=== PATIENT | male | born 1935 | race Caucasian/White ===

== ENCOUNTER 2018-12-20 16:53 | Observation (INO) | payer MEDICARE ==
[~2018-12-20] VITALS: Ht 177.8 cm; Wt 64.4 kg
--- OUTSIDE RECORDS SUMMARY | 2018-12-20 16:59 | XMS REPORT ---
Author Author [facility] Address Unknown Phone Unavailable Care Team Providers Care Patcher Helper Name Role Phone ADEKEVINNT CAITLYN Unavailable Unavailable JEAN ZAMUDIO Unavailable Unavailable DAQUAN RAMOS Unavailable Unavailable Monalisa MORATAYA Unavailable Unavailable SHA MANSFIELD Unavailable Unavailable USMAN PATTON Unavailable Unavailable JEAN CARDONA Unavailable Unavailable BROOKLYNN GALE Unavailable Unavailable INA SQUIRES Unavailable Unavailable KAREN MAGUIRE Unavailable Unavailable KARTIK DE LA TORRE Unavailable Unavailable PARAM GILES Unavailable Unavailable HERMELINDO POWER Unavailable Unavailable Problems This patient has no known problems. Allergies, Adverse Reactions, Alerts This patient has no known allergies or adverse reactions. Medications This patient has no known medications. Results Test Description Test Time Test Comments Text Results Atomic Results Result Comments HEPATIC FUNCTION PANEL 2018-12-17 15:37:00 TOTAL PROTEIN (BEAKER) (test ypmq=499) 7.3 gm/dL 6.0-8.3 ALBUMIN (BEAKER) (test ibui=2918) 3.3 g/dL 3.5-5.0 BILIRUBIN TOTAL (BEAKER) (test biie=098) 1.1 mg/dL 0.2-1.2 BILIRUBIN DIRECT (BEAKER) (test kqpx=138) 0.7 mg/dL 0.1-0.5 ALKALINE PHOSPHATASE (BEAKER) (test cwgg=534) 216 U/L 40-150 AST (SGOT) (BEAKER) (test ofpg=961) 216 U/L 5-34 ALT (SGPT) (BEAKER) (test fcok=111) 57 U/L 6-55 [id number] 15:37:00* Test Item Value Reference Range Comments AMYLASE (BEAKER) (test kxom=951) 39 U/L 25-125 [id number] 15:37:00* Test Item Value Reference Range Comments LIPASE (BEAKER) (test uchc=094) 59 U/L 8-78 B-TYPE NATRIURETIC FACTOR (BNP)2018-12-17 15:08:00* Test Item Value Reference Range Comments B-TYPE NATRIURETIC PEPTIDE (BEAKER) (test qcrh=051) 1199 pg/mL 0-100 BASIC METABOLIC [id number] 15:02:00* Test Item Value Reference Range Comments SODIUM (BEAKER) (test yxbm=745) 139 meq/L 136-145 POTASSIUM (BEAKER) (test rtpn=182) 3.2 meq/L 3.5-5.1 CHLORIDE (BEAKER) (test psfo=583) 95 meq/L 98-107 CO2 (BEAKER) (test ognf=741) 35 meq/L 22-29 BLOOD UREA NITROGEN (BEAKER) (test idfx=841) 34 mg/dL 7-21 CREATININE (BEAKER) (test dxda=856) 2.61 mg/dL 0.57-1.25 GLUCOSE RANDOM (BEAKER) (test iuka=340) 122 mg/dL 70-105 CALCIUM (BEAKER) (test lvjg=472) 9.0 mg/dL 8.4-10.2 EGFR (BEAKER) (test jmkd=9050) 24 mL/min/1.73 sq m ESTIMATED GFR IS NOT ACCURATE CREATININE CLEARANCE IN PREDICTING GLOMERULAR FILTRATION RATE. ESTIMATED GFR IS NOT APPLICABLE FOR DIALYSIS PATIENTS. PROTHROMBIN TIME/[id number] 14:47:00* Test Item Value Reference Range Comments PROTIME (BEAKER) (test cyum=023) 28.9 seconds 11.7-14.7 INR (BEAKER) (test mqbk=837) 2.7 <=5.9 RECOMMENDED COUMADIN/WARFARIN INR THERAPY RANGESSTANDARD DOSE: 2.0 - 3.0 Inclu charlie: PROPHYLAXIS for venous thrombosis, systemic embolization; TREATMENT for helena ous thrombosis and/or pulmonary embolus.HIGH RISK: Target INR is 2.5-3.5 for pat ients with mechanical heart valves.CBC W/PLT COUNT & AUTO [id number] 14:39:00* Test Item Value Reference Range Comments WHITE BLOOD CELL COUNT (BEAKER) (test rsjb=079) 6.2 K/ L 3.5-10.5 RED BLOOD CELL COUNT (BEAKER) (test wdzy=395) 4.25 M/ L 4.63-6.08 HEMOGLOBIN (BEAKER) (test shoy=408) 10.0 GM/DL 13.7-17.5 HEMATOCRIT (BEAKER) (test ntbh=142) 33.9 % 40.1-51.0 MEAN CORPUSCULAR VOLUME (BEAKER) (test qjjw=092) 79.8 fL 79.0-92.2 MEAN CORPUSCULAR HEMOGLOBIN (BEAKER) (test tkvx=980) 23.5 pg 25.7-32.2 MEAN CORPUSCULAR HEMOGLOBIN CONC (BEAKER) (test zkqm=331) 29.5 GM/DL 32.3-36.5 RED CELL DISTRIBUTION WIDTH (BEAKER) (test lzgz=572) 16.5 % 11.6-14.4 PLATELET COUNT (BEAKER) (test grbr=829) 172 K/CU MM 150-450 MEAN PLATELET VOLUME (BEAKER) (test bdkm=587) 10.0 fL 9.4-12.4 NUCLEATED RED BLOOD CELLS (BEAKER) (test dsjr=767) 0 /100 WBC 0-0 NEUTROPHILS RELATIVE PERCENT (BEAKER) (test noue=034) 79 % LYMPHOCYTES RELATIVE PERCENT (BEAKER) (test oubq=265) 12 % MONOCYTES RELATIVE PERCENT (BEAKER) (test fmrv=264) 9 % EOSINOPHILS RELATIVE PERCENT (BEAKER) (test quqh=631) 0 % BASOPHILS RELATIVE PERCENT (BEAKER) (test biga=040) 1 % NEUTROPHILS ABSOLUTE COUNT (BEAKER) (test mwft=835) 4.83 K/ L 1.78-5.38 LYMPHOCYTES ABSOLUTE COUNT (BEAKER) (test sasl=645) 0.72 K/ L 1.32-3.57 MONOCYTES ABSOLUTE COUNT (BEAKER) (test ygpn=428) 0.54 K/ L 0.30-0.82 EOSINOPHILS ABSOLUTE COUNT (BEAKER) (test knxs=034) 0.00 K/ L 0.04-0.54 BASOPHILS ABSOLUTE COUNT (BEAKER) (test csty=626) 0.04 K/ L 0.01-0.08 IMMATURE GRANULOCYTES-RELATIVE PERCENT (BEAKER) (test wmqq=2950) 0 % 0-1 PROTHROMBIN [id number] 03:46:00* Test Item Value Reference Range Comments PROTIME (BEAKER) (test sliy=622) 18.6 seconds 11.7-14.7 INR (BEAKER) (test wwvf=068) 1.6 <=5.9 RECOMMENDED COUMADIN/WARFARIN INR THERAPY RANGESSTANDARD DOSE: 2.0 - 3.0 Inclu charlie: PROPHYLAXIS for venous thrombosis, systemic embolization; TREATMENT for helena ous thrombosis and/or pulmonary embolus.HIGH RISK: Target INR is 2.5-3.5 for pat ients with mechanical heart valves.BASIC METABOLIC [id number] 03:39:00* Test Item Value Reference Range Comments SODIUM (BEAKER) (test ucsp=198) 135 meq/L 136-145 POTASSIUM (BEAKER) (test rfnk=488) 3.5 meq/L 3.5-5.1 CHLORIDE (BEAKER) (test mbkk=627) 100 meq/L 98-107 CO2 (BEAKER) (test bmri=902) 27 meq/L 22-29 BLOOD UREA NITROGEN (BEAKER) (test xhda=544) 39 mg/dL 7-21 CREATININE (BEAKER) (test hllg=808) 2.84 mg/dL 0.57-1.25 GLUCOSE RANDOM (BEAKER) (test rlmk=564) 140 mg/dL 70-105 CALCIUM (BEAKER) (test dwlc=392) 8.0 mg/dL 8.4-10.2 EGFR (BEAKER) (test nkjl=4529) 22 mL/min/1.73 sq m ESTIMATED GFR IS NOT ACCURATE CREATININE CLEARANCE IN PREDICTING GLOMERULAR FILTRATION RATE. ESTIMATED GFR IS NOT APPLICABLE FOR DIALYSIS PATIENTS. CBC W/PLT COUNT & AUTO [id number] 03:16:00* Test Item Value Reference Range Comments WHITE BLOOD CELL COUNT (BEAKER) (test zcdl=687) 5.2 K/ L 3.5-10.5 RED BLOOD CELL COUNT (BEAKER) (test klct=035) 3.62 M/ L 4.63-6.08 HEMOGLOBIN (BEAKER) (test ukon=627) 8.7 GM/DL 13.7-17.5 HEMATOCRIT (BEAKER) (test sbpc=624) 29.2 % 40.1-51.0 MEAN CORPUSCULAR VOLUME (BEAKER) (test uyhw=581) 80.7 fL 79.0-92.2 MEAN CORPUSCULAR HEMOGLOBIN (BEAKER) (test jlvi=848) 24.0 pg 25.7-32.2 MEAN CORPUSCULAR HEMOGLOBIN CONC (BEAKER) (test tmtv=103) 29.8 GM/DL 32.3-36.5 RED CELL DISTRIBUTION WIDTH (BEAKER) (test hubs=041) 16.7 % 11.6-14.4 PLATELET COUNT (BEAKER) (test ulua=297) 126 K/CU MM 150-450 MEAN PLATELET VOLUME (BEAKER) (test jfpu=865) 10.5 fL 9.4-12.4 NUCLEATED RED BLOOD CELLS (BEAKER) (test xuup=987) 0 /100 WBC 0-0 NEUTROPHILS RELATIVE PERCENT (BEAKER) (test mgab=247) 71 % LYMPHOCYTES RELATIVE PERCENT (BEAKER) (test iawl=716) 14 % MONOCYTES RELATIVE PERCENT (BEAKER) (test ptuw=875) 13 % EOSINOPHILS RELATIVE PERCENT (BEAKER) (test deqp=558) 0 % BASOPHILS RELATIVE PERCENT (BEAKER) (test blym=017) 1 % NEUTROPHILS ABSOLUTE COUNT (BEAKER) (test uwce=158) 3.74 K/ L 1.78-5.38 LYMPHOCYTES ABSOLUTE COUNT (BEAKER) (test eppx=182) 0.75 K/ L 1.32-3.57 MONOCYTES ABSOLUTE COUNT (BEAKER) (test rhhs=751) 0.70 K/ L 0.30-0.82 EOSINOPHILS ABSOLUTE COUNT (BEAKER) (test djzd=130) 0.00 K/ L 0.04-0.54 BASOPHILS ABSOLUTE COUNT (BEAKER) (test zfoh=772) 0.03 K/ L 0.01-0.08 IMMATURE GRANULOCYTES-RELATIVE PERCENT (BEAKER) (test sbkh=9768) 0 % 0-1 BASIC METABOLIC [id number] 06:06:00* Test Item Value Reference Range Comments SODIUM (BEAKER) (test lesh=863) 136 meq/L 136-145 POTASSIUM (BEAKER) (test fhyi=248) 3.6 meq/L 3.5-5.1 CHLORIDE (BEAKER) (test eyjo=359) 102 meq/L 98-107 CO2 (BEAKER) (test njxk=598) 25 meq/L 22-29 BLOOD UREA NITROGEN (BEAKER) (test hdsh=901) 38 mg/dL 7-21 CREATININE (BEAKER) (test icpl=303) 2.95 mg/dL 0.57-1.25 GLUCOSE RANDOM (BEAKER) (test uabu=755) 104 mg/dL 70-105 CALCIUM (BEAKER) (test wypp=353) 8.0 mg/dL 8.4-10.2 EGFR (BEAKER) (test dczj=3295) 21 mL/min/1.73 sq m ESTIMATED GFR IS NOT ACCURATE CREATININE CLEARANCE IN PREDICTING GLOMERULAR FILTRATION RATE. ESTIMATED GFR IS NOT APPLICABLE FOR DIALYSIS PATIENTS. PROTHROMBIN TIME/[id number] 05:58:00* Test Item Value Reference Range Comments PROTIME (BEAKER) (test luom=098) 21.5 seconds 11.7-14.7 INR (BEAKER) (test dzzk=379) 1.9 <=5.9 RECOMMENDED COUMADIN/WARFARIN INR THERAPY RANGESSTANDARD DOSE: 2.0 - 3.0 Inclu charlie: PROPHYLAXIS for venous thrombosis, systemic embolization; TREATMENT for helena ous thrombosis and/or pulmonary embolus.HIGH RISK: Target INR is 2.5-3.5 for pat ients with mechanical heart valves.CBC W/PLT COUNT & AUTO [id number] 05:51:00* Test Item Value Reference Range Comments WHITE BLOOD CELL COUNT (BEAKER) (test oqlb=883) 6.7 K/ L 3.5-10.5 RED BLOOD CELL COUNT (BEAKER) (test oeao=230) 3.51 M/ L 4.63-6.08 HEMOGLOBIN (BEAKER) (test rdno=326) 8.3 GM/DL 13.7-17.5 HEMATOCRIT (BEAKER) (test zuux=271) 27.9 % 40.1-51.0 MEAN CORPUSCULAR VOLUME (BEAKER) (test ewzn=997) 79.5 fL 79.0-92.2 MEAN CORPUSCULAR HEMOGLOBIN (BEAKER) (test moby=675) 23.6 pg 25.7-32.2 MEAN CORPUSCULAR HEMOGLOBIN CONC (BEAKER) (test qytw=876) 29.7 GM/DL 32.3-36.5 RED CELL DISTRIBUTION WIDTH (BEAKER) (test npcu=694) 16.7 % 11.6-14.4 PLATELET COUNT (BEAKER) (test oblo=244) 116 K/CU MM 150-450 MEAN PLATELET VOLUME (BEAKER) (test euka=927) 10.5 fL 9.4-12.4 NUCLEATED RED BLOOD CELLS (BEAKER) (test hqqk=567) 0 /100 WBC 0-0 NEUTROPHILS RELATIVE PERCENT (BEAKER) (test pqba=057) 70 % LYMPHOCYTES RELATIVE PERCENT (BEAKER) (test pzra=588) 13 % MONOCYTES RELATIVE PERCENT (BEAKER) (test ybpd=977) 17 % EOSINOPHILS RELATIVE PERCENT (BEAKER) (test gsyd=794) 0 % BASOPHILS RELATIVE PERCENT (BEAKER) (test hfki=556) 1 % NEUTROPHILS ABSOLUTE COUNT (BEAKER) (test eptd=287) 4.66 K/ L 1.78-5.38 LYMPHOCYTES ABSOLUTE COUNT (BEAKER) (test njip=202) 0.85 K/ L 1.32-3.57 MONOCYTES ABSOLUTE COUNT (BEAKER) (test iuxg=096) 1.10 K/ L 0.30-0.82 EOSINOPHILS ABSOLUTE COUNT (BEAKER) (test oiaz=074) 0.00 K/ L 0.04-0.54 BASOPHILS ABSOLUTE COUNT (BEAKER) (test ytlt=748) 0.03 K/ L 0.01-0.08 IMMATURE GRANULOCYTES-RELATIVE PERCENT (BEAKER) (test faum=9875) 0 % 0-1 CBC W/PLT COUNT & AUTO [id number] 06:31:00* Test Item Value Reference Range Comments WHITE BLOOD CELL COUNT (BEAKER) (test ngmh=847) 5.3 K/ L 3.5-10.5 RED BLOOD CELL COUNT (BEAKER) (test ydme=774) 3.31 M/ L 4.63-6.08 HEMOGLOBIN (BEAKER) (test ftjb=536) 8.0 GM/DL 13.7-17.5 HEMATOCRIT (BEAKER) (test ecyr=820) 27.1 % 40.1-51.0 MEAN CORPUSCULAR VOLUME (BEAKER) (test bsvu=117) 81.9 fL 79.0-92.2 MEAN CORPUSCULAR HEMOGLOBIN (BEAKER) (test phqy=419) 24.2 pg 25.7-32.2 MEAN CORPUSCULAR HEMOGLOBIN CONC (BEAKER) (test xklw=457) 29.5 GM/DL 32.3-36.5 RED CELL DISTRIBUTION WIDTH (BEAKER) (test nhtt=489) 17.0 % 11.6-14.4 PLATELET COUNT (BEAKER) (test ydlz=330) 115 K/CU MM 150-450 MEAN PLATELET VOLUME (BEAKER) (test oshu=008) 10.3 fL 9.4-12.4 NUCLEATED RED BLOOD CELLS (BEAKER) (test acdn=710) 0 /100 WBC 0-0 NEUTROPHILS RELATIVE PERCENT (BEAKER) (test zgcn=547) 70 % LYMPHOCYTES RELATIVE PERCENT (BEAKER) (test bsdd=507) 12 % MONOCYTES RELATIVE PERCENT (BEAKER) (test xazc=879) 17 % EOSINOPHILS RELATIVE PERCENT (BEAKER) (test vmgj=864) 0 % BASOPHILS RELATIVE PERCENT (BEAKER) (test vgkb=137) 1 % NEUTROPHILS ABSOLUTE COUNT (BEAKER) (test pbzc=443) 3.73 K/ L 1.78-5.38 LYMPHOCYTES ABSOLUTE COUNT (BEAKER) (test xeil=259) 0.62 K/ L 1.32-3.57 MONOCYTES ABSOLUTE COUNT (BEAKER) (test raot=990) 0.88 K/ L 0.30-0.82 EOSINOPHILS ABSOLUTE COUNT (BEAKER) (test fkaj=026) 0.01 K/ L 0.04-0.54 BASOPHILS ABSOLUTE COUNT (BEAKER) (test sgbc=914) 0.05 K/ L 0.01-0.08 IMMATURE GRANULOCYTES-RELATIVE PERCENT (BEAKER) (test dwwo=4892) 0 % 0-1 BASIC METABOLIC [id number] 06:07:00* Test Item Value Reference Range Comments SODIUM (BEAKER) (test rnkx=942) 136 meq/L 136-145 POTASSIUM (BEAKER) (test ogjp=543) 3.3 meq/L 3.5-5.1 CHLORIDE (BEAKER) (test upza=836) 104 meq/L 98-107 CO2 (BEAKER) (test znqe=467) 24 meq/L 22-29 BLOOD UREA NITROGEN (BEAKER) (test mozt=686) 41 mg/dL 7-21 CREATININE (BEAKER) (test cial=657) 3.30 mg/dL 0.57-1.25 GLUCOSE RANDOM (BEAKER) (test ment=766) 95 mg/dL 70-105 CALCIUM (BEAKER) (test ihgv=552) 7.9 mg/dL 8.4-10.2 EGFR (BEAKER) (test mduz=1938) 18 mL/min/1.73 sq m ESTIMATED GFR IS NOT ACCURATE CREATININE CLEARANCE IN PREDICTING GLOMERULAR FILTRATION RATE. ESTIMATED GFR IS NOT APPLICABLE FOR DIALYSIS PATIENTS. [id number] 06:06:00* Test Item Value Reference Range Comments MAGNESIUM (BEAKER) (test ktln=021) 2.1 mg/dL 1.6-2.6 PROTHROMBIN TIME/[id number] 05:58:00* Test Item Value Reference Range Comments PROTIME (BEAKER) (test ygij=539) 22.2 seconds 11.7-14.7 INR (BEAKER) (test xzsr=547) 2.0 <=5.9 RECOMMENDED COUMADIN/WARFARIN INR THERAPY RANGESSTANDARD DOSE: 2.0 - 3.0 Inclu charlie: PROPHYLAXIS for venous thrombosis, systemic embolization; TREATMENT for helena ous thrombosis and/or pulmonary embolus.HIGH RISK: Target INR is 2.5-3.5 for pat ients with mechanical heart valves.BASIC METABOLIC [id number] 06:58:00* Test Item Value Reference Range Comments SODIUM (BEAKER) (test ipti=855) 136 meq/L 136-145 POTASSIUM (BEAKER) (test vtvz=630) 3.7 meq/L 3.5-5.1 CHLORIDE (BEAKER) (test aqbr=111) 104 meq/L 98-107 CO2 (BEAKER) (test mqgw=790) 22 meq/L 22-29 BLOOD UREA NITROGEN (BEAKER) (test zrgn=850) 44 mg/dL 7-21 CREATININE (BEAKER) (test incd=144) 3.73 mg/dL 0.57-1.25 GLUCOSE RANDOM (BEAKER) (test worz=731) 104 mg/dL 70-105 CALCIUM (BEAKER) (test aysl=789) 8.1 mg/dL 8.4-10.2 EGFR (BEAKER) (test fsod=6129) 16 mL/min/1.73 sq m ESTIMATED GFR IS NOT ACCURATE CREATININE CLEARANCE IN PREDICTING GLOMERULAR FILTRATION RATE. ESTIMATED GFR IS NOT APPLICABLE FOR DIALYSIS PATIENTS. [id number] 06:52:00* Test Item Value Reference Range Comments MAGNESIUM (BEAKER) (test sdzi=894) 2.3 mg/dL 1.6-2.6 PROTHROMBIN [id number] 06:47:00* Test Item Value Reference Range Comments PROTIME (BEAKER) (test dumc=188) 25.4 seconds 11.7-14.7 INR (BEAKER) (test ulmf=405) 2.3 <=5.9 RECOMMENDED COUMADIN/WARFARIN INR THERAPY RANGESSTANDARD DOSE: 2.0 - 3.0 Inclu charlie: PROPHYLAXIS for venous thrombosis, systemic embolization; TREATMENT for helena ous thrombosis and/or pulmonary embolus.HIGH RISK: Target INR is 2.5-3.5 for pat ients with mechanical heart valves.CBC W/PLT COUNT & AUTO [id number] 06:24:00* Test Item Value Reference Range Comments WHITE BLOOD CELL COUNT (BEAKER) (test zbqo=968) 5.1 K/ L 3.5-10.5 RED BLOOD CELL COUNT (BEAKER) (test elnb=276) 3.35 M/ L 4.63-6.08 HEMOGLOBIN (BEAKER) (test eajq=076) 7.9 GM/DL 13.7-17.5 HEMATOCRIT (BEAKER) (test sqec=649) 27.1 % 40.1-51.0 MEAN CORPUSCULAR VOLUME (BEAKER) (test rmnp=476) 80.9 fL 79.0-92.2 MEAN CORPUSCULAR HEMOGLOBIN (BEAKER) (test fije=743) 23.6 pg 25.7-32.2 MEAN CORPUSCULAR HEMOGLOBIN CONC (BEAKER) (test nndg=539) 29.2 GM/DL 32.3-36.5 RED CELL DISTRIBUTION WIDTH (BEAKER) (test mafj=890) 17.0 % 11.6-14.4 PLATELET COUNT (BEAKER) (test siza=998) 125 K/CU MM 150-450 MEAN PLATELET VOLUME (BEAKER) (test dmuk=003) 10.7 fL 9.4-12.4 NUCLEATED RED BLOOD CELLS (BEAKER) (test snvx=542) 0 /100 WBC 0-0 NEUTROPHILS RELATIVE PERCENT (BEAKER) (test sprg=698) 69 % LYMPHOCYTES RELATIVE PERCENT (BEAKER) (test oitw=182) 14 % MONOCYTES RELATIVE PERCENT (BEAKER) (test hcee=341) 16 % EOSINOPHILS RELATIVE PERCENT (BEAKER) (test wbgk=450) 0 % BASOPHILS RELATIVE PERCENT (BEAKER) (test kxge=446) 1 % NEUTROPHILS ABSOLUTE COUNT (BEAKER) (test clmk=014) 3.52 K/ L 1.78-5.38 LYMPHOCYTES ABSOLUTE COUNT (BEAKER) (test jqez=953) 0.71 K/ L 1.32-3.57 MONOCYTES ABSOLUTE COUNT (BEAKER) (test pvqq=076) 0.83 K/ L 0.30-0.82 EOSINOPHILS ABSOLUTE COUNT (BEAKER) (test ywxz=553) 0.00 K/ L 0.04-0.54 BASOPHILS ABSOLUTE COUNT (BEAKER) (test jeoo=659) 0.03 K/ L 0.01-0.08 IMMATURE GRANULOCYTES-RELATIVE PERCENT (BEAKER) (test ioqn=0329) 1 % 0-1 BASIC METABOLIC [id number] 05:00:00* Test Item Value Reference Range Comments SODIUM (BEAKER) (test utyn=301) 136 meq/L 136-145 POTASSIUM (BEAKER) (test cdbr=076) 3.7 meq/L 3.5-5.1 CHLORIDE (BEAKER) (test koet=382) 105 meq/L 98-107 CO2 (BEAKER) (test vsfl=900) 23 meq/L 22-29 BLOOD UREA NITROGEN (BEAKER) (test hgol=037) 47 mg/dL 7-21 CREATININE (BEAKER) (test heum=099) 4.02 mg/dL 0.57-1.25 GLUCOSE RANDOM (BEAKER) (test aohe=235) 96 mg/dL 70-105 CALCIUM (BEAKER) (test dkwe=031) 8.2 mg/dL 8.4-10.2 EGFR (BEAKER) (test qlsv=0260) 14 mL/min/1.73 sq m ESTIMATED GFR IS NOT ACCURATE CREATININE CLEARANCE IN PREDICTING GLOMERULAR FILTRATION RATE. ESTIMATED GFR IS NOT APPLICABLE FOR DIALYSIS PATIENTS. [id number] 04:59:00* Test Item Value Reference Range Comments MAGNESIUM (BEAKER) (test lkrt=913) 2.3 mg/dL 1.6-2.6 PROTHROMBIN [id number] 04:18:00* Test Item Value Reference Range Comments PROTIME (BEAKER) (test fbvr=399) 34.5 seconds 11.7-14.7 INR (BEAKER) (test pssn=296) 3.4 <=5.9 RECOMMENDED COUMADIN/WARFARIN INR THERAPY RANGESSTANDARD DOSE: 2.0 - 3.0 Inclu charlie: PROPHYLAXIS for venous thrombosis, systemic embolization; TREATMENT for helena ous thrombosis and/or pulmonary embolus.HIGH RISK: Target INR is 2.5-3.5 for pat ients with mechanical heart valves.CBC W/PLT COUNT & AUTO [id number] 04:11:00* Test Item Value Reference Range Comments WHITE BLOOD CELL COUNT (BEAKER) (test bxlv=485) 5.2 K/ L 3.5-10.5 RED BLOOD CELL COUNT (BEAKER) (test lvhq=118) 3.19 M/ L 4.63-6.08 HEMOGLOBIN (BEAKER) (test ohqy=468) 7.7 GM/DL 13.7-17.5 HEMATOCRIT (BEAKER) (test mjhg=350) 25.6 % 40.1-51.0 MEAN CORPUSCULAR VOLUME (BEAKER) (test nhim=481) 80.3 fL 79.0-92.2 MEAN CORPUSCULAR HEMOGLOBIN (BEAKER) (test izrl=040) 24.1 pg 25.7-32.2 MEAN CORPUSCULAR HEMOGLOBIN CONC (BEAKER) (test uqps=363) 30.1 GM/DL 32.3-36.5 RED CELL DISTRIBUTION WIDTH (BEAKER) (test gzzv=573) 17.0 % 11.6-14.4 PLATELET COUNT (BEAKER) (test cfri=602) 128 K/CU MM 150-450 MEAN PLATELET VOLUME (BEAKER) (test iqng=290) 10.1 fL 9.4-12.4 NUCLEATED RED BLOOD CELLS (BEAKER) (test bpik=624) 0 /100 WBC 0-0 NEUTROPHILS RELATIVE PERCENT (BEAKER) (test xfzv=551) 73 % LYMPHOCYTES RELATIVE PERCENT (BEAKER) (test hbeh=001) 12 % MONOCYTES RELATIVE PERCENT (BEAKER) (test kwsg=154) 14 % EOSINOPHILS RELATIVE PERCENT (BEAKER) (test fqup=123) 0 % BASOPHILS RELATIVE PERCENT (BEAKER) (test tbvt=201) 1 % NEUTROPHILS ABSOLUTE COUNT (BEAKER) (test ncdr=464) 3.77 K/ L 1.78-5.38 LYMPHOCYTES ABSOLUTE COUNT (BEAKER) (test gmda=263) 0.63 K/ L 1.32-3.57 MONOCYTES ABSOLUTE COUNT (BEAKER) (test gzwh=947) 0.70 K/ L 0.30-0.82 EOSINOPHILS ABSOLUTE COUNT (BEAKER) (test ersm=988) 0.00 K/ L 0.04-0.54 BASOPHILS ABSOLUTE COUNT (BEAKER) (test zyew=881) 0.05 K/ L 0.01-0.08 IMMATURE GRANULOCYTES-RELATIVE PERCENT (BEAKER) (test ckkj=6946) 0 % 0-1 URINALYSIS W/ REFLEX URINE [id number] 07:12:00* Test Item Value Reference Range Comments COLOR (BEAKER) (test yzaj=987) [place] CLARITY (BEAKER) (test qpxc=861) Hazy SPECIFIC GRAVITY UA (BEAKER) (test suhq=299) 1.008 1.001-1.035 PH UA (BEAKER) (test fxhw=985) 5.5 5.0-8.0 PROTEIN UA (BEAKER) (test amhm=512) 50 mg/dL Negative GLUCOSE UA (BEAKER) (test pxqn=012) Negative Negative KETONES UA (BEAKER) (test aosw=885) Negative Negative BILIRUBIN UA (BEAKER) (test hias=590) Negative Negative BLOOD UA (BEAKER) (test bibx=403) Large Negative NITRITE UA (BEAKER) (test ziuy=082) Negative Negative LEUKOCYTE ESTERASE UA (BEAKER) (test ggni=783) Large Negative UROBILINOGEN UA (BEAKER) (test eauj=798) 0.2 mg/dL 0.2-1.0 RBC UA (BEAKER) (test ndfa=249) > /HPF WBC UA (BEAKER) (test spja=793) 40 /HPF BACTERIA (BEAKER) (test arlc=184) Few MUCUS (BEAKER) (test upep=6457) Occasional HYALINE CASTS (BEAKER) (test zpwr=740) 23 /LPF SOURCE(BEAKER) (test ixii=7499) B-TYPE NATRIURETIC FACTOR (BNP)2018-12-06 07:00:00* Test Item Value Reference Range Comments B-TYPE NATRIURETIC PEPTIDE (BEAKER) (test ynrg=312) 1534 pg/mL 0-100 BASIC METABOLIC [id number] 06:28:00* Test Item Value Reference Range Comments SODIUM (BEAKER) (test xiwd=086) 135 meq/L 136-145 POTASSIUM (BEAKER) (test jfsr=055) 4.5 meq/L 3.5-5.1 CHLORIDE (BEAKER) (test bgxi=540) 104 meq/L 98-107 CO2 (BEAKER) (test jweq=471) 22 meq/L 22-29 BLOOD UREA NITROGEN (BEAKER) (test fqhq=085) 47 mg/dL 7-21 CREATININE (BEAKER) (test iytm=904) 4.34 mg/dL 0.57-1.25 GLUCOSE RANDOM (BEAKER) (test tnuv=124) 111 mg/dL 70-105 CALCIUM (BEAKER) (test elyy=008) 8.7 mg/dL 8.4-10.2 EGFR (BEAKER) (test kdlc=0678) 13 mL/min/1.73 sq m ESTIMATED GFR IS NOT ACCURATE CREATININE CLEARANCE IN PREDICTING GLOMERULAR FILTRATION RATE. ESTIMATED GFR IS NOT APPLICABLE FOR DIALYSIS PATIENTS. CBC W/PLT COUNT & AUTO [id number] 06:22:00* Test Item Value Reference Range Comments WHITE BLOOD CELL COUNT (BEAKER) (test fkdk=666) 8.9 K/ L 3.5-10.5 RED BLOOD CELL COUNT (BEAKER) (test ntsi=210) 3.39 M/ L 4.63-6.08 HEMOGLOBIN (BEAKER) (test juxx=017) 8.1 GM/DL 13.7-17.5 HEMATOCRIT (BEAKER) (test laka=731) 27.6 % 40.1-51.0 MEAN CORPUSCULAR VOLUME (BEAKER) (test gnbt=411) 81.4 fL 79.0-92.2 MEAN CORPUSCULAR HEMOGLOBIN (BEAKER) (test fgoz=248) 23.9 pg 25.7-32.2 MEAN CORPUSCULAR HEMOGLOBIN CONC (BEAKER) (test kidz=727) 29.3 GM/DL 32.3-36.5 RED CELL DISTRIBUTION WIDTH (BEAKER) (test mpcj=334) 17.0 % 11.6-14.4 PLATELET COUNT (BEAKER) (test dwzb=571) 161 K/CU MM 150-450 MEAN PLATELET VOLUME (BEAKER) (test rpzv=975) 10.1 fL 9.4-12.4 NUCLEATED RED BLOOD CELLS (BEAKER) (test vkch=653) 0 /100 WBC 0-0 NEUTROPHILS RELATIVE PERCENT (BEAKER) (test gouo=026) 80 % LYMPHOCYTES RELATIVE PERCENT (BEAKER) (test ysgx=552) 7 % MONOCYTES RELATIVE PERCENT (BEAKER) (test nojg=343) 11 % EOSINOPHILS RELATIVE PERCENT (BEAKER) (test kmlp=691) 0 % BASOPHILS RELATIVE PERCENT (BEAKER) (test qpyk=065) 1 % NEUTROPHILS ABSOLUTE COUNT (BEAKER) (test yahk=230) 7.11 K/ L 1.78-5.38 LYMPHOCYTES ABSOLUTE COUNT (BEAKER) (test jggf=716) 0.64 K/ L 1.32-3.57 MONOCYTES ABSOLUTE COUNT (BEAKER) (test rcqc=400) 1.01 K/ L 0.30-0.82 EOSINOPHILS ABSOLUTE COUNT (BEAKER) (test niwz=915) 0.00 K/ L 0.04-0.54 BASOPHILS ABSOLUTE COUNT (BEAKER) (test yawa=711) 0.06 K/ L 0.01-0.08 IMMATURE GRANULOCYTES-RELATIVE PERCENT (BEAKER) (test xbae=1320) 0 % 0-1 [id number] 06:21:00* Test Item Value Reference Range Comments PROTIME (BEAKER) (test qalv=941) 35.4 seconds 11.7-14.7 INR (BEAKER) (test boro=159) 3.6 <=5.9 PARTIAL THROMBOPLASTIN TIME (BEAKER) (test bciw=039) 61.4 seconds 22.5-36.0 RECOMMENDED COUMADIN/WARFARIN INR THERAPY RANGESSTANDARD DOSE: 2.0 - 3.0 Inclu charlie: PROPHYLAXIS for venous thrombosis, systemic embolization; TREATMENT for helena ous thrombosis and/or pulmonary embolus.HIGH RISK: Target INR is 2.5-3.5 for pat ients with mechanical heart valves.RAD, CHEST, 1 VIEW, NON [id number] 06:20:00H- Dr. Coe/ Lizzette Mejias RNReason for exam:->sobReason for exam:-> EDEMAShould this be performed at the bedside?->YesFINAL REPORT RAD, CHEST, 1 VIEW, NON DEPT INDICATION: sobEDEMA COMPARISON: Prior day's exam FINDINGS: Portable frontal view of the chest. IMPRESSION: Support Lines: Pacer and sternotomy wires. Lungs and pleura: Retrocardiac atelectasis and trace right effusion. No pneumothorax.Heart and mediastinum: Stable contours. Additional findings: None. Signed: Ifeoma Joiner MDReport Verified Date/Time: 12/06/2018 06:20:17 Reading Location: [facility] C013V Neuro Reading Room D [id number] 01:01:00* Test Item Value Reference Range Comments CULTURE (BEAKER) (test dkbd=7499) No growth in 5 days BLOOD [id number] 01:01:00* Test Item Value Reference Range Comments CULTURE (BEAKER) (test pquv=7869) No growth in 5 days B-TYPE NATRIURETIC FACTOR (BNP)2018-12-03 13:16:00* Test Item Value Reference Range Comments B-TYPE NATRIURETIC PEPTIDE (BEAKER) (test khzb=980) 1241 pg/mL 0-100 BASIC METABOLIC [id number] 13:09:00* Test Item Value Reference Range Comments SODIUM (BEAKER) (test mgvf=664) 137 meq/L 136-145 POTASSIUM (BEAKER) (test ovsj=657) 4.8 meq/L 3.5-5.1 CHLORIDE (BEAKER) (test apri=525) 106 meq/L 98-107 CO2 (BEAKER) (test hbeh=950) 22 meq/L 22-29 BLOOD UREA NITROGEN (BEAKER) (test isjk=847) 42 mg/dL 7-21 CREATININE (BEAKER) (test qwpu=334) 3.62 mg/dL 0.57-1.25 GLUCOSE RANDOM (BEAKER) (test cmeq=535) 141 mg/dL 70-105 CALCIUM (BEAKER) (test emsg=977) 8.9 mg/dL 8.4-10.2 EGFR (BEAKER) (test hnhd=2306) 16 mL/min/1.73 sq m ESTIMATED GFR IS NOT ACCURATE CREATININE CLEARANCE IN PREDICTING GLOMERULAR FILTRATION RATE. ESTIMATED GFR IS NOT APPLICABLE FOR DIALYSIS PATIENTS. PROTHROMBIN TIME/[id number] 13:00:00* Test Item Value Reference Range Comments PROTIME (BEAKER) (test lcmg=737) 29.6 seconds 11.7-14.7 INR (BEAKER) (test ixlp=001) 2.8 <=5.9 RECOMMENDED COUMADIN/WARFARIN INR THERAPY RANGESSTANDARD DOSE: 2.0 - 3.0 Inclu charlie: PROPHYLAXIS for venous thrombosis, systemic embolization; TREATMENT for helena ous thrombosis and/or pulmonary embolus.HIGH RISK: Target INR is 2.5-3.5 for pat ients with mechanical heart valves.CBC W/PLT COUNT & AUTO [id number] 12:52:00* Test Item Value Reference Range Comments WHITE BLOOD CELL COUNT (BEAKER) (test rejm=960) 6.4 K/ L 3.5-10.5 RED BLOOD CELL COUNT (BEAKER) (test vrqo=560) 3.64 M/ L 4.63-6.08 HEMOGLOBIN (BEAKER) (test vtac=523) 8.7 GM/DL 13.7-17.5 HEMATOCRIT (BEAKER) (test csyn=090) 30.3 % 40.1-51.0 MEAN CORPUSCULAR VOLUME (BEAKER) (test pbki=605) 83.2 fL 79.0-92.2 MEAN CORPUSCULAR HEMOGLOBIN (BEAKER) (test jynj=523) 23.9 pg 25.7-32.2 MEAN CORPUSCULAR HEMOGLOBIN CONC (BEAKER) (test rrfa=428) 28.7 GM/DL 32.3-36.5 RED CELL DISTRIBUTION WIDTH (BEAKER) (test onno=868) 16.3 % 11.6-14.4 PLATELET COUNT (BEAKER) (test lpuf=752) 200 K/CU MM 150-450 MEAN PLATELET VOLUME (BEAKER) (test dwbh=513) 9.6 fL 9.4-12.4 NUCLEATED RED BLOOD CELLS (BEAKER) (test zuyv=644) 0 /100 WBC 0-0 NEUTROPHILS RELATIVE PERCENT (BEAKER) (test jygn=584) 78 % LYMPHOCYTES RELATIVE PERCENT (BEAKER) (test yphk=587) 10 % MONOCYTES RELATIVE PERCENT (BEAKER) (test jdmi=629) 11 % EOSINOPHILS RELATIVE PERCENT (BEAKER) (test cicy=338) 0 % BASOPHILS RELATIVE PERCENT (BEAKER) (test wfhn=381) 1 % NEUTROPHILS ABSOLUTE COUNT (BEAKER) (test sflp=249) 4.96 K/ L 1.78-5.38 LYMPHOCYTES ABSOLUTE COUNT (BEAKER) (test euvp=182) 0.64 K/ L 1.32-3.57 MONOCYTES ABSOLUTE COUNT (BEAKER) (test ieyu=234) 0.68 K/ L 0.30-0.82 EOSINOPHILS ABSOLUTE COUNT (BEAKER) (test kcgn=814) 0.00 K/ L 0.04-0.54 BASOPHILS ABSOLUTE COUNT (BEAKER) (test oqdw=787) 0.04 K/ L 0.01-0.08 IMMATURE GRANULOCYTES-RELATIVE PERCENT (BEAKER) (test rlth=0286) 1 % 0-1 HEPATIC FUNCTION [id number] 20:36:00* Test Item Value Reference Range Comments TOTAL PROTEIN (BEAKER) (test fchp=345) 7.0 gm/dL 6.0-8.3 ALBUMIN (BEAKER) (test sflg=3657) 3.4 g/dL 3.5-5.0 BILIRUBIN TOTAL (BEAKER) (test nvqb=994) 0.5 mg/dL 0.2-1.2 BILIRUBIN DIRECT (BEAKER) (test huik=051) 0.3 mg/dL 0.1-0.5 ALKALINE PHOSPHATASE (BEAKER) (test idgq=615) 130 U/L 40-150 AST (SGOT) (BEAKER) (test luqe=653) 17 U/L 5-34 ALT (SGPT) (BEAKER) (test bjvi=165) 9 U/L 6-55 BASIC METABOLIC [id number] 20:36:00* Test Item Value Reference Range Comments SODIUM (BEAKER) (test khyh=936) 137 meq/L 136-145 POTASSIUM (BEAKER) (test dchq=935) 4.3 meq/L 3.5-5.1 CHLORIDE (BEAKER) (test bcgu=919) 106 meq/L 98-107 CO2 (BEAKER) (test xcsn=961) 21 meq/L 22-29 BLOOD UREA NITROGEN (BEAKER) (test bvec=559) 45 mg/dL 7-21 CREATININE (BEAKER) (test xukw=754) 3.31 mg/dL 0.57-1.25 GLUCOSE RANDOM (BEAKER) (test wagt=667) 146 mg/dL 70-105 CALCIUM (BEAKER) (test azly=709) 8.6 mg/dL 8.4-10.2 EGFR (BEAKER) (test kkgs=3558) 18 mL/min/1.73 sq m ESTIMATED GFR IS NOT ACCURATE CREATININE CLEARANCE IN PREDICTING GLOMERULAR FILTRATION RATE. ESTIMATED GFR IS NOT APPLICABLE FOR DIALYSIS PATIENTS. LACTIC ACID, VENOUS, WHOLE [id number] 20:31:00* Test Item Value Reference Range Comments LACTATE BLOOD VENOUS (2) (BEAKER) (test qvcu=9040) 1.2 mmol/L 0.5-2.2 PROTHROMBIN [id number] 20:30:00* Test Item Value Reference Range Comments PROTIME (BEAKER) (test qash=886) 27.8 seconds 11.7-14.7 INR (BEAKER) (test ccox=189) 2.6 <=5.9 RECOMMENDED COUMADIN/WARFARIN INR THERAPY RANGESSTANDARD DOSE: 2.0 - 3.0 Inclu charlie: PROPHYLAXIS for venous thrombosis, systemic embolization; TREATMENT for helena ous thrombosis and/or pulmonary embolus.HIGH RISK: Target INR is 2.5-3.5 for pat ients with mechanical heart valves.CBC W/PLT COUNT & AUTO [id number] 20:25:00* Test Item Value Reference Range Comments WHITE BLOOD CELL COUNT (BEAKER) (test zqka=168) 6.5 K/ L 3.5-10.5 RED BLOOD CELL COUNT (BEAKER) (test ioti=144) 3.46 M/ L 4.63-6.08 HEMOGLOBIN (BEAKER) (test fguv=115) 8.2 GM/DL 13.7-17.5 HEMATOCRIT (BEAKER) (test gbht=011) 28.7 % 40.1-51.0 MEAN CORPUSCULAR VOLUME (BEAKER) (test cntv=483) 82.9 fL 79.0-92.2 MEAN CORPUSCULAR HEMOGLOBIN (BEAKER) (test ydkr=243) 23.7 pg 25.7-32.2 MEAN CORPUSCULAR HEMOGLOBIN CONC (BEAKER) (test uvly=541) 28.6 GM/DL 32.3-36.5 RED CELL DISTRIBUTION WIDTH (BEAKER) (test quxt=488) 15.9 % 11.6-14.4 PLATELET COUNT (BEAKER) (test ssrd=351) 206 K/CU MM 150-450 MEAN PLATELET VOLUME (BEAKER) (test mjvd=954) 9.7 fL 9.4-12.4 NUCLEATED RED BLOOD CELLS (BEAKER) (test tsua=485) 0 /100 WBC 0-0 NEUTROPHILS RELATIVE PERCENT (BEAKER) (test guif=848) 79 % LYMPHOCYTES RELATIVE PERCENT (BEAKER) (test jami=690) 9 % MONOCYTES RELATIVE PERCENT (BEAKER) (test reik=058) 11 % EOSINOPHILS RELATIVE PERCENT (BEAKER) (test bwhw=254) 0 % BASOPHILS RELATIVE PERCENT (BEAKER) (test ggoh=116) 1 % NEUTROPHILS ABSOLUTE COUNT (BEAKER) (test qnap=649) 5.16 K/ L 1.78-5.38 LYMPHOCYTES ABSOLUTE COUNT (BEAKER) (test vzrd=776) 0.57 K/ L 1.32-3.57 MONOCYTES ABSOLUTE COUNT (BEAKER) (test mxnv=118) 0.73 K/ L 0.30-0.82 EOSINOPHILS ABSOLUTE COUNT (BEAKER) (test ptsx=757) 0.00 K/ L 0.04-0.54 BASOPHILS ABSOLUTE COUNT (BEAKER) (test lvld=095) 0.03 K/ L 0.01-0.08 IMMATURE GRANULOCYTES-RELATIVE PERCENT (BEAKER) (test rfwh=9990) 1 % 0-1 URINALYSIS W/ REFLEX URINE [id number] 20:17:00* Test Item Value Reference Range Comments COLOR (BEAKER) (test ktil=169) Red CLARITY (BEAKER) (test matg=341) Cloudy SPECIFIC GRAVITY UA (BEAKER) (test wgld=109) 1.012 1.001-1.035 PH UA (BEAKER) (test fcrb=683) 6.0 5.0-8.0 PROTEIN UA (BEAKER) (test pqog=566) 70 mg/dL Negative GLUCOSE UA (BEAKER) (test hmpz=444) Negative Negative KETONES UA (BEAKER) (test gzsx=564) Negative Negative BILIRUBIN UA (BEAKER) (test nizg=388) Negative Negative BLOOD UA (BEAKER) (test fpzc=851) Large Negative NITRITE UA (BEAKER) (test fwlv=442) Negative Negative LEUKOCYTE ESTERASE UA (BEAKER) (test vhos=045) Large Negative UROBILINOGEN UA (BEAKER) (test axef=434) 0.2 mg/dL 0.2-1.0 RBC UA (BEAKER) (test xmmh=427) > /HPF WBC UA (BEAKER) (test jgdz=433) 134 /HPF BACTERIA (BEAKER) (test kkbq=094) Many YEAST (BEAKER) (test mvsv=8214) Many SOURCE(BEAKER) (test mibv=2979) Urine, Gonzalez BASIC METABOLIC [id number] 06:22:00* Test Item Value Reference Range Comments SODIUM (BEAKER) (test utxx=896) 131 meq/L 136-145 POTASSIUM (BEAKER) (test psxh=378) 4.2 meq/L 3.5-5.1 CHLORIDE (BEAKER) (test knnj=270) 99 meq/L 98-107 CO2 (BEAKER) (test xwoy=068) 23 meq/L 22-29 BLOOD UREA NITROGEN (BEAKER) (test brrp=537) 50 mg/dL 7-21 CREATININE (BEAKER) (test oekf=254) 2.67 mg/dL 0.57-1.25 GLUCOSE RANDOM (BEAKER) (test phfr=293) 100 mg/dL 70-105 CALCIUM (BEAKER) (test bsce=047) 8.2 mg/dL 8.4-10.2 EGFR (BEAKER) (test amxd=3306) 23 mL/min/1.73 sq m ESTIMATED GFR IS NOT ACCURATE CREATININE CLEARANCE IN PREDICTING GLOMERULAR FILTRATION RATE. ESTIMATED GFR IS NOT APPLICABLE FOR DIALYSIS PATIENTS. [id number] 06:20:00* Test Item Value Reference Range Comments MAGNESIUM (BEAKER) (test uvmr=158) 2.2 mg/dL 1.6-2.6 PROTHROMBIN TIME/[id number] 04:27:00* Test Item Value Reference Range Comments PROTIME (BEAKER) (test nuqy=173) 20.5 seconds 11.7-14.7 INR (BEAKER) (test gzym=262) 1.7 <=5.9 RECOMMENDED COUMADIN/WARFARIN INR THERAPY RANGESSTANDARD DOSE: 2.0 - 3.0 Inclu charlie: PROPHYLAXIS for venous thrombosis, systemic embolization; TREATMENT for helena ous thrombosis and/or pulmonary embolus.HIGH RISK: Target INR is 2.5-3.5 for pat ients with mechanical heart valves.CBC W/PLT COUNT & AUTO [id number] 04:19:00* Test Item Value Reference Range Comments WHITE BLOOD CELL COUNT (BEAKER) (test zxqh=229) 4.6 K/ L 3.5-10.5 RED BLOOD CELL COUNT (BEAKER) (test hsbo=514) 3.53 M/ L 4.63-6.08 HEMOGLOBIN (BEAKER) (test fphv=941) 8.4 GM/DL 13.7-17.5 HEMATOCRIT (BEAKER) (test fyix=462) 28.1 % 40.1-51.0 MEAN CORPUSCULAR VOLUME (BEAKER) (test nmfn=314) 79.6 fL 79.0-92.2 MEAN CORPUSCULAR HEMOGLOBIN (BEAKER) (test aypt=304) 23.8 pg 25.7-32.2 MEAN CORPUSCULAR HEMOGLOBIN CONC (BEAKER) (test strs=304) 29.9 GM/DL 32.3-36.5 RED CELL DISTRIBUTION WIDTH (BEAKER) (test kspg=445) 14.5 % 11.6-14.4 PLATELET COUNT (BEAKER) (test zwqm=132) 133 K/CU MM 150-450 MEAN PLATELET VOLUME (BEAKER) (test xkhd=343) 9.6 fL 9.4-12.4 NUCLEATED RED BLOOD CELLS (BEAKER) (test apwr=027) 0 /100 WBC 0-0 NEUTROPHILS RELATIVE PERCENT (BEAKER) (test dvap=544) 71 % LYMPHOCYTES RELATIVE PERCENT (BEAKER) (test rnyl=889) 15 % MONOCYTES RELATIVE PERCENT (BEAKER) (test zbha=801) 13 % EOSINOPHILS RELATIVE PERCENT (BEAKER) (test roti=117) 0 % BASOPHILS RELATIVE PERCENT (BEAKER) (test alwr=661) 1 % NEUTROPHILS ABSOLUTE COUNT (BEAKER) (test fztj=876) 3.22 K/ L 1.78-5.38 LYMPHOCYTES ABSOLUTE COUNT (BEAKER) (test kaqh=925) 0.70 K/ L 1.32-3.57 MONOCYTES ABSOLUTE COUNT (BEAKER) (test ovjr=718) 0.61 K/ L 0.30-0.82 EOSINOPHILS ABSOLUTE COUNT (BEAKER) (test fkrv=192) 0.00 K/ L 0.04-0.54 BASOPHILS ABSOLUTE COUNT (BEAKER) (test ufgh=159) 0.03 K/ L 0.01-0.08 IMMATURE GRANULOCYTES-RELATIVE PERCENT (BEAKER) (test lvvg=5397) 0 % 0-1 BASIC METABOLIC [id number] 05:04:00* Test Item Value Reference Range Comments SODIUM (BEAKER) (test bnqz=494) 134 meq/L 136-145 POTASSIUM (BEAKER) (test gfqk=731) 3.7 meq/L 3.5-5.1 CHLORIDE (BEAKER) (test ycpi=254) 101 meq/L 98-107 CO2 (BEAKER) (test sydu=474) 24 meq/L 22-29 BLOOD UREA NITROGEN (BEAKER) (test udhb=135) 48 mg/dL 7-21 CREATININE (BEAKER) (test egny=766) 2.69 mg/dL 0.57-1.25 GLUCOSE RANDOM (BEAKER) (test gfxc=314) 99 mg/dL 70-105 CALCIUM (BEAKER) (test lagw=519) 8.3 mg/dL 8.4-10.2 EGFR (BEAKER) (test iyqt=2187) 23 mL/min/1.73 sq m ESTIMATED GFR IS NOT ACCURATE CREATININE CLEARANCE IN PREDICTING GLOMERULAR FILTRATION RATE. ESTIMATED GFR IS NOT APPLICABLE FOR DIALYSIS PATIENTS. PROTHROMBIN TIME/[id number] 05:00:00* Test Item Value Reference Range Comments PROTIME (BEAKER) (test yjdm=410) 19.4 seconds 11.7-14.7 INR (BEAKER) (test ugzl=468) 1.6 <=5.9 RECOMMENDED COUMADIN/WARFARIN INR THERAPY RANGESSTANDARD DOSE: 2.0 - 3.0 Inclu charlie: PROPHYLAXIS for venous thrombosis, systemic embolization; TREATMENT for helena ous thrombosis and/or pulmonary embolus.HIGH RISK: Target INR is 2.5-3.5 for pat ients with mechanical heart valves.[id number] 04:58:00* Test Item Value Reference Range Comments MAGNESIUM (BEAKER) (test mhgg=976) 2.2 mg/dL 1.6-2.6 CBC W/PLT COUNT & AUTO [id number] 04:52:00* Test Item Value Reference Range Comments WHITE BLOOD CELL COUNT (BEAKER) (test ajsg=480) 4.2 K/ L 3.5-10.5 RED BLOOD CELL COUNT (BEAKER) (test quxm=274) 3.48 M/ L 4.63-6.08 HEMOGLOBIN (BEAKER) (test spuh=388) 8.3 GM/DL 13.7-17.5 HEMATOCRIT (BEAKER) (test dobp=246) 27.7 % 40.1-51.0 MEAN CORPUSCULAR VOLUME (BEAKER) (test capc=616) 79.6 fL 79.0-92.2 MEAN CORPUSCULAR HEMOGLOBIN (BEAKER) (test zred=653) 23.9 pg 25.7-32.2 MEAN CORPUSCULAR HEMOGLOBIN CONC (BEAKER) (test mnpz=169) 30.0 GM/DL 32.3-36.5 RED CELL DISTRIBUTION WIDTH (BEAKER) (test fmew=006) 14.4 % 11.6-14.4 PLATELET COUNT (BEAKER) (test wssu=751) 112 K/CU MM 150-450 MEAN PLATELET VOLUME (BEAKER) (test nxbk=829) 10.0 fL 9.4-12.4 NUCLEATED RED BLOOD CELLS (BEAKER) (test cify=142) 0 /100 WBC 0-0 NEUTROPHILS RELATIVE PERCENT (BEAKER) (test czih=203) 68 % LYMPHOCYTES RELATIVE PERCENT (BEAKER) (test hkko=287) 17 % MONOCYTES RELATIVE PERCENT (BEAKER) (test pcei=326) 13 % EOSINOPHILS RELATIVE PERCENT (BEAKER) (test sozb=268) 0 % BASOPHILS RELATIVE PERCENT (BEAKER) (test sbxk=451) 1 % NEUTROPHILS ABSOLUTE COUNT (BEAKER) (test swxg=079) 2.83 K/ L 1.78-5.38 LYMPHOCYTES ABSOLUTE COUNT (BEAKER) (test lqve=431) 0.72 K/ L 1.32-3.57 MONOCYTES ABSOLUTE COUNT (BEAKER) (test toam=183) 0.55 K/ L 0.30-0.82 EOSINOPHILS ABSOLUTE COUNT (BEAKER) (test jzsb=779) 0.00 K/ L 0.04-0.54 BASOPHILS ABSOLUTE COUNT (BEAKER) (test vvcy=760) 0.04 K/ L 0.01-0.08 IMMATURE GRANULOCYTES-RELATIVE PERCENT (BEAKER) (test ermw=7270) 0 % 0-1 BASIC METABOLIC [id number] 04:49:00* Test Item Value Reference Range Comments SODIUM (BEAKER) (test vadw=324) 133 meq/L 136-145 POTASSIUM (BEAKER) (test pzti=346) 3.8 meq/L 3.5-5.1 CHLORIDE (BEAKER) (test spmv=036) 100 meq/L 98-107 CO2 (BEAKER) (test zlpq=391) 23 meq/L 22-29 BLOOD UREA NITROGEN (BEAKER) (test qqkq=937) 48 mg/dL 7-21 CREATININE (BEAKER) (test ujhg=556) 2.52 mg/dL 0.57-1.25 GLUCOSE RANDOM (BEAKER) (test dvjq=332) 102 mg/dL 70-105 CALCIUM (BEAKER) (test dild=836) 8.3 mg/dL 8.4-10.2 EGFR (BEAKER) (test okig=2075) 25 mL/min/1.73 sq m ESTIMATED GFR IS NOT ACCURATE CREATININE CLEARANCE IN PREDICTING GLOMERULAR FILTRATION RATE. ESTIMATED GFR IS NOT APPLICABLE FOR DIALYSIS PATIENTS. [id number] 04:40:00* Test Item Value Reference Range Comments MAGNESIUM (BEAKER) (test ikvp=776) 2.0 mg/dL 1.6-2.6 PROTHROMBIN [id number] 04:03:00* Test Item Value Reference Range Comments PROTIME (BEAKER) (test ttqw=345) 18.5 seconds 11.7-14.7 INR (BEAKER) (test ghml=263) 1.5 <=5.9 RECOMMENDED COUMADIN/WARFARIN INR THERAPY RANGESSTANDARD DOSE: 2.0 - 3.0 Inclu charlie: PROPHYLAXIS for venous thrombosis, systemic embolization; TREATMENT for helena ous thrombosis and/or pulmonary embolus.HIGH RISK: Target INR is 2.5-3.5 for pat ients with mechanical heart valves.CBC W/PLT COUNT & AUTO [id number] 03:47:00* Test Item Value Reference Range Comments WHITE BLOOD CELL COUNT (BEAKER) (test ypgh=930) 4.3 K/ L 3.5-10.5 RED BLOOD CELL COUNT (BEAKER) (test obhf=493) 3.52 M/ L 4.63-6.08 HEMOGLOBIN (BEAKER) (test jlud=487) 8.4 GM/DL 13.7-17.5 HEMATOCRIT (BEAKER) (test cocb=302) 27.9 % 40.1-51.0 MEAN CORPUSCULAR VOLUME (BEAKER) (test wmxk=212) 79.3 fL 79.0-92.2 MEAN CORPUSCULAR HEMOGLOBIN (BEAKER) (test xfyv=566) 23.9 pg 25.7-32.2 MEAN CORPUSCULAR HEMOGLOBIN CONC (BEAKER) (test cffi=820) 30.1 GM/DL 32.3-36.5 RED CELL DISTRIBUTION WIDTH (BEAKER) (test enne=014) 14.4 % 11.6-14.4 PLATELET COUNT (BEAKER) (test ipos=136) 113 K/CU MM 150-450 MEAN PLATELET VOLUME (BEAKER) (test zbxy=603) 10.5 fL 9.4-12.4 NUCLEATED RED BLOOD CELLS (BEAKER) (test kkmn=752) 0 /100 WBC 0-0 NEUTROPHILS RELATIVE PERCENT (BEAKER) (test dcnk=332) 74 % LYMPHOCYTES RELATIVE PERCENT (BEAKER) (test rfyf=795) 13 % MONOCYTES RELATIVE PERCENT (BEAKER) (test brws=297) 12 % EOSINOPHILS RELATIVE PERCENT (BEAKER) (test nbyf=641) 0 % BASOPHILS RELATIVE PERCENT (BEAKER) (test vwgr=525) 1 % NEUTROPHILS ABSOLUTE COUNT (BEAKER) (test hqca=253) 3.19 K/ L 1.78-5.38 LYMPHOCYTES ABSOLUTE COUNT (BEAKER) (test kczp=647) 0.57 K/ L 1.32-3.57 MONOCYTES ABSOLUTE COUNT (BEAKER) (test oqyh=819) 0.52 K/ L 0.30-0.82 EOSINOPHILS ABSOLUTE COUNT (BEAKER) (test ygia=219) 0.01 K/ L 0.04-0.54 BASOPHILS ABSOLUTE COUNT (BEAKER) (test bszp=056) 0.03 K/ L 0.01-0.08 IMMATURE GRANULOCYTES-RELATIVE PERCENT (BEAKER) (test zrve=6878) 0 % 0-1 BASIC METABOLIC [id number] 05:50:00* Test Item Value Reference Range Comments SODIUM (BEAKER) (test ykeg=463) 132 meq/L 136-145 POTASSIUM (BEAKER) (test wueo=656) 3.6 meq/L 3.5-5.1 CHLORIDE (BEAKER) (test dmfa=837) 100 meq/L 98-107 CO2 (BEAKER) (test qcbt=865) 23 meq/L 22-29 BLOOD UREA NITROGEN (BEAKER) (test ohft=650) 45 mg/dL 7-21 CREATININE (BEAKER) (test ubme=581) 2.48 mg/dL 0.57-1.25 GLUCOSE RANDOM (BEAKER) (test jskx=578) 113 mg/dL 70-105 CALCIUM (BEAKER) (test rnph=361) 8.3 mg/dL 8.4-10.2 EGFR (BEAKER) (test lzxs=5132) 25 mL/min/1.73 sq m ESTIMATED GFR IS NOT ACCURATE CREATININE CLEARANCE IN PREDICTING GLOMERULAR FILTRATION RATE. ESTIMATED GFR IS NOT APPLICABLE FOR DIALYSIS PATIENTS. [id number] 05:31:00* Test Item Value Reference Range Comments MAGNESIUM (BEAKER) (test qexw=836) 2.0 mg/dL 1.6-2.6 PROTHROMBIN [id number] 05:00:00* Test Item Value Reference Range Comments PROTIME (BEAKER) (test gylv=287) 19.3 seconds 11.7-14.7 INR (BEAKER) (test rwpr=021) 1.6 <=5.9 RECOMMENDED COUMADIN/WARFARIN INR THERAPY RANGESSTANDARD DOSE: 2.0 - 3.0 Inclu charlie: PROPHYLAXIS for venous thrombosis, systemic embolization; TREATMENT for helena ous thrombosis and/or pulmonary embolus.HIGH RISK: Target INR is 2.5-3.5 for pat ients with mechanical heart valves.CBC W/PLT COUNT & AUTO [id number] 04:48:00* Test Item Value Reference Range Comments WHITE BLOOD CELL COUNT (BEAKER) (test bxys=211) 4.4 K/ L 3.5-10.5 RED BLOOD CELL COUNT (BEAKER) (test qhrh=438) 3.55 M/ L 4.63-6.08 HEMOGLOBIN (BEAKER) (test yukq=882) 8.5 GM/DL 13.7-17.5 HEMATOCRIT (BEAKER) (test epca=546) 28.3 % 40.1-51.0 MEAN CORPUSCULAR VOLUME (BEAKER) (test qtqb=834) 79.7 fL 79.0-92.2 MEAN CORPUSCULAR HEMOGLOBIN (BEAKER) (test vjcu=768) 23.9 pg 25.7-32.2 MEAN CORPUSCULAR HEMOGLOBIN CONC (BEAKER) (test dplm=394) 30.0 GM/DL 32.3-36.5 RED CELL DISTRIBUTION WIDTH (BEAKER) (test rofn=908) 14.3 % 11.6-14.4 PLATELET COUNT (BEAKER) (test jbji=308) 124 K/CU MM 150-450 MEAN PLATELET VOLUME (BEAKER) (test frrx=085) 10.6 fL 9.4-12.4 NUCLEATED RED BLOOD CELLS (BEAKER) (test gikc=268) 0 /100 WBC 0-0 NEUTROPHILS RELATIVE PERCENT (BEAKER) (test fhdm=088) 73 % LYMPHOCYTES RELATIVE PERCENT (BEAKER) (test zapb=045) 14 % MONOCYTES RELATIVE PERCENT (BEAKER) (test thgu=257) 12 % EOSINOPHILS RELATIVE PERCENT (BEAKER) (test anpk=033) 0 % BASOPHILS RELATIVE PERCENT (BEAKER) (test rshd=665) 1 % NEUTROPHILS ABSOLUTE COUNT (BEAKER) (test tzsv=697) 3.16 K/ L 1.78-5.38 LYMPHOCYTES ABSOLUTE COUNT (BEAKER) (test ojaj=489) 0.61 K/ L 1.32-3.57 MONOCYTES ABSOLUTE COUNT (BEAKER) (test seav=547) 0.54 K/ L 0.30-0.82 EOSINOPHILS ABSOLUTE COUNT (BEAKER) (test lbhy=782) 0.00 K/ L 0.04-0.54 BASOPHILS ABSOLUTE COUNT (BEAKER) (test wixp=443) 0.04 K/ L 0.01-0.08 IMMATURE GRANULOCYTES-RELATIVE PERCENT (BEAKER) (test opin=3677) 0 % 0-1 BASIC METABOLIC [id number] 07:47:00* Test Item Value Reference Range Comments SODIUM (BEAKER) (test cpkh=821) 132 meq/L 136-145 POTASSIUM (BEAKER) (test zjxp=019) 3.5 meq/L 3.5-5.1 CHLORIDE (BEAKER) (test rdxy=822) 99 meq/L 98-107 CO2 (BEAKER) (test iyqs=759) 24 meq/L 22-29 BLOOD UREA NITROGEN (BEAKER) (test rjfn=774) 44 mg/dL 7-21 CREATININE (BEAKER) (test nfwq=037) 2.54 mg/dL 0.57-1.25 GLUCOSE RANDOM (BEAKER) (test whzx=921) 102 mg/dL 70-105 CALCIUM (BEAKER) (test lyvd=642) 8.5 mg/dL 8.4-10.2 EGFR (BEAKER) (test fzne=7433) 24 mL/min/1.73 sq m ESTIMATED GFR IS NOT ACCURATE CREATININE CLEARANCE IN PREDICTING GLOMERULAR FILTRATION RATE. ESTIMATED GFR IS NOT APPLICABLE FOR DIALYSIS PATIENTS. [id number] 07:43:00* Test Item Value Reference Range Comments MAGNESIUM (BEAKER) (test pngk=642) 2.3 mg/dL 1.6-2.6 PROTHROMBIN [id number] 06:35:00* Test Item Value Reference Range Comments PROTIME (BEAKER) (test iayz=702) 19.1 seconds 11.7-14.7 INR (BEAKER) (test cezf=288) 1.6 <=5.9 RECOMMENDED COUMADIN/WARFARIN INR THERAPY RANGESSTANDARD DOSE: 2.0 - 3.0 Inclu charlie: PROPHYLAXIS for venous thrombosis, systemic embolization; TREATMENT for helena ous thrombosis and/or pulmonary embolus.HIGH RISK: Target INR is 2.5-3.5 for pat ients with mechanical heart valves.CBC W/PLT COUNT & AUTO [id number] 06:30:00* Test Item Value Reference Range Comments WHITE BLOOD CELL COUNT (BEAKER) (test bdee=610) 4.7 K/ L 3.5-10.5 RED BLOOD CELL COUNT (BEAKER) (test dzew=437) 3.62 M/ L 4.63-6.08 HEMOGLOBIN (BEAKER) (test xmlr=069) 8.6 GM/DL 13.7-17.5 HEMATOCRIT (BEAKER) (test knoq=446) 28.8 % 40.1-51.0 MEAN CORPUSCULAR VOLUME (BEAKER) (test qiep=323) 79.6 fL 79.0-92.2 MEAN CORPUSCULAR HEMOGLOBIN (BEAKER) (test ztyn=979) 23.8 pg 25.7-32.2 MEAN CORPUSCULAR HEMOGLOBIN CONC (BEAKER) (test hgbu=168) 29.9 GM/DL 32.3-36.5 RED CELL DISTRIBUTION WIDTH (BEAKER) (test fmmn=106) 14.5 % 11.6-14.4 PLATELET COUNT (BEAKER) (test onxf=648) 118 K/CU MM 150-450 MEAN PLATELET VOLUME (BEAKER) (test hgsp=534) 10.8 fL 9.4-12.4 NUCLEATED RED BLOOD CELLS (BEAKER) (test pvwc=284) 0 /100 WBC 0-0 NEUTROPHILS RELATIVE PERCENT (BEAKER) (test yafu=391) 76 % LYMPHOCYTES RELATIVE PERCENT (BEAKER) (test uzsv=064) 11 % MONOCYTES RELATIVE PERCENT (BEAKER) (test kqml=002) 12 % EOSINOPHILS RELATIVE PERCENT (BEAKER) (test lfnj=533) 0 % BASOPHILS RELATIVE PERCENT (BEAKER) (test qqeq=093) 1 % NEUTROPHILS ABSOLUTE COUNT (BEAKER) (test krrd=096) 3.56 K/ L 1.78-5.38 LYMPHOCYTES ABSOLUTE COUNT (BEAKER) (test fwmr=964) 0.52 K/ L 1.32-3.57 MONOCYTES ABSOLUTE COUNT (BEAKER) (test oehy=479) 0.54 K/ L 0.30-0.82 EOSINOPHILS ABSOLUTE COUNT (BEAKER) (test usin=959) 0.01 K/ L 0.04-0.54 BASOPHILS ABSOLUTE COUNT (BEAKER) (test slvy=788) 0.05 K/ L 0.01-0.08 IMMATURE GRANULOCYTES-RELATIVE PERCENT (BEAKER) (test ocii=3011) 0 % 0-1 HEMORRHAGE IMAGING, [id number] 10:13:00H- Dr. Coe/ Lizzetet Mejias RNFINAL REPORT PROCEDURE: HEMORRHAGE STUDY with RBCs CPT CODE: 13919 INDICATION: Gastrointestinal Bleeding PROTOCOL: 21.6 mCi of Tc-99m was injected intravenously as labeled autologous red blood cells. Flow images of the abdomen were obtained, followed by serial images for approximately 60 minutes. Additional images were obtained four hours after trace r injection. FINDINGS: There is physiological tracer distribution in th e blood pool. IMPRESSION: Negative study. No evidence of active hemorrhage is seen. Signed: Milo Frederick MDReport Verified Date/Time: 11/20/2018 10:13:37 Reading Location: [address] [place] [address] Reading Room Electronically si gned by: MILO FREDERICK MD on 11/20/2018 10:13 AM BASIC METABOLIC PANEL 2018-11-20 06:53:00* Test Item Value Reference Range Comments SODIUM (BEAKER) (test bspq=566) 134 meq/L 136-145 POTASSIUM (BEAKER) (test zlef=920) 3.6 meq/L 3.5-5.1 CHLORIDE (BEAKER) (test spiy=884) 99 meq/L 98-107 CO2 (BEAKER) (test iuho=431) 26 meq/L 22-29 BLOOD UREA NITROGEN (BEAKER) (test tyox=682) 54 mg/dL 7-21 CREATININE (BEAKER) (test vbvz=109) 2.83 mg/dL 0.57-1.25 GLUCOSE RANDOM (BEAKER) (test ckno=235) 101 mg/dL 70-105 CALCIUM (BEAKER) (test tutj=648) 8.5 mg/dL 8.4-10.2 EGFR (BEAKER) (test nmko=8403) 22 mL/min/1.73 sq m ESTIMATED GFR IS NOT ACCURATE CREATININE CLEARANCE IN PREDICTING GLOMERULAR FILTRATION RATE. ESTIMATED GFR IS NOT APPLICABLE FOR DIALYSIS PATIENTS. [id number] 06:52:00* Test Item Value Reference Range Comments MAGNESIUM (BEAKER) (test gqlc=498) 2.2 mg/dL 1.6-2.6 PROTHROMBIN [id number] 06:48:00* Test Item Value Reference Range Comments PROTIME (BEAKER) (test uzwo=130) 19.6 seconds 11.7-14.7 INR (BEAKER) (test pgef=427) 1.7 <=5.9 RECOMMENDED COUMADIN/WARFARIN INR THERAPY RANGESSTANDARD DOSE: 2.0 - 3.0 Inclu charlie: PROPHYLAXIS for venous thrombosis, systemic embolization; TREATMENT for helena ous thrombosis and/or pulmonary embolus.HIGH RISK: Target INR is 2.5-3.5 for pat ients with mechanical heart valves.CBC W/PLT COUNT & AUTO [id number] 06:33:00* Test Item Value Reference Range Comments WHITE BLOOD CELL COUNT (BEAKER) (test xret=304) 4.9 K/ L 3.5-10.5 RED BLOOD CELL COUNT (BEAKER) (test faif=390) 3.55 M/ L 4.63-6.08 HEMOGLOBIN (BEAKER) (test veuy=543) 8.5 GM/DL 13.7-17.5 HEMATOCRIT (BEAKER) (test knvi=646) 28.5 % 40.1-51.0 MEAN CORPUSCULAR VOLUME (BEAKER) (test qffj=453) 80.3 fL 79.0-92.2 MEAN CORPUSCULAR HEMOGLOBIN (BEAKER) (test zawd=362) 23.9 pg 25.7-32.2 MEAN CORPUSCULAR HEMOGLOBIN CONC (BEAKER) (test jftc=182) 29.8 GM/DL 32.3-36.5 RED CELL DISTRIBUTION WIDTH (BEAKER) (test ejkl=101) 14.6 % 11.6-14.4 PLATELET COUNT (BEAKER) (test ergj=282) 130 K/CU MM 150-450 MEAN PLATELET VOLUME (BEAKER) (test ajif=117) 10.6 fL 9.4-12.4 NUCLEATED RED BLOOD CELLS (BEAKER) (test kvgh=676) 0 /100 WBC 0-0 NEUTROPHILS RELATIVE PERCENT (BEAKER) (test qvts=740) 73 % LYMPHOCYTES RELATIVE PERCENT (BEAKER) (test qnjk=751) 14 % MONOCYTES RELATIVE PERCENT (BEAKER) (test iveu=629) 12 % EOSINOPHILS RELATIVE PERCENT (BEAKER) (test izki=377) 0 % BASOPHILS RELATIVE PERCENT (BEAKER) (test iucq=234) 1 % NEUTROPHILS ABSOLUTE COUNT (BEAKER) (test okhp=410) 3.57 K/ L 1.78-5.38 LYMPHOCYTES ABSOLUTE COUNT (BEAKER) (test rrpj=490) 0.67 K/ L 1.32-3.57 MONOCYTES ABSOLUTE COUNT (BEAKER) (test jcjs=730) 0.60 K/ L 0.30-0.82 EOSINOPHILS ABSOLUTE COUNT (BEAKER) (test msve=520) 0.00 K/ L 0.04-0.54 BASOPHILS ABSOLUTE COUNT (BEAKER) (test aqus=528) 0.04 K/ L 0.01-0.08 IMMATURE GRANULOCYTES-RELATIVE PERCENT (BEAKER) (test ibcp=0065) 0 % 0-1 CT, SPINE, LUMBAR, WO [id number] 14:09:00[facility]- Dr. Coe/ Lizzette Mejias RNFINAL REPORT CT lumbar spine without contrast 11/19/2018 2:06 PM CLINICAL INDICATION: lumbar pain, compression fracture COMPARISON: 07/21/2002 TECHNIQUE: Multiple axial noncontrast CT images of the lumbar spine were obtained in bone and soft tissue windows. Axially acquired data were reformatted in sagittal and coronal planes for further analysis. This examination was performed according to our departmental dose optimization program, which includes automated exposure control, adjustment of the mA and/or kV according to patient size, and/or use of iterated reconstruction technique. FINDINGS: There is no evident fracture or traumatic malalignment. 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 The skeleton is osteopenic. There are no osteolytic or osteoblastic lesions. Spinal canal diameter is within normal limits. There are multilevel degenerative changes, without high-grade central canal stenosis. There are bilateral small volume pleural effusions. There is cholelithiasis. There is chronic appearing cortical volume loss in the left kidney. There is diverticulosis without evident diverticulitis. There is mild bladder wall thickening, with an indwelling Gonzalez catheter. There is arteriosclerosis. There is deconditioning of the posterior inferior paraspinal musculature. IMPRESSION: 1. No evident lumbar spine fracture or traumatic malalignment.2. Bilateral pleural effusions.3. Chronic appearing findings as discussed. Signed: Frank Castillo [facility] Verified Date/Time: 11/19/2018 14:09:05 Reading Location: [facility] Radiology Reading Room [id number] 05:19:00* Test Item Value Reference Range Comments MAGNESIUM (BEAKER) (test mzrz=604) 2.3 mg/dL 1.6-2.6 BASIC METABOLIC [id number] 05:19:00* Test Item Value Reference Range Comments SODIUM (BEAKER) (test ajgh=801) 136 meq/L 136-145 POTASSIUM (BEAKER) (test usxx=632) 3.4 meq/L 3.5-5.1 CHLORIDE (BEAKER) (test hbqd=660) 101 meq/L 98-107 CO2 (BEAKER) (test ryun=120) 25 meq/L 22-29 BLOOD UREA NITROGEN (BEAKER) (test ksle=572) 57 mg/dL 7-21 CREATININE (BEAKER) (test vwhv=463) 3.17 mg/dL 0.57-1.25 GLUCOSE RANDOM (BEAKER) (test nzjo=646) 105 mg/dL 70-105 CALCIUM (BEAKER) (test yvhp=103) 8.4 mg/dL 8.4-10.2 EGFR (BEAKER) (test ikmq=5901) 19 mL/min/1.73 sq m ESTIMATED GFR IS NOT ACCURATE CREATININE CLEARANCE IN PREDICTING GLOMERULAR FILTRATION RATE. ESTIMATED GFR IS NOT APPLICABLE FOR DIALYSIS PATIENTS. PROTHROMBIN TIME/[id number] 04:59:00* Test Item Value Reference Range Comments PROTIME (BEAKER) (test lisc=188) 20.8 seconds 11.7-14.7 INR (BEAKER) (test wexm=316) 1.8 <=5.9 RECOMMENDED COUMADIN/WARFARIN INR THERAPY RANGESSTANDARD DOSE: 2.0 - 3.0 Inclu charlie: PROPHYLAXIS for venous thrombosis, systemic embolization; TREATMENT for helena ous thrombosis and/or pulmonary embolus.HIGH RISK: Target INR is 2.5-3.5 for pat ients with mechanical heart valves.CBC W/PLT COUNT & AUTO [id number] 04:45:00* Test Item Value Reference Range Comments WHITE BLOOD CELL COUNT (BEAKER) (test znke=825) 5.6 K/ L 3.5-10.5 RED BLOOD CELL COUNT (BEAKER) (test gcgt=636) 3.52 M/ L 4.63-6.08 HEMOGLOBIN (BEAKER) (test uybd=464) 8.4 GM/DL 13.7-17.5 HEMATOCRIT (BEAKER) (test nebc=382) 28.3 % 40.1-51.0 MEAN CORPUSCULAR VOLUME (BEAKER) (test yssq=735) 80.4 fL 79.0-92.2 MEAN CORPUSCULAR HEMOGLOBIN (BEAKER) (test yias=351) 23.9 pg 25.7-32.2 MEAN CORPUSCULAR HEMOGLOBIN CONC (BEAKER) (test ryxr=919) 29.7 GM/DL 32.3-36.5 RED CELL DISTRIBUTION WIDTH (BEAKER) (test iuqo=995) 15.0 % 11.6-14.4 PLATELET COUNT (BEAKER) (test pguk=187) 127 K/CU MM 150-450 MEAN PLATELET VOLUME (BEAKER) (test ubqr=302) 10.5 fL 9.4-12.4 NUCLEATED RED BLOOD CELLS (BEAKER) (test goui=465) 0 /100 WBC 0-0 NEUTROPHILS RELATIVE PERCENT (BEAKER) (test kyzp=786) 70 % LYMPHOCYTES RELATIVE PERCENT (BEAKER) (test axws=372) 16 % MONOCYTES RELATIVE PERCENT (BEAKER) (test weqp=842) 13 % EOSINOPHILS RELATIVE PERCENT (BEAKER) (test xrej=261) 0 % BASOPHILS RELATIVE PERCENT (BEAKER) (test owcx=319) 1 % NEUTROPHILS ABSOLUTE COUNT (BEAKER) (test mvfl=491) 3.93 K/ L 1.78-5.38 LYMPHOCYTES ABSOLUTE COUNT (BEAKER) (test odct=438) 0.88 K/ L 1.32-3.57 MONOCYTES ABSOLUTE COUNT (BEAKER) (test yhpb=805) 0.75 K/ L 0.30-0.82 EOSINOPHILS ABSOLUTE COUNT (BEAKER) (test cwuh=971) 0.00 K/ L 0.04-0.54 BASOPHILS ABSOLUTE COUNT (BEAKER) (test clie=978) 0.04 K/ L 0.01-0.08 IMMATURE GRANULOCYTES-RELATIVE PERCENT (BEAKER) (test lhrv=1980) 0 % 0-1 TROPONIN [id number] 15:37:00* Test Item Value Reference Range Comments TROPONIN I (BEAKER) (test rvek=506) 0.06 ng/mL 0.00-0.03 Troponin I (TnI) levels must be interpreted in the context of the presenting sym ptoms and the clinical findings. Elevated TnI levels indicate myocardial damage, but are not specific for ischemic heart disease. Elevated TnI levels are seen in patients with other cardiac conditions (including myocarditis and congestive h eart failure), and slight TnI elevations occur in patients with other conditions , including sepsis, renal failure, acidosis, acute neurological disease, and per sistent tachyarrhythmia.HEMOGLOBIN AND [id number] 15:10:00* Test Item Value Reference Range Comments HEMOGLOBIN (BEAKER) (test cnyx=135) 8.4 GM/DL 13.7-17.5 HEMATOCRIT (BEAKER) (test miku=733) 28.0 % 40.1-51.0 CT, [id number] 10:50:00H- Dr. Coe/ Lizzette Mejias RNReason for exam:- >BACK PAINReason for exam:->HEMATURIAWhat is the patient's sedation requirement?->No SedationFINAL REPORT TECHNIQUE: CT of the abdomen and pelvis WITHOUT intravenous contrast and WITHOUT oral contrast. Dose modulation, iterative reconstruction, and/or weight-based adjustment of the mA/kV was utilized to reduce the radiation dose to as low as reasonably achievable. INDICATION: Flank pain, stone disease suspected. COMPARISON: CT from 10/20/2020. FINDINGS: ABSENCE OF INTRAVENOUS CONTRAST DECREASES SENSITIVITY FOR DETECTION OF FOCAL LESIONS AND VASCULAR PATHOLOGY. LOWER THORAX: Moderate sized right and small left pleural effusions. Partially visualized ICD leads in the right atrium and ventricle. HEPATOBILIARY: The liver is enlarged. No focal hepatic lesions. Cholelithiasis. No biliary ductal dilatation.SPLEEN: Upper limit of normal spleen size at 12.4 cm.PANCREAS: No focal masses or ductal dilatation. ADRENALS: No adrenal nodules.KIDNEYS/URETERS: No hydronephrosis, stones, or solid mass lesions. The left kidney is slightly lobular with scattered renal cortical scarring. A single exophytic area off the anterior left lower pole measures 0.9 cm and on image 40. PELVIC ORGANS/BLADDER: The prostate is moderately enlarged. A Gonzalez catheter decompresses the bladder. The bladder wall is diffusely thickened with some perivesicular fat stranding. PERITONEUM/RETROPERITONEUM: No free air or fluid. Several surgical darvin in the upper abdomen. There are several fat filled supra umbilical hernias.LYMPH NODES: No lymphadenopathy.VESSELS: Moderate severe calcifications of the aort oiliac vasculature. GI TRACT: No distention or wall thickening. Moderate diverti culosis of the sigmoid colon. Prior appendectomy. BONES AND SOFT TISSUES: New co mplete loss of the joint space at L2-L3 and L5-S1. This is unchanged and likely degenerative. IMPRESSION: 1.No definite explanation on this CT for the flank pa in. Specifically, no renal or ureteral stones. 2.The prostate is moderately enla rged. The bladder wall is diffusely thickened with some perivesicular fat. This could be due to chronic bladder outlet obstruction and/or cystitis. 3.The liver is enlarged. 4.Cholelithiasis without acute cholecystitis. 5.There is scarring a nd irregularity of the left kidney. An area off of the left lower pole is indete rminate in density and may be a hemorrhagic cyst or solid neoplasm. Consider fur ther evaluation with either a CT or MR for mass protocol on a nonemergent basis. 6.Moderate sized right and small left pleural effusions. Signed: Shaquille Dejesus MDR eport Verified Date/Time: 11/18/2018 10:50:17 Reading Location: [facility] C013Y CT Body Reading Room Electronically signed by: SHAQUILLE DEJESUS MD on 019 10:50 AM RAD, CHEST, 1 VIEW, NON [id number] 09:55:00H- Dr. Coe/ Lizzette Mejias RNReason for exam:->BACK PAINReason for exam:->coughShould this be performed at the bedside?->YesFINAL REPORT Chest dated 11/18/2018 COMPARISON: November 07, 2018 Clinical Information: BACK PAINcough Comment: Heart is enlarged. Pulmonary vasculature is indistinct. Interstitial disease is seen bilaterally suggestive of vascular congestion improved since prior study. There is trace right pleural effusion. Signed: Sha Bruno MDReport Verified Date/Time: 11/18/2018 09:55:24 Reading Location: [facility] Radiology Reading Room W/PLT COUNT & AUTO [id number] 08:54:00* Test Item Value Reference Range Comments WHITE BLOOD CELL COUNT (BEAKER) (test vnwi=780) 8.4 K/ L 3.5-10.5 RED BLOOD CELL COUNT (BEAKER) (test spmi=195) 3.77 M/ L 4.63-6.08 HEMOGLOBIN (BEAKER) (test nwjp=864) 9.1 GM/DL 13.7-17.5 HEMATOCRIT (BEAKER) (test tfwk=739) 31.7 % 40.1-51.0 MEAN CORPUSCULAR VOLUME (BEAKER) (test jlgg=076) 84.1 fL 79.0-92.2 MEAN CORPUSCULAR HEMOGLOBIN (BEAKER) (test ixcq=074) 24.1 pg 25.7-32.2 MEAN CORPUSCULAR HEMOGLOBIN CONC (BEAKER) (test jrjo=587) 28.7 GM/DL 32.3-36.5 RED CELL DISTRIBUTION WIDTH (BEAKER) (test tulw=664) 15.0 % 11.6-14.4 PLATELET COUNT (BEAKER) (test iotp=663) 148 K/CU MM 150-450 MEAN PLATELET VOLUME (BEAKER) (test azox=519) 11.2 fL 9.4-12.4 NUCLEATED RED BLOOD CELLS (BEAKER) (test qaal=056) 0 /100 WBC 0-0 NEUTROPHILS RELATIVE PERCENT (BEAKER) (test gery=459) 79 % LYMPHOCYTES RELATIVE PERCENT (BEAKER) (test ehhj=176) 9 % MONOCYTES RELATIVE PERCENT (BEAKER) (test vmyo=797) 12 % EOSINOPHILS RELATIVE PERCENT (BEAKER) (test gmgl=651) 0 % BASOPHILS RELATIVE PERCENT (BEAKER) (test hziz=709) 1 % NEUTROPHILS ABSOLUTE COUNT (BEAKER) (test ajot=778) 6.63 K/ L 1.78-5.38 LYMPHOCYTES ABSOLUTE COUNT (BEAKER) (test nzmx=332) 0.73 K/ L 1.32-3.57 MONOCYTES ABSOLUTE COUNT (BEAKER) (test ksvv=524) 1.00 K/ L 0.30-0.82 EOSINOPHILS ABSOLUTE COUNT (BEAKER) (test glqn=790) 0.00 K/ L 0.04-0.54 BASOPHILS ABSOLUTE COUNT (BEAKER) (test cswi=227) 0.04 K/ L 0.01-0.08 IMMATURE GRANULOCYTES-RELATIVE PERCENT (BEAKER) (test jamx=8241) 1 % 0-1 TROPONIN [id number] 08:47:00* Test Item Value Reference Range Comments TROPONIN I (BEAKER) (test oulu=724) 0.05 ng/mL 0.00-0.03 Troponin I (TnI) levels must be interpreted in the context of the presenting sym ptoms and the clinical findings. Elevated TnI levels indicate myocardial damage, but are not specific for ischemic heart disease. Elevated TnI levels are seen in patients with other cardiac conditions (including myocarditis and congestive h eart failure), and slight TnI elevations occur in patients with other conditions , including sepsis, renal failure, acidosis, acute neurological disease, and per sistent tachyarrhythmia.B-TYPE NATRIURETIC FACTOR (BNP)2018-11-18 08:46:00* Test Item Value Reference Range Comments B-TYPE NATRIURETIC PEPTIDE (BEAKER) (test gwmg=085) 1395 pg/mL 0-100 BASIC METABOLIC [id number] 08:46:00* Test Item Value Reference Range Comments SODIUM (BEAKER) (test vaoz=410) 136 meq/L 136-145 POTASSIUM (BEAKER) (test beue=681) 3.5 meq/L 3.5-5.1 CHLORIDE (BEAKER) (test fuok=021) 101 meq/L 98-107 CO2 (BEAKER) (test izzr=810) 24 meq/L 22-29 BLOOD UREA NITROGEN (BEAKER) (test nwqh=537) 58 mg/dL 7-21 CREATININE (BEAKER) (test iujg=362) 3.34 mg/dL 0.57-1.25 GLUCOSE RANDOM (BEAKER) (test yxkz=248) 189 mg/dL 70-105 CALCIUM (BEAKER) (test cczh=059) 8.7 mg/dL 8.4-10.2 EGFR (BEAKER) (test diob=4907) 18 mL/min/1.73 sq m ESTIMATED GFR IS NOT ACCURATE CREATININE CLEARANCE IN PREDICTING GLOMERULAR FILTRATION RATE. ESTIMATED GFR IS NOT APPLICABLE FOR DIALYSIS PATIENTS. HEPATIC FUNCTION [id number] 08:43:00* Test Item Value Reference Range Comments TOTAL PROTEIN (BEAKER) (test zlsp=444) 7.3 gm/dL 6.0-8.3 ALBUMIN (BEAKER) (test bwml=4000) 3.3 g/dL 3.5-5.0 BILIRUBIN TOTAL (BEAKER) (test baht=143) 0.6 mg/dL 0.2-1.2 BILIRUBIN DIRECT (BEAKER) (test tstr=528) 0.4 mg/dL 0.1-0.5 ALKALINE PHOSPHATASE (BEAKER) (test bnhh=930) 144 U/L 40-150 AST (SGOT) (BEAKER) (test rqmc=509) 16 U/L 5-34 ALT (SGPT) (BEAKER) (test ckzc=006) 8 U/L 6-55 PT/[id number] 08:38:00* Test Item Value Reference Range Comments PROTIME (BEAKER) (test aumh=060) 20.8 seconds 11.7-14.7 INR (BEAKER) (test uqhb=116) 1.8 <=5.9 PARTIAL THROMBOPLASTIN TIME (BEAKER) (test lmpx=548) 36.5 seconds 22.5-36.0 RECOMMENDED COUMADIN/WARFARIN INR THERAPY RANGESSTANDARD DOSE: 2.0 - 3.0 Inclu charlie: PROPHYLAXIS for venous thrombosis, systemic embolization; TREATMENT for helena ous thrombosis and/or pulmonary embolus.HIGH RISK: Target INR is 2.5-3.5 for pat ients with mechanical heart valves.URINALYSIS W/ REFLEX URINE [id number] 08:35:00* Test Item Value Reference Range Comments COLOR (BEAKER) (test zlpt=763) Yellow CLARITY (BEAKER) (test clkk=075) Clear SPECIFIC GRAVITY UA (BEAKER) (test sngt=050) 1.008 1.001-1.035 PH UA (BEAKER) (test xenl=515) 6.0 5.0-8.0 PROTEIN UA (BEAKER) (test ofbg=358) 10 mg/dL Negative GLUCOSE UA (BEAKER) (test jked=588) Negative Negative KETONES UA (BEAKER) (test tikd=325) Negative Negative BILIRUBIN UA (BEAKER) (test txze=852) Negative Negative BLOOD UA (BEAKER) (test iyyq=923) Large Negative NITRITE UA (BEAKER) (test iass=197) Negative Negative LEUKOCYTE ESTERASE UA (BEAKER) (test qohw=111) Trace Negative UROBILINOGEN UA (BEAKER) (test qgkl=120) 0.2 mg/dL 0.2-1.0 RBC UA (BEAKER) (test tguf=338) > /HPF WBC UA (BEAKER) (test uzzt=684) 0 /HPF BACTERIA (BEAKER) (test izny=365) Occasional HYALINE CASTS (BEAKER) (test bwgb=413) 6 /LPF SOURCE(BEAKER) (test vowu=8926) B-TYPE NATRIURETIC FACTOR (BNP)2018-11-07 17:46:00* Test Item Value Reference Range Comments B-TYPE NATRIURETIC PEPTIDE (BEAKER) (test jlvv=582) 1293 pg/mL 0-100 RAD, CHEST, 1 VIEW, NON [id number] 17:37:00H- Dr. Coe/ Lizzette Mejias RNReason for exam:->SHORTNESS OF BREATHShould this be performed at the bedside?- >YesFINAL REPORT TECHNIQUE: Frontal view of the chest. INDICATION: Shortness of breath. COMPARISON: Chest radiograph from 10/24/2018. FINDINGS: LINES/TUBES: Left chest pacer with leads over the right atrium, ventricle, and. LUNGS: The central pulmonary opacity is most likely due to edema which is worse than on the prior examination. PLEURA: Small bilateral pleural effusions are unchanged. HEART AND MEDIASTINUM: The cardiomediastinal silhouette is enlarged but unchanged. SOFT TISSUES AND BONES: Prior median sternotomy with a prosthetic valve. IMPRESSION: Pulmonary edema with small, unchanged pleural effusions. Unchanged cardiomegaly. Signed: Shaquille Dejesus MDReport Verified Date/Time: 11/07/2018 17:37:46 Reading Location: [facility] B1 C013W Consult Reading Room [id number] 17:28:00* Test Item Value Reference Range Comments D-DIMER QUANTITATIVE (BEAKER) (test mzii=340) 0.59 MG/L FEU <0.50 Intended Use: The D-Dimer Assay can be used to aid in the diagnosis of Deep Vein Thrombosis (DVT) and Pulmonary Embolism Disease (PED).In patients with low pre- test probability, various studies concerning STA Liatest D-dimer test have repor kathy that with a cutoff value of 0.50 MG/L FEU, the Negative Predictive Value (TYPING TEACHER V) regarding the exclusion of thrombosis is within 95-100% range.PT/APTT 2018-11-07 17:26:00* Test Item Value Reference Range Comments PROTIME (BEAKER) (test jdeg=693) 20.8 seconds 11.7-14.7 INR (BEAKER) (test nrvh=704) 1.8 <=5.9 PARTIAL THROMBOPLASTIN TIME (BEAKER) (test cuef=309) 42.3 seconds 22.5-36.0 RECOMMENDED COUMADIN/WARFARIN INR THERAPY RANGESSTANDARD DOSE: 2.0 - 3.0 Inclu charlie: PROPHYLAXIS for venous thrombosis, systemic embolization; TREATMENT for helena ous thrombosis and/or pulmonary embolus.HIGH RISK: Target INR is 2.5-3.5 for pat ients with mechanical heart valves.BASIC METABOLIC [id number] 14:14:00* Test Item Value Reference Range Comments SODIUM (BEAKER) (test ejyk=844) 135 meq/L 136-145 POTASSIUM (BEAKER) (test yegw=620) 4.0 meq/L 3.5-5.1 CHLORIDE (BEAKER) (test pthz=395) 100 meq/L 98-107 CO2 (BEAKER) (test xsto=299) 27 meq/L 22-29 BLOOD UREA NITROGEN (BEAKER) (test jbwu=889) 58 mg/dL 7-21 CREATININE (BEAKER) (test nrab=257) 3.32 mg/dL 0.57-1.25 GLUCOSE RANDOM (BEAKER) (test bllc=238) 178 mg/dL 70-105 CALCIUM (BEAKER) (test cqgj=858) 8.6 mg/dL 8.4-10.2 EGFR (BEAKER) (test zgaw=2175) 18 mL/min/1.73 sq m ESTIMATED GFR IS NOT ACCURATE CREATININE CLEARANCE IN PREDICTING GLOMERULAR FILTRATION RATE. ESTIMATED GFR IS NOT APPLICABLE FOR DIALYSIS PATIENTS. CBC W/PLT COUNT & AUTO [id number] 13:28:00* Test Item Value Reference Range Comments WHITE BLOOD CELL COUNT (BEAKER) (test pyaq=358) 7.4 K/ L 3.5-10.5 RED BLOOD CELL COUNT (BEAKER) (test rtqw=903) 3.30 M/ L 4.63-6.08 HEMOGLOBIN (BEAKER) (test zjhf=376) 8.0 GM/DL 13.7-17.5 HEMATOCRIT (BEAKER) (test dhjp=704) 27.6 % 40.1-51.0 MEAN CORPUSCULAR VOLUME (BEAKER) (test yfbb=741) 83.6 fL 79.0-92.2 MEAN CORPUSCULAR HEMOGLOBIN (BEAKER) (test ukmv=896) 24.2 pg 25.7-32.2 MEAN CORPUSCULAR HEMOGLOBIN CONC (BEAKER) (test wqlm=576) 29.0 GM/DL 32.3-36.5 RED CELL DISTRIBUTION WIDTH (BEAKER) (test xxkk=447) 15.1 % 11.6-14.4 PLATELET COUNT (BEAKER) (test ddei=623) 243 K/CU MM 150-450 MEAN PLATELET VOLUME (BEAKER) (test rwgf=828) 9.3 fL 9.4-12.4 NUCLEATED RED BLOOD CELLS (BEAKER) (test zdau=484) 0 /100 WBC 0-0 NEUTROPHILS RELATIVE PERCENT (BEAKER) (test jeqi=744) 73 % LYMPHOCYTES RELATIVE PERCENT (BEAKER) (test isxu=985) 13 % MONOCYTES RELATIVE PERCENT (BEAKER) (test zcit=603) 13 % EOSINOPHILS RELATIVE PERCENT (BEAKER) (test zvig=707) 0 % BASOPHILS RELATIVE PERCENT (BEAKER) (test hqck=699) 1 % NEUTROPHILS ABSOLUTE COUNT (BEAKER) (test bljb=571) 5.40 K/ L 1.78-5.38 LYMPHOCYTES ABSOLUTE COUNT (BEAKER) (test whel=088) 0.96 K/ L 1.32-3.57 MONOCYTES ABSOLUTE COUNT (BEAKER) (test twqt=920) 0.95 K/ L 0.30-0.82 EOSINOPHILS ABSOLUTE COUNT (BEAKER) (test oyhp=448) 0.00 K/ L 0.04-0.54 BASOPHILS ABSOLUTE COUNT (BEAKER) (test xxwb=819) 0.06 K/ L 0.01-0.08 IMMATURE GRANULOCYTES-RELATIVE PERCENT (BEAKER) (test vwfk=2244) 1 % 0-1 URINALYSIS W/ [id number] 12:58:00* Test Item Value Reference Range Comments COLOR (BEAKER) (test yxhq=286) Light Yellow CLARITY (BEAKER) (test ggct=232) Clear SPECIFIC GRAVITY UA (BEAKER) (test trfd=734) 1.007 1.001-1.035 PH UA (BEAKER) (test leen=396) 6.0 5.0-8.0 PROTEIN UA (BEAKER) (test fpgb=719) Negative Negative GLUCOSE UA (BEAKER) (test zlnc=973) Negative Negative KETONES UA (BEAKER) (test ahbi=197) Negative Negative BILIRUBIN UA (BEAKER) (test zrqq=567) Negative Negative BLOOD UA (BEAKER) (test nloc=280) Small Negative NITRITE UA (BEAKER) (test ynfv=669) Negative Negative LEUKOCYTE ESTERASE UA (BEAKER) (test fqjx=179) Large Negative UROBILINOGEN UA (BEAKER) (test ucwp=287) 0.2 mg/dL 0.2-1.0 RBC UA (BEAKER) (test qxdj=417) 9 /HPF WBC UA (BEAKER) (test egue=551) 5 /HPF MUCUS (BEAKER) (test bucz=2215) Rare SQUAMOUS EPITHELIAL (BEAKER) (test xuat=581) < /HPF HYALINE CASTS (BEAKER) (test rohx=512) 12 /LPF CASTS (BEAKER) (test wjko=5411) 6 /LPF CRYSTALS, URINE (BEAKER) (test ngng=2127) Rare SOURCE(BEAKER) (test mupj=8042) Urine, Gonzalez BASIC METABOLIC [id number] 12:52:00* Test Item Value Reference Range Comments SODIUM (BEAKER) (test ithe=004) 135 meq/L 136-145 POTASSIUM (BEAKER) (test tyit=960) 3.7 meq/L 3.5-5.1 CHLORIDE (BEAKER) (test yeox=271) 100 meq/L 98-107 CO2 (BEAKER) (test ckfo=956) 22 meq/L 22-29 BLOOD UREA NITROGEN (BEAKER) (test rdik=020) 51 mg/dL 7-21 CREATININE (BEAKER) (test fmqu=793) 3.19 mg/dL 0.57-1.25 GLUCOSE RANDOM (BEAKER) (test kldc=744) 109 mg/dL 70-105 CALCIUM (BEAKER) (test nlmc=115) 8.4 mg/dL 8.4-10.2 EGFR (BEAKER) (test gwiz=0689) 19 mL/min/1.73 sq m ESTIMATED GFR IS NOT ACCURATE CREATININE CLEARANCE IN PREDICTING GLOMERULAR FILTRATION RATE. ESTIMATED GFR IS NOT APPLICABLE FOR DIALYSIS PATIENTS. PT/[id number] 12:37:00* Test Item Value Reference Range Comments PROTIME (BEAKER) (test vrym=695) 23.9 seconds 11.7-14.7 INR (BEAKER) (test chzx=772) 2.1 <=5.9 PARTIAL THROMBOPLASTIN TIME (BEAKER) (test jcmt=741) 46.7 seconds 22.5-36.0 RECOMMENDED COUMADIN/WARFARIN INR THERAPY RANGESSTANDARD DOSE: 2.0 - 3.0 Inclu charlie: PROPHYLAXIS for venous thrombosis, systemic embolization; TREATMENT for helena ous thrombosis and/or pulmonary embolus.HIGH RISK: Target INR is 2.5-3.5 for pat ients with mechanical heart valves.CBC W/PLT COUNT & AUTO [id number] 12:29:00* Test Item Value Reference Range Comments WHITE BLOOD CELL COUNT (BEAKER) (test pybp=779) 7.8 K/ L 3.5-10.5 RED BLOOD CELL COUNT (BEAKER) (test kckp=958) 3.47 M/ L 4.63-6.08 HEMOGLOBIN (BEAKER) (test nwbg=943) 8.4 GM/DL 13.7-17.5 HEMATOCRIT (BEAKER) (test qlil=781) 29.4 % 40.1-51.0 MEAN CORPUSCULAR VOLUME (BEAKER) (test htmn=771) 84.7 fL 79.0-92.2 MEAN CORPUSCULAR HEMOGLOBIN (BEAKER) (test hnkv=917) 24.2 pg 25.7-32.2 MEAN CORPUSCULAR HEMOGLOBIN CONC (BEAKER) (test ezrg=475) 28.6 GM/DL 32.3-36.5 RED CELL DISTRIBUTION WIDTH (BEAKER) (test dzuu=768) 14.8 % 11.6-14.4 PLATELET COUNT (BEAKER) (test fymg=503) 255 K/CU MM 150-450 MEAN PLATELET VOLUME (BEAKER) (test ssly=491) 9.2 fL 9.4-12.4 NUCLEATED RED BLOOD CELLS (BEAKER) (test gier=209) 0 /100 WBC 0-0 NEUTROPHILS RELATIVE PERCENT (BEAKER) (test jhem=616) 72 % LYMPHOCYTES RELATIVE PERCENT (BEAKER) (test yiks=889) 13 % MONOCYTES RELATIVE PERCENT (BEAKER) (test xygb=900) 14 % EOSINOPHILS RELATIVE PERCENT (BEAKER) (test fwzz=828) 0 % BASOPHILS RELATIVE PERCENT (BEAKER) (test kwhg=157) 1 % NEUTROPHILS ABSOLUTE COUNT (BEAKER) (test tsvq=858) 5.60 K/ L 1.78-5.38 LYMPHOCYTES ABSOLUTE COUNT (BEAKER) (test qash=531) 0.99 K/ L 1.32-3.57 MONOCYTES ABSOLUTE COUNT (BEAKER) (test ohyj=007) 1.11 K/ L 0.30-0.82 EOSINOPHILS ABSOLUTE COUNT (BEAKER) (test jgwu=104) 0.00 K/ L 0.04-0.54 BASOPHILS ABSOLUTE COUNT (BEAKER) (test qpus=505) 0.06 K/ L 0.01-0.08 IMMATURE GRANULOCYTES-RELATIVE PERCENT (BEAKER) (test guxn=9597) 0 % 0-1 BLOOD [id number] 10:00:00* Test Item Value Reference Range Comments CULTURE (BEAKER) (test cutp=4017) No growth in 5 days URINE [id number] 09:10:00* Test Item Value Reference Range Comments CULTURE (BEAKER) (test cswn=9774) ESCHERICHIA COLI <10,000 col/mL Escherichia coli Amikacin (test code=1) Ampicillin + Sulbactam (test code=6) Aztreonam (test code=32) Cefepime (test code=51) Cefoxitin (test code=68) Ceftazidime (test code=27) Ceftriaxone (test code=52) Ertapenem (test code=38) Gentamicin (test code=18) Levofloxacin (test code=22) Meropenem (test code=34) Nitrofurantoin (test code=23) Piperacillin + Tazobactam (test code=29) Tetracycline (test code=2) Tobramycin (test code=25) Trimethoprim + Sulfamethoxazole (test code=47) CULTURE (BEAKER) (test blmm=8662) ENTEROCOCCUS SPECIES <10,000 col/mL Enterococcus species Ampicillin (test code=26) Linezolid (test code=40) Nitrofurantoin (test code=23) Tetracycline (test code=2) Vancomycin (test code=13) GRAM STAIN RESULT (BEAKER) (test tbjd=7479) No White blood cells seen GRAM STAIN RESULT (BEAKER) (test eujv=125094) No organisms seen BLOOD [id number] 17:00:00* Test Item Value Reference Range Comments CULTURE (BEAKER) (test ucuj=6894) No growth in 5 days BLOOD [id number] 17:00:00* Test Item Value Reference Range Comments CULTURE (BEAKER) (test xtqu=4793) No growth in 5 days BASIC METABOLIC [id number] 05:31:00* Test Item Value Reference Range Comments SODIUM (BEAKER) (test wrvr=206) 133 meq/L 136-145 POTASSIUM (BEAKER) (test xcrh=104) 4.2 meq/L 3.5-5.1 CHLORIDE (BEAKER) (test pnou=307) 104 meq/L 98-107 CO2 (BEAKER) (test wvrt=105) 21 meq/L 22-29 BLOOD UREA NITROGEN (BEAKER) (test wlxi=793) 44 mg/dL 7-21 CREATININE (BEAKER) (test dtsb=332) 2.51 mg/dL 0.57-1.25 GLUCOSE RANDOM (BEAKER) (test ussz=235) 146 mg/dL 70-105 CALCIUM (BEAKER) (test ddwt=255) 8.3 mg/dL 8.4-10.2 EGFR (BEAKER) (test fzdv=6112) 25 mL/min/1.73 sq m ESTIMATED GFR IS NOT ACCURATE CREATININE CLEARANCE IN PREDICTING GLOMERULAR FILTRATION RATE. ESTIMATED GFR IS NOT APPLICABLE FOR DIALYSIS PATIENTS. PROTHROMBIN TIME/[id number] 05:31:00* Test Item Value Reference Range Comments PROTIME (BEAKER) (test ageq=784) 23.1 seconds 11.7-14.7 INR (BEAKER) (test yhlg=718) 2.0 <=5.9 RECOMMENDED COUMADIN/WARFARIN INR THERAPY RANGESSTANDARD DOSE: 2.0 - 3.0 Inclu charlie: PROPHYLAXIS for venous thrombosis, systemic embolization; TREATMENT for helena ous thrombosis and/or pulmonary embolus.HIGH RISK: Target INR is 2.5-3.5 for pat ients with mechanical heart valves.CBC W/PLT COUNT & AUTO [id number] 05:00:00* Test Item Value Reference Range Comments WHITE BLOOD CELL COUNT (BEAKER) (test ektb=527) 4.8 K/ L 3.5-10.5 RED BLOOD CELL COUNT (BEAKER) (test fafo=027) 3.22 M/ L 4.63-6.08 HEMOGLOBIN (BEAKER) (test rblu=960) 8.0 GM/DL 13.7-17.5 HEMATOCRIT (BEAKER) (test bykc=378) 27.0 % 40.1-51.0 MEAN CORPUSCULAR VOLUME (BEAKER) (test jbrw=802) 83.9 fL 79.0-92.2 MEAN CORPUSCULAR HEMOGLOBIN (BEAKER) (test vkct=986) 24.8 pg 25.7-32.2 MEAN CORPUSCULAR HEMOGLOBIN CONC (BEAKER) (test zntv=780) 29.6 GM/DL 32.3-36.5 RED CELL DISTRIBUTION WIDTH (BEAKER) (test bzxa=341) 14.6 % 11.6-14.4 PLATELET COUNT (BEAKER) (test fiee=163) 147 K/CU MM 150-450 MEAN PLATELET VOLUME (BEAKER) (test xnre=898) 10.0 fL 9.4-12.4 NUCLEATED RED BLOOD CELLS (BEAKER) (test pmez=658) 0 /100 WBC 0-0 NEUTROPHILS RELATIVE PERCENT (BEAKER) (test yqvg=883) 72 % LYMPHOCYTES RELATIVE PERCENT (BEAKER) (test ioou=526) 16 % MONOCYTES RELATIVE PERCENT (BEAKER) (test qutm=448) 11 % EOSINOPHILS RELATIVE PERCENT (BEAKER) (test saln=311) 0 % BASOPHILS RELATIVE PERCENT (BEAKER) (test jomb=350) 1 % NEUTROPHILS ABSOLUTE COUNT (BEAKER) (test bmdx=015) 3.47 K/ L 1.78-5.38 LYMPHOCYTES ABSOLUTE COUNT (BEAKER) (test hjvu=131) 0.76 K/ L 1.32-3.57 MONOCYTES ABSOLUTE COUNT (BEAKER) (test isdj=829) 0.51 K/ L 0.30-0.82 EOSINOPHILS ABSOLUTE COUNT (BEAKER) (test mlup=999) 0.00 K/ L 0.04-0.54 BASOPHILS ABSOLUTE COUNT (BEAKER) (test fudr=675) 0.06 K/ L 0.01-0.08 IMMATURE GRANULOCYTES-RELATIVE PERCENT (BEAKER) (test fsij=9015) 0 % 0-1 BASIC METABOLIC [id number] 07:34:00* Test Item Value Reference Range Comments SODIUM (BEAKER) (test epkv=455) 134 meq/L 136-145 POTASSIUM (BEAKER) (test eaun=621) 3.7 meq/L 3.5-5.1 CHLORIDE (BEAKER) (test qsbd=155) 103 meq/L 98-107 CO2 (BEAKER) (test arbk=338) 23 meq/L 22-29 BLOOD UREA NITROGEN (BEAKER) (test xlvu=773) 53 mg/dL 7-21 CREATININE (BEAKER) (test rdnd=143) 2.93 mg/dL 0.57-1.25 GLUCOSE RANDOM (BEAKER) (test ribt=745) 105 mg/dL 70-105 CALCIUM (BEAKER) (test vorc=218) 8.2 mg/dL 8.4-10.2 EGFR (BEAKER) (test piys=3153) 21 mL/min/1.73 sq m ESTIMATED GFR IS NOT ACCURATE CREATININE CLEARANCE IN PREDICTING GLOMERULAR FILTRATION RATE. ESTIMATED GFR IS NOT APPLICABLE FOR DIALYSIS PATIENTS. [id number] 07:29:00* Test Item Value Reference Range Comments MAGNESIUM (BEAKER) (test ezgd=217) 1.9 mg/dL 1.6-2.6 CBC W/PLT COUNT & AUTO [id number] 06:13:00* Test Item Value Reference Range Comments WHITE BLOOD CELL COUNT (BEAKER) (test whvm=362) 4.4 K/ L 3.5-10.5 RED BLOOD CELL COUNT (BEAKER) (test axzk=468) 2.95 M/ L 4.63-6.08 HEMOGLOBIN (BEAKER) (test uxza=807) 7.3 GM/DL 13.7-17.5 HEMATOCRIT (BEAKER) (test xwpk=913) 24.8 % 40.1-51.0 MEAN CORPUSCULAR VOLUME (BEAKER) (test eymq=545) 84.1 fL 79.0-92.2 MEAN CORPUSCULAR HEMOGLOBIN (BEAKER) (test mgvp=255) 24.7 pg 25.7-32.2 MEAN CORPUSCULAR HEMOGLOBIN CONC (BEAKER) (test sqig=473) 29.4 GM/DL 32.3-36.5 RED CELL DISTRIBUTION WIDTH (BEAKER) (test rdul=269) 14.9 % 11.6-14.4 PLATELET COUNT (BEAKER) (test vyxu=846) 126 K/CU MM 150-450 MEAN PLATELET VOLUME (BEAKER) (test rnji=714) 10.4 fL 9.4-12.4 NUCLEATED RED BLOOD CELLS (BEAKER) (test lyoc=114) 0 /100 WBC 0-0 NEUTROPHILS RELATIVE PERCENT (BEAKER) (test qkpy=122) 72 % LYMPHOCYTES RELATIVE PERCENT (BEAKER) (test xasj=531) 14 % MONOCYTES RELATIVE PERCENT (BEAKER) (test ukat=689) 14 % EOSINOPHILS RELATIVE PERCENT (BEAKER) (test sjyx=396) 0 % BASOPHILS RELATIVE PERCENT (BEAKER) (test nvup=130) 1 % NEUTROPHILS ABSOLUTE COUNT (BEAKER) (test iozg=377) 3.17 K/ L 1.78-5.38 LYMPHOCYTES ABSOLUTE COUNT (BEAKER) (test frsi=316) 0.61 K/ L 1.32-3.57 MONOCYTES ABSOLUTE COUNT (BEAKER) (test yucy=100) 0.60 K/ L 0.30-0.82 EOSINOPHILS ABSOLUTE COUNT (BEAKER) (test bzuv=191) 0.00 K/ L 0.04-0.54 BASOPHILS ABSOLUTE COUNT (BEAKER) (test fbss=556) 0.04 K/ L 0.01-0.08 IMMATURE GRANULOCYTES-RELATIVE PERCENT (BEAKER) (test tyzn=6715) 0 % 0-1 URINALYSIS W/ [id number] 12:49:00* Test Item Value Reference Range Comments COLOR (BEAKER) (test optz=850) Light Yellow CLARITY (BEAKER) (test lsop=640) Clear SPECIFIC GRAVITY UA (BEAKER) (test gkkj=552) 1.006 1.001-1.035 PH UA (BEAKER) (test pbrp=339) 6.5 5.0-8.0 PROTEIN UA (BEAKER) (test wasc=120) Negative Negative GLUCOSE UA (BEAKER) (test ispe=980) Negative Negative KETONES UA (BEAKER) (test juqn=769) Negative Negative BILIRUBIN UA (BEAKER) (test mbrm=097) Negative Negative BLOOD UA (BEAKER) (test mlcp=197) Trace Negative NITRITE UA (BEAKER) (test rwjd=768) Negative Negative LEUKOCYTE ESTERASE UA (BEAKER) (test rjrw=978) Moderate Negative UROBILINOGEN UA (BEAKER) (test udqh=112) 0.2 mg/dL 0.2-1.0 RBC UA (BEAKER) (test ahxv=976) 2 /HPF WBC UA (BEAKER) (test ctcq=370) 3 /HPF BACTERIA (BEAKER) (test xttr=442) Rare CRYSTALS, URINE (BEAKER) (test oydw=0624) Rare SOURCE(BEAKER) (test ixmw=6690) Urine, Sterile Collection BASIC METABOLIC [id number] 07:42:00* Test Item Value Reference Range Comments SODIUM (BEAKER) (test zdmu=787) 135 meq/L 136-145 POTASSIUM (BEAKER) (test mldu=288) 4.2 meq/L 3.5-5.1 CHLORIDE (BEAKER) (test fdyo=475) 105 meq/L 98-107 CO2 (BEAKER) (test acft=225) 22 meq/L 22-29 BLOOD UREA NITROGEN (BEAKER) (test ddtc=726) 55 mg/dL 7-21 CREATININE (BEAKER) (test bhnn=359) 3.03 mg/dL 0.57-1.25 GLUCOSE RANDOM (BEAKER) (test guas=165) 115 mg/dL 70-105 CALCIUM (BEAKER) (test hxko=388) 8.1 mg/dL 8.4-10.2 EGFR (BEAKER) (test hzxn=0763) 20 mL/min/1.73 sq m ESTIMATED GFR IS NOT ACCURATE CREATININE CLEARANCE IN PREDICTING GLOMERULAR FILTRATION RATE. ESTIMATED GFR IS NOT APPLICABLE FOR DIALYSIS PATIENTS. VANCOMYCIN LEVEL, [id number] 07:07:00* Test Item Value Reference Range Comments VANCOMYCIN RANDOM (BEAKER) (test cdmv=610) 6.2 ug/mL Reference Range: No NormalsPROTHROMBIN TIME/[id number] 06:48:00* Test Item Value Reference Range Comments PROTIME (BEAKER) (test zwos=907) 20.4 seconds 11.7-14.7 INR (BEAKER) (test zlxm=996) 1.8 <=5.9 RECOMMENDED COUMADIN/WARFARIN INR THERAPY RANGESSTANDARD DOSE: 2.0 - 3.0 Inclu charlie: PROPHYLAXIS for venous thrombosis, systemic embolization; TREATMENT for helena ous thrombosis and/or pulmonary embolus.HIGH RISK: Target INR is 2.5-3.5 for pat ients with mechanical heart valves.CBC W/PLT COUNT & AUTO [id number] 06:40:00* Test Item Value Reference Range Comments WHITE BLOOD CELL COUNT (BEAKER) (test hzwu=711) 5.4 K/ L 3.5-10.5 RED BLOOD CELL COUNT (BEAKER) (test heli=598) 2.90 M/ L 4.63-6.08 HEMOGLOBIN (BEAKER) (test dmxu=643) 7.3 GM/DL 13.7-17.5 HEMATOCRIT (BEAKER) (test ddgo=405) 24.6 % 40.1-51.0 MEAN CORPUSCULAR VOLUME (BEAKER) (test iyli=396) 84.8 fL 79.0-92.2 MEAN CORPUSCULAR HEMOGLOBIN (BEAKER) (test fwjh=534) 25.2 pg 25.7-32.2 MEAN CORPUSCULAR HEMOGLOBIN CONC (BEAKER) (test rwsc=500) 29.7 GM/DL 32.3-36.5 RED CELL DISTRIBUTION WIDTH (BEAKER) (test nulp=002) 15.1 % 11.6-14.4 PLATELET COUNT (BEAKER) (test hncq=742) 121 K/CU MM 150-450 MEAN PLATELET VOLUME (BEAKER) (test eupw=438) 9.8 fL 9.4-12.4 NUCLEATED RED BLOOD CELLS (BEAKER) (test ymjy=270) 0 /100 WBC 0-0 NEUTROPHILS RELATIVE PERCENT (BEAKER) (test cxlu=019) 74 % LYMPHOCYTES RELATIVE PERCENT (BEAKER) (test xfru=129) 12 % MONOCYTES RELATIVE PERCENT (BEAKER) (test srcu=756) 13 % EOSINOPHILS RELATIVE PERCENT (BEAKER) (test zubs=165) 0 % BASOPHILS RELATIVE PERCENT (BEAKER) (test ohpk=371) 0 % NEUTROPHILS ABSOLUTE COUNT (BEAKER) (test dyem=258) 4.01 K/ L 1.78-5.38 LYMPHOCYTES ABSOLUTE COUNT (BEAKER) (test ymui=978) 0.66 K/ L 1.32-3.57 MONOCYTES ABSOLUTE COUNT (BEAKER) (test jwec=579) 0.71 K/ L 0.30-0.82 EOSINOPHILS ABSOLUTE COUNT (BEAKER) (test cufr=385) 0.00 K/ L 0.04-0.54 BASOPHILS ABSOLUTE COUNT (BEAKER) (test exyl=153) 0.02 K/ L 0.01-0.08 IMMATURE GRANULOCYTES-RELATIVE PERCENT (BEAKER) (test smja=8712) 0 % 0-1 RAD, CHEST, 2 [id number] 23:49:00HFC- Dr. Coe/ Lizzette Mejias RNReason for exam:->Bilateral Pleural Effusions seen on CT. Please evaluate with upright CXRShould this be performed at the bedside?->NoNeed UprightFINAL REPORT EXAM: PA and lateral chest radiograph Clinical history: Bilateral pleural effusion COMPARISON: June 21, 2018 FINDINGS: There is interval worsening in cardiomegaly with bilateral pulmonary edema. In addition, mild bilateral subpulmonic pleural effusions are also noted. There is no evidence of pneumothorax. 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 The regional osseous structures are stable in appearance. Signed: Mandi Gomez MDReport Verified Date/Time: 10/24/2018 23:49:07 Reading Location: [facility] B1 [id number] Consult Reading Room E [id number] 09:27:00* Test Item Value Reference Range Comments CULTURE (BEAKER) (test zlyx=1108) See comment GRAM STAIN RESULT (BEAKER) (test pfam=3814) <1+ White blood cells seen GRAM STAIN RESULT (BEAKER) (test daqn=57325) 1+ gram negative rods >100,000 col/mL enteric organisms of >2 types. No further workup performed. Multiple organisms suggestive of colonization or contamination. Repeat collection recommended.[id number] 06:46:00* Test Item Value Reference Range Comments MAGNESIUM (BEAKER) (test uzve=397) 2.2 mg/dL 1.6-2.6 BASIC METABOLIC [id number] 06:46:00* Test Item Value Reference Range Comments SODIUM (BEAKER) (test rijj=875) 137 meq/L 136-145 POTASSIUM (BEAKER) (test lvrw=936) 4.3 meq/L 3.5-5.1 CHLORIDE (BEAKER) (test znjs=488) 105 meq/L 98-107 CO2 (BEAKER) (test rpci=042) 26 meq/L 22-29 BLOOD UREA NITROGEN (BEAKER) (test nxmc=862) 50 mg/dL 7-21 CREATININE (BEAKER) (test xnqc=965) 2.91 mg/dL 0.57-1.25 GLUCOSE RANDOM (BEAKER) (test utah=089) 105 mg/dL 70-105 CALCIUM (BEAKER) (test uodk=450) 8.4 mg/dL 8.4-10.2 EGFR (BEAKER) (test mmgj=8567) 21 mL/min/1.73 sq m ESTIMATED GFR IS NOT ACCURATE CREATININE CLEARANCE IN PREDICTING GLOMERULAR FILTRATION RATE. ESTIMATED GFR IS NOT APPLICABLE FOR DIALYSIS PATIENTS. PROTHROMBIN TIME/[id number] 05:11:00* Test Item Value Reference Range Comments PROTIME (BEAKER) (test tsfo=255) 19.3 seconds 11.7-14.7 INR (BEAKER) (test lwbq=010) 1.6 <=5.9 RECOMMENDED COUMADIN/WARFARIN INR THERAPY RANGESSTANDARD DOSE: 2.0 - 3.0 Inclu charlie: PROPHYLAXIS for venous thrombosis, systemic embolization; TREATMENT for helena ous thrombosis and/or pulmonary embolus.HIGH RISK: Target INR is 2.5-3.5 for pat ients with mechanical heart valves.CBC W/PLT COUNT & AUTO [id number] 05:02:00* Test Item Value Reference Range Comments WHITE BLOOD CELL COUNT (BEAKER) (test koyg=605) 6.7 K/ L 3.5-10.5 RED BLOOD CELL COUNT (BEAKER) (test vlll=622) 2.98 M/ L 4.63-6.08 HEMOGLOBIN (BEAKER) (test hrvs=877) 7.5 GM/DL 13.7-17.5 HEMATOCRIT (BEAKER) (test hduc=652) 25.4 % 40.1-51.0 MEAN CORPUSCULAR VOLUME (BEAKER) (test bely=435) 85.2 fL 79.0-92.2 MEAN CORPUSCULAR HEMOGLOBIN (BEAKER) (test muws=181) 25.2 pg 25.7-32.2 MEAN CORPUSCULAR HEMOGLOBIN CONC (BEAKER) (test nzox=256) 29.5 GM/DL 32.3-36.5 RED CELL DISTRIBUTION WIDTH (BEAKER) (test ecjq=042) 15.2 % 11.6-14.4 PLATELET COUNT (BEAKER) (test fgxh=259) 130 K/CU MM 150-450 MEAN PLATELET VOLUME (BEAKER) (test vlfx=366) 10.6 fL 9.4-12.4 NUCLEATED RED BLOOD CELLS (BEAKER) (test bopj=350) 0 /100 WBC 0-0 NEUTROPHILS RELATIVE PERCENT (BEAKER) (test mzoe=152) 71 % LYMPHOCYTES RELATIVE PERCENT (BEAKER) (test smuk=380) 14 % MONOCYTES RELATIVE PERCENT (BEAKER) (test udyd=635) 14 % EOSINOPHILS RELATIVE PERCENT (BEAKER) (test sbhi=650) 0 % BASOPHILS RELATIVE PERCENT (BEAKER) (test ctsf=440) 0 % NEUTROPHILS ABSOLUTE COUNT (BEAKER) (test gjaa=938) 4.77 K/ L 1.78-5.38 LYMPHOCYTES ABSOLUTE COUNT (BEAKER) (test syih=902) 0.97 K/ L 1.32-3.57 MONOCYTES ABSOLUTE COUNT (BEAKER) (test knix=052) 0.91 K/ L 0.30-0.82 EOSINOPHILS ABSOLUTE COUNT (BEAKER) (test acls=435) 0.00 K/ L 0.04-0.54 BASOPHILS ABSOLUTE COUNT (BEAKER) (test mypj=312) 0.03 K/ L 0.01-0.08 IMMATURE GRANULOCYTES-RELATIVE PERCENT (BEAKER) (test pmac=7965) 1 % 0-1 HEMOGLOBIN AND [id number] 18:52:00* Test Item Value Reference Range Comments HEMOGLOBIN (BEAKER) (test jcne=325) 7.5 GM/DL 13.7-17.5 HEMATOCRIT (BEAKER) (test lrqt=857) 25.3 % 40.1-51.0 HEMOGLOBIN AND [id number] 12:05:00* Test Item Value Reference Range Comments HEMOGLOBIN (BEAKER) (test dves=453) 7.2 GM/DL 13.7-17.5 HEMATOCRIT (BEAKER) (test nuqz=097) 24.8 % 40.1-51.0 URINALYSIS W/ [id number] 11:23:00* Test Item Value Reference Range Comments COLOR (BEAKER) (test kgbw=718) Yellow CLARITY (BEAKER) (test xdbh=388) Hazy SPECIFIC GRAVITY UA (BEAKER) (test jihd=457) 1.013 1.001-1.035 PH UA (BEAKER) (test ncvu=274) 6.0 5.0-8.0 PROTEIN UA (BEAKER) (test japc=097) 50 mg/dL Negative GLUCOSE UA (BEAKER) (test rjpi=520) Negative Negative KETONES UA (BEAKER) (test mgnl=436) Negative Negative BILIRUBIN UA (BEAKER) (test mbqn=440) Negative Negative BLOOD UA (BEAKER) (test bxew=334) Small Negative NITRITE UA (BEAKER) (test pvlc=664) Negative Negative LEUKOCYTE ESTERASE UA (BEAKER) (test rlcg=805) Large Negative UROBILINOGEN UA (BEAKER) (test qafi=891) 0.2 mg/dL 0.2-1.0 RBC UA (BEAKER) (test blci=554) 9 /HPF WBC UA (BEAKER) (test qtoy=730) > /HPF BACTERIA (BEAKER) (test vopz=297) Many MUCUS (BEAKER) (test eqtd=9091) Occasional SOURCE(BEAKER) (test oogl=8775) Urine, Ognzalez BASIC METABOLIC [id number] 05:13:00* Test Item Value Reference Range Comments SODIUM (BEAKER) (test yoju=178) 141 meq/L 136-145 POTASSIUM (BEAKER) (test dtie=146) 3.7 meq/L 3.5-5.1 CHLORIDE (BEAKER) (test fjem=981) 106 meq/L 98-107 CO2 (BEAKER) (test kbwg=096) 26 meq/L 22-29 BLOOD UREA NITROGEN (BEAKER) (test wbyy=071) 45 mg/dL 7-21 CREATININE (BEAKER) (test iztq=801) 2.26 mg/dL 0.57-1.25 GLUCOSE RANDOM (BEAKER) (test qxny=392) 110 mg/dL 70-105 CALCIUM (BEAKER) (test bqip=496) 8.5 mg/dL 8.4-10.2 EGFR (BEAKER) (test komb=8610) 28 mL/min/1.73 sq m ESTIMATED GFR IS NOT ACCURATE CREATININE CLEARANCE IN PREDICTING GLOMERULAR FILTRATION RATE. ESTIMATED GFR IS NOT APPLICABLE FOR DIALYSIS PATIENTS. PROTHROMBIN TIME/[id number] 04:48:00* Test Item Value Reference Range Comments PROTIME (BEAKER) (test nnjq=926) 20.8 seconds 11.7-14.7 INR (BEAKER) (test qpql=257) 1.8 <=5.9 RECOMMENDED COUMADIN/WARFARIN INR THERAPY RANGESSTANDARD DOSE: 2.0 - 3.0 Inclu charlie: PROPHYLAXIS for venous thrombosis, systemic embolization; TREATMENT for helena ous thrombosis and/or pulmonary embolus.HIGH RISK: Target INR is 2.5-3.5 for pat ients with mechanical heart valves.CBC W/PLT COUNT & AUTO [id number] 04:30:00* Test Item Value Reference Range Comments WHITE BLOOD CELL COUNT (BEAKER) (test rjqf=850) 6.8 K/ L 3.5-10.5 RED BLOOD CELL COUNT (BEAKER) (test zntk=589) 3.00 M/ L 4.63-6.08 HEMOGLOBIN (BEAKER) (test pepv=516) 7.5 GM/DL 13.7-17.5 HEMATOCRIT (BEAKER) (test wluk=936) 25.6 % 40.1-51.0 MEAN CORPUSCULAR VOLUME (BEAKER) (test rvbk=887) 85.3 fL 79.0-92.2 MEAN CORPUSCULAR HEMOGLOBIN (BEAKER) (test fdhh=014) 25.0 pg 25.7-32.2 MEAN CORPUSCULAR HEMOGLOBIN CONC (BEAKER) (test uqsk=177) 29.3 GM/DL 32.3-36.5 RED CELL DISTRIBUTION WIDTH (BEAKER) (test htqw=017) 15.2 % 11.6-14.4 PLATELET COUNT (BEAKER) (test xaes=954) 141 K/CU MM 150-450 MEAN PLATELET VOLUME (BEAKER) (test fypv=856) 9.6 fL 9.4-12.4 NUCLEATED RED BLOOD CELLS (BEAKER) (test wnie=797) 0 /100 WBC 0-0 NEUTROPHILS RELATIVE PERCENT (BEAKER) (test lxkx=656) 74 % LYMPHOCYTES RELATIVE PERCENT (BEAKER) (test einz=553) 12 % MONOCYTES RELATIVE PERCENT (BEAKER) (test mopx=163) 13 % EOSINOPHILS RELATIVE PERCENT (BEAKER) (test tfrc=026) 0 % BASOPHILS RELATIVE PERCENT (BEAKER) (test allq=079) 1 % NEUTROPHILS ABSOLUTE COUNT (BEAKER) (test oxok=232) 5.02 K/ L 1.78-5.38 LYMPHOCYTES ABSOLUTE COUNT (BEAKER) (test qdud=591) 0.78 K/ L 1.32-3.57 MONOCYTES ABSOLUTE COUNT (BEAKER) (test etca=056) 0.88 K/ L 0.30-0.82 EOSINOPHILS ABSOLUTE COUNT (BEAKER) (test kxnr=627) 0.00 K/ L 0.04-0.54 BASOPHILS ABSOLUTE COUNT (BEAKER) (test sfak=054) 0.04 K/ L 0.01-0.08 IMMATURE GRANULOCYTES-RELATIVE PERCENT (BEAKER) (test hvpi=8785) 0 % 0-1 HEMOGLOBIN AND [id number] 20:26:00* Test Item Value Reference Range Comments HEMOGLOBIN (BEAKER) (test wxxf=821) 7.4 GM/DL 13.7-17.5 HEMATOCRIT (BEAKER) (test laxv=689) 25.6 % 40.1-51.0 HEMOGLOBIN AND [id number] 11:56:00* Test Item Value Reference Range Comments HEMOGLOBIN (BEAKER) (test pxcr=873) 7.8 GM/DL 13.7-17.5 HEMATOCRIT (BEAKER) (test onmn=735) 25.8 % 40.1-51.0 BASIC METABOLIC [id number] 04:13:00* Test Item Value Reference Range Comments SODIUM (BEAKER) (test jdjy=085) 142 meq/L 136-145 POTASSIUM (BEAKER) (test zxag=890) 3.2 meq/L 3.5-5.1 CHLORIDE (BEAKER) (test iwyq=385) 105 meq/L 98-107 CO2 (BEAKER) (test zdcb=671) 27 meq/L 22-29 BLOOD UREA NITROGEN (BEAKER) (test ovek=610) 54 mg/dL 7-21 CREATININE (BEAKER) (test yjwp=101) 2.43 mg/dL 0.57-1.25 GLUCOSE RANDOM (BEAKER) (test qmxl=403) 117 mg/dL 70-105 CALCIUM (BEAKER) (test isfk=584) 8.4 mg/dL 8.4-10.2 EGFR (BEAKER) (test ykyv=3795) 26 mL/min/1.73 sq m ESTIMATED GFR IS NOT ACCURATE CREATININE CLEARANCE IN PREDICTING GLOMERULAR FILTRATION RATE. ESTIMATED GFR IS NOT APPLICABLE FOR DIALYSIS PATIENTS. PROTHROMBIN TIME/[id number] 04:04:00* Test Item Value Reference Range Comments PROTIME (BEAKER) (test fwci=360) 26.5 seconds 11.7-14.7 INR (BEAKER) (test blmh=355) 2.4 <=5.9 RECOMMENDED COUMADIN/WARFARIN INR THERAPY RANGESSTANDARD DOSE: 2.0 - 3.0 Inclu charlie: PROPHYLAXIS for venous thrombosis, systemic embolization; TREATMENT for helena ous thrombosis and/or pulmonary embolus.HIGH RISK: Target INR is 2.5-3.5 for pat ients with mechanical heart valves.CBC W/PLT COUNT & AUTO [id number] 03:47:00* Test Item Value Reference Range Comments WHITE BLOOD CELL COUNT (BEAKER) (test kqfj=447) 5.9 K/ L 3.5-10.5 RED BLOOD CELL COUNT (BEAKER) (test lnzl=275) 3.02 M/ L 4.63-6.08 HEMOGLOBIN (BEAKER) (test dbui=721) 7.4 GM/DL 13.7-17.5 HEMATOCRIT (BEAKER) (test yyjp=801) 25.5 % 40.1-51.0 MEAN CORPUSCULAR VOLUME (BEAKER) (test xalg=356) 84.4 fL 79.0-92.2 MEAN CORPUSCULAR HEMOGLOBIN (BEAKER) (test ozah=874) 24.5 pg 25.7-32.2 MEAN CORPUSCULAR HEMOGLOBIN CONC (BEAKER) (test quwd=972) 29.0 GM/DL 32.3-36.5 RED CELL DISTRIBUTION WIDTH (BEAKER) (test tzug=026) 15.5 % 11.6-14.4 PLATELET COUNT (BEAKER) (test yzir=289) 171 K/CU MM 150-450 MEAN PLATELET VOLUME (BEAKER) (test wpde=042) 9.5 fL 9.4-12.4 NUCLEATED RED BLOOD CELLS (BEAKER) (test dppy=603) 0 /100 WBC 0-0 NEUTROPHILS RELATIVE PERCENT (BEAKER) (test nzix=709) 73 % LYMPHOCYTES RELATIVE PERCENT (BEAKER) (test dyyv=838) 12 % MONOCYTES RELATIVE PERCENT (BEAKER) (test syjg=768) 14 % EOSINOPHILS RELATIVE PERCENT (BEAKER) (test nyjl=804) 0 % BASOPHILS RELATIVE PERCENT (BEAKER) (test vabi=056) 1 % NEUTROPHILS ABSOLUTE COUNT (BEAKER) (test xbhl=397) 4.25 K/ L 1.78-5.38 LYMPHOCYTES ABSOLUTE COUNT (BEAKER) (test pewx=491) 0.70 K/ L 1.32-3.57 MONOCYTES ABSOLUTE COUNT (BEAKER) (test qxzm=185) 0.84 K/ L 0.30-0.82 EOSINOPHILS ABSOLUTE COUNT (BEAKER) (test tkzv=217) 0.00 K/ L 0.04-0.54 BASOPHILS ABSOLUTE COUNT (BEAKER) (test wuyv=615) 0.04 K/ L 0.01-0.08 IMMATURE GRANULOCYTES-RELATIVE PERCENT (BEAKER) (test inlk=7930) 0 % 0-1 HEMOGLOBIN AND [id number] 19:10:00* Test Item Value Reference Range Comments HEMOGLOBIN (BEAKER) (test gfpt=916) 7.3 GM/DL 13.7-17.5 HEMATOCRIT (BEAKER) (test huyc=555) 25.1 % 40.1-51.0 HEMOGLOBIN AND [id number] 11:33:00* Test Item Value Reference Range Comments HEMOGLOBIN (BEAKER) (test yyvb=140) 8.0 GM/DL 13.7-17.5 HEMATOCRIT (BEAKER) (test qonl=036) 26.6 % 40.1-51.0 [id number] 06:13:00* Test Item Value Reference Range Comments MAGNESIUM (BEAKER) (test ypnl=326) 2.4 mg/dL 1.6-2.6 BASIC METABOLIC [id number] 03:43:00* Test Item Value Reference Range Comments SODIUM (BEAKER) (test trkp=960) 140 meq/L 136-145 POTASSIUM (BEAKER) (test wnwg=380) 3.2 meq/L 3.5-5.1 CHLORIDE (BEAKER) (test lcph=047) 101 meq/L 98-107 CO2 (BEAKER) (test scmd=710) 26 meq/L 22-29 BLOOD UREA NITROGEN (BEAKER) (test bgdf=711) 74 mg/dL 7-21 CREATININE (BEAKER) (test capo=136) 2.86 mg/dL 0.57-1.25 GLUCOSE RANDOM (BEAKER) (test hyiv=534) 111 mg/dL 70-105 CALCIUM (BEAKER) (test lime=366) 8.3 mg/dL 8.4-10.2 EGFR (BEAKER) (test ayjg=5157) 21 mL/min/1.73 sq m ESTIMATED GFR IS NOT ACCURATE CREATININE CLEARANCE IN PREDICTING GLOMERULAR FILTRATION RATE. ESTIMATED GFR IS NOT APPLICABLE FOR DIALYSIS PATIENTS. PROTHROMBIN [id number] 03:35:00* Test Item Value Reference Range Comments PROTIME (BEAKER) (test qxmw=886) 31.7 seconds 11.7-14.7 INR (BEAKER) (test ctet=309) 3.1 <=5.9 RECOMMENDED COUMADIN/WARFARIN INR THERAPY RANGESSTANDARD DOSE: 2.0 - 3.0 Inclu charlie: PROPHYLAXIS for venous thrombosis, systemic embolization; TREATMENT for helena ous thrombosis and/or pulmonary embolus.HIGH RISK: Target INR is 2.5-3.5 for pat ients with mechanical heart valves.CBC W/PLT COUNT & AUTO [id number] 03:25:00* Test Item Value Reference Range Comments WHITE BLOOD CELL COUNT (BEAKER) (test ygop=781) 5.7 K/ L 3.5-10.5 RED BLOOD CELL COUNT (BEAKER) (test fhzd=312) 2.81 M/ L 4.63-6.08 HEMOGLOBIN (BEAKER) (test iaiv=423) 7.1 GM/DL 13.7-17.5 HEMATOCRIT (BEAKER) (test kkif=275) 23.6 % 40.1-51.0 MEAN CORPUSCULAR VOLUME (BEAKER) (test epmg=809) 84.0 fL 79.0-92.2 MEAN CORPUSCULAR HEMOGLOBIN (BEAKER) (test zsgh=677) 25.3 pg 25.7-32.2 MEAN CORPUSCULAR HEMOGLOBIN CONC (BEAKER) (test reel=670) 30.1 GM/DL 32.3-36.5 RED CELL DISTRIBUTION WIDTH (BEAKER) (test rjve=235) 15.2 % 11.6-14.4 PLATELET COUNT (BEAKER) (test azwi=764) 142 K/CU MM 150-450 MEAN PLATELET VOLUME (BEAKER) (test kvaa=471) 9.0 fL 9.4-12.4 NUCLEATED RED BLOOD CELLS (BEAKER) (test cyfu=716) 0 /100 WBC 0-0 NEUTROPHILS RELATIVE PERCENT (BEAKER) (test avtc=128) 72 % LYMPHOCYTES RELATIVE PERCENT (BEAKER) (test gblc=901) 12 % MONOCYTES RELATIVE PERCENT (BEAKER) (test ntyd=952) 15 % EOSINOPHILS RELATIVE PERCENT (BEAKER) (test zbjz=291) 0 % BASOPHILS RELATIVE PERCENT (BEAKER) (test yxis=015) 1 % NEUTROPHILS ABSOLUTE COUNT (BEAKER) (test nwsp=556) 4.15 K/ L 1.78-5.38 LYMPHOCYTES ABSOLUTE COUNT (BEAKER) (test bxxr=819) 0.66 K/ L 1.32-3.57 MONOCYTES ABSOLUTE COUNT (BEAKER) (test wbkm=900) 0.86 K/ L 0.30-0.82 EOSINOPHILS ABSOLUTE COUNT (BEAKER) (test hbtf=523) 0.00 K/ L 0.04-0.54 BASOPHILS ABSOLUTE COUNT (BEAKER) (test iyxa=460) 0.05 K/ L 0.01-0.08 IMMATURE GRANULOCYTES-RELATIVE PERCENT (BEAKER) (test jpjx=1318) 0 % 0-1 HEMOGLOBIN AND [id number] 19:10:00* Test Item Value Reference Range Comments HEMOGLOBIN (BEAKER) (test udtc=294) 7.1 GM/DL 13.7-17.5 HEMATOCRIT (BEAKER) (test nolr=264) 24.1 % 40.1-51.0 CT, [id number] 13:05:00H- Dr. Coe/ Lizzette Mejias RNFINAL REPORT CT abdomen and pelvis without intravenous contrast. INDICATION: Abdominal pain, unspecified COMPARISON: 07/31/2017 TECHNIQUE: Multiple contiguous transaxial images of the abdomen and pelvis were obtained w ithout intravenous contrast. This exam was performed according to our [facility] jill dose optimization program which includes automated exposure control, adjustm ent of the mA and/or kV according to patient size and/or use of iterative recons tructive technique. FINDINGS: Lack of intravenous contrast limits evaluation of the parenchymal and vascular organs. The lung bases demonstrate moderate bilater al pleural effusions, right more than left. The osseous structures demonstrate d egenerative change. The unenhanced liver, spleen, and adrenal glands are unremar kable. There is diffuse atrophy of the pancreas. There are gallstones some of wh ich are in the gallbladder neck. There is no significant biliary dilatation. The stomach is underdistended limiting its evaluation with postsurgical changes. The left kidney is atrophic with lobulated contour and scarring. The right kidney demonstrates mild perinephric fat stranding. The prostate gland is enlarged. The re is a Gonzalez catheter in position with nonspecific bladder wall thickening whic h can be correlated with urinalysis. Extensive vascular calcifications are seen. There is extensive colonic diverticulosis without acute diverticulitis. There is a moderate amount of feces throughout the visualized colon. The appendix is not clearly visualized. There is no bowel obstruction or perforation. There is no fluid collection or lymphadenopathy. IMPRESSION:1. Colonic diverticulosis withou t acute diverticulitis.2. Extensive vascular calcifications.3. Atrophic left kid katherine.4. Wall thickening of the urinary bladder can be correlated with urinalysis. 5. Cholelithiasis.6. Bilateral pleural effusions and atelectasis. Signed: Lenin Felix MDReport Verified Date/Time: 10/20/2018 13:05:46 Reading Location: [facility] B1 [id number] Ortho Consult Reading Room HROMBIN TIME/[id number] 11:57:00* Test Item Value Reference Range Comments PROTIME (BEAKER) (test zvep=584) 32.6 seconds 11.7-14.7 INR (BEAKER) (test tubv=229) 3.2 <=5.9 RECOMMENDED COUMADIN/WARFARIN INR THERAPY RANGESSTANDARD DOSE: 2.0 - 3.0 Inclu charlie: PROPHYLAXIS for venous thrombosis, systemic embolization; TREATMENT for helena ous thrombosis and/or pulmonary embolus.HIGH RISK: Target INR is 2.5-3.5 for pat ients with mechanical heart valves.CBC W/PLT COUNT & AUTO [id number] 11:43:00* Test Item Value Reference Range Comments WHITE BLOOD CELL COUNT (BEAKER) (test rzdf=695) 6.0 K/ L 3.5-10.5 RED BLOOD CELL COUNT (BEAKER) (test prks=348) 2.86 M/ L 4.63-6.08 HEMOGLOBIN (BEAKER) (test mapa=490) 7.2 GM/DL 13.7-17.5 HEMATOCRIT (BEAKER) (test mhsy=049) 23.9 % 40.1-51.0 MEAN CORPUSCULAR VOLUME (BEAKER) (test jxdn=799) 83.6 fL 79.0-92.2 MEAN CORPUSCULAR HEMOGLOBIN (BEAKER) (test izth=710) 25.2 pg 25.7-32.2 MEAN CORPUSCULAR HEMOGLOBIN CONC (BEAKER) (test xeop=188) 30.1 GM/DL 32.3-36.5 RED CELL DISTRIBUTION WIDTH (BEAKER) (test tkxe=512) 15.4 % 11.6-14.4 PLATELET COUNT (BEAKER) (test atna=128) 146 K/CU MM 150-450 MEAN PLATELET VOLUME (BEAKER) (test ihhs=480) 8.5 fL 9.4-12.4 NUCLEATED RED BLOOD CELLS (BEAKER) (test tjkm=316) 0 /100 WBC 0-0 NEUTROPHILS RELATIVE PERCENT (BEAKER) (test ytis=935) 70 % LYMPHOCYTES RELATIVE PERCENT (BEAKER) (test fkgk=627) 14 % MONOCYTES RELATIVE PERCENT (BEAKER) (test luah=244) 15 % EOSINOPHILS RELATIVE PERCENT (BEAKER) (test ilta=366) 0 % BASOPHILS RELATIVE PERCENT (BEAKER) (test lcsw=399) 1 % NEUTROPHILS ABSOLUTE COUNT (BEAKER) (test hvoc=589) 4.18 K/ L 1.78-5.38 LYMPHOCYTES ABSOLUTE COUNT (BEAKER) (test fpuw=586) 0.84 K/ L 1.32-3.57 MONOCYTES ABSOLUTE COUNT (BEAKER) (test dzig=999) 0.88 K/ L 0.30-0.82 EOSINOPHILS ABSOLUTE COUNT (BEAKER) (test vaqt=563) 0.00 K/ L 0.04-0.54 BASOPHILS ABSOLUTE COUNT (BEAKER) (test asrl=063) 0.04 K/ L 0.01-0.08 IMMATURE GRANULOCYTES-RELATIVE PERCENT (BEAKER) (test dpxg=2887) 0 % 0-1 [id number] 20:00:00* Test Item Value Reference Range Comments PROTIME (BEAKER) (test awmh=944) 30.7 seconds 11.7-14.7 INR (BEAKER) (test vcla=824) 3.0 <=5.9 PARTIAL THROMBOPLASTIN TIME (BEAKER) (test clov=987) 48.5 seconds 22.5-36.0 RECOMMENDED COUMADIN/WARFARIN INR THERAPY RANGESSTANDARD DOSE: 2.0 - 3.0 Inclu charlie: PROPHYLAXIS for venous thrombosis, systemic embolization; TREATMENT for helena ous thrombosis and/or pulmonary embolus.HIGH RISK: Target INR is 2.5-3.5 for pat ients with mechanical heart valves.COMPREHENSIVE METABOLIC [id number] 19:44:00* Test Item Value Reference Range Comments TOTAL PROTEIN (BEAKER) (test uzmm=184) 7.4 gm/dL 6.0-8.3 ALBUMIN (BEAKER) (test fxnr=0634) 3.6 g/dL 3.5-5.0 ALKALINE PHOSPHATASE (BEAKER) (test cdqw=003) 140 U/L 40-150 BILIRUBIN TOTAL (BEAKER) (test lofm=736) 0.5 mg/dL 0.2-1.2 SODIUM (BEAKER) (test rzsx=298) 133 meq/L 136-145 POTASSIUM (BEAKER) (test dixi=214) 4.2 meq/L 3.5-5.1 CHLORIDE (BEAKER) (test kscp=248) 98 meq/L 98-107 CO2 (BEAKER) (test omcg=868) 23 meq/L 22-29 BLOOD UREA NITROGEN (BEAKER) (test iiku=151) 84 mg/dL 7-21 CREATININE (BEAKER) (test rvbd=409) 3.64 mg/dL 0.57-1.25 GLUCOSE RANDOM (BEAKER) (test loxd=767) 127 mg/dL 70-105 CALCIUM (BEAKER) (test fllt=832) 8.5 mg/dL 8.4-10.2 AST (SGOT) (BEAKER) (test xyad=043) 27 U/L 5-34 ALT (SGPT) (BEAKER) (test psgw=894) 16 U/L 6-55 EGFR (BEAKER) (test kkqu=7090) 16 mL/min/1.73 sq m ESTIMATED GFR IS NOT ACCURATE CREATININE CLEARANCE IN PREDICTING GLOMERULAR FILTRATION RATE. ESTIMATED GFR IS NOT APPLICABLE FOR DIALYSIS PATIENTS. CBC W/PLT COUNT & AUTO [id number] 19:30:00* Test Item Value Reference Range Comments WHITE BLOOD CELL COUNT (BEAKER) (test kksp=094) 8.2 K/ L 3.5-10.5 RED BLOOD CELL COUNT (BEAKER) (test gaml=851) 3.18 M/ L 4.63-6.08 HEMOGLOBIN (BEAKER) (test kvxy=737) 7.9 GM/DL 13.7-17.5 HEMATOCRIT (BEAKER) (test ajkh=178) 27.1 % 40.1-51.0 MEAN CORPUSCULAR VOLUME (BEAKER) (test sizw=250) 85.2 fL 79.0-92.2 MEAN CORPUSCULAR HEMOGLOBIN (BEAKER) (test prhc=111) 24.8 pg 25.7-32.2 MEAN CORPUSCULAR HEMOGLOBIN CONC (BEAKER) (test wzmp=284) 29.2 GM/DL 32.3-36.5 RED CELL DISTRIBUTION WIDTH (BEAKER) (test zikg=223) 15.3 % 11.6-14.4 PLATELET COUNT (BEAKER) (test magf=038) 191 K/CU MM 150-450 MEAN PLATELET VOLUME (BEAKER) (test gejl=681) 9.3 fL 9.4-12.4 NUCLEATED RED BLOOD CELLS (BEAKER) (test tthq=738) 0 /100 WBC 0-0 NEUTROPHILS RELATIVE PERCENT (BEAKER) (test xxda=698) 75 % LYMPHOCYTES RELATIVE PERCENT (BEAKER) (test mvdh=881) 12 % MONOCYTES RELATIVE PERCENT (BEAKER) (test gelp=432) 12 % EOSINOPHILS RELATIVE PERCENT (BEAKER) (test jqnb=522) 0 % BASOPHILS RELATIVE PERCENT (BEAKER) (test adcw=107) 1 % NEUTROPHILS ABSOLUTE COUNT (BEAKER) (test gfly=694) 6.13 K/ L 1.78-5.38 LYMPHOCYTES ABSOLUTE COUNT (BEAKER) (test hwdd=241) 0.95 K/ L 1.32-3.57 MONOCYTES ABSOLUTE COUNT (BEAKER) (test wrmq=028) 0.99 K/ L 0.30-0.82 EOSINOPHILS ABSOLUTE COUNT (BEAKER) (test jmsv=508) 0.00 K/ L 0.04-0.54 BASOPHILS ABSOLUTE COUNT (BEAKER) (test ojno=570) 0.07 K/ L 0.01-0.08 IMMATURE GRANULOCYTES-RELATIVE PERCENT (BEAKER) (test krew=8570) 1 % 0-1 [id number] 16:56:00* Test Item Value Reference Range Comments FERRITIN (BEAKER) (test zowq=378) 47 ng/mL 5-275 VITAMIN B12 AND [id number] 16:56:00* Test Item Value Reference Range Comments VITAMIN B12 (BEAKER) (test sjtl=858) 1576 pg/mL 213-816 FOLATE (BEAKER) (test gndj=126) 7.5 ng/mL >=7.0 BASIC METABOLIC [id number] 15:26:00* Test Item Value Reference Range Comments SODIUM (BEAKER) (test enzv=515) 133 meq/L 136-145 POTASSIUM (BEAKER) (test xxdi=886) 4.4 meq/L 3.5-5.1 CHLORIDE (BEAKER) (test ldlc=876) 97 meq/L 98-107 CO2 (BEAKER) (test hmhy=531) 25 meq/L 22-29 BLOOD UREA NITROGEN (BEAKER) (test sdsu=458) 57 mg/dL 7-21 CREATININE (BEAKER) (test mmjz=785) 3.07 mg/dL 0.57-1.25 GLUCOSE RANDOM (BEAKER) (test mzcu=268) 175 mg/dL 70-105 CALCIUM (BEAKER) (test sjbl=594) 8.9 mg/dL 8.4-10.2 EGFR (BEAKER) (test rvsd=5629) 20 mL/min/1.73 sq m ESTIMATED GFR IS NOT ACCURATE CREATININE CLEARANCE IN PREDICTING GLOMERULAR FILTRATION RATE. ESTIMATED GFR IS NOT APPLICABLE FOR DIALYSIS PATIENTS. PROTHROMBIN TIME/[id number] 14:59:00* Test Item Value Reference Range Comments PROTIME (BEAKER) (test ycjt=744) 23.4 seconds 11.7-14.7 INR (BEAKER) (test mbpp=294) 2.1 <=5.9 RECOMMENDED COUMADIN/WARFARIN INR THERAPY RANGESSTANDARD DOSE: 2.0 - 3.0 Inclu charlie: PROPHYLAXIS for venous thrombosis, systemic embolization; TREATMENT for helena ous thrombosis and/or pulmonary embolus.HIGH RISK: Target INR is 2.5-3.5 for pat ients with mechanical heart valves.IRON, TIBC, % SAT. (WITHOUT FERRITIN) 2018-10-07 14:29:00* Test Item Value Reference Range Comments IRON (BEAKER) (test utqx=578) 67 ug/dL 40-160 TOTAL IRON BINDING CAPACITY (BEAKER) (test vozu=160) 351 ug/dL 250-450 IRON % SATURATION (2) (BEAKER) (test qxrv=7039) 19 % 20-55 B-TYPE NATRIURETIC FACTOR (BNP)2018-10-07 14:28:00* Test Item Value Reference Range Comments B-TYPE NATRIURETIC PEPTIDE (BEAKER) (test rbon=444) 1434 pg/mL 0-100 LIPID [id number] 14:22:00* Test Item Value Reference Range Comments TRIGLYCERIDES (BEAKER) (test mvle=561) 65 mg/dL CHOLESTEROL (BEAKER) (test cfyi=956) 116 mg/dL HDL CHOLESTEROL (BEAKER) (test rpqy=572) 39 mg/dL LDL CHOLESTEROL CALCULATED (BEAKER) (test wyay=040) 64 mg/dL Triglyceride Reference Range: Low Risk <150 Borderline 150-199 High Risk 200-499 Very High Risk >=500Cholesterol Reference Range: Low Risk <200 Borderline 200-239 High Risk >240HDL Cholesterol Reference Range: Low Risk >=60 High Risk <40LDL Cholesterol Reference Range: Optimal <100 Near Optimal 100-129 Borderline 130-159 High 160-189 Very High >=190 HEPATIC FUNCTION [id number] 14:22:00* Test Item Value Reference Range Comments TOTAL PROTEIN (BEAKER) (test raci=780) 7.5 gm/dL 6.0-8.3 ALBUMIN (BEAKER) (test unrg=8758) 3.6 g/dL 3.5-5.0 BILIRUBIN TOTAL (BEAKER) (test ypmd=341) 0.4 mg/dL 0.2-1.2 BILIRUBIN DIRECT (BEAKER) (test nnzd=178) 0.3 mg/dL 0.1-0.5 ALKALINE PHOSPHATASE (BEAKER) (test zmlu=032) 155 U/L 40-150 AST (SGOT) (BEAKER) (test ecur=295) 15 U/L 5-34 ALT (SGPT) (BEAKER) (test rlig=534) 9 U/L 6-55 CBC W/PLT COUNT & AUTO [id number] 14:09:00* Test Item Value Reference Range Comments WHITE BLOOD CELL COUNT (BEAKER) (test smuo=552) 8.7 K/ L 3.5-10.5 RED BLOOD CELL COUNT (BEAKER) (test ciyn=080) 3.28 M/ L 4.63-6.08 HEMOGLOBIN (BEAKER) (test asjq=621) 8.2 GM/DL 13.7-17.5 HEMATOCRIT (BEAKER) (test dwvi=884) 27.8 % 40.1-51.0 MEAN CORPUSCULAR VOLUME (BEAKER) (test tlzq=395) 84.8 fL 79.0-92.2 MEAN CORPUSCULAR HEMOGLOBIN (BEAKER) (test ldfl=946) 25.0 pg 25.7-32.2 MEAN CORPUSCULAR HEMOGLOBIN CONC (BEAKER) (test wjqg=422) 29.5 GM/DL 32.3-36.5 RED CELL DISTRIBUTION WIDTH (BEAKER) (test slbi=436) 14.6 % 11.6-14.4 PLATELET COUNT (BEAKER) (test zqjh=765) 198 K/CU MM 150-450 MEAN PLATELET VOLUME (BEAKER) (test kylu=669) 8.7 fL 9.4-12.4 NUCLEATED RED BLOOD CELLS (BEAKER) (test fwph=071) 0 /100 WBC 0-0 NEUTROPHILS RELATIVE PERCENT (BEAKER) (test wsyw=498) 80 % LYMPHOCYTES RELATIVE PERCENT (BEAKER) (test qffd=320) 9 % MONOCYTES RELATIVE PERCENT (BEAKER) (test dwsn=801) 9 % EOSINOPHILS RELATIVE PERCENT (BEAKER) (test tvec=071) 0 % BASOPHILS RELATIVE PERCENT (BEAKER) (test hklh=908) 1 % NEUTROPHILS ABSOLUTE COUNT (BEAKER) (test cqpz=862) 6.97 K/ L 1.78-5.38 LYMPHOCYTES ABSOLUTE COUNT (BEAKER) (test daca=150) 0.81 K/ L 1.32-3.57 MONOCYTES ABSOLUTE COUNT (BEAKER) (test xece=787) 0.78 K/ L 0.30-0.82 EOSINOPHILS ABSOLUTE COUNT (BEAKER) (test nsts=079) 0.00 K/ L 0.04-0.54 BASOPHILS ABSOLUTE COUNT (BEAKER) (test zrkh=709) 0.06 K/ L 0.01-0.08 IMMATURE GRANULOCYTES-RELATIVE PERCENT (BEAKER) (test lkvu=6935) 1 % 0-1 B-TYPE NATRIURETIC FACTOR (BNP)2018-08-20 14:05:00* Test Item Value Reference Range Comments B-TYPE NATRIURETIC PEPTIDE (BEAKER) (test xjqq=796) 1212 pg/mL 0-100 BASIC METABOLIC [id number] 13:15:00* Test Item Value Reference Range Comments SODIUM (BEAKER) (test frny=376) 133 meq/L 136-145 POTASSIUM (BEAKER) (test vazf=705) 3.2 meq/L 3.5-5.1 CHLORIDE (BEAKER) (test qbbr=656) 94 meq/L 98-107 CO2 (BEAKER) (test xyak=319) 33 meq/L 22-29 BLOOD UREA NITROGEN (BEAKER) (test qcxk=399) 57 mg/dL 7-21 CREATININE (BEAKER) (test riqk=168) 2.75 mg/dL 0.57-1.25 GLUCOSE RANDOM (BEAKER) (test atbx=152) 103 mg/dL 70-105 CALCIUM (BEAKER) (test otwu=636) 8.4 mg/dL 8.4-10.2 EGFR (BEAKER) (test iqod=2098) 22 mL/min/1.73 sq m ESTIMATED GFR IS NOT ACCURATE CREATININE CLEARANCE IN PREDICTING GLOMERULAR FILTRATION RATE. ESTIMATED GFR IS NOT APPLICABLE FOR DIALYSIS PATIENTS. PROTHROMBIN TIME/[id number] 12:57:00* Test Item Value Reference Range Comments PROTIME (BEAKER) (test fytg=264) 25.7 seconds 11.7-14.7 INR (BEAKER) (test pkjr=195) 2.4 <=5.9 RECOMMENDED COUMADIN/WARFARIN INR THERAPY RANGESSTANDARD DOSE: 2.0 - 3.0 Inclu charlie: PROPHYLAXIS for venous thrombosis, systemic embolization; TREATMENT for helena ous thrombosis and/or pulmonary embolus.HIGH RISK: Target INR is 2.5-3.5 for pat ients with mechanical heart valves.CBC W/PLT COUNT & AUTO [id number] 12:51:00* Test Item Value Reference Range Comments WHITE BLOOD CELL COUNT (BEAKER) (test jire=658) 9.2 K/ L 3.5-10.5 RED BLOOD CELL COUNT (BEAKER) (test iggn=743) 3.24 M/ L 4.63-6.08 HEMOGLOBIN (BEAKER) (test ruhm=890) 8.6 GM/DL 13.7-17.5 HEMATOCRIT (BEAKER) (test cykl=170) 28.1 % 40.1-51.0 MEAN CORPUSCULAR VOLUME (BEAKER) (test dgqw=351) 86.7 fL 79.0-92.2 MEAN CORPUSCULAR HEMOGLOBIN (BEAKER) (test bamp=233) 26.5 pg 25.7-32.2 MEAN CORPUSCULAR HEMOGLOBIN CONC (BEAKER) (test ekyf=955) 30.6 GM/DL 32.3-36.5 RED CELL DISTRIBUTION WIDTH (BEAKER) (test reqp=037) 14.8 % 11.6-14.4 PLATELET COUNT (BEAKER) (test zyps=452) 196 K/CU MM 150-450 MEAN PLATELET VOLUME (BEAKER) (test jynp=378) 9.1 fL 9.4-12.4 NUCLEATED RED BLOOD CELLS (BEAKER) (test exqv=681) 0 /100 WBC 0-0 NEUTROPHILS RELATIVE PERCENT (BEAKER) (test ndgs=991) 79 % LYMPHOCYTES RELATIVE PERCENT (BEAKER) (test btzl=384) 10 % MONOCYTES RELATIVE PERCENT (BEAKER) (test hovp=273) 11 % EOSINOPHILS RELATIVE PERCENT (BEAKER) (test hnfu=759) 0 % BASOPHILS RELATIVE PERCENT (BEAKER) (test symd=951) 0 % NEUTROPHILS ABSOLUTE COUNT (BEAKER) (test dzyq=773) 7.23 K/ L 1.78-5.38 LYMPHOCYTES ABSOLUTE COUNT (BEAKER) (test lhaj=221) 0.88 K/ L 1.32-3.57 MONOCYTES ABSOLUTE COUNT (BEAKER) (test wjyb=298) 0.96 K/ L 0.30-0.82 EOSINOPHILS ABSOLUTE COUNT (BEAKER) (test qgxn=747) 0.00 K/ L 0.04-0.54 BASOPHILS ABSOLUTE COUNT (BEAKER) (test ywpw=310) 0.04 K/ L 0.01-0.08 IMMATURE GRANULOCYTES-RELATIVE PERCENT (BEAKER) (test fojt=6072) 0 % 0-1 BLOOD [id number] 06:00:00* Test Item Value Reference Range Comments CULTURE (BEAKER) (test ctra=6525) No growth in 5 days BASIC METABOLIC [id number] 11:09:00* Test Item Value Reference Range Comments SODIUM (BEAKER) (test fwzg=628) 134 meq/L 136-145 POTASSIUM (BEAKER) (test kebf=694) 3.4 meq/L 3.5-5.1 CHLORIDE (BEAKER) (test ttkb=438) 94 meq/L 98-107 CO2 (BEAKER) (test ndra=262) 28 meq/L 22-29 BLOOD UREA NITROGEN (BEAKER) (test nxmm=394) 63 mg/dL 7-21 CREATININE (BEAKER) (test tgdm=283) 3.04 mg/dL 0.57-1.25 GLUCOSE RANDOM (BEAKER) (test ufde=920) 153 mg/dL 70-105 CALCIUM (BEAKER) (test koaf=842) 8.5 mg/dL 8.4-10.2 EGFR (BEAKER) (test lzik=1376) 20 mL/min/1.73 sq m ESTIMATED GFR IS NOT ACCURATE CREATININE CLEARANCE IN PREDICTING GLOMERULAR FILTRATION RATE. ESTIMATED GFR IS NOT APPLICABLE FOR DIALYSIS PATIENTS. [id number] 11:07:00* Test Item Value Reference Range Comments PHOSPHORUS (BEAKER) (test jbdk=931) 4.1 mg/dL 2.3-4.7 [id number] 11:07:00* Test Item Value Reference Range Comments MAGNESIUM (BEAKER) (test jfid=808) 2.3 mg/dL 1.6-2.6 BASIC METABOLIC [id number] 08:18:00* Test Item Value Reference Range Comments SODIUM (BEAKER) (test ahbn=800) 137 meq/L 136-145 POTASSIUM (BEAKER) (test xosu=996) 2.9 meq/L 3.5-5.1 CHLORIDE (BEAKER) (test pjxr=584) 95 meq/L 98-107 CO2 (BEAKER) (test ezwp=210) 34 meq/L 22-29 BLOOD UREA NITROGEN (BEAKER) (test mtlq=251) 48 mg/dL 7-21 CREATININE (BEAKER) (test jtbi=618) 2.97 mg/dL 0.57-1.25 GLUCOSE RANDOM (BEAKER) (test hcgh=950) 114 mg/dL 70-105 CALCIUM (BEAKER) (test glvk=985) 8.5 mg/dL 8.4-10.2 EGFR (BEAKER) (test vhgd=2598) 20 mL/min/1.73 sq m ESTIMATED GFR IS NOT ACCURATE CREATININE CLEARANCE IN PREDICTING GLOMERULAR FILTRATION RATE. ESTIMATED GFR IS NOT APPLICABLE FOR DIALYSIS PATIENTS. URINALYSIS W/ [id number] 08:17:00* Test Item Value Reference Range Comments COLOR (BEAKER) (test bwbg=385) Yellow CLARITY (BEAKER) (test vjoe=173) Hazy SPECIFIC GRAVITY UA (BEAKER) (test uwqu=451) 1.010 1.001-1.035 PH UA (BEAKER) (test dord=088) 7.0 5.0-8.0 PROTEIN UA (BEAKER) (test mnpm=015) 30 mg/dL Negative GLUCOSE UA (BEAKER) (test bfhj=989) Negative Negative KETONES UA (BEAKER) (test fbqy=313) Negative Negative BILIRUBIN UA (BEAKER) (test gmjy=278) Negative Negative BLOOD UA (BEAKER) (test fmdl=210) Negative Negative NITRITE UA (BEAKER) (test wedt=901) Negative Negative LEUKOCYTE ESTERASE UA (BEAKER) (test lhgo=395) Large Negative UROBILINOGEN UA (BEAKER) (test euif=780) 0.2 mg/dL 0.2-1.0 RBC UA (BEAKER) (test ulkd=945) 1 /HPF WBC UA (BEAKER) (test oaib=598) 35 /HPF MUCUS (BEAKER) (test olop=5417) Rare HYALINE CASTS (BEAKER) (test deqw=482) 2 /LPF AMORPHOUS CRYSTALS (BEAKER) (test xbnw=3318) Rare SOURCE(BEAKER) (test oals=3634) PROTHROMBIN TIME/[id number] 08:06:00* Test Item Value Reference Range Comments PROTIME (BEAKER) (test miio=014) 22.7 seconds 11.7-14.7 INR (BEAKER) (test ifsc=642) 2.0 <=5.9 RECOMMENDED COUMADIN/WARFARIN INR THERAPY RANGESSTANDARD DOSE: 2.0 - 3.0 Inclu charlie: PROPHYLAXIS for venous thrombosis, systemic embolization; TREATMENT for helena ous thrombosis and/or pulmonary embolus.HIGH RISK: Target INR is 2.5-3.5 for pat ients with mechanical heart valves.B-TYPE NATRIURETIC FACTOR (BNP)2018-08-05 07:13:00* Test Item Value Reference Range Comments B-TYPE NATRIURETIC PEPTIDE (BEAKER) (test jbrs=677) 1480 pg/mL 0-100 CBC W/PLT COUNT & AUTO [id number] 07:03:00* Test Item Value Reference Range Comments WHITE BLOOD CELL COUNT (BEAKER) (test nulr=520) 7.5 K/ L 3.5-10.5 RED BLOOD CELL COUNT (BEAKER) (test shza=687) 3.48 M/ L 4.63-6.08 HEMOGLOBIN (BEAKER) (test psvc=247) 9.2 GM/DL 13.7-17.5 HEMATOCRIT (BEAKER) (test rbei=223) 30.5 % 40.1-51.0 MEAN CORPUSCULAR VOLUME (BEAKER) (test vsbz=105) 87.6 fL 79.0-92.2 MEAN CORPUSCULAR HEMOGLOBIN (BEAKER) (test dvzo=136) 26.4 pg 25.7-32.2 MEAN CORPUSCULAR HEMOGLOBIN CONC (BEAKER) (test xlox=140) 30.2 GM/DL 32.3-36.5 RED CELL DISTRIBUTION WIDTH (BEAKER) (test ikfc=227) 15.0 % 11.6-14.4 PLATELET COUNT (BEAKER) (test ekri=668) 135 K/CU MM 150-450 MEAN PLATELET VOLUME (BEAKER) (test ubgx=609) 9.2 fL 9.4-12.4 NUCLEATED RED BLOOD CELLS (BEAKER) (test fvar=379) 0 /100 WBC 0-0 NEUTROPHILS RELATIVE PERCENT (BEAKER) (test cqdy=971) 70 % LYMPHOCYTES RELATIVE PERCENT (BEAKER) (test xwrv=037) 14 % MONOCYTES RELATIVE PERCENT (BEAKER) (test fpfu=171) 15 % EOSINOPHILS RELATIVE PERCENT (BEAKER) (test asng=297) 0 % BASOPHILS RELATIVE PERCENT (BEAKER) (test cpao=187) 1 % NEUTROPHILS ABSOLUTE COUNT (BEAKER) (test txdj=986) 5.25 K/ L 1.78-5.38 LYMPHOCYTES ABSOLUTE COUNT (BEAKER) (test pvti=252) 1.06 K/ L 1.32-3.57 MONOCYTES ABSOLUTE COUNT (BEAKER) (test ifhk=368) 1.13 K/ L 0.30-0.82 EOSINOPHILS ABSOLUTE COUNT (BEAKER) (test upja=507) 0.00 K/ L 0.04-0.54 BASOPHILS ABSOLUTE COUNT (BEAKER) (test ilkv=395) 0.06 K/ L 0.01-0.08 IMMATURE GRANULOCYTES-RELATIVE PERCENT (BEAKER) (test omoi=1029) 0 % 0-1 PROTHROMBIN TIME/[id number] 00:07:00* Test Item Value Reference Range Comments PROTIME (BEAKER) (test stzx=039) 23.2 seconds 11.7-14.7 INR (BEAKER) (test ysho=605) 2.1 <=5.9 RECOMMENDED COUMADIN/WARFARIN INR THERAPY RANGESSTANDARD DOSE: 2.0 - 3.0 Inclu charlie: PROPHYLAXIS for venous thrombosis, systemic embolization; TREATMENT for helena ous thrombosis and/or pulmonary embolus.HIGH RISK: Target INR is 2.5-3.5 for pat ients with mechanical heart valves.LACTIC ACID, VENOUS, WHOLE [id number] 23:44:00* Test Item Value Reference Range Comments LACTATE BLOOD VENOUS (2) (BEAKER) (test fahy=0317) 1.0 mmol/L 0.5-2.2 Specimen slightly hemolyzed Effective 03/08/2016: Units/Reference Range ChangeNew: 0.5-2.2 mmol/L Previous: 5 -20 mg/dLBASIC METABOLIC [id number] 22:19:00* Test Item Value Reference Range Comments SODIUM (BEAKER) (test srai=130) 140 meq/L 136-145 POTASSIUM (BEAKER) (test czjp=126) 2.9 meq/L 3.5-5.1 CHLORIDE (BEAKER) (test twax=561) 97 meq/L 98-107 CO2 (BEAKER) (test ogyz=757) 32 meq/L 22-29 BLOOD UREA NITROGEN (BEAKER) (test fzae=729) 47 mg/dL 7-21 CREATININE (BEAKER) (test jvgy=457) 3.11 mg/dL 0.57-1.25 GLUCOSE RANDOM (BEAKER) (test rbdq=013) 142 mg/dL 70-105 CALCIUM (BEAKER) (test uszd=932) 8.8 mg/dL 8.4-10.2 EGFR (BEAKER) (test jdal=7219) 19 mL/min/1.73 sq m ESTIMATED GFR IS NOT ACCURATE CREATININE CLEARANCE IN PREDICTING GLOMERULAR FILTRATION RATE. ESTIMATED GFR IS NOT APPLICABLE FOR DIALYSIS PATIENTS. URIC [id number] 22:15:00* Test Item Value Reference Range Comments URIC ACID (BEAKER) (test usdl=048) 18.1 mg/dL 2.6-7.2 C-REACTIVE [id number] 22:15:00* Test Item Value Reference Range Comments C-REACTIVE PROTEIN (BEAKER) (test xyzk=466) 7.61 mg/dL 0.00-0.50 CBC W/PLT COUNT & AUTO [id number] 21:52:00* Test Item Value Reference Range Comments WHITE BLOOD CELL COUNT (BEAKER) (test tfqt=049) 9.1 K/ L 3.5-10.5 RED BLOOD CELL COUNT (BEAKER) (test xium=151) 3.71 M/ L 4.63-6.08 HEMOGLOBIN (BEAKER) (test hnqc=523) 10.0 GM/DL 13.7-17.5 HEMATOCRIT (BEAKER) (test ngpc=210) 32.2 % 40.1-51.0 MEAN CORPUSCULAR VOLUME (BEAKER) (test clce=425) 86.8 fL 79.0-92.2 MEAN CORPUSCULAR HEMOGLOBIN (BEAKER) (test rtkp=674) 27.0 pg 25.7-32.2 MEAN CORPUSCULAR HEMOGLOBIN CONC (BEAKER) (test pjhv=475) 31.1 GM/DL 32.3-36.5 RED CELL DISTRIBUTION WIDTH (BEAKER) (test tmfy=665) 14.8 % 11.6-14.4 PLATELET COUNT (BEAKER) (test xcqz=645) 148 K/CU MM 150-450 MEAN PLATELET VOLUME (BEAKER) (test caft=763) 9.3 fL 9.4-12.4 NUCLEATED RED BLOOD CELLS (BEAKER) (test ljbi=773) 0 /100 WBC 0-0 NEUTROPHILS RELATIVE PERCENT (BEAKER) (test vydm=104) 77 % LYMPHOCYTES RELATIVE PERCENT (BEAKER) (test opxg=350) 10 % MONOCYTES RELATIVE PERCENT (BEAKER) (test wdzs=166) 12 % EOSINOPHILS RELATIVE PERCENT (BEAKER) (test smby=007) 0 % BASOPHILS RELATIVE PERCENT (BEAKER) (test qmun=394) 1 % NEUTROPHILS ABSOLUTE COUNT (BEAKER) (test ddrk=811) 6.99 K/ L 1.78-5.38 LYMPHOCYTES ABSOLUTE COUNT (BEAKER) (test vmpc=532) 0.88 K/ L 1.32-3.57 MONOCYTES ABSOLUTE COUNT (BEAKER) (test aueq=064) 1.11 K/ L 0.30-0.82 EOSINOPHILS ABSOLUTE COUNT (BEAKER) (test bqja=616) 0.00 K/ L 0.04-0.54 BASOPHILS ABSOLUTE COUNT (BEAKER) (test vhct=758) 0.05 K/ L 0.01-0.08 IMMATURE GRANULOCYTES-RELATIVE PERCENT (BEAKER) (test sngl=8683) 0 % 0-1 TSH/FREE T4 IF [id number] 13:14:00* Test Item Value Reference Range Comments THYROID STIMULATING HORMONE (BEAKER) (test bjni=194) 1.53 uIU/mL 0.35-4.94 B-TYPE NATRIURETIC FACTOR (BNP)2018-07-29 12:59:00* Test Item Value Reference Range Comments B-TYPE NATRIURETIC PEPTIDE (BEAKER) (test cqxx=728) 2559 pg/mL 0-100 BASIC METABOLIC [id number] 12:54:00* Test Item Value Reference Range Comments SODIUM (BEAKER) (test bnfh=666) 137 meq/L 136-145 POTASSIUM (BEAKER) (test uupq=052) 5.1 meq/L 3.5-5.1 CHLORIDE (BEAKER) (test ldzn=904) 106 meq/L 98-107 CO2 (BEAKER) (test veor=701) 24 meq/L 22-29 BLOOD UREA NITROGEN (BEAKER) (test shuv=315) 42 mg/dL 7-21 CREATININE (BEAKER) (test quaf=917) 2.72 mg/dL 0.57-1.25 GLUCOSE RANDOM (BEAKER) (test uyhi=322) 111 mg/dL 70-105 CALCIUM (BEAKER) (test bfyz=569) 9.1 mg/dL 8.4-10.2 EGFR (BEAKER) (test jljb=3085) 23 mL/min/1.73 sq m ESTIMATED GFR IS NOT ACCURATE CREATININE CLEARANCE IN PREDICTING GLOMERULAR FILTRATION RATE. ESTIMATED GFR IS NOT APPLICABLE FOR DIALYSIS PATIENTS. PROTHROMBIN [id number] 12:36:00* Test Item Value Reference Range Comments PROTIME (BEAKER) (test cfdb=960) 28.4 seconds 11.7-14.7 INR (BEAKER) (test bjwb=466) 2.7 <=5.9 RECOMMENDED COUMADIN/WARFARIN INR THERAPY RANGESSTANDARD DOSE: 2.0 - 3.0 Inclu charlie: PROPHYLAXIS for venous thrombosis, systemic embolization; TREATMENT for helena ous thrombosis and/or pulmonary embolus.HIGH RISK: Target INR is 2.5-3.5 for pat ients with mechanical heart valves.CBC W/PLT COUNT & AUTO [id number] 12:32:00* Test Item Value Reference Range Comments WHITE BLOOD CELL COUNT (BEAKER) (test twob=354) 7.3 K/ L 3.5-10.5 RED BLOOD CELL COUNT (BEAKER) (test vpvi=391) 3.15 M/ L 4.63-6.08 HEMOGLOBIN (BEAKER) (test mtpl=829) 8.5 GM/DL 13.7-17.5 HEMATOCRIT (BEAKER) (test pvmi=024) 28.6 % 40.1-51.0 MEAN CORPUSCULAR VOLUME (BEAKER) (test ilay=946) 90.8 fL 79.0-92.2 MEAN CORPUSCULAR HEMOGLOBIN (BEAKER) (test vwrx=856) 27.0 pg 25.7-32.2 MEAN CORPUSCULAR HEMOGLOBIN CONC (BEAKER) (test robs=106) 29.7 GM/DL 32.3-36.5 RED CELL DISTRIBUTION WIDTH (BEAKER) (test eiic=281) 15.2 % 11.6-14.4 PLATELET COUNT (BEAKER) (test xowa=479) 147 K/CU MM 150-450 MEAN PLATELET VOLUME (BEAKER) (test ptbq=552) 8.8 fL 9.4-12.4 NUCLEATED RED BLOOD CELLS (BEAKER) (test nfkx=963) 0 /100 WBC 0-0 NEUTROPHILS RELATIVE PERCENT (BEAKER) (test dvqg=017) 79 % LYMPHOCYTES RELATIVE PERCENT (BEAKER) (test utcc=042) 9 % MONOCYTES RELATIVE PERCENT (BEAKER) (test sopa=494) 11 % EOSINOPHILS RELATIVE PERCENT (BEAKER) (test wngk=832) 0 % BASOPHILS RELATIVE PERCENT (BEAKER) (test ogyf=974) 1 % NEUTROPHILS ABSOLUTE COUNT (BEAKER) (test dbti=142) 5.75 K/ L 1.78-5.38 LYMPHOCYTES ABSOLUTE COUNT (BEAKER) (test atwc=846) 0.63 K/ L 1.32-3.57 MONOCYTES ABSOLUTE COUNT (BEAKER) (test kokj=983) 0.80 K/ L 0.30-0.82 EOSINOPHILS ABSOLUTE COUNT (BEAKER) (test paiq=302) 0.00 K/ L 0.04-0.54 BASOPHILS ABSOLUTE COUNT (BEAKER) (test uesc=269) 0.04 K/ L 0.01-0.08 IMMATURE GRANULOCYTES-RELATIVE PERCENT (BEAKER) (test ksdm=4331) 1 % 0-1 BASIC METABOLIC [id number] 02:26:00* Test Item Value Reference Range Comments SODIUM (BEAKER) (test soiq=299) 134 meq/L 136-145 POTASSIUM (BEAKER) (test qoqr=769) 3.6 meq/L 3.5-5.1 CHLORIDE (BEAKER) (test bukx=415) 100 meq/L 98-107 CO2 (BEAKER) (test uknd=310) 25 meq/L 22-29 BLOOD UREA NITROGEN (BEAKER) (test jomq=026) 65 mg/dL 7-21 CREATININE (BEAKER) (test xjpg=892) 2.47 mg/dL 0.57-1.25 GLUCOSE RANDOM (BEAKER) (test gxmn=224) 101 mg/dL 70-105 CALCIUM (BEAKER) (test mnru=047) 8.6 mg/dL 8.4-10.2 EGFR (BEAKER) (test rxym=8817) 25 mL/min/1.73 sq m ESTIMATED GFR IS NOT ACCURATE CREATININE CLEARANCE IN PREDICTING GLOMERULAR FILTRATION RATE. ESTIMATED GFR IS NOT APPLICABLE FOR DIALYSIS PATIENTS. [id number] 02:00:00* Test Item Value Reference Range Comments PHOSPHORUS (BEAKER) (test rmvl=502) 3.3 mg/dL 2.3-4.7 [id number] 02:00:00* Test Item Value Reference Range Comments MAGNESIUM (BEAKER) (test repq=849) 2.1 mg/dL 1.6-2.6 PROTHROMBIN TIME/[id number] 01:37:00* Test Item Value Reference Range Comments PROTIME (BEAKER) (test pelf=253) 20.7 seconds 11.7-14.7 INR (BEAKER) (test xlgz=924) 1.8 <=5.9 RECOMMENDED COUMADIN/WARFARIN INR THERAPY RANGESSTANDARD DOSE: 2.0 - 3.0 Inclu charlie: PROPHYLAXIS for venous thrombosis, systemic embolization; TREATMENT for helena ous thrombosis and/or pulmonary embolus.HIGH RISK: Target INR is 2.5-3.5 for pat ients with mechanical heart valves.While on warfarin.CBC W/PLT COUNT & AUTO [id number] 01:21:00* Test Item Value Reference Range Comments WHITE BLOOD CELL COUNT (BEAKER) (test nnaf=069) 6.5 K/ L 3.5-10.5 RED BLOOD CELL COUNT (BEAKER) (test yles=308) 3.76 M/ L 4.63-6.08 HEMOGLOBIN (BEAKER) (test qann=609) 10.0 GM/DL 13.7-17.5 HEMATOCRIT (BEAKER) (test ecss=103) 32.0 % 40.1-51.0 MEAN CORPUSCULAR VOLUME (BEAKER) (test hgon=243) 85.1 fL 79.0-92.2 MEAN CORPUSCULAR HEMOGLOBIN (BEAKER) (test mtxh=144) 26.6 pg 25.7-32.2 MEAN CORPUSCULAR HEMOGLOBIN CONC (BEAKER) (test jyzl=756) 31.3 GM/DL 32.3-36.5 RED CELL DISTRIBUTION WIDTH (BEAKER) (test juer=578) 13.4 % 11.6-14.4 PLATELET COUNT (BEAKER) (test tqbg=954) 120 K/CU MM 150-450 MEAN PLATELET VOLUME (BEAKER) (test hdlv=871) 10.0 fL 9.4-12.4 NUCLEATED RED BLOOD CELLS (BEAKER) (test ukdv=872) 0 /100 WBC 0-0 NEUTROPHILS RELATIVE PERCENT (BEAKER) (test dqlg=502) 76 % LYMPHOCYTES RELATIVE PERCENT (BEAKER) (test coqo=956) 10 % MONOCYTES RELATIVE PERCENT (BEAKER) (test mgwj=228) 13 % EOSINOPHILS RELATIVE PERCENT (BEAKER) (test xfpn=349) 0 % BASOPHILS RELATIVE PERCENT (BEAKER) (test gpof=788) 0 % NEUTROPHILS ABSOLUTE COUNT (BEAKER) (test fiie=428) 4.93 K/ L 1.78-5.38 LYMPHOCYTES ABSOLUTE COUNT (BEAKER) (test qwxn=133) 0.67 K/ L 1.32-3.57 MONOCYTES ABSOLUTE COUNT (BEAKER) (test vfmi=963) 0.84 K/ L 0.30-0.82 EOSINOPHILS ABSOLUTE COUNT (BEAKER) (test qyyb=535) 0.00 K/ L 0.04-0.54 BASOPHILS ABSOLUTE COUNT (BEAKER) (test dvft=633) 0.02 K/ L 0.01-0.08 IMMATURE GRANULOCYTES-RELATIVE PERCENT (BEAKER) (test fgvv=1983) 1 % 0-1 BLOOD [id number] 11:00:00* Test Item Value Reference Range Comments CULTURE (BEAKER) (test dpab=9355) No growth in 5 days BLOOD [id number] 11:00:00* Test Item Value Reference Range Comments CULTURE (BEAKER) (test jgzh=6916) No growth in 5 days BASIC METABOLIC [id number] 06:47:00* Test Item Value Reference Range Comments SODIUM (BEAKER) (test hfuj=368) 133 meq/L 136-145 POTASSIUM (BEAKER) (test urmx=074) 3.5 meq/L 3.5-5.1 CHLORIDE (BEAKER) (test yzab=989) 96 meq/L 98-107 CO2 (BEAKER) (test hgkd=886) 26 meq/L 22-29 BLOOD UREA NITROGEN (BEAKER) (test asvz=876) 74 mg/dL 7-21 CREATININE (BEAKER) (test owms=145) 2.70 mg/dL 0.57-1.25 GLUCOSE RANDOM (BEAKER) (test pyar=082) 95 mg/dL 70-105 CALCIUM (BEAKER) (test ocas=154) 8.3 mg/dL 8.4-10.2 EGFR (BEAKER) (test mitc=9278) 23 mL/min/1.73 sq m ESTIMATED GFR IS NOT ACCURATE CREATININE CLEARANCE IN PREDICTING GLOMERULAR FILTRATION RATE. ESTIMATED GFR IS NOT APPLICABLE FOR DIALYSIS PATIENTS. [id number] 06:43:00* Test Item Value Reference Range Comments PHOSPHORUS (BEAKER) (test qmvq=770) 2.9 mg/dL 2.3-4.7 [id number] 06:43:00* Test Item Value Reference Range Comments MAGNESIUM (BEAKER) (test gzjx=791) 2.1 mg/dL 1.6-2.6 [id number] 06:20:00* Test Item Value Reference Range Comments PARTIAL THROMBOPLASTIN TIME (BEAKER) (test qqpr=965) 87.3 seconds 22.5-36.0 While on warfarin.PROTHROMBIN TIME/[id number] 06:19:00* Test Item Value Reference Range Comments PROTIME (BEAKER) (test xpxx=139) 23.1 seconds 11.7-14.7 INR (BEAKER) (test ifeg=706) 2.1 <=5.9 RECOMMENDED COUMADIN/WARFARIN INR THERAPY RANGESSTANDARD DOSE: 2.0 - 3.0 Inclu charlie: PROPHYLAXIS for venous thrombosis, systemic embolization; TREATMENT for helena ous thrombosis and/or pulmonary embolus.HIGH RISK: Target INR is 2.5-3.5 for pat ients with mechanical heart valves.While on warfarin.CBC W/PLT COUNT & AUTO [id number] 06:13:00* Test Item Value Reference Range Comments WHITE BLOOD CELL COUNT (BEAKER) (test zgmm=789) 5.5 K/ L 3.5-10.5 RED BLOOD CELL COUNT (BEAKER) (test ftpk=193) 3.70 M/ L 4.63-6.08 HEMOGLOBIN (BEAKER) (test hcoo=827) 9.9 GM/DL 13.7-17.5 HEMATOCRIT (BEAKER) (test vcsb=071) 31.8 % 40.1-51.0 MEAN CORPUSCULAR VOLUME (BEAKER) (test bpoe=247) 85.9 fL 79.0-92.2 MEAN CORPUSCULAR HEMOGLOBIN (BEAKER) (test yfbw=012) 26.8 pg 25.7-32.2 MEAN CORPUSCULAR HEMOGLOBIN CONC (BEAKER) (test ydal=715) 31.1 GM/DL 32.3-36.5 RED CELL DISTRIBUTION WIDTH (BEAKER) (test yjas=079) 13.6 % 11.6-14.4 PLATELET COUNT (BEAKER) (test mmfc=100) 115 K/CU MM 150-450 MEAN PLATELET VOLUME (BEAKER) (test tnid=109) 10.3 fL 9.4-12.4 NUCLEATED RED BLOOD CELLS (BEAKER) (test mkev=539) 0 /100 WBC 0-0 NEUTROPHILS RELATIVE PERCENT (BEAKER) (test pzpd=427) 76 % LYMPHOCYTES RELATIVE PERCENT (BEAKER) (test lqtu=244) 10 % MONOCYTES RELATIVE PERCENT (BEAKER) (test rqfg=944) 13 % EOSINOPHILS RELATIVE PERCENT (BEAKER) (test uecr=579) 0 % BASOPHILS RELATIVE PERCENT (BEAKER) (test gxeh=516) 0 % NEUTROPHILS ABSOLUTE COUNT (BEAKER) (test tngv=309) 4.14 K/ L 1.78-5.38 LYMPHOCYTES ABSOLUTE COUNT (BEAKER) (test koug=693) 0.56 K/ L 1.32-3.57 MONOCYTES ABSOLUTE COUNT (BEAKER) (test dbkl=121) 0.70 K/ L 0.30-0.82 EOSINOPHILS ABSOLUTE COUNT (BEAKER) (test rywi=322) 0.00 K/ L 0.04-0.54 BASOPHILS ABSOLUTE COUNT (BEAKER) (test jtbm=991) 0.02 K/ L 0.01-0.08 IMMATURE GRANULOCYTES-RELATIVE PERCENT (BEAKER) (test duzg=5352) 1 % 0-1 [id number] 08:22:00* Test Item Value Reference Range Comments PARTIAL THROMBOPLASTIN TIME (BEAKER) (test tjrh=802) 77.0 seconds 22.5-36.0 BASIC METABOLIC [id number] 02:37:00* Test Item Value Reference Range Comments SODIUM (BEAKER) (test ypam=246) 135 meq/L 136-145 POTASSIUM (BEAKER) (test qrog=338) 3.9 meq/L 3.5-5.1 CHLORIDE (BEAKER) (test jmja=926) 99 meq/L 98-107 CO2 (BEAKER) (test thsf=576) 24 meq/L 22-29 BLOOD UREA NITROGEN (BEAKER) (test mugi=592) 75 mg/dL 7-21 CREATININE (BEAKER) (test zkgt=050) 3.04 mg/dL 0.57-1.25 GLUCOSE RANDOM (BEAKER) (test tkgp=618) 115 mg/dL 70-105 CALCIUM (BEAKER) (test kwgj=516) 8.8 mg/dL 8.4-10.2 EGFR (BEAKER) (test rvqw=8727) 20 mL/min/1.73 sq m ESTIMATED GFR IS NOT ACCURATE CREATININE CLEARANCE IN PREDICTING GLOMERULAR FILTRATION RATE. ESTIMATED GFR IS NOT APPLICABLE FOR DIALYSIS PATIENTS. [id number] 02:36:00* Test Item Value Reference Range Comments PHOSPHORUS (BEAKER) (test wvdz=602) 2.9 mg/dL 2.3-4.7 [id number] 02:36:00* Test Item Value Reference Range Comments MAGNESIUM (BEAKER) (test lhyj=190) 2.4 mg/dL 1.6-2.6 CBC W/PLT COUNT & AUTO [id number] 02:33:00* Test Item Value Reference Range Comments WHITE BLOOD CELL COUNT (BEAKER) (test glcr=236) 5.5 K/ L 3.5-10.5 RED BLOOD CELL COUNT (BEAKER) (test tdxq=942) 3.66 M/ L 4.63-6.08 HEMOGLOBIN (BEAKER) (test jeiz=808) 10.1 GM/DL 13.7-17.5 HEMATOCRIT (BEAKER) (test eufy=021) 31.4 % 40.1-51.0 MEAN CORPUSCULAR VOLUME (BEAKER) (test xtyq=900) 85.8 fL 79.0-92.2 MEAN CORPUSCULAR HEMOGLOBIN (BEAKER) (test bgsl=494) 27.6 pg 25.7-32.2 MEAN CORPUSCULAR HEMOGLOBIN CONC (BEAKER) (test hdol=775) 32.2 GM/DL 32.3-36.5 RED CELL DISTRIBUTION WIDTH (BEAKER) (test eera=047) 13.6 % 11.6-14.4 PLATELET COUNT (BEAKER) (test jczd=229) 115 K/CU MM 150-450 MEAN PLATELET VOLUME (BEAKER) (test uroa=379) 10.3 fL 9.4-12.4 NUCLEATED RED BLOOD CELLS (BEAKER) (test ugtg=801) 0 /100 WBC 0-0 NEUTROPHILS RELATIVE PERCENT (BEAKER) (test txeu=319) 81 % LYMPHOCYTES RELATIVE PERCENT (BEAKER) (test webu=235) 7 % MONOCYTES RELATIVE PERCENT (BEAKER) (test ukvk=752) 12 % EOSINOPHILS RELATIVE PERCENT (BEAKER) (test szzz=348) 0 % BASOPHILS RELATIVE PERCENT (BEAKER) (test dhxj=395) 0 % NEUTROPHILS ABSOLUTE COUNT (BEAKER) (test abye=244) 4.47 K/ L 1.78-5.38 LYMPHOCYTES ABSOLUTE COUNT (BEAKER) (test qtcf=084) 0.36 K/ L 1.32-3.57 MONOCYTES ABSOLUTE COUNT (BEAKER) (test drup=736) 0.66 K/ L 0.30-0.82 EOSINOPHILS ABSOLUTE COUNT (BEAKER) (test jyic=503) 0.00 K/ L 0.04-0.54 BASOPHILS ABSOLUTE COUNT (BEAKER) (test bdmt=347) 0.00 K/ L 0.01-0.08 IMMATURE GRANULOCYTES-RELATIVE PERCENT (BEAKER) (test wssj=1627) 1 % 0-1 [id number] 02:28:00* Test Item Value Reference Range Comments PARTIAL THROMBOPLASTIN TIME (BEAKER) (test yrzi=695) 69.1 seconds 22.5-36.0 PROTHROMBIN TIME/[id number] 02:26:00* Test Item Value Reference Range Comments PROTIME (BEAKER) (test pyak=340) 21.3 seconds 11.7-14.7 INR (BEAKER) (test gqpl=608) 1.8 <=5.9 RECOMMENDED COUMADIN/WARFARIN INR THERAPY RANGESSTANDARD DOSE: 2.0 - 3.0 Inclu charlie: PROPHYLAXIS for venous thrombosis, systemic embolization; TREATMENT for helena ous thrombosis and/or pulmonary embolus.HIGH RISK: Target INR is 2.5-3.5 for pat ients with mechanical heart valves.While on warfarin.[id number] 18:26:00* Test Item Value Reference Range Comments PARTIAL THROMBOPLASTIN TIME (BEAKER) (test xqsc=434) 53.4 seconds 22.5-36.0 [id number] 11:53:00* Test Item Value Reference Range Comments PARTIAL THROMBOPLASTIN TIME (BEAKER) (test vutd=670) 35.6 seconds 22.5-36.0 Prior to initiating heparinBASIC METABOLIC [id number] 06:30:00* Test Item Value Reference Range Comments SODIUM (BEAKER) (test ldxg=970) 132 meq/L 136-145 POTASSIUM (BEAKER) (test qdgl=244) 4.1 meq/L 3.5-5.1 CHLORIDE (BEAKER) (test yyhw=203) 98 meq/L 98-107 CO2 (BEAKER) (test bzin=005) 25 meq/L 22-29 BLOOD UREA NITROGEN (BEAKER) (test medj=362) 68 mg/dL 7-21 CREATININE (BEAKER) (test urhj=040) 3.09 mg/dL 0.57-1.25 GLUCOSE RANDOM (BEAKER) (test uthf=287) 138 mg/dL 70-105 CALCIUM (BEAKER) (test kfqi=678) 8.6 mg/dL 8.4-10.2 EGFR (BEAKER) (test eycz=1878) 20 mL/min/1.73 sq m ESTIMATED GFR IS NOT ACCURATE CREATININE CLEARANCE IN PREDICTING GLOMERULAR FILTRATION RATE. ESTIMATED GFR IS NOT APPLICABLE FOR DIALYSIS PATIENTS. [id number] 06:24:00* Test Item Value Reference Range Comments PHOSPHORUS (BEAKER) (test pslo=362) 4.5 mg/dL 2.3-4.7 [id number] 06:24:00* Test Item Value Reference Range Comments MAGNESIUM (BEAKER) (test tjxj=192) 2.5 mg/dL 1.6-2.6 CBC W/PLT COUNT & AUTO [id number] 06:04:00* Test Item Value Reference Range Comments WHITE BLOOD CELL COUNT (BEAKER) (test blqw=306) 6.7 K/ L 3.5-10.5 RED BLOOD CELL COUNT (BEAKER) (test ouad=049) 3.68 M/ L 4.63-6.08 HEMOGLOBIN (BEAKER) (test kkmy=380) 10.0 GM/DL 13.7-17.5 HEMATOCRIT (BEAKER) (test lqak=545) 31.6 % 40.1-51.0 MEAN CORPUSCULAR VOLUME (BEAKER) (test saxy=819) 85.9 fL 79.0-92.2 MEAN CORPUSCULAR HEMOGLOBIN (BEAKER) (test iuag=513) 27.2 pg 25.7-32.2 MEAN CORPUSCULAR HEMOGLOBIN CONC (BEAKER) (test oype=434) 31.6 GM/DL 32.3-36.5 RED CELL DISTRIBUTION WIDTH (BEAKER) (test piyk=701) 13.5 % 11.6-14.4 PLATELET COUNT (BEAKER) (test ezzy=227) 123 K/CU MM 150-450 MEAN PLATELET VOLUME (BEAKER) (test sptx=361) 10.3 fL 9.4-12.4 NUCLEATED RED BLOOD CELLS (BEAKER) (test rujr=314) 0 /100 WBC 0-0 NEUTROPHILS RELATIVE PERCENT (BEAKER) (test dfel=659) 88 % LYMPHOCYTES RELATIVE PERCENT (BEAKER) (test qdzt=266) 4 % MONOCYTES RELATIVE PERCENT (BEAKER) (test kdqp=879) 8 % EOSINOPHILS RELATIVE PERCENT (BEAKER) (test bggp=465) 0 % BASOPHILS RELATIVE PERCENT (BEAKER) (test nvff=385) 0 % NEUTROPHILS ABSOLUTE COUNT (BEAKER) (test vtka=752) 5.89 K/ L 1.78-5.38 LYMPHOCYTES ABSOLUTE COUNT (BEAKER) (test iuox=713) 0.27 K/ L 1.32-3.57 MONOCYTES ABSOLUTE COUNT (BEAKER) (test rlwn=667) 0.52 K/ L 0.30-0.82 EOSINOPHILS ABSOLUTE COUNT (BEAKER) (test xpdl=254) 0.00 K/ L 0.04-0.54 BASOPHILS ABSOLUTE COUNT (BEAKER) (test vvfl=985) 0.01 K/ L 0.01-0.08 IMMATURE GRANULOCYTES-RELATIVE PERCENT (BEAKER) (test mhis=6033) 0 % 0-1 PROTHROMBIN TIME/[id number] 06:00:00* Test Item Value Reference Range Comments PROTIME (BEAKER) (test pfpm=560) 19.4 seconds 11.7-14.7 INR (BEAKER) (test xyug=645) 1.6 <=5.9 RECOMMENDED COUMADIN/WARFARIN INR THERAPY RANGESSTANDARD DOSE: 2.0 - 3.0 Inclu charlie: PROPHYLAXIS for venous thrombosis, systemic embolization; TREATMENT for helena ous thrombosis and/or pulmonary embolus.HIGH RISK: Target INR is 2.5-3.5 for pat ients with mechanical heart valves.While on warfarin.PH, [id number] 16:13:00* Test Item Value Reference Range Comments PH VENOUS (BEAKER) (test magi=727) 7.47 7.32-7.42 CBC W/PLT COUNT & AUTO [id number] 06:05:00* Test Item Value Reference Range Comments WHITE BLOOD CELL COUNT (BEAKER) (test avld=432) 11.0 K/ L 3.5-10.5 RED BLOOD CELL COUNT (BEAKER) (test biqh=171) 3.55 M/ L 4.63-6.08 HEMOGLOBIN (BEAKER) (test dcie=314) 9.6 GM/DL 13.7-17.5 HEMATOCRIT (BEAKER) (test ntia=073) 30.0 % 40.1-51.0 MEAN CORPUSCULAR VOLUME (BEAKER) (test wwqn=919) 84.5 fL 79.0-92.2 MEAN CORPUSCULAR HEMOGLOBIN (BEAKER) (test ornl=292) 27.0 pg 25.7-32.2 MEAN CORPUSCULAR HEMOGLOBIN CONC (BEAKER) (test twrg=331) 32.0 GM/DL 32.3-36.5 RED CELL DISTRIBUTION WIDTH (BEAKER) (test prqn=097) 13.3 % 11.6-14.4 PLATELET COUNT (BEAKER) (test pwzm=986) 104 K/CU MM 150-450 MEAN PLATELET VOLUME (BEAKER) (test mvzn=837) 9.6 fL 9.4-12.4 NUCLEATED RED BLOOD CELLS (BEAKER) (test fboz=248) 0 /100 WBC 0-0 NEUTROPHILS RELATIVE PERCENT (BEAKER) (test iaqx=986) 89 % LYMPHOCYTES RELATIVE PERCENT (BEAKER) (test njcc=521) 4 % MONOCYTES RELATIVE PERCENT (BEAKER) (test qaam=226) 7 % EOSINOPHILS RELATIVE PERCENT (BEAKER) (test urvu=296) 0 % BASOPHILS RELATIVE PERCENT (BEAKER) (test leie=064) 0 % NEUTROPHILS ABSOLUTE COUNT (BEAKER) (test jbis=236) 9.73 K/ L 1.78-5.38 LYMPHOCYTES ABSOLUTE COUNT (BEAKER) (test flzu=485) 0.39 K/ L 1.32-3.57 MONOCYTES ABSOLUTE COUNT (BEAKER) (test vtzp=620) 0.79 K/ L 0.30-0.82 EOSINOPHILS ABSOLUTE COUNT (BEAKER) (test qrto=989) 0.00 K/ L 0.04-0.54 BASOPHILS ABSOLUTE COUNT (BEAKER) (test untw=341) 0.01 K/ L 0.01-0.08 IMMATURE GRANULOCYTES-RELATIVE PERCENT (BEAKER) (test megj=1927) 1 % 0-1 [id number] 05:56:00* Test Item Value Reference Range Comments PHOSPHORUS (BEAKER) (test ayyu=485) 4.4 mg/dL 2.3-4.7 [id number] 05:56:00* Test Item Value Reference Range Comments MAGNESIUM (BEAKER) (test mxzq=156) 2.5 mg/dL 1.6-2.6 BASIC METABOLIC [id number] 05:56:00* Test Item Value Reference Range Comments SODIUM (BEAKER) (test znre=477) 131 meq/L 136-145 POTASSIUM (BEAKER) (test maez=618) 3.9 meq/L 3.5-5.1 CHLORIDE (BEAKER) (test zxao=486) 98 meq/L 98-107 CO2 (BEAKER) (test qwkt=969) 23 meq/L 22-29 BLOOD UREA NITROGEN (BEAKER) (test cgbk=647) 59 mg/dL 7-21 CREATININE (BEAKER) (test ykfr=077) 3.24 mg/dL 0.57-1.25 GLUCOSE RANDOM (BEAKER) (test sjvh=796) 146 mg/dL 70-105 CALCIUM (BEAKER) (test gker=825) 8.7 mg/dL 8.4-10.2 EGFR (BEAKER) (test hnfc=3792) 18 mL/min/1.73 sq m ESTIMATED GFR IS NOT ACCURATE CREATININE CLEARANCE IN PREDICTING GLOMERULAR FILTRATION RATE. ESTIMATED GFR IS NOT APPLICABLE FOR DIALYSIS PATIENTS. [id number] 05:37:00* Test Item Value Reference Range Comments PARTIAL THROMBOPLASTIN TIME (BEAKER) (test wlff=943) 79.7 seconds 22.5-36.0 PROTHROMBIN TIME/[id number] 05:36:00* Test Item Value Reference Range Comments PROTIME (BEAKER) (test tsfl=497) 21.1 seconds 11.7-14.7 INR (BEAKER) (test dzwk=710) 1.8 <=5.9 RECOMMENDED COUMADIN/WARFARIN INR THERAPY RANGESSTANDARD DOSE: 2.0 - 3.0 Inclu charlie: PROPHYLAXIS for venous thrombosis, systemic embolization; TREATMENT for helena ous thrombosis and/or pulmonary embolus.HIGH RISK: Target INR is 2.5-3.5 for pat ients with mechanical heart valves.CBC (HEMOGRAM ONLY)[id number] 05:28:00* Test Item Value Reference Range Comments WHITE BLOOD CELL COUNT (BEAKER) (test xfks=444) 11.0 K/ L 3.5-10.5 RED BLOOD CELL COUNT (BEAKER) (test wuzi=991) 3.55 M/ L 4.63-6.08 HEMOGLOBIN (BEAKER) (test vbmu=086) 9.6 GM/DL 13.7-17.5 HEMATOCRIT (BEAKER) (test tlrv=998) 30.0 % 40.1-51.0 MEAN CORPUSCULAR VOLUME (BEAKER) (test zahp=937) 84.5 fL 79.0-92.2 MEAN CORPUSCULAR HEMOGLOBIN (BEAKER) (test knvz=364) 27.0 pg 25.7-32.2 MEAN CORPUSCULAR HEMOGLOBIN CONC (BEAKER) (test xfja=070) 32.0 GM/DL 32.3-36.5 RED CELL DISTRIBUTION WIDTH (BEAKER) (test gtsu=649) 13.3 % 11.6-14.4 PLATELET COUNT (BEAKER) (test bxjq=765) 104 K/CU MM 150-450 MEAN PLATELET VOLUME (BEAKER) (test tcbj=976) 9.6 fL 9.4-12.4 NUCLEATED RED BLOOD CELLS (BEAKER) (test mcfl=745) 0 /100 WBC 0-0 [id number] 00:32:00* Test Item Value Reference Range Comments PARTIAL THROMBOPLASTIN TIME (BEAKER) (test bmcb=910) 81.1 seconds 22.5-36.0 [id number] 18:16:00* Test Item Value Reference Range Comments PARTIAL THROMBOPLASTIN TIME (BEAKER) (test odou=904) 52.1 seconds 22.5-36.0 [id number] 11:44:00* Test Item Value Reference Range Comments PARTIAL THROMBOPLASTIN TIME (BEAKER) (test xkha=063) 43.7 seconds 22.5-36.0 Prior to initiating heparinPLATELET [id number] 11:26:00* Test Item Value Reference Range Comments PLATELET COUNT (BEAKER) (test pshj=933) 109 K/CU MM 150-450 URINE [id number] 07:48:00* Test Item Value Reference Range Comments CULTURE (BEAKER) (test cbjp=5184) >100,000 col/mL skin carly BASIC METABOLIC [id number] 06:33:00* Test Item Value Reference Range Comments SODIUM (BEAKER) (test kett=028) 133 meq/L 136-145 POTASSIUM (BEAKER) (test dlsn=808) 3.6 meq/L 3.5-5.1 CHLORIDE (BEAKER) (test oobf=314) 99 meq/L 98-107 CO2 (BEAKER) (test qyat=707) 24 meq/L 22-29 BLOOD UREA NITROGEN (BEAKER) (test skid=119) 50 mg/dL 7-21 CREATININE (BEAKER) (test tiea=300) 3.14 mg/dL 0.57-1.25 GLUCOSE RANDOM (BEAKER) (test uqhz=013) 199 mg/dL 70-105 CALCIUM (BEAKER) (test vjvs=648) 8.9 mg/dL 8.4-10.2 EGFR (BEAKER) (test ptqz=5569) 19 mL/min/1.73 sq m ESTIMATED GFR IS NOT ACCURATE CREATININE CLEARANCE IN PREDICTING GLOMERULAR FILTRATION RATE. ESTIMATED GFR IS NOT APPLICABLE FOR DIALYSIS PATIENTS. CBC W/PLT COUNT & AUTO [id number] 06:01:00* Test Item Value Reference Range Comments WHITE BLOOD CELL COUNT (BEAKER) (test dekh=433) 8.1 K/ L 3.5-10.5 RED BLOOD CELL COUNT (BEAKER) (test uvqk=075) 3.86 M/ L 4.63-6.08 HEMOGLOBIN (BEAKER) (test ldka=599) 10.3 GM/DL 13.7-17.5 HEMATOCRIT (BEAKER) (test krbt=970) 32.8 % 40.1-51.0 MEAN CORPUSCULAR VOLUME (BEAKER) (test fsqg=270) 85.0 fL 79.0-92.2 MEAN CORPUSCULAR HEMOGLOBIN (BEAKER) (test stvq=352) 26.7 pg 25.7-32.2 MEAN CORPUSCULAR HEMOGLOBIN CONC (BEAKER) (test pkcy=931) 31.4 GM/DL 32.3-36.5 RED CELL DISTRIBUTION WIDTH (BEAKER) (test kymf=667) 13.4 % 11.6-14.4 PLATELET COUNT (BEAKER) (test azxw=342) 105 K/CU MM 150-450 MEAN PLATELET VOLUME (BEAKER) (test rlcv=431) 9.7 fL 9.4-12.4 NUCLEATED RED BLOOD CELLS (BEAKER) (test wsei=099) 0 /100 WBC 0-0 NEUTROPHILS RELATIVE PERCENT (BEAKER) (test iema=611) 87 % LYMPHOCYTES RELATIVE PERCENT (BEAKER) (test rmea=216) 7 % MONOCYTES RELATIVE PERCENT (BEAKER) (test zjdd=360) 6 % EOSINOPHILS RELATIVE PERCENT (BEAKER) (test himm=203) 0 % BASOPHILS RELATIVE PERCENT (BEAKER) (test xnjc=356) 0 % NEUTROPHILS ABSOLUTE COUNT (BEAKER) (test afgn=947) 6.97 K/ L 1.78-5.38 LYMPHOCYTES ABSOLUTE COUNT (BEAKER) (test rmwj=396) 0.55 K/ L 1.32-3.57 MONOCYTES ABSOLUTE COUNT (BEAKER) (test jlsk=502) 0.49 K/ L 0.30-0.82 EOSINOPHILS ABSOLUTE COUNT (BEAKER) (test jzis=325) 0.00 K/ L 0.04-0.54 BASOPHILS ABSOLUTE COUNT (BEAKER) (test zduq=243) 0.01 K/ L 0.01-0.08 IMMATURE GRANULOCYTES-RELATIVE PERCENT (BEAKER) (test sdza=2557) 1 % 0-1 [id number] 05:44:00* Test Item Value Reference Range Comments PHOSPHORUS (BEAKER) (test rgcq=378) 3.6 mg/dL 2.3-4.7 [id number] 05:44:00* Test Item Value Reference Range Comments MAGNESIUM (BEAKER) (test mold=006) 2.4 mg/dL 1.6-2.6 PROTHROMBIN [id number] 05:42:00* Test Item Value Reference Range Comments PROTIME (BEAKER) (test qwcd=429) 21.3 seconds 11.7-14.7 INR (BEAKER) (test fbhg=569) 1.8 <=5.9 RECOMMENDED COUMADIN/WARFARIN INR THERAPY RANGESSTANDARD DOSE: 2.0 - 3.0 Inclu charlie: PROPHYLAXIS for venous thrombosis, systemic embolization; TREATMENT for helena ous thrombosis and/or pulmonary embolus.HIGH RISK: Target INR is 2.5-3.5 for pat ients with mechanical heart valves.URINALYSIS W/ REFLEX URINE [id number] 14:11:00* Test Item Value Reference Range Comments COLOR (BEAKER) (test yslk=266) Light Yellow CLARITY (BEAKER) (test sybc=650) Clear SPECIFIC GRAVITY UA (BEAKER) (test lcbv=018) 1.006 1.001-1.035 PH UA (BEAKER) (test wxvh=101) 6.5 5.0-8.0 PROTEIN UA (BEAKER) (test iuqi=998) Negative Negative GLUCOSE UA (BEAKER) (test vfcv=535) Negative Negative KETONES UA (BEAKER) (test qwfh=068) Negative Negative BILIRUBIN UA (BEAKER) (test akmi=959) Negative Negative BLOOD UA (BEAKER) (test vckf=609) Negative Negative NITRITE UA (BEAKER) (test wopq=235) Negative Negative LEUKOCYTE ESTERASE UA (BEAKER) (test isqk=574) Trace Negative UROBILINOGEN UA (BEAKER) (test ldvq=554) 0.2 mg/dL 0.2-1.0 RBC UA (BEAKER) (test utio=728) 0 /HPF WBC UA (BEAKER) (test yihv=524) 2 /HPF BACTERIA (BEAKER) (test beqx=018) Rare MUCUS (BEAKER) (test xdea=0719) Rare SQUAMOUS EPITHELIAL (BEAKER) (test rmib=445) < /HPF HYALINE CASTS (BEAKER) (test cnlr=999) 1 /LPF SOURCE(BEAKER) (test swju=0186) BASIC METABOLIC [id number] 05:51:00* Test Item Value Reference Range Comments SODIUM (BEAKER) (test pcex=573) 133 meq/L 136-145 POTASSIUM (BEAKER) (test cpwj=179) 3.2 meq/L 3.5-5.1 CHLORIDE (BEAKER) (test umhe=037) 98 meq/L 98-107 CO2 (BEAKER) (test cvbo=627) 24 meq/L 22-29 BLOOD UREA NITROGEN (BEAKER) (test jdwy=110) 45 mg/dL 7-21 CREATININE (BEAKER) (test vlgv=642) 2.88 mg/dL 0.57-1.25 GLUCOSE RANDOM (BEAKER) (test enaq=683) 101 mg/dL 70-105 CALCIUM (BEAKER) (test vjto=944) 8.6 mg/dL 8.4-10.2 EGFR (BEAKER) (test amqj=0301) 21 mL/min/1.73 sq m ESTIMATED GFR IS NOT ACCURATE CREATININE CLEARANCE IN PREDICTING GLOMERULAR FILTRATION RATE. ESTIMATED GFR IS NOT APPLICABLE FOR DIALYSIS PATIENTS. [id number] 05:24:00* Test Item Value Reference Range Comments PHOSPHORUS (BEAKER) (test dpof=846) 3.3 mg/dL 2.3-4.7 [id number] 05:24:00* Test Item Value Reference Range Comments MAGNESIUM (BEAKER) (test cogu=190) 2.3 mg/dL 1.6-2.6 PROTHROMBIN TIME/[id number] 04:58:00* Test Item Value Reference Range Comments PROTIME (BEAKER) (test afdx=618) 27.1 seconds 11.7-14.7 INR (BEAKER) (test ofqd=424) 2.5 <=5.9 RECOMMENDED COUMADIN/WARFARIN INR THERAPY RANGESSTANDARD DOSE: 2.0 - 3.0 Inclu charlie: PROPHYLAXIS for venous thrombosis, systemic embolization; TREATMENT for helena ous thrombosis and/or pulmonary embolus.HIGH RISK: Target INR is 2.5-3.5 for pat ients with mechanical heart valves.CBC W/PLT COUNT & AUTO [id number] 04:43:00* Test Item Value Reference Range Comments WHITE BLOOD CELL COUNT (BEAKER) (test phhi=225) 6.1 K/ L 3.5-10.5 RED BLOOD CELL COUNT (BEAKER) (test vmzx=769) 3.78 M/ L 4.63-6.08 HEMOGLOBIN (BEAKER) (test soga=363) 10.1 GM/DL 13.7-17.5 HEMATOCRIT (BEAKER) (test ejzt=858) 32.3 % 40.1-51.0 MEAN CORPUSCULAR VOLUME (BEAKER) (test usxy=142) 85.4 fL 79.0-92.2 MEAN CORPUSCULAR HEMOGLOBIN (BEAKER) (test obug=293) 26.7 pg 25.7-32.2 MEAN CORPUSCULAR HEMOGLOBIN CONC (BEAKER) (test nmzs=641) 31.3 GM/DL 32.3-36.5 RED CELL DISTRIBUTION WIDTH (BEAKER) (test czne=679) 13.4 % 11.6-14.4 PLATELET COUNT (BEAKER) (test qmop=192) 127 K/CU MM 150-450 MEAN PLATELET VOLUME (BEAKER) (test xuif=913) 10.1 fL 9.4-12.4 NUCLEATED RED BLOOD CELLS (BEAKER) (test irxk=631) 0 /100 WBC 0-0 NEUTROPHILS RELATIVE PERCENT (BEAKER) (test ukdd=867) 74 % LYMPHOCYTES RELATIVE PERCENT (BEAKER) (test fqbn=166) 13 % MONOCYTES RELATIVE PERCENT (BEAKER) (test qppm=802) 12 % EOSINOPHILS RELATIVE PERCENT (BEAKER) (test lemd=904) 0 % BASOPHILS RELATIVE PERCENT (BEAKER) (test wfhn=759) 1 % NEUTROPHILS ABSOLUTE COUNT (BEAKER) (test tgcx=819) 4.50 K/ L 1.78-5.38 LYMPHOCYTES ABSOLUTE COUNT (BEAKER) (test awjx=984) 0.81 K/ L 1.32-3.57 MONOCYTES ABSOLUTE COUNT (BEAKER) (test cjvc=893) 0.70 K/ L 0.30-0.82 EOSINOPHILS ABSOLUTE COUNT (BEAKER) (test ngfv=020) 0.00 K/ L 0.04-0.54 BASOPHILS ABSOLUTE COUNT (BEAKER) (test xuhs=144) 0.05 K/ L 0.01-0.08 IMMATURE GRANULOCYTES-RELATIVE PERCENT (BEAKER) (test cjou=8428) 0 % 0-1 U/S, RENAL, [id number] 13:25:00HFC- Dr. Coe/ Lizzette Mejias RNReason for exam:->URINARY RETENTIONFINAL REPORT TECHNIQUE: Grayscale ultrasound of the kidneys and bladder. INDICATION: 83-year-old man with urinary retention. COMPARISON: Abdomen and pelvis CT 07/31/2017. FINDINGS: RIGHT KIDNEY: The right kidney measures 10 cm. Cortical thickness measures 1.3 cm. No solid mass lesions. No hydronephrosis. Renal artery and vein are patent. LEFT KIDNEY: The left kidney measures 8.5 cm. Cortical thickness measures 0.6 cm. No solid mass lesions. No hydronephrosis. Renal artery and vein are patent. BLADDER: The bladder is decompressed by Gonzalez catheter. IMPRESSION:Atrophic left kidney. Otherwise, unremarkable renal ultrasound. Signed: Edmar Ocampo MDReport Verified Date/Time: 06/21/2018 13:25:42 Reading Location: [address] Ultrasound Reading Room ALYSIS W/ [id number] 06:31:00* Test Item Value Reference Range Comments COLOR (BEAKER) (test pxxp=095) Light Yellow CLARITY (BEAKER) (test edqu=337) Clear SPECIFIC GRAVITY UA (BEAKER) (test fxlv=216) 1.007 1.001-1.035 PH UA (BEAKER) (test nlbc=853) 6.5 5.0-8.0 PROTEIN UA (BEAKER) (test jvot=846) Negative Negative GLUCOSE UA (BEAKER) (test ouqd=865) Negative Negative KETONES UA (BEAKER) (test zqar=891) Negative Negative BILIRUBIN UA (BEAKER) (test dpzm=604) Negative Negative BLOOD UA (BEAKER) (test cbam=668) Negative Negative NITRITE UA (BEAKER) (test hdjz=337) Negative Negative LEUKOCYTE ESTERASE UA (BEAKER) (test dqmf=214) Large Negative UROBILINOGEN UA (BEAKER) (test qrxb=247) 0.2 mg/dL 0.2-1.0 RBC UA (BEAKER) (test ggjl=722) 0 /HPF WBC UA (BEAKER) (test yecc=721) 27 /HPF BACTERIA (BEAKER) (test mqcw=521) Rare MUCUS (BEAKER) (test qyhc=1874) Rare HYALINE CASTS (BEAKER) (test okpf=165) 8 /LPF SOURCE(BEAKER) (test suyu=3647) BASIC METABOLIC [id number] 06:08:00* Test Item Value Reference Range Comments SODIUM (BEAKER) (test qmmk=835) 138 meq/L 136-145 POTASSIUM (BEAKER) (test pfzc=770) 3.5 meq/L 3.5-5.1 CHLORIDE (BEAKER) (test facj=536) 98 meq/L 98-107 CO2 (BEAKER) (test mxwf=144) 28 meq/L 22-29 BLOOD UREA NITROGEN (BEAKER) (test wevy=106) 53 mg/dL 7-21 CREATININE (BEAKER) (test bykx=359) 3.69 mg/dL 0.57-1.25 GLUCOSE RANDOM (BEAKER) (test bvyk=463) 118 mg/dL 70-105 CALCIUM (BEAKER) (test ozxr=381) 9.5 mg/dL 8.4-10.2 EGFR (BEAKER) (test dvbm=6407) 16 mL/min/1.73 sq m ESTIMATED GFR IS NOT ACCURATE CREATININE CLEARANCE IN PREDICTING GLOMERULAR FILTRATION RATE. ESTIMATED GFR IS NOT APPLICABLE FOR DIALYSIS PATIENTS. CREATINE KINASE (CK), TOTAL AND [id number] 05:49:00* Test Item Value Reference Range Comments CREATINE KINASE TOTAL (BEAKER) (test smgx=791) 56 U/L 29-200 CREATINE KINASE-MB (BEAKER) (test cuyy=775) 1.7 ng/mL 0.0-6.6 CREATINE KINASE-MB INDEX (BEAKER) (test nqdj=844) 3.0 % CK-MB Reference Range:<6.7 Normal6.7-10.0 Borderline>10.0 Abnormal TROPONIN [id number] 05:49:00* Test Item Value Reference Range Comments TROPONIN I (BEAKER) (test ifgh=365) 0.04 ng/mL 0.00-0.03 Troponin I (TnI) levels must be interpreted in the context of the presenting sym ptoms and the clinical findings. Elevated TnI levels indicate myocardial damage, but are not specific for ischemic heart disease. Elevated TnI levels are seen in patients with other cardiac conditions (including myocarditis and congestive h eart failure), and slight TnI elevations occur in patients with other conditions , including sepsis, renal failure, acidosis, acute neurological disease, and per sistent tachyarrhythmia.B-TYPE NATRIURETIC FACTOR (BNP)2018-06-21 05:30:00* Test Item Value Reference Range Comments B-TYPE NATRIURETIC PEPTIDE (BEAKER) (test ukfw=828) 1842 pg/mL 0-100 PT/[id number] 05:20:00* Test Item Value Reference Range Comments PROTIME (BEAKER) (test imnf=557) 28.9 seconds 11.7-14.7 INR (BEAKER) (test exhh=238) 2.7 <=5.9 PARTIAL THROMBOPLASTIN TIME (BEAKER) (test rkui=636) 52.9 seconds 22.5-36.0 RECOMMENDED COUMADIN/WARFARIN INR THERAPY RANGESSTANDARD DOSE: 2.0 - 3.0 Inclu charlie: PROPHYLAXIS for venous thrombosis, systemic embolization; TREATMENT for helena ous thrombosis and/or pulmonary embolus.HIGH RISK: Target INR is 2.5-3.5 for pat ients with mechanical heart valves.RAD, CHEST, PA OR AP, 1 [id number] 05:19:00H- Dr. 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 The heart is enlarged but stable. Curvilinear and reticular opacities are again noted in both lungs. A component of atelectasis is favored. Mild pulmonary edema or an underlying pneumonia cannot be excluded. No evidence of new lung consolidation or pneumothorax. Small stable bilateral pleural effusions are again suspected. In summary, no significant interval change. Signed: Juwan Hoyteport Verified Date/Time: 06/21/2018 05:19:38 Reading Location: [facility] B1 C013T Transitional Reading Room W/PLT COUNT & AUTO DIFFERENTIAL 2018-06-21 05:06:00* Test Item Value Reference Range Comments WHITE BLOOD CELL COUNT (BEAKER) (test xris=628) 6.8 K/ L 3.5-10.5 RED BLOOD CELL COUNT (BEAKER) (test teco=196) 4.28 M/ L 4.63-6.08 HEMOGLOBIN (BEAKER) (test rcau=048) 11.5 GM/DL 13.7-17.5 HEMATOCRIT (BEAKER) (test hddk=435) 36.9 % 40.1-51.0 MEAN CORPUSCULAR VOLUME (BEAKER) (test aovd=893) 86.2 fL 79.0-92.2 MEAN CORPUSCULAR HEMOGLOBIN (BEAKER) (test msrr=278) 26.9 pg 25.7-32.2 MEAN CORPUSCULAR HEMOGLOBIN CONC (BEAKER) (test ojfm=064) 31.2 GM/DL 32.3-36.5 RED CELL DISTRIBUTION WIDTH (BEAKER) (test ikpz=258) 13.6 % 11.6-14.4 PLATELET COUNT (BEAKER) (test tyon=320) 145 K/CU MM 150-450 MEAN PLATELET VOLUME (BEAKER) (test oxcu=222) 9.3 fL 9.4-12.4 NUCLEATED RED BLOOD CELLS (BEAKER) (test imjt=980) 0 /100 WBC 0-0 NEUTROPHILS RELATIVE PERCENT (BEAKER) (test wokf=974) 76 % LYMPHOCYTES RELATIVE PERCENT (BEAKER) (test nppw=163) 11 % MONOCYTES RELATIVE PERCENT (BEAKER) (test oarz=955) 12 % EOSINOPHILS RELATIVE PERCENT (BEAKER) (test ivmr=967) 0 % BASOPHILS RELATIVE PERCENT (BEAKER) (test wvmm=387) 1 % NEUTROPHILS ABSOLUTE COUNT (BEAKER) (test hyho=346) 5.15 K/ L 1.78-5.38 LYMPHOCYTES ABSOLUTE COUNT (BEAKER) (test xmgg=517) 0.76 K/ L 1.32-3.57 MONOCYTES ABSOLUTE COUNT (BEAKER) (test qfcm=844) 0.79 K/ L 0.30-0.82 EOSINOPHILS ABSOLUTE COUNT (BEAKER) (test pwcy=142) 0.00 K/ L 0.04-0.54 BASOPHILS ABSOLUTE COUNT (BEAKER) (test khyl=823) 0.06 K/ L 0.01-0.08 IMMATURE GRANULOCYTES-RELATIVE PERCENT (BEAKER) (test waog=5584) 0 % 0-1 BASIC METABOLIC [id number] 15:43:00* Test Item Value Reference Range Comments SODIUM (BEAKER) (test tuxa=529) 136 meq/L 136-145 POTASSIUM (BEAKER) (test tpsy=808) 3.4 meq/L 3.5-5.1 CHLORIDE (BEAKER) (test vbeh=545) 99 meq/L 98-107 CO2 (BEAKER) (test xglr=825) 28 meq/L 22-29 BLOOD UREA NITROGEN (BEAKER) (test kjtl=536) 52 mg/dL 7-21 CREATININE (BEAKER) (test wvac=451) 4.06 mg/dL 0.57-1.25 GLUCOSE RANDOM (BEAKER) (test txvt=223) 76 mg/dL 70-105 CALCIUM (BEAKER) (test nack=755) 9.1 mg/dL 8.4-10.2 EGFR (BEAKER) (test cpar=6560) 14 mL/min/1.73 sq m ESTIMATED GFR IS NOT ACCURATE CREATININE CLEARANCE IN PREDICTING GLOMERULAR FILTRATION RATE. ESTIMATED GFR IS NOT APPLICABLE FOR DIALYSIS PATIENTS. B-TYPE NATRIURETIC FACTOR (BNP)2018-06-18 15:36:00* Test Item Value Reference Range Comments B-TYPE NATRIURETIC PEPTIDE (BEAKER) (test hjvb=493) 1881 pg/mL 0-100 CBC W/PLT COUNT & AUTO [id number] 15:33:00* Test Item Value Reference Range Comments WHITE BLOOD CELL COUNT (BEAKER) (test jejb=791) 6.0 K/ L 3.5-10.5 RED BLOOD CELL COUNT (BEAKER) (test txni=188) 4.20 M/ L 4.63-6.08 HEMOGLOBIN (BEAKER) (test iwnd=394) 11.2 GM/DL 13.7-17.5 HEMATOCRIT (BEAKER) (test glny=644) 36.6 % 40.1-51.0 MEAN CORPUSCULAR VOLUME (BEAKER) (test zhbj=933) 87.1 fL 79.0-92.2 MEAN CORPUSCULAR HEMOGLOBIN (BEAKER) (test jcxu=968) 26.7 pg 25.7-32.2 MEAN CORPUSCULAR HEMOGLOBIN CONC (BEAKER) (test zefh=179) 30.6 GM/DL 32.3-36.5 RED CELL DISTRIBUTION WIDTH (BEAKER) (test pzxl=729) 13.8 % 11.6-14.4 PLATELET COUNT (BEAKER) (test herc=624) 158 K/CU MM 150-450 MEAN PLATELET VOLUME (BEAKER) (test ykkk=721) 9.8 fL 9.4-12.4 NUCLEATED RED BLOOD CELLS (BEAKER) (test xdmr=238) 0 /100 WBC 0-0 NEUTROPHILS RELATIVE PERCENT (BEAKER) (test riwx=739) 73 % LYMPHOCYTES RELATIVE PERCENT (BEAKER) (test bgnp=387) 12 % MONOCYTES RELATIVE PERCENT (BEAKER) (test xyun=005) 14 % EOSINOPHILS RELATIVE PERCENT (BEAKER) (test eiab=499) 0 % BASOPHILS RELATIVE PERCENT (BEAKER) (test nvwf=270) 1 % NEUTROPHILS ABSOLUTE COUNT (BEAKER) (test hdtk=107) 4.36 K/ L 1.78-5.38 LYMPHOCYTES ABSOLUTE COUNT (BEAKER) (test pdth=118) 0.71 K/ L 1.32-3.57 MONOCYTES ABSOLUTE COUNT (BEAKER) (test masf=873) 0.85 K/ L 0.30-0.82 EOSINOPHILS ABSOLUTE COUNT (BEAKER) (test pedc=256) 0.00 K/ L 0.04-0.54 BASOPHILS ABSOLUTE COUNT (BEAKER) (test gjzn=052) 0.07 K/ L 0.01-0.08 IMMATURE GRANULOCYTES-RELATIVE PERCENT (BEAKER) (test qzgt=3294) 0 % 0-1 PROTHROMBIN [id number] 15:32:00* Test Item Value Reference Range Comments PROTIME (BEAKER) (test gylk=146) 31.4 seconds 11.7-14.7 INR (BEAKER) (test hike=475) 3.0 <=5.9 RECOMMENDED COUMADIN/WARFARIN INR THERAPY RANGESSTANDARD DOSE: 2.0 - 3.0 Inclu charlie: PROPHYLAXIS for venous thrombosis, systemic embolization; TREATMENT for helena ous thrombosis and/or pulmonary embolus.HIGH RISK: Target INR is 2.5-3.5 for pat ients with mechanical heart valves.URINALYSIS W/ REFLEX URINE [id number] 11:42:00* Test Item Value Reference Range Comments COLOR (BEAKER) (test xcih=281) Yellow CLARITY (BEAKER) (test cpek=003) Clear SPECIFIC GRAVITY UA (BEAKER) (test raqn=130) 1.007 1.001-1.035 PH UA (BEAKER) (test gxnf=340) 8.0 5.0-8.0 PROTEIN UA (BEAKER) (test dzhb=892) Negative Negative GLUCOSE UA (BEAKER) (test svru=680) Negative Negative KETONES UA (BEAKER) (test caul=142) Negative Negative BILIRUBIN UA (BEAKER) (test ykcj=456) Negative Negative BLOOD UA (BEAKER) (test trjg=469) Moderate Negative NITRITE UA (BEAKER) (test hifj=804) Negative Negative LEUKOCYTE ESTERASE UA (BEAKER) (test qofe=979) Large Negative UROBILINOGEN UA (BEAKER) (test drqp=778) 0.2 mg/dL 0.2-1.0 RBC UA (BEAKER) (test pnud=642) 22 /HPF WBC UA (BEAKER) (test dfbq=893) 32 /HPF BACTERIA (BEAKER) (test yeva=224) Many HYALINE CASTS (BEAKER) (test zevb=164) 6 /LPF SOURCE(BEAKER) (test lyah=6325) PROTHROMBIN TIME/[id number] 15:18:00* Test Item Value Reference Range Comments PROTIME (BEAKER) (test ldsm=617) 23.7 seconds 11.7-14.7 INR (BEAKER) (test jqwr=805) 2.1 <=5.9 RECOMMENDED COUMADIN/WARFARIN INR THERAPY RANGESSTANDARD DOSE: 2.0 - 3.0 Inclu charlie: PROPHYLAXIS for venous thrombosis, systemic embolization; TREATMENT for helena ous thrombosis and/or pulmonary embolus.HIGH RISK: Target INR is 2.5-3.5 for pat ients with mechanical heart valves.BASIC METABOLIC [id number] 15:18:00* Test Item Value Reference Range Comments SODIUM (BEAKER) (test lzqt=264) 139 meq/L 136-145 POTASSIUM (BEAKER) (test ehlk=154) 3.4 meq/L 3.5-5.1 CHLORIDE (BEAKER) (test fkyi=749) 97 meq/L 98-107 CO2 (BEAKER) (test rodf=391) 30 meq/L 22-29 BLOOD UREA NITROGEN (BEAKER) (test bmyn=491) 46 mg/dL 7-21 CREATININE (BEAKER) (test xusx=683) 2.81 mg/dL 0.57-1.25 GLUCOSE RANDOM (BEAKER) (test yhkj=664) 162 mg/dL 70-105 CALCIUM (BEAKER) (test ftuh=771) 9.4 mg/dL 8.4-10.2 EGFR (BEAKER) (test yphd=3481) 22 mL/min/1.73 sq m ESTIMATED GFR IS NOT ACCURATE CREATININE CLEARANCE IN PREDICTING GLOMERULAR FILTRATION RATE. ESTIMATED GFR IS NOT APPLICABLE FOR DIALYSIS PATIENTS. LIPID [id number] 15:16:00* Test Item Value Reference Range Comments TRIGLYCERIDES (BEAKER) (test mofu=443) 95 mg/dL CHOLESTEROL (BEAKER) (test txnz=383) 125 mg/dL HDL CHOLESTEROL (BEAKER) (test fajm=476) 32 mg/dL LDL CHOLESTEROL CALCULATED (BEAKER) (test aslu=427) 74 mg/dL Triglyceride Reference Range: Low Risk <150 Borderline 150-199 High Risk 200-499 Very High Risk >=500Cholesterol Reference Range: Low Risk <200 Borderline 200-239 High Risk >240HDL Cholesterol Reference Range: Low Risk >=60 High Risk <40LDL Cholesterol Reference Range: Optimal <100 Near Optimal 100-129 Borderline 130-159 High 160-189 Very High >=190 HEPATIC FUNCTION [id number] 15:16:00* Test Item Value Reference Range Comments TOTAL PROTEIN (BEAKER) (test evfu=162) 7.9 gm/dL 6.0-8.3 ALBUMIN (BEAKER) (test hkic=1293) 3.9 g/dL 3.5-5.0 BILIRUBIN TOTAL (BEAKER) (test pddm=347) 0.9 mg/dL 0.2-1.2 BILIRUBIN DIRECT (BEAKER) (test lsbm=047) 0.5 mg/dL 0.1-0.5 ALKALINE PHOSPHATASE (BEAKER) (test firc=961) 166 U/L 40-150 AST (SGOT) (BEAKER) (test jpty=398) 22 U/L 5-34 ALT (SGPT) (BEAKER) (test kcnm=522) 13 U/L 6-55 B-TYPE NATRIURETIC FACTOR (BNP)2018-04-08 15:14:00* Test Item Value Reference Range Comments B-TYPE NATRIURETIC PEPTIDE (BEAKER) (test fedz=744) 1775 pg/mL 0-100 CBC W/PLT COUNT & AUTO [id number] 14:31:00* Test Item Value Reference Range Comments WHITE BLOOD CELL COUNT (BEAKER) (test aygd=156) 6.9 K/ L 3.5-10.5 RED BLOOD CELL COUNT (BEAKER) (test hmuh=904) 4.30 M/ L 4.63-6.08 HEMOGLOBIN (BEAKER) (test jsco=640) 11.8 GM/DL 13.7-17.5 HEMATOCRIT (BEAKER) (test zsca=345) 37.5 % 40.1-51.0 MEAN CORPUSCULAR VOLUME (BEAKER) (test ttne=955) 87.2 fL 79.0-92.2 MEAN CORPUSCULAR HEMOGLOBIN (BEAKER) (test feia=090) 27.4 pg 25.7-32.2 MEAN CORPUSCULAR HEMOGLOBIN CONC (BEAKER) (test vtxp=217) 31.5 GM/DL 32.3-36.5 RED CELL DISTRIBUTION WIDTH (BEAKER) (test kcrr=252) 14.0 % 11.6-14.4 PLATELET COUNT (BEAKER) (test hcze=923) 136 K/CU MM 150-450 MEAN PLATELET VOLUME (BEAKER) (test idmv=580) 9.4 fL 9.4-12.4 NUCLEATED RED BLOOD CELLS (BEAKER) (test snlo=042) 0 /100 WBC 0-0 NEUTROPHILS RELATIVE PERCENT (BEAKER) (test teda=083) 73 % LYMPHOCYTES RELATIVE PERCENT (BEAKER) (test skjm=438) 13 % MONOCYTES RELATIVE PERCENT (BEAKER) (test qsdw=025) 12 % EOSINOPHILS RELATIVE PERCENT (BEAKER) (test zqbi=266) 0 % BASOPHILS RELATIVE PERCENT (BEAKER) (test dfyl=290) 1 % NEUTROPHILS ABSOLUTE COUNT (BEAKER) (test tvsm=894) 5.04 K/ L 1.78-5.38 LYMPHOCYTES ABSOLUTE COUNT (BEAKER) (test vpfk=748) 0.89 K/ L 1.32-3.57 MONOCYTES ABSOLUTE COUNT (BEAKER) (test mrda=587) 0.83 K/ L 0.30-0.82 EOSINOPHILS ABSOLUTE COUNT (BEAKER) (test ippj=111) 0.01 K/ L 0.04-0.54 BASOPHILS ABSOLUTE COUNT (BEAKER) (test rpot=660) 0.07 K/ L 0.01-0.08 IMMATURE GRANULOCYTES-RELATIVE PERCENT (BEAKER) (test dvpf=4918) 0 % 0-1 B-TYPE NATRIURETIC FACTOR (BNP)2018-03-25 14:32:00* Test Item Value Reference Range Comments B-TYPE NATRIURETIC PEPTIDE (BEAKER) (test giwz=034) 1991 pg/mL 0-100 BASIC METABOLIC [id number] 14:26:00* Test Item Value Reference Range Comments SODIUM (BEAKER) (test feoh=930) 139 meq/L 136-145 POTASSIUM (BEAKER) (test imai=343) 4.1 meq/L 3.5-5.1 CHLORIDE (BEAKER) (test cwqs=050) 106 meq/L 98-107 CO2 (BEAKER) (test etkd=025) 24 meq/L 22-29 BLOOD UREA NITROGEN (BEAKER) (test ouoq=443) 31 mg/dL 7-21 CREATININE (BEAKER) (test jfup=226) 2.33 mg/dL 0.57-1.25 GLUCOSE RANDOM (BEAKER) (test xhjc=106) 88 mg/dL 70-105 CALCIUM (BEAKER) (test qhcd=381) 8.9 mg/dL 8.4-10.2 EGFR (BEAKER) (test apay=4232) 27 mL/min/1.73 sq m ESTIMATED GFR IS NOT ACCURATE CREATININE CLEARANCE IN PREDICTING GLOMERULAR FILTRATION RATE. ESTIMATED GFR IS NOT APPLICABLE FOR DIALYSIS PATIENTS. PROTHROMBIN TIME/[id number] 14:17:00* Test Item Value Reference Range Comments PROTIME (BEAKER) (test vqer=393) 35.5 seconds 11.7-14.7 INR (BEAKER) (test ihju=209) 3.6 <=5.9 RECOMMENDED COUMADIN/WARFARIN INR THERAPY RANGESSTANDARD DOSE: 2.0 - 3.0 Inclu charlie: PROPHYLAXIS for venous thrombosis, systemic embolization; TREATMENT for helena ous thrombosis and/or pulmonary embolus.HIGH RISK: Target INR is 2.5-3.5 for pat ients with mechanical heart valves.CBC W/PLT COUNT & AUTO [id number] 14:08:00* Test Item Value Reference Range Comments WHITE BLOOD CELL COUNT (BEAKER) (test vhxt=228) 5.2 K/ L 3.5-10.5 RED BLOOD CELL COUNT (BEAKER) (test dkag=222) 3.91 M/ L 4.63-6.08 HEMOGLOBIN (BEAKER) (test kpgo=237) 10.8 GM/DL 13.7-17.5 HEMATOCRIT (BEAKER) (test rmlj=877) 34.1 % 40.1-51.0 MEAN CORPUSCULAR VOLUME (BEAKER) (test accu=569) 87.2 fL 79.0-92.2 MEAN CORPUSCULAR HEMOGLOBIN (BEAKER) (test zxkt=580) 27.6 pg 25.7-32.2 MEAN CORPUSCULAR HEMOGLOBIN CONC (BEAKER) (test xxgi=632) 31.7 GM/DL 32.3-36.5 RED CELL DISTRIBUTION WIDTH (BEAKER) (test gnpp=763) 14.1 % 11.6-14.4 PLATELET COUNT (BEAKER) (test qazv=655) 136 K/CU MM 150-450 MEAN PLATELET VOLUME (BEAKER) (test vtgy=198) 9.6 fL 9.4-12.4 NUCLEATED RED BLOOD CELLS (BEAKER) (test xwlm=554) 0 /100 WBC 0-0 NEUTROPHILS RELATIVE PERCENT (BEAKER) (test urvj=785) 75 % LYMPHOCYTES RELATIVE PERCENT (BEAKER) (test rdsy=877) 12 % MONOCYTES RELATIVE PERCENT (BEAKER) (test yzdw=221) 11 % EOSINOPHILS RELATIVE PERCENT (BEAKER) (test yrzo=970) 0 % BASOPHILS RELATIVE PERCENT (BEAKER) (test tlta=208) 1 % NEUTROPHILS ABSOLUTE COUNT (BEAKER) (test brjh=931) 3.92 K/ L 1.78-5.38 LYMPHOCYTES ABSOLUTE COUNT (BEAKER) (test svte=728) 0.64 K/ L 1.32-3.57 MONOCYTES ABSOLUTE COUNT (BEAKER) (test avgy=307) 0.58 K/ L 0.30-0.82 EOSINOPHILS ABSOLUTE COUNT (BEAKER) (test mcjx=744) 0.00 K/ L 0.04-0.54 BASOPHILS ABSOLUTE COUNT (BEAKER) (test dyii=940) 0.04 K/ L 0.01-0.08 IMMATURE GRANULOCYTES-RELATIVE PERCENT (BEAKER) (test xhae=7258) 0 % 0-1 B-TYPE NATRIURETIC FACTOR (BNP)2018-02-01 11:12:00* Test Item Value Reference Range Comments B-TYPE NATRIURETIC PEPTIDE (BEAKER) (test kdoc=902) 2207 pg/mL 0-100 BASIC METABOLIC [id number] 11:05:00* Test Item Value Reference Range Comments SODIUM (BEAKER) (test temf=616) 137 meq/L 136-145 POTASSIUM (BEAKER) (test aebv=618) 4.0 meq/L 3.5-5.1 CHLORIDE (BEAKER) (test isew=732) 100 meq/L 98-107 CO2 (BEAKER) (test qoda=408) 28 meq/L 22-29 BLOOD UREA NITROGEN (BEAKER) (test cvai=523) 36 mg/dL 7-21 CREATININE (BEAKER) (test giyq=772) 2.17 mg/dL 0.57-1.25 GLUCOSE RANDOM (BEAKER) (test dwzm=158) 202 mg/dL 70-105 CALCIUM (BEAKER) (test nomi=180) 9.0 mg/dL 8.4-10.2 EGFR (BEAKER) (test rbti=3529) 29 mL/min/1.73 sq m ESTIMATED GFR IS NOT ACCURATE CREATININE CLEARANCE IN PREDICTING GLOMERULAR FILTRATION RATE. ESTIMATED GFR IS NOT APPLICABLE FOR DIALYSIS PATIENTS. PROTHROMBIN TIME/[id number] 10:37:00* Test Item Value Reference Range Comments PROTIME (BEAKER) (test aeji=711) 22.5 seconds 11.7-14.7 INR (BEAKER) (test gvbw=174) 2.0 <=5.9 RECOMMENDED COUMADIN/WARFARIN INR THERAPY RANGESSTANDARD DOSE: 2.0 - 3.0 Inclu charlie: PROPHYLAXIS for venous thrombosis, systemic embolization; TREATMENT for helena ous thrombosis and/or pulmonary embolus.HIGH RISK: Target INR is 2.5-3.5 for pat ients with mechanical heart valves.CBC W/PLT COUNT & AUTO [id number] 10:27:00* Test Item Value Reference Range Comments WHITE BLOOD CELL COUNT (BEAKER) (test dwyu=557) 4.5 K/ L 3.5-10.5 RED BLOOD CELL COUNT (BEAKER) (test qfbv=804) 3.97 M/ L 4.63-6.08 HEMOGLOBIN (BEAKER) (test vjvd=104) 11.1 GM/DL 13.7-17.5 HEMATOCRIT (BEAKER) (test doal=078) 36.4 % 40.1-51.0 MEAN CORPUSCULAR VOLUME (BEAKER) (test spxu=587) 91.7 fL 79.0-92.2 MEAN CORPUSCULAR HEMOGLOBIN (BEAKER) (test sxez=182) 28.0 pg 25.7-32.2 MEAN CORPUSCULAR HEMOGLOBIN CONC (BEAKER) (test mtmz=956) 30.5 GM/DL 32.3-36.5 RED CELL DISTRIBUTION WIDTH (BEAKER) (test aiaq=230) 14.6 % 11.6-14.4 PLATELET COUNT (BEAKER) (test xdbl=171) 103 K/CU MM 150-450 MEAN PLATELET VOLUME (BEAKER) (test dovw=979) 9.9 fL 9.4-12.4 NUCLEATED RED BLOOD CELLS (BEAKER) (test yoxx=282) 0 /100 WBC 0-0 NEUTROPHILS RELATIVE PERCENT (BEAKER) (test qhvi=953) 75 % LYMPHOCYTES RELATIVE PERCENT (BEAKER) (test abet=799) 13 % MONOCYTES RELATIVE PERCENT (BEAKER) (test uzmr=775) 11 % EOSINOPHILS RELATIVE PERCENT (BEAKER) (test ubpx=419) 0 % BASOPHILS RELATIVE PERCENT (BEAKER) (test ysym=137) 1 % NEUTROPHILS ABSOLUTE COUNT (BEAKER) (test xwvc=104) 3.35 K/ L 1.78-5.38 LYMPHOCYTES ABSOLUTE COUNT (BEAKER) (test layd=729) 0.56 K/ L 1.32-3.57 MONOCYTES ABSOLUTE COUNT (BEAKER) (test lert=363) 0.50 K/ L 0.30-0.82 EOSINOPHILS ABSOLUTE COUNT (BEAKER) (test hsek=881) 0.00 K/ L 0.04-0.54 BASOPHILS ABSOLUTE COUNT (BEAKER) (test oaav=829) 0.04 K/ L 0.01-0.08 IMMATURE GRANULOCYTES-RELATIVE PERCENT (BEAKER) (test berp=9942) 0 % 0-1 BODY FLUID CULTURE + GRAM [id number] 12:43:00* Test Item Value Reference Range Comments CULTURE (BEAKER) (test yfjg=7209) No growth GRAM STAIN RESULT (BEAKER) (test xjaz=8886) 3+ WBCs GRAM STAIN RESULT (BEAKER) (test wmqf=20423) No organisms seen VANCOMYCIN LEVEL, [id number] 04:46:00* Test Item Value Reference Range Comments VANCOMYCIN TROUGH (BEAKER) (test kcjp=031) 14.6 ug/mL 10.0-20.0 BASIC METABOLIC [id number] 04:43:00* Test Item Value Reference Range Comments SODIUM (BEAKER) (test zkds=944) 132 meq/L 136-145 POTASSIUM (BEAKER) (test xuiq=949) 3.8 meq/L 3.5-5.1 CHLORIDE (BEAKER) (test aajc=587) 98 meq/L 98-107 CO2 (BEAKER) (test pzqy=007) 25 meq/L 22-29 BLOOD UREA NITROGEN (BEAKER) (test pkjm=565) 44 mg/dL 7-21 CREATININE (BEAKER) (test daqg=953) 2.17 mg/dL 0.57-1.25 GLUCOSE RANDOM (BEAKER) (test ptmr=200) 241 mg/dL 70-105 CALCIUM (BEAKER) (test hisr=707) 8.7 mg/dL 8.4-10.2 EGFR (BEAKER) (test wisv=2060) 29 mL/min/1.73 sq m ESTIMATED GFR IS NOT ACCURATE CREATININE CLEARANCE IN PREDICTING GLOMERULAR FILTRATION RATE. ESTIMATED GFR IS NOT APPLICABLE FOR DIALYSIS PATIENTS. [id number] 04:39:00* Test Item Value Reference Range Comments MAGNESIUM (BEAKER) (test xgmp=957) 2.4 mg/dL 1.6-2.6 PROTHROMBIN TIME/[id number] 04:38:00* Test Item Value Reference Range Comments PROTIME (BEAKER) (test shwn=872) 27.8 seconds 11.7-14.7 INR (BEAKER) (test lfwj=742) 2.6 <=5.9 RECOMMENDED COUMADIN/WARFARIN INR THERAPY RANGESSTANDARD DOSE: 2.0 - 3.0 Inclu charlie: PROPHYLAXIS for venous thrombosis, systemic embolization; TREATMENT for helena ous thrombosis and/or pulmonary embolus.HIGH RISK: Target INR is 2.5-3.5 for pat ients with mechanical heart valves.CBC (HEMOGRAM ONLY)[id number] 04:20:00* Test Item Value Reference Range Comments WHITE BLOOD CELL COUNT (BEAKER) (test obiz=734) 5.8 K/ L 3.5-10.5 RED BLOOD CELL COUNT (BEAKER) (test tobd=693) 3.87 M/ L 4.63-6.08 HEMOGLOBIN (BEAKER) (test tlvz=593) 10.7 GM/DL 13.7-17.5 HEMATOCRIT (BEAKER) (test halc=419) 34.0 % 40.1-51.0 MEAN CORPUSCULAR VOLUME (BEAKER) (test iylt=554) 87.9 fL 79.0-92.2 MEAN CORPUSCULAR HEMOGLOBIN (BEAKER) (test hqct=216) 27.6 pg 25.7-32.2 MEAN CORPUSCULAR HEMOGLOBIN CONC (BEAKER) (test eatc=103) 31.5 GM/DL 32.3-36.5 RED CELL DISTRIBUTION WIDTH (BEAKER) (test sdan=820) 14.2 % 11.6-14.4 PLATELET COUNT (BEAKER) (test smcc=822) 125 K/CU MM 150-450 MEAN PLATELET VOLUME (BEAKER) (test gqlo=665) 10.1 fL 9.4-12.4 NUCLEATED RED BLOOD CELLS (BEAKER) (test wrym=949) 0 /100 WBC 0-0 PROTHROMBIN TIME/[id number] 11:28:00* Test Item Value Reference Range Comments PROTIME (BEAKER) (test nsod=546) 27.3 seconds 11.7-14.7 INR (BEAKER) (test tvry=563) 2.5 <=5.9 RECOMMENDED COUMADIN/WARFARIN INR THERAPY RANGESSTANDARD DOSE: 2.0 - 3.0 Inclu charlie: PROPHYLAXIS for venous thrombosis, systemic embolization; TREATMENT for helena ous thrombosis and/or pulmonary embolus.HIGH RISK: Target INR is 2.5-3.5 for pat ients with mechanical heart valves.[id number] 08:13:00* Test Item Value Reference Range Comments MAGNESIUM (BEAKER) (test jben=470) 2.3 mg/dL 1.6-2.6 BASIC METABOLIC [id number] 08:13:00* Test Item Value Reference Range Comments SODIUM (BEAKER) (test pcof=020) 135 meq/L 136-145 POTASSIUM (BEAKER) (test puxf=515) 3.3 meq/L 3.5-5.1 CHLORIDE (BEAKER) (test dwzm=223) 99 meq/L 98-107 CO2 (BEAKER) (test qxqs=693) 26 meq/L 22-29 BLOOD UREA NITROGEN (BEAKER) (test fvps=062) 42 mg/dL 7-21 CREATININE (BEAKER) (test qcck=539) 2.12 mg/dL 0.57-1.25 GLUCOSE RANDOM (BEAKER) (test kpyc=957) 97 mg/dL 70-105 CALCIUM (BEAKER) (test wkzv=295) 8.2 mg/dL 8.4-10.2 EGFR (BEAKER) (test rtps=7754) 30 mL/min/1.73 sq m ESTIMATED GFR IS NOT ACCURATE CREATININE CLEARANCE IN PREDICTING GLOMERULAR FILTRATION RATE. ESTIMATED GFR IS NOT APPLICABLE FOR DIALYSIS PATIENTS. CBC (HEMOGRAM ONLY)2018-01-06 07:01:00* Test Item Value Reference Range Comments WHITE BLOOD CELL COUNT (BEAKER) (test smha=007) 5.3 K/ L 3.5-10.5 RED BLOOD CELL COUNT (BEAKER) (test tomo=440) 3.71 M/ L 4.63-6.08 HEMOGLOBIN (BEAKER) (test yoel=111) 10.3 GM/DL 13.7-17.5 HEMATOCRIT (BEAKER) (test oqax=087) 32.9 % 40.1-51.0 MEAN CORPUSCULAR VOLUME (BEAKER) (test wxrn=195) 88.7 fL 79.0-92.2 MEAN CORPUSCULAR HEMOGLOBIN (BEAKER) (test pvbc=353) 27.8 pg 25.7-32.2 MEAN CORPUSCULAR HEMOGLOBIN CONC (BEAKER) (test dxuz=595) 31.3 GM/DL 32.3-36.5 RED CELL DISTRIBUTION WIDTH (BEAKER) (test gjtt=387) 14.6 % 11.6-14.4 PLATELET COUNT (BEAKER) (test bxhc=077) 113 K/CU MM 150-450 MEAN PLATELET VOLUME (BEAKER) (test huhl=487) 10.4 fL 9.4-12.4 NUCLEATED RED BLOOD CELLS (BEAKER) (test eqnq=758) 0 /100 WBC 0-0 [id number] 17:13:00* Test Item Value Reference Range Comments POTASSIUM (BEAKER) (test adkl=783) 4.0 meq/L 3.5-5.1 [id number] 17:13:00* Test Item Value Reference Range Comments MAGNESIUM (BEAKER) (test ipvr=106) 2.3 mg/dL 1.6-2.6 BODY FLUID [id number] 11:28:00* Test Item Value Reference Range Comments CRYSTALS, BODY FLUID (BEAKER) (test suvt=5455) Calcium pyrophosphate crystals for pseudogout QUANTITY SEEN (BEAKER) (test gwwx=4265) Moderate UOND-KAJQWYSCBRB-155 (BEAKER) (test yhts=5083) Delphine Hastings MD (electronic signature) [id number] 09:33:00* Test Item Value Reference Range Comments MAGNESIUM (BEAKER) (test mbtf=466) 2.3 mg/dL 1.6-2.6 BASIC METABOLIC [id number] 09:33:00* Test Item Value Reference Range Comments SODIUM (BEAKER) (test ftfv=152) 136 meq/L 136-145 POTASSIUM (BEAKER) (test abkm=766) 3.1 meq/L 3.5-5.1 CHLORIDE (BEAKER) (test uuln=636) 102 meq/L 98-107 CO2 (BEAKER) (test psmr=439) 26 meq/L 22-29 BLOOD UREA NITROGEN (BEAKER) (test chtb=142) 35 mg/dL 7-21 CREATININE (BEAKER) (test uhkd=003) 1.92 mg/dL 0.57-1.25 GLUCOSE RANDOM (BEAKER) (test jsyp=460) 94 mg/dL 70-105 CALCIUM (BEAKER) (test yklh=960) 8.4 mg/dL 8.4-10.2 EGFR (BEAKER) (test dief=7073) 34 mL/min/1.73 sq m ESTIMATED GFR IS NOT ACCURATE CREATININE CLEARANCE IN PREDICTING GLOMERULAR FILTRATION RATE. ESTIMATED GFR IS NOT APPLICABLE FOR DIALYSIS PATIENTS. TROPONIN [id number] 07:22:00* Test Item Value Reference Range Comments TROPONIN I (BEAKER) (test cazu=715) 0.10 ng/mL 0.00-0.03 Troponin I (TnI) levels must be interpreted in the context of the presenting sym ptoms and the clinical findings. Elevated TnI levels indicate myocardial damage, but are not specific for ischemic heart disease. Elevated TnI levels are seen in patients with other cardiac conditions (including myocarditis and congestive h eart failure), and slight TnI elevations occur in patients with other conditions , including sepsis, renal failure, acidosis, acute neurological disease, and per sistent tachyarrhythmia.CBC (HEMOGRAM ONLY)2018-01-05 06:56:00* Test Item Value Reference Range Comments WHITE BLOOD CELL COUNT (BEAKER) (test phwm=357) 5.7 K/ L 3.5-10.5 RED BLOOD CELL COUNT (BEAKER) (test nvpq=509) 3.80 M/ L 4.63-6.08 HEMOGLOBIN (BEAKER) (test sylg=671) 10.4 GM/DL 13.7-17.5 HEMATOCRIT (BEAKER) (test jmlo=865) 33.3 % 40.1-51.0 MEAN CORPUSCULAR VOLUME (BEAKER) (test cjuu=778) 87.6 fL 79.0-92.2 MEAN CORPUSCULAR HEMOGLOBIN (BEAKER) (test wkxs=258) 27.4 pg 25.7-32.2 MEAN CORPUSCULAR HEMOGLOBIN CONC (BEAKER) (test aoon=282) 31.2 GM/DL 32.3-36.5 RED CELL DISTRIBUTION WIDTH (BEAKER) (test imkq=529) 14.6 % 11.6-14.4 PLATELET COUNT (BEAKER) (test kapm=320) 102 K/CU MM 150-450 MEAN PLATELET VOLUME (BEAKER) (test rfnj=257) 11.1 fL 9.4-12.4 NUCLEATED RED BLOOD CELLS (BEAKER) (test piff=014) 0 /100 WBC 0-0 PROTHROMBIN TIME/[id number] 06:52:00* Test Item Value Reference Range Comments PROTIME (BEAKER) (test ngmr=619) 25.7 seconds 11.7-14.7 INR (BEAKER) (test feac=524) 2.4 <=5.9 RECOMMENDED COUMADIN/WARFARIN INR THERAPY RANGESSTANDARD DOSE: 2.0 - 3.0 Inclu charlie: PROPHYLAXIS for venous thrombosis, systemic embolization; TREATMENT for helena ous thrombosis and/or pulmonary embolus.HIGH RISK: Target INR is 2.5-3.5 for pat ients with mechanical heart valves.BODY FLUID CELL COUNT WITH DIFFERENTIAL 2018-01-05 02:36:00* Test Item Value Reference Range Comments APPEARANCE FLUID (BEAKER) (test wbia=921) Turbid Clear COLOR FLUID (BEAKER) (test bvkj=589) Yellow Colorless, Straw RBC FLUID (BEAKER) (test mmyj=591) 8000 /cu mm <=1 ADJUSTED WBC FLUID (BEAKER) (test lrxc=7521) 79200 /cu mm <=5 LINING CELLS (BEAKER) (test zbss=5679) 0 /cu mm <=1 NEUTROPHILS FLUID (BEAKER) (test qvsp=5984) 80 % LYMPHS FLUID (BEAKER) (test rwge=951) 5 % MONO/MACROPHAGE FLUID (BEAKER) (test dsre=648) 15 % EOSINOPHILS FLUID (BEAKER) (test dwks=639) 0 % BASO FLUID (BEAKER) (test iads=400) 0 % CONTAINER BODY FLUID (BEAKER) (test xybc=5657) EDTA Tube LACTATE DEHYDROGENASE (LDH), BODY [id number] 01:54:00* Test Item Value Reference Range Comments LACTATE DEHYDROGENASE FLUID (BEAKER) (test ldiu=940) 785 U/L Absence of reference range indicates that normals have not been defined.Assay pe rformance has not been validated for this type of specimen.GLUCOSE, BODY FLUID 2018-01-05 01:54:00* Test Item Value Reference Range Comments GLUCOSE, BODY FLUID (BEAKER) (test cjhu=8938) 80 mg/dL Absence of reference range indicates that normals have not been defined.Assay pe rformance has not been validated for this type of specimen.RAD, KNEE, COMPLETE (4 VIEWS), [id number] 22:47:00Reason for exam:->KNEE PAINR knee swelling s/p fallReason for exam:->LEG SWELLINGFINAL REPORT INDICATION: Right knee pain and swelling. COMPARISON: None. TECHNIQUE: Right knee radiograph 3 views. FINDINGS / IMPRESSION:No fracture or malalignment is demonstrated. No knee joint effusion. Osteopenia and mild osteophyte formation are present. Joint spaces are preserved. Extensive vascular calcifications noted. Signed: Rey Moya MDReport Verified Date/Time: 01/04/2018 22:47:52 Reading Location: [address] Consult Reading Room TINE KINASE (CK), TOTAL AND [id number] 22:43:00* Test Item Value Reference Range Comments CREATINE KINASE TOTAL (BEAKER) (test rmqf=033) 76 U/L 29-200 CREATINE KINASE-MB (BEAKER) (test tqxf=922) 1.3 ng/mL 0.0-6.6 CREATINE KINASE-MB INDEX (BEAKER) (test ybef=467) 1.7 % CK-MB Reference Range:<6.7 Normal6.7-10.0 Borderline>10.0 AbnormalB- TYPE NATRIURETIC FACTOR (BNP)2018-01-04 22:40:00* Test Item Value Reference Range Comments B-TYPE NATRIURETIC PEPTIDE (BEAKER) (test bbym=691) 3104 pg/mL 0-100 TROPONIN [id number] 22:40:00* Test Item Value Reference Range Comments TROPONIN I (BEAKER) (test zzyp=158) 0.09 ng/mL 0.00-0.03 Troponin I (TnI) levels must be interpreted in the context of the presenting sym ptoms and the clinical findings. Elevated TnI levels indicate myocardial damage, but are not specific for ischemic heart disease. Elevated TnI levels are seen in patients with other cardiac conditions (including myocarditis and congestive h eart failure), and slight TnI elevations occur in patients with other conditions , including sepsis, renal failure, acidosis, acute neurological disease, and per sistent tachyarrhythmia.BASIC METABOLIC [id number] 22:37:00* Test Item Value Reference Range Comments SODIUM (BEAKER) (test mbof=809) 130 meq/L 136-145 POTASSIUM (BEAKER) (test lhmh=018) 2.8 meq/L 3.5-5.1 CHLORIDE (BEAKER) (test hpgg=798) 96 meq/L 98-107 CO2 (BEAKER) (test zgwm=789) 23 meq/L 22-29 BLOOD UREA NITROGEN (BEAKER) (test sjss=455) 37 mg/dL 7-21 CREATININE (BEAKER) (test eszn=829) 2.10 mg/dL 0.57-1.25 GLUCOSE RANDOM (BEAKER) (test vrla=176) 120 mg/dL 70-105 CALCIUM (BEAKER) (test yogj=477) 8.6 mg/dL 8.4-10.2 EGFR (BEAKER) (test bkdq=1593) 31 mL/min/1.73 sq m ESTIMATED GFR IS NOT ACCURATE CREATININE CLEARANCE IN PREDICTING GLOMERULAR FILTRATION RATE. ESTIMATED GFR IS NOT APPLICABLE FOR DIALYSIS PATIENTS. CBC W/PLT COUNT & AUTO [id number] 22:15:00* Test Item Value Reference Range Comments WHITE BLOOD CELL COUNT (BEAKER) (test zwhk=908) 7.8 K/ L 3.5-10.5 RED BLOOD CELL COUNT (BEAKER) (test wwpf=929) 4.08 M/ L 4.63-6.08 HEMOGLOBIN (BEAKER) (test zybw=619) 11.3 GM/DL 13.7-17.5 HEMATOCRIT (BEAKER) (test vcsq=587) 35.9 % 40.1-51.0 MEAN CORPUSCULAR VOLUME (BEAKER) (test ygbg=146) 88.0 fL 79.0-92.2 MEAN CORPUSCULAR HEMOGLOBIN (BEAKER) (test vasz=791) 27.7 pg 25.7-32.2 MEAN CORPUSCULAR HEMOGLOBIN CONC (BEAKER) (test ckyd=559) 31.5 GM/DL 32.3-36.5 RED CELL DISTRIBUTION WIDTH (BEAKER) (test jygf=408) 14.6 % 11.6-14.4 PLATELET COUNT (BEAKER) (test yjjt=600) 117 K/CU MM 150-450 MEAN PLATELET VOLUME (BEAKER) (test hefe=716) 10.8 fL 9.4-12.4 NUCLEATED RED BLOOD CELLS (BEAKER) (test eavr=874) 0 /100 WBC 0-0 NEUTROPHILS RELATIVE PERCENT (BEAKER) (test yqbb=243) 76 % LYMPHOCYTES RELATIVE PERCENT (BEAKER) (test rucj=296) 10 % MONOCYTES RELATIVE PERCENT (BEAKER) (test vwnp=983) 13 % EOSINOPHILS RELATIVE PERCENT (BEAKER) (test ywcg=501) 0 % BASOPHILS RELATIVE PERCENT (BEAKER) (test raiq=717) 1 % NEUTROPHILS ABSOLUTE COUNT (BEAKER) (test vspg=054) 5.95 K/ L 1.78-5.38 LYMPHOCYTES ABSOLUTE COUNT (BEAKER) (test xacc=539) 0.75 K/ L 1.32-3.57 MONOCYTES ABSOLUTE COUNT (BEAKER) (test wsqr=402) 1.05 K/ L 0.30-0.82 EOSINOPHILS ABSOLUTE COUNT (BEAKER) (test jphi=880) 0.00 K/ L 0.04-0.54 BASOPHILS ABSOLUTE COUNT (BEAKER) (test wgib=577) 0.05 K/ L 0.01-0.08 IMMATURE GRANULOCYTES-RELATIVE PERCENT (BEAKER) (test ssmx=1618) 0 % 0-1 HEMOGLOBIN [id number] 15:15:00* Test Item Value Reference Range Comments HEMOGLOBIN A1C (BEAKER) (test xwsc=927) 6.7 % 4.3-6.1 TSH/FREE T4 IF [id number] 14:55:00* Test Item Value Reference Range Comments THYROID STIMULATING HORMONE (BEAKER) (test afol=303) 1.80 uIU/mL 0.35-4.94 B-TYPE NATRIURETIC FACTOR (BNP)2017-12-25 14:43:00* Test Item Value Reference Range Comments B-TYPE NATRIURETIC PEPTIDE (BEAKER) (test kaek=901) 3073 pg/mL 0-100 PROTHROMBIN TIME/[id number] 14:38:00* Test Item Value Reference Range Comments PROTIME (BEAKER) (test xyrx=359) 24.6 seconds 11.7-14.7 INR (BEAKER) (test aepy=680) 2.2 <=5.9 RECOMMENDED COUMADIN/WARFARIN INR THERAPY RANGESSTANDARD DOSE: 2.0 - 3.0 Inclu charlie: PROPHYLAXIS for venous thrombosis, systemic embolization; TREATMENT for helena ous thrombosis and/or pulmonary embolus.HIGH RISK: Target INR is 2.5-3.5 for pat ients with mechanical heart valves.URIC [id number] 14:36:00* Test Item Value Reference Range Comments URIC ACID (BEAKER) (test tgba=083) 13.2 mg/dL 2.6-7.2 [id number] 14:36:00* Test Item Value Reference Range Comments MAGNESIUM (BEAKER) (test rwxm=568) 2.6 mg/dL 1.6-2.6 BASIC METABOLIC [id number] 14:36:00* Test Item Value Reference Range Comments SODIUM (BEAKER) (test nmsa=402) 135 meq/L 136-145 POTASSIUM (BEAKER) (test cdsv=586) 4.1 meq/L 3.5-5.1 CHLORIDE (BEAKER) (test csyd=403) 95 meq/L 98-107 CO2 (BEAKER) (test iscf=964) 30 meq/L 22-29 BLOOD UREA NITROGEN (BEAKER) (test mzfw=112) 32 mg/dL 7-21 CREATININE (BEAKER) (test hech=793) 2.12 mg/dL 0.57-1.25 GLUCOSE RANDOM (BEAKER) (test rhor=809) 111 mg/dL 70-105 CALCIUM (BEAKER) (test znbi=404) 9.3 mg/dL 8.4-10.2 EGFR (BEAKER) (test qtpz=3448) 30 mL/min/1.73 sq m ESTIMATED GFR IS NOT ACCURATE CREATININE CLEARANCE IN PREDICTING GLOMERULAR FILTRATION RATE. ESTIMATED GFR IS NOT APPLICABLE FOR DIALYSIS PATIENTS. LIPID [id number] 14:36:00* Test Item Value Reference Range Comments TRIGLYCERIDES (BEAKER) (test zxgu=728) 76 mg/dL CHOLESTEROL (BEAKER) (test vtbn=745) 120 mg/dL HDL CHOLESTEROL (BEAKER) (test ehlb=864) 39 mg/dL LDL CHOLESTEROL CALCULATED (BEAKER) (test thyk=249) 66 mg/dL Triglyceride Reference Range: Low Risk <150 Borderline 150-199 High Risk 200-499 Very High Risk >=500Cholesterol Reference Range: Low Risk <200 Borderline 200-239 High Risk >240HDL Cholesterol Reference Range: Low Risk >=60 High Risk <40LDL Cholesterol Reference Range: Optimal <100 Near Optimal 100-129 Borderline 130-159 High 160-189 Very High >=190 [id number] 14:35:00* Test Item Value Reference Range Comments PREALBUMIN (BEAKER) (test nttr=699) 18 mg/dL 14-45 CBC W/PLT COUNT & AUTO [id number] 14:18:00* Test Item Value Reference Range Comments WHITE BLOOD CELL COUNT (BEAKER) (test ibjf=590) 6.1 K/ L 3.5-10.5 RED BLOOD CELL COUNT (BEAKER) (test jicj=304) 4.31 M/ L 4.63-6.08 HEMOGLOBIN (BEAKER) (test ercv=109) 12.1 GM/DL 13.7-17.5 HEMATOCRIT (BEAKER) (test ombw=679) 39.2 % 40.1-51.0 MEAN CORPUSCULAR VOLUME (BEAKER) (test hfur=861) 91.0 fL 79.0-92.2 MEAN CORPUSCULAR HEMOGLOBIN (BEAKER) (test siaq=082) 28.1 pg 25.7-32.2 MEAN CORPUSCULAR HEMOGLOBIN CONC (BEAKER) (test tgnv=848) 30.9 GM/DL 32.3-36.5 RED CELL DISTRIBUTION WIDTH (BEAKER) (test emqq=664) 15.2 % 11.6-14.4 PLATELET COUNT (BEAKER) (test igog=627) 158 K/CU MM 150-450 MEAN PLATELET VOLUME (BEAKER) (test jgqr=647) 9.9 fL 9.4-12.4 NUCLEATED RED BLOOD CELLS (BEAKER) (test tmjg=328) 0 /100 WBC 0-0 NEUTROPHILS RELATIVE PERCENT (BEAKER) (test mxff=335) 70 % LYMPHOCYTES RELATIVE PERCENT (BEAKER) (test eowy=799) 17 % MONOCYTES RELATIVE PERCENT (BEAKER) (test iwhs=069) 12 % EOSINOPHILS RELATIVE PERCENT (BEAKER) (test cpod=738) 0 % BASOPHILS RELATIVE PERCENT (BEAKER) (test oofa=468) 1 % NEUTROPHILS ABSOLUTE COUNT (BEAKER) (test hbgy=485) 4.28 K/ L 1.78-5.38 LYMPHOCYTES ABSOLUTE COUNT (BEAKER) (test zuli=498) 1.02 K/ L 1.32-3.57 MONOCYTES ABSOLUTE COUNT (BEAKER) (test ulzl=705) 0.73 K/ L 0.30-0.82 EOSINOPHILS ABSOLUTE COUNT (BEAKER) (test ppev=806) 0.00 K/ L 0.04-0.54 BASOPHILS ABSOLUTE COUNT (BEAKER) (test ncqh=454) 0.06 K/ L 0.01-0.08 IMMATURE GRANULOCYTES-RELATIVE PERCENT (BEAKER) (test ebgs=2320) 0 % 0-1 URINE [id number] 13:02:00* Test Item Value Reference Range Comments CULTURE (BEAKER) (test mpdr=4790) Amikacin (test code=1) Susceptible 0-16 , Resistant <0 or >16 Aztreonam (test code=32) Susceptible 0-8 , Resistant <0 or >8 Cefepime (test code=51) Susceptible 0-8 , Resistant <0 or >8 Ceftazidime (test code=27) Susceptible 0-8 , Resistant <0 or >8 Ciprofloxacin (test code=7) Susceptible 0-1 , Resistant <0 or >1 Doripenem (test agto=840) Susceptible 0-2 , Resistant <0 or >2 Gentamicin (test code=18) Susceptible 0-4 , Resistant <0 or >4 Imipenem (test code=19) Susceptible 0-2 , Resistant <0 or >2 Levofloxacin (test code=22) Susceptible 0-2 , Resistant <0 or >2 Meropenem (test code=34) Susceptible 0-2 , Resistant <0 or >2 Piperacillin (test code=24) Susceptible 0-16 , Resistant <0 or >16 Piperacillin + Tazobactam (test code=29) Susceptible 0-16 , Resistant <0 or >16 Tobramycin (test code=25) Susceptible 0-4 , Resistant <0 or >4 CULTURE (BEAKER) (test lnxq=2293) >100,000 col/mL Pseudomonas aeruginosa PROTHROMBIN [id number] 05:14:00* Test Item Value Reference Range Comments PROTIME (BEAKER) (test efns=060) 26.8 seconds 11.7-14.7 INR (BEAKER) (test hlpq=773) 2.5 <=5.9 RECOMMENDED COUMADIN/WARFARIN INR THERAPY RANGESSTANDARD DOSE: 2.0 - 3.0 Inclu charlie: PROPHYLAXIS for venous thrombosis, systemic embolization; TREATMENT for helena ous thrombosis and/or pulmonary embolus.HIGH RISK: Target INR is 2.5-3.5 for pat ients with mechanical heart valves.[id number] 05:09:00* Test Item Value Reference Range Comments MAGNESIUM (BEAKER) (test ofks=727) 2.2 mg/dL 1.6-2.6 BASIC METABOLIC [id number] 05:09:00* Test Item Value Reference Range Comments SODIUM (BEAKER) (test eaya=002) 137 meq/L 136-145 POTASSIUM (BEAKER) (test xbea=139) 3.9 meq/L 3.5-5.1 CHLORIDE (BEAKER) (test ascz=652) 106 meq/L 98-107 CO2 (BEAKER) (test iyyn=880) 19 meq/L 22-29 BLOOD UREA NITROGEN (BEAKER) (test uerk=959) 28 mg/dL 7-21 CREATININE (BEAKER) (test kokr=709) 1.87 mg/dL 0.57-1.25 GLUCOSE RANDOM (BEAKER) (test uqex=933) 104 mg/dL 70-105 CALCIUM (BEAKER) (test pdxm=697) 8.3 mg/dL 8.4-10.2 EGFR (BEAKER) (test bxfh=5605) 35 mL/min/1.73 sq m ESTIMATED GFR IS NOT ACCURATE CREATININE CLEARANCE IN PREDICTING GLOMERULAR FILTRATION RATE. ESTIMATED GFR IS NOT APPLICABLE FOR DIALYSIS PATIENTS. CBC W/PLT COUNT & AUTO [id number] 04:38:00* Test Item Value Reference Range Comments WHITE BLOOD CELL COUNT (BEAKER) (test gtsf=122) 5.4 K/ L 3.5-10.5 RED BLOOD CELL COUNT (BEAKER) (test ndwd=742) 3.65 M/ L 4.63-6.08 HEMOGLOBIN (BEAKER) (test nrkl=106) 10.5 GM/DL 13.7-17.5 HEMATOCRIT (BEAKER) (test smey=774) 33.0 % 40.1-51.0 MEAN CORPUSCULAR VOLUME (BEAKER) (test begd=440) 90.4 fL 79.0-92.2 MEAN CORPUSCULAR HEMOGLOBIN (BEAKER) (test jegi=277) 28.8 pg 25.7-32.2 MEAN CORPUSCULAR HEMOGLOBIN CONC (BEAKER) (test mceo=002) 31.8 GM/DL 32.3-36.5 RED CELL DISTRIBUTION WIDTH (BEAKER) (test dcla=703) 15.9 % 11.6-14.4 PLATELET COUNT (BEAKER) (test evkg=796) 114 K/CU MM 150-450 MEAN PLATELET VOLUME (BEAKER) (test cpft=127) 10.1 fL 9.4-12.4 NUCLEATED RED BLOOD CELLS (BEAKER) (test gcgm=814) 0 /100 WBC 0-0 NEUTROPHILS RELATIVE PERCENT (BEAKER) (test quaw=130) 76 % LYMPHOCYTES RELATIVE PERCENT (BEAKER) (test bwaa=435) 10 % MONOCYTES RELATIVE PERCENT (BEAKER) (test gfqz=273) 12 % EOSINOPHILS RELATIVE PERCENT (BEAKER) (test wjpa=923) 0 % BASOPHILS RELATIVE PERCENT (BEAKER) (test ztcd=570) 1 % NEUTROPHILS ABSOLUTE COUNT (BEAKER) (test vxbe=932) 4.12 K/ L 1.78-5.38 LYMPHOCYTES ABSOLUTE COUNT (BEAKER) (test fiwy=618) 0.56 K/ L 1.32-3.57 MONOCYTES ABSOLUTE COUNT (BEAKER) (test kywt=092) 0.67 K/ L 0.30-0.82 EOSINOPHILS ABSOLUTE COUNT (BEAKER) (test qcrh=412) 0.00 K/ L 0.04-0.54 BASOPHILS ABSOLUTE COUNT (BEAKER) (test cbbs=591) 0.05 K/ L 0.01-0.08 IMMATURE GRANULOCYTES-RELATIVE PERCENT (BEAKER) (test czkf=7050) 0 % 0-1 URINALYSIS W/ [id number] 15:22:00* Test Item Value Reference Range Comments COLOR (BEAKER) (test iqsl=175) Yellow CLARITY (BEAKER) (test uxiv=699) Clear SPECIFIC GRAVITY UA (BEAKER) (test lgqm=516) 1.013 1.001-1.035 PH UA (BEAKER) (test fxok=131) 5.5 5.0-8.0 PROTEIN UA (BEAKER) (test arsj=468) 20 mg/dL Negative GLUCOSE UA (BEAKER) (test hrzr=259) Negative Negative KETONES UA (BEAKER) (test ejmh=155) Negative Negative BILIRUBIN UA (BEAKER) (test owcx=482) Negative Negative BLOOD UA (BEAKER) (test gcso=274) Negative Negative NITRITE UA (BEAKER) (test nest=905) Negative Negative LEUKOCYTE ESTERASE UA (BEAKER) (test epoc=844) Moderate Negative UROBILINOGEN UA (BEAKER) (test gzjn=308) 0.2 mg/dL 0.2-1.0 RBC UA (BEAKER) (test wkuk=274) 1 /HPF WBC UA (BEAKER) (test cjww=734) 19 /HPF MUCUS (BEAKER) (test jfur=0531) Rare HYALINE CASTS (BEAKER) (test ogin=802) 5 /LPF SOURCE(BEAKER) (test xuax=0734) Urine, Clean Catch RAD, CHEST, 1 VIEW, NON [id number] 11:36:00Reason for exam:->CHRONIC KIDNEY DISEASEShould this be performed at the bedside?->YesFINAL REPORT Chest two views AP 12/13/2017 11:35 AM CLINICAL INDICATION: CHRONIC KIDNEY DISEASE COMPARISON: 10/11/2017 IMPRESSION: The cardiac silhouette is enlarged, but stable. The central pulmonary vasculature is not engorged. There are trace bilateral pleural effusions with adjacent basilar atelectasis. Superimposed pneumonia should be excluded clinically. Support hardware is unchanged in position. Signed: Frank Castillo MDReport Verified Date/Time: 12/13/2017 11:36:22 Reading Location: [facility] Radiology Reading Room El ectronically signed by: FRANK CASTILLO M.D. on 12/13/2017 11:36 AM B-TYPE NATRIURETIC FACTOR (BNP)2017-12-13 10:46:00* Test Item Value Reference Range Comments B-TYPE NATRIURETIC PEPTIDE (BEAKER) (test kzha=892) 2594 pg/mL 0-100 CREATINE KINASE (CK), TOTAL AND [id number] 10:45:00* Test Item Value Reference Range Comments CREATINE KINASE TOTAL (BEAKER) (test jkfu=824) 121 U/L 29-200 CREATINE KINASE-MB (BEAKER) (test qvns=124) 4.3 ng/mL 0.0-6.6 CREATINE KINASE-MB INDEX (BEAKER) (test oyfi=954) 3.6 % CK-MB Reference Range:<6.7 Normal6.7-10.0 Borderline>10.0 Abnormal TROPONIN [id number] 10:45:00* Test Item Value Reference Range Comments TROPONIN I (BEAKER) (test vkyg=578) 0.07 ng/mL 0.00-0.03 Troponin I (TnI) levels must be interpreted in the context of the presenting sym ptoms and the clinical findings. Elevated TnI levels indicate myocardial damage, but are not specific for ischemic heart disease. Elevated TnI levels are seen in patients with other cardiac conditions (including myocarditis and congestive h eart failure), and slight TnI elevations occur in patients with other conditions , including sepsis, renal failure, acidosis, acute neurological disease, and per sistent tachyarrhythmia.BASIC METABOLIC [id number] 10:38:00* Test Item Value Reference Range Comments SODIUM (BEAKER) (test uefi=773) 136 meq/L 136-145 POTASSIUM (BEAKER) (test rikt=369) 3.7 meq/L 3.5-5.1 Specimen slightly hemolyzed CHLORIDE (BEAKER) (test usdh=849) 102 meq/L 98-107 CO2 (BEAKER) (test xnvl=007) 24 meq/L 22-29 BLOOD UREA NITROGEN (BEAKER) (test kjgp=884) 31 mg/dL 7-21 CREATININE (BEAKER) (test mcdm=656) 2.08 mg/dL 0.57-1.25 Specimen slightly hemolyzed GLUCOSE RANDOM (BEAKER) (test xsso=564) 105 mg/dL 70-105 CALCIUM (BEAKER) (test bibw=313) 9.0 mg/dL 8.4-10.2 EGFR (BEAKER) (test xvdo=1736) 31 mL/min/1.73 sq m ESTIMATED GFR IS NOT ACCURATE CREATININE CLEARANCE IN PREDICTING GLOMERULAR FILTRATION RATE. ESTIMATED GFR IS NOT APPLICABLE FOR DIALYSIS PATIENTS. PT/[id number] 10:24:00* Test Item Value Reference Range Comments PROTIME (BEAKER) (test miic=206) 28.1 seconds 11.7-14.7 INR (BEAKER) (test ybaz=097) 2.6 <=5.9 PARTIAL THROMBOPLASTIN TIME (BEAKER) (test gmnb=691) 45.3 seconds 22.5-36.0 RECOMMENDED COUMADIN/WARFARIN INR THERAPY RANGESSTANDARD DOSE: 2.0 - 3.0 Inclu charlie: PROPHYLAXIS for venous thrombosis, systemic embolization; TREATMENT for helena ous thrombosis and/or pulmonary embolus.HIGH RISK: Target INR is 2.5-3.5 for pat ients with mechanical heart valves.CBC W/PLT COUNT & AUTO [id number] 10:15:00* Test Item Value Reference Range Comments WHITE BLOOD CELL COUNT (BEAKER) (test wvxn=210) 5.9 K/ L 3.5-10.5 RED BLOOD CELL COUNT (BEAKER) (test jqir=599) 4.21 M/ L 4.63-6.08 HEMOGLOBIN (BEAKER) (test kbaf=780) 12.0 GM/DL 13.7-17.5 HEMATOCRIT (BEAKER) (test gfin=314) 38.3 % 40.1-51.0 MEAN CORPUSCULAR VOLUME (BEAKER) (test nmxu=304) 91.0 fL 79.0-92.2 MEAN CORPUSCULAR HEMOGLOBIN (BEAKER) (test uqsf=245) 28.5 pg 25.7-32.2 MEAN CORPUSCULAR HEMOGLOBIN CONC (BEAKER) (test gmro=010) 31.3 GM/DL 32.3-36.5 RED CELL DISTRIBUTION WIDTH (BEAKER) (test fnfs=888) 15.9 % 11.6-14.4 PLATELET COUNT (BEAKER) (test ayeo=757) 170 K/CU MM 150-450 MEAN PLATELET VOLUME (BEAKER) (test nhsv=466) 10.8 fL 9.4-12.4 NUCLEATED RED BLOOD CELLS (BEAKER) (test vutm=481) 0 /100 WBC 0-0 NEUTROPHILS RELATIVE PERCENT (BEAKER) (test zvvg=729) 78 % LYMPHOCYTES RELATIVE PERCENT (BEAKER) (test rxlj=352) 10 % MONOCYTES RELATIVE PERCENT (BEAKER) (test skdg=689) 10 % EOSINOPHILS RELATIVE PERCENT (BEAKER) (test riuk=141) 0 % BASOPHILS RELATIVE PERCENT (BEAKER) (test xgoq=201) 1 % NEUTROPHILS ABSOLUTE COUNT (BEAKER) (test buhl=176) 4.61 K/ L 1.78-5.38 LYMPHOCYTES ABSOLUTE COUNT (BEAKER) (test aqbh=814) 0.60 K/ L 1.32-3.57 MONOCYTES ABSOLUTE COUNT (BEAKER) (test dyfj=184) 0.59 K/ L 0.30-0.82 EOSINOPHILS ABSOLUTE COUNT (BEAKER) (test eedx=721) 0.01 K/ L 0.04-0.54 BASOPHILS ABSOLUTE COUNT (BEAKER) (test peru=209) 0.08 K/ L 0.01-0.08 IMMATURE GRANULOCYTES-RELATIVE PERCENT (BEAKER) (test txxh=7531) 0 % 0-1 CT, CHEST, WITHOUT [id number] 17:12:00FINAL REPORT TECHNIQUE: CT scan of the chest WITHOUT intravenous contrast. Dose modulation, iterative reconstruction, and/or weight-based adjustment of the mA/kV was utilized to reduce the radiation dose to as low as reasonably achievable. INDICATION: 82-year-old man with cough. COMPARISON: Chest radiographs 10/11/2017. FINDINGS: ABSENCE OF INTRAVENOUS CONTRAST DECREASES SE NSITIVITY FOR DETECTION OF FOCAL LESIONS AND VASCULAR PATHOLOGY. LINES/TUBES: Im planted cardiac device in the soft tissues of the left anterior chest with leads that terminate in the right atrium, right ventricle, and coronary sinus. LUNGS AND AIRWAYS: Mild periseptal and centrilobular emphysematous changes. Patchy carmen undglass opacities with mild interlobular septal thickening, most prominent in t he left upper lobe. Subcentimeter intrafissural lymph node along the right minor fissure. Calcific granuloma in the left lower lobe. PLEURA: Bilateral pleural e ffusions, moderate on the right and small on the left. HEART AND MEDIASTINUM: Th e visualized thyroid gland is normal. No significant mediastinal, hilar, or axil killian lymphadenopathy. Left atrial enlargement. No pericardial effusion. Atherosc lerotic calcifications in the thoracic aorta and coronary arteries. The main pul monary artery measures 3.3 cm in diameter. SOFT TISSUES AND BONES: Degenerative changes of the visualized spine. Intact median sternotomy wires. UPPER ABDOMEN: Cholelithiasis in a contracted gallbladder; no pericholecystic inflammatory lang ge. Cortical scarring of the visualized left kidney. Multiple clips in the upper abdomen. IMPRESSION:Pulmonary findings suspicious for pulmonary and interstiti al edema. No focal consolidations. Bilateral pleural effusions, moderate on the right and small on the left. Mildly dilated main pulmonary artery, suggestive of pulmonary arterial hypertension. Signed: Edmar Ocampo MDReport Verified Date /Time: 10/19/2017 17:12:57 Reading Location: [facility] C013Y CT Body Reading Room [id number] 07:41:00* Test Item Value Reference Range Comments PHOSPHORUS (BEAKER) (test bzeo=992) 3.1 mg/dL 2.3-4.7 [id number] 07:41:00* Test Item Value Reference Range Comments MAGNESIUM (BEAKER) (test nckt=963) 2.2 mg/dL 1.6-2.6 BASIC METABOLIC [id number] 07:41:00* Test Item Value Reference Range Comments SODIUM (BEAKER) (test xjoi=030) 138 meq/L 136-145 POTASSIUM (BEAKER) (test gpto=732) 4.6 meq/L 3.5-5.1 CHLORIDE (BEAKER) (test bvnm=619) 109 meq/L 98-107 CO2 (BEAKER) (test ldno=523) 23 meq/L 22-29 BLOOD UREA NITROGEN (BEAKER) (test spwq=296) 27 mg/dL 7-21 CREATININE (BEAKER) (test sdqg=975) 1.57 mg/dL 0.57-1.25 GLUCOSE RANDOM (BEAKER) (test fdkz=062) 106 mg/dL 70-105 CALCIUM (BEAKER) (test sinf=884) 8.5 mg/dL 8.4-10.2 EGFR (BEAKER) (test pvgd=5647) 43 mL/min/1.73 sq m ESTIMATED GFR IS NOT ACCURATE CREATININE CLEARANCE IN PREDICTING GLOMERULAR FILTRATION RATE. ESTIMATED GFR IS NOT APPLICABLE FOR DIALYSIS PATIENTS. PROTHROMBIN TIME/[id number] 07:01:00* Test Item Value Reference Range Comments PROTIME (BEAKER) (test rmdj=983) 18.5 seconds 11.7-14.7 INR (BEAKER) (test vvod=638) 1.5 <=5.9 RECOMMENDED COUMADIN/WARFARIN INR THERAPY RANGESSTANDARD DOSE: 2.0 - 3.0 Inclu charlie: PROPHYLAXIS for venous thrombosis, systemic embolization; TREATMENT for helena ous thrombosis and/or pulmonary embolus.HIGH RISK: Target INR is 2.5-3.5 for pat ients with mechanical heart valves.RAD, CHEST, 1 VIEW, NON [id number] 13:38:00Reason for exam:->shortness of breathShould this be performed at the bedside?->YesFINAL REPORT AP chest HISTORY: Shortness of breath COMPARISON: 08/05/2017 IMPRESSION:Left AICD present. Cardiomegaly similar to previous. Trace pleural effusions. Mild interstitial edema. Faint focal infiltrate in the right upper lobe and left lower lobe may reflect edema although pneumonia is not excluded. No pneumothorax. Signed: Alonso Bundy MDReport Verified Date/Time: 10/11/2017 13:38:44 Reading Location: [facility] Reading Room TINE KINASE (CK), TOTAL AND [id number] 13:24:00* Test Item Value Reference Range Comments CREATINE KINASE TOTAL (BEAKER) (test ojgk=235) 78 U/L 29-200 CREATINE KINASE-MB (BEAKER) (test ojhj=023) 4.9 ng/mL 0.0-6.6 CREATINE KINASE-MB INDEX (BEAKER) (test sbhh=445) 6.3 % CK-MB Reference Range:<6.7 Normal6.7-10.0 Borderline>10.0 Abnormal TROPONIN [id number] 13:24:00* Test Item Value Reference Range Comments TROPONIN I (BEAKER) (test ejjg=367) 0.05 ng/mL 0.00-0.03 Troponin I (TnI) levels must be interpreted in the context of the presenting sym ptoms and the clinical findings. Elevated TnI levels indicate myocardial damage, but are not specific for ischemic heart disease. Elevated TnI levels are seen in patients with other cardiac conditions (including myocarditis and congestive h eart failure), and slight TnI elevations occur in patients with other conditions , including sepsis, renal failure, acidosis, acute neurological disease, and per sistent tachyarrhythmia.B-TYPE NATRIURETIC FACTOR (BNP)2017-10-11 13:19:00* Test Item Value Reference Range Comments B-TYPE NATRIURETIC PEPTIDE (BEAKER) (test wdqg=751) 1607 pg/mL 0-100 [id number] 13:17:00* Test Item Value Reference Range Comments MAGNESIUM (BEAKER) (test tnpi=271) 2.3 mg/dL 1.6-2.6 BASIC METABOLIC [id number] 13:17:00* Test Item Value Reference Range Comments SODIUM (BEAKER) (test ceqh=542) 138 meq/L 136-145 POTASSIUM (BEAKER) (test qvuw=166) 4.7 meq/L 3.5-5.1 CHLORIDE (BEAKER) (test rlqt=689) 106 meq/L 98-107 CO2 (BEAKER) (test sryu=053) 24 meq/L 22-29 BLOOD UREA NITROGEN (BEAKER) (test ryma=895) 30 mg/dL 7-21 CREATININE (BEAKER) (test mkqn=813) 1.78 mg/dL 0.57-1.25 GLUCOSE RANDOM (BEAKER) (test hfcv=706) 113 mg/dL 70-105 CALCIUM (BEAKER) (test jdqq=601) 9.1 mg/dL 8.4-10.2 EGFR (BEAKER) (test mjzt=3887) 37 mL/min/1.73 sq m ESTIMATED GFR IS NOT ACCURATE CREATININE CLEARANCE IN PREDICTING GLOMERULAR FILTRATION RATE. ESTIMATED GFR IS NOT APPLICABLE FOR DIALYSIS PATIENTS. PROTHROMBIN TIME/[id number] 13:00:00* Test Item Value Reference Range Comments PROTIME (BEAKER) (test yest=994) 17.1 seconds 11.7-14.7 INR (BEAKER) (test etxz=558) 1.4 <=5.9 RECOMMENDED COUMADIN/WARFARIN INR THERAPY RANGESSTANDARD DOSE: 2.0 - 3.0 Inclu charlie: PROPHYLAXIS for venous thrombosis, systemic embolization; TREATMENT for helena ous thrombosis and/or pulmonary embolus.HIGH RISK: Target INR is 2.5-3.5 for pat ients with mechanical heart valves.CBC W/PLT COUNT & AUTO [id number] 12:55:00* Test Item Value Reference Range Comments WHITE BLOOD CELL COUNT (BEAKER) (test fbjz=372) 10.5 K/ L 3.5-10.5 RED BLOOD CELL COUNT (BEAKER) (test eafz=844) 4.10 M/ L 4.63-6.08 HEMOGLOBIN (BEAKER) (test icfv=286) 11.7 GM/DL 13.7-17.5 HEMATOCRIT (BEAKER) (test nhvb=070) 38.0 % 40.1-51.0 MEAN CORPUSCULAR VOLUME (BEAKER) (test nioe=340) 92.7 fL 79.0-92.2 MEAN CORPUSCULAR HEMOGLOBIN (BEAKER) (test dtnv=306) 28.5 pg 25.7-32.2 MEAN CORPUSCULAR HEMOGLOBIN CONC (BEAKER) (test boby=883) 30.8 GM/DL 32.3-36.5 RED CELL DISTRIBUTION WIDTH (BEAKER) (test miyc=658) 16.1 % 11.6-14.4 PLATELET COUNT (BEAKER) (test nepd=758) 129 K/CU MM 150-450 MEAN PLATELET VOLUME (BEAKER) (test fbcl=296) 10.5 fL 9.4-12.4 NUCLEATED RED BLOOD CELLS (BEAKER) (test rrry=584) 0 /100 WBC 0-0 NEUTROPHILS RELATIVE PERCENT (BEAKER) (test srsq=845) 89 % LYMPHOCYTES RELATIVE PERCENT (BEAKER) (test mhyx=943) 4 % MONOCYTES RELATIVE PERCENT (BEAKER) (test dtla=121) 7 % EOSINOPHILS RELATIVE PERCENT (BEAKER) (test qtrf=714) 0 % BASOPHILS RELATIVE PERCENT (BEAKER) (test zovt=637) 0 % NEUTROPHILS ABSOLUTE COUNT (BEAKER) (test wsxp=016) 9.34 K/ L 1.78-5.38 LYMPHOCYTES ABSOLUTE COUNT (BEAKER) (test yddg=584) 0.38 K/ L 1.32-3.57 MONOCYTES ABSOLUTE COUNT (BEAKER) (test sdiz=757) 0.74 K/ L 0.30-0.82 EOSINOPHILS ABSOLUTE COUNT (BEAKER) (test sceg=888) 0.00 K/ L 0.04-0.54 BASOPHILS ABSOLUTE COUNT (BEAKER) (test zbzf=165) 0.03 K/ L 0.01-0.08 IMMATURE GRANULOCYTES-RELATIVE PERCENT (BEAKER) (test wffi=0404) 1 % 0-1 AFB CULTURE + [id number] 14:52:00* Test Item Value Reference Range Comments CULTURE (BEAKER) (test hihd=7850) No acid-fast bacilli isolated in 42 days AFB SMEAR (BEAKER) (test mbeq=788) No acid fast bacilli seen FUNGUS CULTURE + [id number] 11:18:00* Test Item Value Reference Range Comments CULTURE (BEAKER) (test eoha=1480) No fungus isolated in 28 days FUNGUS SMEAR (BEAKER) (test chju=5754) No fungi seen ANAEROBIC [id number] 10:49:00* Test Item Value Reference Range Comments CULTURE (BEAKER) (test jste=8083) 1+ Anaerobic gram negative rods* - not Bacteroides fragilis group CBC W/PLT COUNT & AUTO [id number] 07:13:00* Test Item Value Reference Range Comments WHITE BLOOD CELL COUNT (BEAKER) (test ngkd=924) 10.4 K/ L 3.5-10.5 RED BLOOD CELL COUNT (BEAKER) (test heab=404) 3.87 M/ L 4.63-6.08 HEMOGLOBIN (BEAKER) (test wvur=884) 10.7 GM/DL 13.7-17.5 HEMATOCRIT (BEAKER) (test etbs=704) 33.5 % 40.1-51.0 MEAN CORPUSCULAR VOLUME (BEAKER) (test rlai=052) 86.6 fL 79.0-92.2 MEAN CORPUSCULAR HEMOGLOBIN (BEAKER) (test oaqx=227) 27.6 pg 25.7-32.2 MEAN CORPUSCULAR HEMOGLOBIN CONC (BEAKER) (test cfvy=220) 31.9 GM/DL 32.3-36.5 RED CELL DISTRIBUTION WIDTH (BEAKER) (test bifv=145) 14.1 % 11.6-14.4 PLATELET COUNT (BEAKER) (test bxtz=031) 135 K/CU MM 150-450 MEAN PLATELET VOLUME (BEAKER) (test avap=824) 9.6 fL 9.4-12.4 NUCLEATED RED BLOOD CELLS (BEAKER) (test rqwx=030) 0 /100 WBC 0-0 NEUTROPHILS RELATIVE PERCENT (BEAKER) (test ivwi=299) 80 % LYMPHOCYTES RELATIVE PERCENT (BEAKER) (test jgwq=860) 8 % MONOCYTES RELATIVE PERCENT (BEAKER) (test gyjc=572) 7 % EOSINOPHILS RELATIVE PERCENT (BEAKER) (test sruy=016) 4 % BASOPHILS RELATIVE PERCENT (BEAKER) (test dyte=094) 0 % NEUTROPHILS ABSOLUTE COUNT (BEAKER) (test paps=292) 8.31 K/ L 1.78-5.38 LYMPHOCYTES ABSOLUTE COUNT (BEAKER) (test rlan=834) 0.80 K/ L 1.32-3.57 MONOCYTES ABSOLUTE COUNT (BEAKER) (test bpmo=628) 0.72 K/ L 0.30-0.82 EOSINOPHILS ABSOLUTE COUNT (BEAKER) (test zfnb=244) 0.37 K/ L 0.04-0.54 BASOPHILS ABSOLUTE COUNT (BEAKER) (test mspc=247) 0.03 K/ L 0.01-0.08 IMMATURE GRANULOCYTES-RELATIVE PERCENT (BEAKER) (test swdx=6709) 2 % 0-1 BASIC METABOLIC [id number] 06:47:00* Test Item Value Reference Range Comments SODIUM (BEAKER) (test jcrf=604) 137 meq/L 136-145 POTASSIUM (BEAKER) (test lrti=779) 4.1 meq/L 3.5-5.1 CHLORIDE (BEAKER) (test fjyo=568) 111 meq/L 98-107 CO2 (BEAKER) (test lnvd=792) 19 meq/L 22-29 BLOOD UREA NITROGEN (BEAKER) (test cwcm=660) 30 mg/dL 7-21 CREATININE (BEAKER) (test mpua=436) 2.01 mg/dL 0.57-1.25 GLUCOSE RANDOM (BEAKER) (test jixa=298) 95 mg/dL 70-105 CALCIUM (BEAKER) (test xwvu=714) 8.0 mg/dL 8.4-10.2 EGFR (BEAKER) (test svyf=0648) 32 mL/min/1.73 sq m ESTIMATED GFR IS NOT ACCURATE CREATININE CLEARANCE IN PREDICTING GLOMERULAR FILTRATION RATE. ESTIMATED GFR IS NOT APPLICABLE FOR DIALYSIS PATIENTS. PROTHROMBIN TIME/[id number] 06:13:00* Test Item Value Reference Range Comments PROTIME (BEAKER) (test bhok=100) 33.4 seconds 11.7-14.7 INR (BEAKER) (test mryw=514) 3.3 <=5.9 RECOMMENDED COUMADIN/WARFARIN INR THERAPY RANGESSTANDARD DOSE: 2.0 - 3.0 Inclu charlie: PROPHYLAXIS for venous thrombosis, systemic embolization; TREATMENT for helena ous thrombosis and/or pulmonary embolus.HIGH RISK: Target INR is 2.5-3.5 for pat ients with mechanical heart valves.While on warfarin.BASIC METABOLIC PANEL 2017-08-09 03:35:00* Test Item Value Reference Range Comments SODIUM (BEAKER) (test oqae=783) 140 meq/L 136-145 POTASSIUM (BEAKER) (test rxav=585) 3.7 meq/L 3.5-5.1 CHLORIDE (BEAKER) (test iuvb=383) 111 meq/L 98-107 CO2 (BEAKER) (test mmkq=333) 20 meq/L 22-29 BLOOD UREA NITROGEN (BEAKER) (test trsb=293) 47 mg/dL 7-21 CREATININE (BEAKER) (test ybnd=215) 2.92 mg/dL 0.57-1.25 GLUCOSE RANDOM (BEAKER) (test mihv=674) 132 mg/dL 70-105 CALCIUM (BEAKER) (test tqpn=465) 8.4 mg/dL 8.4-10.2 EGFR (BEAKER) (test lwvu=1095) 21 mL/min/1.73 sq m ESTIMATED GFR IS NOT ACCURATE CREATININE CLEARANCE IN PREDICTING GLOMERULAR FILTRATION RATE. ESTIMATED GFR IS NOT APPLICABLE FOR DIALYSIS PATIENTS. [id number] 03:31:00* Test Item Value Reference Range Comments MAGNESIUM (BEAKER) (test oyvc=489) 2.1 mg/dL 1.6-2.6 PROTHROMBIN TIME/[id number] 03:21:00* Test Item Value Reference Range Comments PROTIME (BEAKER) (test oiqz=932) 34.9 seconds 11.7-14.7 INR (BEAKER) (test muap=704) 3.4 <=5.9 RECOMMENDED COUMADIN/WARFARIN INR THERAPY RANGESSTANDARD DOSE: 2.0 - 3.0 Inclu charlie: PROPHYLAXIS for venous thrombosis, systemic embolization; TREATMENT for helena ous thrombosis and/or pulmonary embolus.HIGH RISK: Target INR is 2.5-3.5 for pat ients with mechanical heart valves.While on warfarin.CBC W/PLT COUNT & AUTO [id number] 03:17:00* Test Item Value Reference Range Comments WHITE BLOOD CELL COUNT (BEAKER) (test liia=018) 10.2 K/ L 3.5-10.5 RED BLOOD CELL COUNT (BEAKER) (test zglx=020) 4.33 M/ L 4.63-6.08 HEMOGLOBIN (BEAKER) (test wmrq=974) 11.7 GM/DL 13.7-17.5 HEMATOCRIT (BEAKER) (test lpve=728) 37.2 % 40.1-51.0 MEAN CORPUSCULAR VOLUME (BEAKER) (test jvhr=318) 85.9 fL 79.0-92.2 MEAN CORPUSCULAR HEMOGLOBIN (BEAKER) (test uaua=321) 27.0 pg 25.7-32.2 MEAN CORPUSCULAR HEMOGLOBIN CONC (BEAKER) (test gqde=683) 31.5 GM/DL 32.3-36.5 RED CELL DISTRIBUTION WIDTH (BEAKER) (test mjlo=445) 13.9 % 11.6-14.4 PLATELET COUNT (BEAKER) (test eivu=800) 161 K/CU MM 150-450 MEAN PLATELET VOLUME (BEAKER) (test sddk=132) 9.9 fL 9.4-12.4 NUCLEATED RED BLOOD CELLS (BEAKER) (test bqtu=134) 0 /100 WBC 0-0 NEUTROPHILS RELATIVE PERCENT (BEAKER) (test stke=988) 80 % LYMPHOCYTES RELATIVE PERCENT (BEAKER) (test ptpe=060) 9 % MONOCYTES RELATIVE PERCENT (BEAKER) (test sexg=406) 6 % EOSINOPHILS RELATIVE PERCENT (BEAKER) (test flqk=126) 3 % BASOPHILS RELATIVE PERCENT (BEAKER) (test bnjq=247) 0 % NEUTROPHILS ABSOLUTE COUNT (BEAKER) (test bnvm=863) 8.08 K/ L 1.78-5.38 LYMPHOCYTES ABSOLUTE COUNT (BEAKER) (test zszu=910) 0.87 K/ L 1.32-3.57 MONOCYTES ABSOLUTE COUNT (BEAKER) (test lago=575) 0.64 K/ L 0.30-0.82 EOSINOPHILS ABSOLUTE COUNT (BEAKER) (test tqkp=390) 0.34 K/ L 0.04-0.54 BASOPHILS ABSOLUTE COUNT (BEAKER) (test rczr=466) 0.04 K/ L 0.01-0.08 IMMATURE GRANULOCYTES-RELATIVE PERCENT (BEAKER) (test qnxc=4868) 2 % 0-1 BASIC METABOLIC [id number] 04:30:00* Test Item Value Reference Range Comments SODIUM (BEAKER) (test pbkj=550) 141 meq/L 136-145 POTASSIUM (BEAKER) (test ssgi=908) 3.6 meq/L 3.5-5.1 CHLORIDE (BEAKER) (test imio=580) 109 meq/L 98-107 CO2 (BEAKER) (test euix=895) 20 meq/L 22-29 BLOOD UREA NITROGEN (BEAKER) (test ejfh=904) 59 mg/dL 7-21 CREATININE (BEAKER) (test ixwu=738) 3.78 mg/dL 0.57-1.25 GLUCOSE RANDOM (BEAKER) (test bzkw=700) 108 mg/dL 70-105 CALCIUM (BEAKER) (test ycya=813) 8.3 mg/dL 8.4-10.2 EGFR (BEAKER) (test dfkz=0330) 15 mL/min/1.73 sq m ESTIMATED GFR IS NOT ACCURATE CREATININE CLEARANCE IN PREDICTING GLOMERULAR FILTRATION RATE. ESTIMATED GFR IS NOT APPLICABLE FOR DIALYSIS PATIENTS. PROTHROMBIN TIME/[id number] 04:23:00* Test Item Value Reference Range Comments PROTIME (BEAKER) (test ezki=553) 30.2 seconds 11.7-14.7 INR (BEAKER) (test qavn=459) 2.9 <=5.9 RECOMMENDED COUMADIN/WARFARIN INR THERAPY RANGESSTANDARD DOSE: 2.0 - 3.0 Inclu charlie: PROPHYLAXIS for venous thrombosis, systemic embolization; TREATMENT for helena ous thrombosis and/or pulmonary embolus.HIGH RISK: Target INR is 2.5-3.5 for pat ients with mechanical heart valves.While on warfarin.CBC W/PLT COUNT & AUTO [id number] 04:08:00* Test Item Value Reference Range Comments WHITE BLOOD CELL COUNT (BEAKER) (test jqne=291) 9.7 K/ L 3.5-10.5 RED BLOOD CELL COUNT (BEAKER) (test rkrs=466) 4.22 M/ L 4.63-6.08 HEMOGLOBIN (BEAKER) (test tjdx=665) 11.3 GM/DL 13.7-17.5 HEMATOCRIT (BEAKER) (test lgyu=011) 36.3 % 40.1-51.0 MEAN CORPUSCULAR VOLUME (BEAKER) (test lazd=943) 86.0 fL 79.0-92.2 MEAN CORPUSCULAR HEMOGLOBIN (BEAKER) (test uvoe=399) 26.8 pg 25.7-32.2 MEAN CORPUSCULAR HEMOGLOBIN CONC (BEAKER) (test jcjj=569) 31.1 GM/DL 32.3-36.5 RED CELL DISTRIBUTION WIDTH (BEAKER) (test kffw=871) 13.8 % 11.6-14.4 PLATELET COUNT (BEAKER) (test saej=674) 144 K/CU MM 150-450 MEAN PLATELET VOLUME (BEAKER) (test pgbg=261) 9.7 fL 9.4-12.4 NUCLEATED RED BLOOD CELLS (BEAKER) (test qpdm=137) 0 /100 WBC 0-0 NEUTROPHILS RELATIVE PERCENT (BEAKER) (test gpkt=176) 79 % LYMPHOCYTES RELATIVE PERCENT (BEAKER) (test ktzc=851) 9 % MONOCYTES RELATIVE PERCENT (BEAKER) (test ntef=627) 7 % EOSINOPHILS RELATIVE PERCENT (BEAKER) (test kyzv=880) 3 % BASOPHILS RELATIVE PERCENT (BEAKER) (test kxzr=965) 0 % NEUTROPHILS ABSOLUTE COUNT (BEAKER) (test kkcg=472) 7.62 K/ L 1.78-5.38 LYMPHOCYTES ABSOLUTE COUNT (BEAKER) (test rtsg=562) 0.88 K/ L 1.32-3.57 MONOCYTES ABSOLUTE COUNT (BEAKER) (test tehq=866) 0.69 K/ L 0.30-0.82 EOSINOPHILS ABSOLUTE COUNT (BEAKER) (test wwkx=315) 0.29 K/ L 0.04-0.54 BASOPHILS ABSOLUTE COUNT (BEAKER) (test mlja=727) 0.03 K/ L 0.01-0.08 IMMATURE GRANULOCYTES-RELATIVE PERCENT (BEAKER) (test qivf=3830) 2 % 0-1 TISSUE [id number] 11:03:00Surgical Pathology Report Case: [id number] Authorizing Provider: Frank Power, Collected: 08/02/2017 Jeff LEWIS Ordering Location: [address] Received: 08/03/2017 0830 Pathologist: Aggie Wooten MD Specimen: Appendix APPENDIX, APPENDECTOMY:- ACUTE SUPPURATIVE APPENDICITIS AND PERIAPPENDISITIS Signing Pathologist Direct Phone Line: [phone] signed by Aggie Wooten MD on 08/07/2017 at 11:03 [id number] Appendix Received fresh labeled "appendix" is a 3.5 cm in length x 1.0 cm in diameter, intact, vermiform appendix with attached mesoappendix.The serosal surface is purple-levy to hernandez- white, dusky, and exhibits a hernandez-white exudate. Sectioning reveals a dilated lumen containing light-levy to red mucoid material.Section code: A1, parallel resection margin; A2-A3, technical sales representative sections of appendix. DB/ewPerformed. [id number] 06:24:00* Test Item Value Reference Range Comments PARTIAL THROMBOPLASTIN TIME (BEAKER) (test ilsl=922) 60.4 seconds 22.5-36.0 PROTHROMBIN TIME/[id number] 04:41:00* Test Item Value Reference Range Comments PROTIME (BEAKER) (test flop=064) 27.1 seconds 11.7-14.7 INR (BEAKER) (test bpmc=411) 2.5 <=5.9 RECOMMENDED COUMADIN/WARFARIN INR THERAPY RANGESSTANDARD DOSE: 2.0 - 3.0 Inclu charlie: PROPHYLAXIS for venous thrombosis, systemic embolization; TREATMENT for helena ous thrombosis and/or pulmonary embolus.HIGH RISK: Target INR is 2.5-3.5 for pat ients with mechanical heart valves.While on warfarin.BASIC METABOLIC PANEL 2017-08-07 04:08:00* Test Item Value Reference Range Comments SODIUM (BEAKER) (test zwhe=569) 141 meq/L 136-145 POTASSIUM (BEAKER) (test pofs=018) 3.2 meq/L 3.5-5.1 CHLORIDE (BEAKER) (test ufga=303) 109 meq/L 98-107 CO2 (BEAKER) (test geed=592) 21 meq/L 22-29 BLOOD UREA NITROGEN (BEAKER) (test zoom=709) 73 mg/dL 7-21 CREATININE (BEAKER) (test iwux=968) 4.84 mg/dL 0.57-1.25 GLUCOSE RANDOM (BEAKER) (test zzqq=814) 113 mg/dL 70-105 CALCIUM (BEAKER) (test dxce=392) 8.0 mg/dL 8.4-10.2 EGFR (BEAKER) (test nzzq=3263) 12 mL/min/1.73 sq m ESTIMATED GFR IS NOT ACCURATE CREATININE CLEARANCE IN PREDICTING GLOMERULAR FILTRATION RATE. ESTIMATED GFR IS NOT APPLICABLE FOR DIALYSIS PATIENTS. [id number] 03:55:00* Test Item Value Reference Range Comments PARTIAL THROMBOPLASTIN TIME (BEAKER) (test fbkp=719) 123.4 seconds 22.5-36.0 CBC W/PLT COUNT & AUTO [id number] 03:46:00* Test Item Value Reference Range Comments WHITE BLOOD CELL COUNT (BEAKER) (test iazz=147) 8.2 K/ L 3.5-10.5 RED BLOOD CELL COUNT (BEAKER) (test qqnh=352) 3.89 M/ L 4.63-6.08 HEMOGLOBIN (BEAKER) (test ifgs=773) 10.7 GM/DL 13.7-17.5 HEMATOCRIT (BEAKER) (test ppez=091) 33.6 % 40.1-51.0 MEAN CORPUSCULAR VOLUME (BEAKER) (test kwhw=878) 86.4 fL 79.0-92.2 MEAN CORPUSCULAR HEMOGLOBIN (BEAKER) (test cpjx=426) 27.5 pg 25.7-32.2 MEAN CORPUSCULAR HEMOGLOBIN CONC (BEAKER) (test fwco=635) 31.8 GM/DL 32.3-36.5 RED CELL DISTRIBUTION WIDTH (BEAKER) (test gcln=619) 13.8 % 11.6-14.4 PLATELET COUNT (BEAKER) (test pqfq=992) 133 K/CU MM 150-450 MEAN PLATELET VOLUME (BEAKER) (test pvsa=161) 10.6 fL 9.4-12.4 NUCLEATED RED BLOOD CELLS (BEAKER) (test wefc=750) 0 /100 WBC 0-0 NEUTROPHILS RELATIVE PERCENT (BEAKER) (test vnhk=838) 79 % LYMPHOCYTES RELATIVE PERCENT (BEAKER) (test zrow=100) 9 % MONOCYTES RELATIVE PERCENT (BEAKER) (test mjyz=408) 7 % EOSINOPHILS RELATIVE PERCENT (BEAKER) (test xrhe=475) 4 % BASOPHILS RELATIVE PERCENT (BEAKER) (test lcwz=075) 0 % NEUTROPHILS ABSOLUTE COUNT (BEAKER) (test wgpf=573) 6.47 K/ L 1.78-5.38 LYMPHOCYTES ABSOLUTE COUNT (BEAKER) (test jsij=608) 0.74 K/ L 1.32-3.57 MONOCYTES ABSOLUTE COUNT (BEAKER) (test kowi=687) 0.53 K/ L 0.30-0.82 EOSINOPHILS ABSOLUTE COUNT (BEAKER) (test apfa=692) 0.34 K/ L 0.04-0.54 BASOPHILS ABSOLUTE COUNT (BEAKER) (test pnkd=304) 0.02 K/ L 0.01-0.08 IMMATURE GRANULOCYTES-RELATIVE PERCENT (BEAKER) (test jnfh=6973) 1 % 0-1 RAD, ABDOMEN/KUB, 1 VIEW [id number] 16:16:00Reason for exam:->abdominal distension/painShould this be performed at the bedside?->YesFINAL REPORT EXAM: AP abdominal radiograph, 2 images HISTORY PROVIDED: Abdominal distention, pain COMPARISON: CT abdomen 07/31/2017 IMPRESSION:There are numerous air-filled loops of small bowel, some of which are mildly prominent suggesting an ileus pattern, much less likely obstruction. This examination is insensitive for the detection of free air. Surgical clips are seen within the abdomen. No acute osseous abnormality. No suspicious calcifications. Signed: Bill Clemens [facility] Verified Date/Time: 08/06/2017 16:16:02 Reading Location: [facility] Mammo Reading Room EY IMAGING, SINGLE, FLOW/[id number] 15:38:00FINAL REPORT PROCEDURE: Functional RENAL SCAN, flow and function CPT CODE: 92216 INDICATION: Acute kidney injury PROTOCOL: 10.2 mCi of Tc-99m MAG3 was injected intravenously. Renal flow images were obtained in the posterior projection. Subsequent serial posterior images were obtained over approximately 30 minutes. FINDINGS: There is markedly delayed and decreased perfusion of the left kidney with markedly delayed and moderately decreased perfusion of the right kidney. Initial tracer distribution is divided 13% to the left kidney and 87% to the right kidney. Serial images show poor tracer accumulation in the left kidney, which is small, and mildly decreased concentration in the right kidney. Sequential images show very poor tracer clearance from the left kidney and from the right kidney. IMPRESSION:1. Bilateral renal dysfunction, much worse on the left than the right. Signed: Jon Sprague MDReport Verified Date/Time: 08/06/2017 15:38:03 Reading Location: [address] [address] Reading Room [id number] 09:51:00* Test Item Value Reference Range Comments MAGNESIUM (BEAKER) (test xzlp=949) 2.1 mg/dL 1.6-2.6 [id number] 06:39:00* Test Item Value Reference Range Comments PARTIAL THROMBOPLASTIN TIME (BEAKER) (test msgb=491) 77.9 seconds 22.5-36.0 While on warfarin.BASIC METABOLIC [id number] 05:22:00* Test Item Value Reference Range Comments SODIUM (BEAKER) (test lmug=725) 141 meq/L 136-145 POTASSIUM (BEAKER) (test uuqs=376) 3.8 meq/L 3.5-5.1 CHLORIDE (BEAKER) (test bhna=055) 108 meq/L 98-107 CO2 (BEAKER) (test geop=118) 18 meq/L 22-29 BLOOD UREA NITROGEN (BEAKER) (test vgyr=738) 84 mg/dL 7-21 CREATININE (BEAKER) (test cjtt=165) 5.78 mg/dL 0.57-1.25 GLUCOSE RANDOM (BEAKER) (test zvfg=361) 119 mg/dL 70-105 CALCIUM (BEAKER) (test mxau=232) 8.3 mg/dL 8.4-10.2 EGFR (BEAKER) (test ywqp=3434) 9 mL/min/1.73 sq m ESTIMATED GFR IS NOT ACCURATE CREATININE CLEARANCE IN PREDICTING GLOMERULAR FILTRATION RATE. ESTIMATED GFR IS NOT APPLICABLE FOR DIALYSIS PATIENTS. PROTHROMBIN TIME/[id number] 04:52:00* Test Item Value Reference Range Comments PROTIME (BEAKER) (test bfnr=767) 19.3 seconds 11.7-14.7 INR (BEAKER) (test qija=345) 1.6 <=5.9 RECOMMENDED COUMADIN/WARFARIN INR THERAPY RANGESSTANDARD DOSE: 2.0 - 3.0 Inclu charlie: PROPHYLAXIS for venous thrombosis, systemic embolization; TREATMENT for helena ous thrombosis and/or pulmonary embolus.HIGH RISK: Target INR is 2.5-3.5 for pat ients with mechanical heart valves.While on warfarin.CBC W/PLT COUNT & AUTO [id number] 04:42:00* Test Item Value Reference Range Comments WHITE BLOOD CELL COUNT (BEAKER) (test shfz=448) 10.0 K/ L 3.5-10.5 RED BLOOD CELL COUNT (BEAKER) (test orac=837) 3.94 M/ L 4.63-6.08 HEMOGLOBIN (BEAKER) (test ahhr=984) 11.0 GM/DL 13.7-17.5 HEMATOCRIT (BEAKER) (test ruoi=634) 34.0 % 40.1-51.0 MEAN CORPUSCULAR VOLUME (BEAKER) (test ztnf=433) 86.3 fL 79.0-92.2 MEAN CORPUSCULAR HEMOGLOBIN (BEAKER) (test eovl=276) 27.9 pg 25.7-32.2 MEAN CORPUSCULAR HEMOGLOBIN CONC (BEAKER) (test vodt=897) 32.4 GM/DL 32.3-36.5 RED CELL DISTRIBUTION WIDTH (BEAKER) (test qilt=175) 13.8 % 11.6-14.4 PLATELET COUNT (BEAKER) (test armv=944) 151 K/CU MM 150-450 MEAN PLATELET VOLUME (BEAKER) (test gglg=065) 10.2 fL 9.4-12.4 NUCLEATED RED BLOOD CELLS (BEAKER) (test qngp=275) 0 /100 WBC 0-0 NEUTROPHILS RELATIVE PERCENT (BEAKER) (test ixns=879) 82 % LYMPHOCYTES RELATIVE PERCENT (BEAKER) (test qaxb=867) 7 % MONOCYTES RELATIVE PERCENT (BEAKER) (test szfy=620) 7 % EOSINOPHILS RELATIVE PERCENT (BEAKER) (test xcwx=419) 3 % BASOPHILS RELATIVE PERCENT (BEAKER) (test jeql=695) 0 % NEUTROPHILS ABSOLUTE COUNT (BEAKER) (test zpux=163) 8.17 K/ L 1.78-5.38 LYMPHOCYTES ABSOLUTE COUNT (BEAKER) (test lvet=836) 0.68 K/ L 1.32-3.57 MONOCYTES ABSOLUTE COUNT (BEAKER) (test ymmd=978) 0.72 K/ L 0.30-0.82 EOSINOPHILS ABSOLUTE COUNT (BEAKER) (test jltf=552) 0.34 K/ L 0.04-0.54 BASOPHILS ABSOLUTE COUNT (BEAKER) (test vupl=451) 0.02 K/ L 0.01-0.08 IMMATURE GRANULOCYTES-RELATIVE PERCENT (BEAKER) (test wgzd=7739) 1 % 0-1 BLOOD [id number] 00:00:00* Test Item Value Reference Range Comments CULTURE (BEAKER) (test twer=1324) No growth in 5 days BLOOD [id number] 00:00:00* Test Item Value Reference Range Comments CULTURE (BEAKER) (test xmhy=9337) No growth in 5 days [id number] 19:01:00* Test Item Value Reference Range Comments PARTIAL THROMBOPLASTIN TIME (BEAKER) (test kija=983) 70.1 seconds 22.5-36.0 [id number] 13:57:00* Test Item Value Reference Range Comments PARTIAL THROMBOPLASTIN TIME (BEAKER) (test mzek=036) 70.1 seconds 22.5-36.0 RAD, CHEST, 1 VIEW, NON [id number] 12:56:00Reason for exam:->sob, wheezeShould this be performed at the bedside?->YesFINAL REPORT TECHNIQUE: Single view of the chest FINDINGS: There appears to be some decrease in the airspace opacity in the right mid and lower lung. Otherwise there is no significant change. Some patchy densities in the left lower lobe are stable. There may be trace pleural effusions. No pneumothorax. Cardiac silhouette is enlarged. Left-sided pacing device again noted. Signed: Tuan Mayo MDReport Verified Date/Time: 08/05/2017 12:56:24 Reading Location: [address] Transitional Reading Room ICALLY OBTAINED CULTURE + GRAM [id number] 11:41:00* Test Item Value Reference Range Comments CULTURE (BEAKER) (test rmah=1991) Amikacin (test code=1) Ampicillin + Sulbactam (test code=6) Aztreonam (test code=32) Cefepime (test code=51) Cefoxitin (test code=68) Ceftazidime (test code=27) Ceftriaxone (test code=52) Ertapenem (test code=38) Gentamicin (test code=18) Levofloxacin (test code=22) Meropenem (test code=34) Nitrofurantoin (test code=23) Piperacillin + Tazobactam (test code=29) Tetracycline (test code=2) Tobramycin (test code=25) Trimethoprim + Sulfamethoxazole (test code=47) CULTURE (BEAKER) (test yjik=8423) 2+ Escherichia coli GRAM STAIN RESULT (BEAKER) (test alqf=3357) 2+ White blood cells seen GRAM STAIN RESULT (BEAKER) (test tazx=969836) No organisms seen CBC W/PLT COUNT & AUTO [id number] 06:42:00* Test Item Value Reference Range Comments WHITE BLOOD CELL COUNT (BEAKER) (test mlzd=197) 8.6 K/ L 3.5-10.5 RED BLOOD CELL COUNT (BEAKER) (test dhaq=885) 3.91 M/ L 4.63-6.08 HEMOGLOBIN (BEAKER) (test rvfa=688) 10.7 GM/DL 13.7-17.5 HEMATOCRIT (BEAKER) (test avem=443) 34.2 % 40.1-51.0 MEAN CORPUSCULAR VOLUME (BEAKER) (test maud=421) 87.5 fL 79.0-92.2 MEAN CORPUSCULAR HEMOGLOBIN (BEAKER) (test clnz=453) 27.4 pg 25.7-32.2 MEAN CORPUSCULAR HEMOGLOBIN CONC (BEAKER) (test ydaq=728) 31.3 GM/DL 32.3-36.5 RED CELL DISTRIBUTION WIDTH (BEAKER) (test iowd=705) 13.8 % 11.6-14.4 PLATELET COUNT (BEAKER) (test unjz=268) 154 K/CU MM 150-450 MEAN PLATELET VOLUME (BEAKER) (test xhrl=257) 10.3 fL 9.4-12.4 NUCLEATED RED BLOOD CELLS (BEAKER) (test xxfx=088) 0 /100 WBC 0-0 NEUTROPHILS RELATIVE PERCENT (BEAKER) (test otgg=691) 81 % LYMPHOCYTES RELATIVE PERCENT (BEAKER) (test glub=037) 7 % MONOCYTES RELATIVE PERCENT (BEAKER) (test xhkl=719) 9 % EOSINOPHILS RELATIVE PERCENT (BEAKER) (test lozk=672) 2 % BASOPHILS RELATIVE PERCENT (BEAKER) (test mtew=739) 0 % NEUTROPHILS ABSOLUTE COUNT (BEAKER) (test epav=817) 6.96 K/ L 1.78-5.38 LYMPHOCYTES ABSOLUTE COUNT (BEAKER) (test nwwl=652) 0.56 K/ L 1.32-3.57 MONOCYTES ABSOLUTE COUNT (BEAKER) (test niuq=765) 0.80 K/ L 0.30-0.82 EOSINOPHILS ABSOLUTE COUNT (BEAKER) (test vkzy=153) 0.21 K/ L 0.04-0.54 BASOPHILS ABSOLUTE COUNT (BEAKER) (test phmf=461) 0.01 K/ L 0.01-0.08 IMMATURE GRANULOCYTES-RELATIVE PERCENT (BEAKER) (test bksz=5037) 1 % 0-1 BASIC METABOLIC [id number] 06:38:00* Test Item Value Reference Range Comments SODIUM (BEAKER) (test fegp=735) 140 meq/L 136-145 POTASSIUM (BEAKER) (test xqyk=813) 4.3 meq/L 3.5-5.1 CHLORIDE (BEAKER) (test kiyx=078) 109 meq/L 98-107 CO2 (BEAKER) (test hlbd=802) 17 meq/L 22-29 BLOOD UREA NITROGEN (BEAKER) (test uygx=438) 86 mg/dL 7-21 CREATININE (BEAKER) (test ckgh=885) 6.31 mg/dL 0.57-1.25 GLUCOSE RANDOM (BEAKER) (test oklu=587) 106 mg/dL 70-105 CALCIUM (BEAKER) (test ukys=130) 8.2 mg/dL 8.4-10.2 EGFR (BEAKER) (test zcvl=4482) 9 mL/min/1.73 sq m ESTIMATED GFR IS NOT ACCURATE CREATININE CLEARANCE IN PREDICTING GLOMERULAR FILTRATION RATE. ESTIMATED GFR IS NOT APPLICABLE FOR DIALYSIS PATIENTS. [id number] 06:21:00* Test Item Value Reference Range Comments PARTIAL THROMBOPLASTIN TIME (BEAKER) (test ynkp=556) 63.5 seconds 22.5-36.0 While on warfarin.PROTHROMBIN TIME/[id number] 06:20:00* Test Item Value Reference Range Comments PROTIME (BEAKER) (test vyor=108) 17.3 seconds 11.7-14.7 INR (BEAKER) (test zgqp=238) 1.4 <=5.9 RECOMMENDED COUMADIN/WARFARIN INR THERAPY RANGESSTANDARD DOSE: 2.0 - 3.0 Inclu charlie: PROPHYLAXIS for venous thrombosis, systemic embolization; TREATMENT for helena ous thrombosis and/or pulmonary embolus.HIGH RISK: Target INR is 2.5-3.5 for pat ients with mechanical heart valves.While on warfarin.OCCULT BLOOD, STOOL 2017-08-04 22:52:00* Test Item Value Reference Range Comments FECAL OCCULT BLOOD (BEAKER) (test isfo=976) Positive Negative [id number] 20:48:00* Test Item Value Reference Range Comments PARTIAL THROMBOPLASTIN TIME (BEAKER) (test ugxf=573) 61.4 seconds 22.5-36.0 [id number] 15:08:00* Test Item Value Reference Range Comments PARTIAL THROMBOPLASTIN TIME (BEAKER) (test bolr=282) 43.4 seconds 22.5-36.0 Prior to initiating heparinRAD, CHEST, 1 VIEW, NON [id number] 12:02:00Reason for exam:->SOBShould this be performed at the bedside?->YesFINAL REPORT Comparison: 08/01/2017 TECHNIQUE: Single view of the chest FINDINGS: There is airspace disease in the right mid and lower lung similar to previous. Trace pleural effusions are suspected. Lungs otherwise grossly clear. Cardiac silhouette is enlarged. Postsurgical changes in the mediastinum and left sided pacing device noted. Signed: Tuan Mayo MDReport Verified Date/Time: 08/04/2017 12:02:37 Reading Location: [address] Transitional Reading Room C METABOLIC [id number] 05:21:00* Test Item Value Reference Range Comments SODIUM (BEAKER) (test lqsv=686) 139 meq/L 136-145 POTASSIUM (BEAKER) (test hqma=273) 4.5 meq/L 3.5-5.1 CHLORIDE (BEAKER) (test ebbr=673) 110 meq/L 98-107 CO2 (BEAKER) (test yrcb=358) 18 meq/L 22-29 BLOOD UREA NITROGEN (BEAKER) (test llgu=800) 74 mg/dL 7-21 CREATININE (BEAKER) (test dcae=883) 5.43 mg/dL 0.57-1.25 GLUCOSE RANDOM (BEAKER) (test hpop=724) 117 mg/dL 70-105 CALCIUM (BEAKER) (test cmzm=529) 8.5 mg/dL 8.4-10.2 EGFR (BEAKER) (test wigm=0750) 10 mL/min/1.73 sq m ESTIMATED GFR IS NOT ACCURATE CREATININE CLEARANCE IN PREDICTING GLOMERULAR FILTRATION RATE. ESTIMATED GFR IS NOT APPLICABLE FOR DIALYSIS PATIENTS. B-TYPE NATRIURETIC FACTOR (BNP)2017-08-04 04:37:00* Test Item Value Reference Range Comments B-TYPE NATRIURETIC PEPTIDE (BEAKER) (test mmld=380) 1377 pg/mL 0-100 PROTHROMBIN TIME/[id number] 04:15:00* Test Item Value Reference Range Comments PROTIME (BEAKER) (test madw=311) 18.6 seconds 11.7-14.7 INR (BEAKER) (test gipk=810) 1.6 <=5.9 RECOMMENDED COUMADIN/WARFARIN INR THERAPY RANGESSTANDARD DOSE: 2.0 - 3.0 Inclu charlie: PROPHYLAXIS for venous thrombosis, systemic embolization; TREATMENT for helena ous thrombosis and/or pulmonary embolus.HIGH RISK: Target INR is 2.5-3.5 for pat ients with mechanical heart valves.CBC W/PLT COUNT & AUTO [id number] 04:14:00* Test Item Value Reference Range Comments WHITE BLOOD CELL COUNT (BEAKER) (test klzu=555) 5.1 K/ L 3.5-10.5 RED BLOOD CELL COUNT (BEAKER) (test pzvt=305) 3.80 M/ L 4.63-6.08 HEMOGLOBIN (BEAKER) (test ncki=489) 10.3 GM/DL 13.7-17.5 HEMATOCRIT (BEAKER) (test rdcv=158) 33.6 % 40.1-51.0 MEAN CORPUSCULAR VOLUME (BEAKER) (test agxw=743) 88.4 fL 79.0-92.2 MEAN CORPUSCULAR HEMOGLOBIN (BEAKER) (test rsai=966) 27.1 pg 25.7-32.2 MEAN CORPUSCULAR HEMOGLOBIN CONC (BEAKER) (test ymur=118) 30.7 GM/DL 32.3-36.5 RED CELL DISTRIBUTION WIDTH (BEAKER) (test unil=289) 13.9 % 11.6-14.4 PLATELET COUNT (BEAKER) (test lutv=420) 140 K/CU MM 150-450 MEAN PLATELET VOLUME (BEAKER) (test kyjq=193) 9.5 fL 9.4-12.4 NUCLEATED RED BLOOD CELLS (BEAKER) (test udyl=274) 0 /100 WBC 0-0 NEUTROPHILS RELATIVE PERCENT (BEAKER) (test sppg=645) 83 % LYMPHOCYTES RELATIVE PERCENT (BEAKER) (test ibxd=779) 4 % MONOCYTES RELATIVE PERCENT (BEAKER) (test odsh=666) 10 % EOSINOPHILS RELATIVE PERCENT (BEAKER) (test pgay=128) 2 % BASOPHILS RELATIVE PERCENT (BEAKER) (test qsmw=699) 0 % NEUTROPHILS ABSOLUTE COUNT (BEAKER) (test rkkx=123) 4.21 K/ L 1.78-5.38 LYMPHOCYTES ABSOLUTE COUNT (BEAKER) (test xtzu=544) 0.20 K/ L 1.32-3.57 MONOCYTES ABSOLUTE COUNT (BEAKER) (test kbut=290) 0.52 K/ L 0.30-0.82 EOSINOPHILS ABSOLUTE COUNT (BEAKER) (test wixu=301) 0.08 K/ L 0.04-0.54 BASOPHILS ABSOLUTE COUNT (BEAKER) (test byge=973) 0.02 K/ L 0.01-0.08 IMMATURE GRANULOCYTES-RELATIVE PERCENT (BEAKER) (test dptr=6948) 0 % 0-1 U/S, RENAL, [id number] 22:48:00Reason for exam:->renal ultrasound with doppler ; YENI on CKDFINAL REPORT U/S, RENAL, COMPLETE, U/S, DUPLEX, DOPPLER INDICATION: renal ultrasound with doppler ; YENI on CKD COMPARISON: Correlation is made to CT examination July 31, 2017 TECHNIQUE: Real-time transabdominal renal ultrasound. Color and spectral Doppler examination of the renal vasculature. FINDINGS: Right kidney: Size: 10.5 x 4.6 x 5.4 cm. Parenchyma: Normal echogenicity. No cysts. No stones. Hydronephrosis: None. Left kidney: Not visualized due to overlying bowel gas and severe patient discomfort. Renal Vasculature: Doppler interrogation reveals preserved vascular flow in the main renal arteries and veins on the right. Urinary bladder: Decompressed by a Gonzalez catheter. Color Doppler and spectral ultrasound imaging:Resistive Indices, Right: Upper: 0.70 Middle: 0.75 Lower: 0.76 IMPRESSION: Limited by nonvisualization of the left kidney due to overlying bowel gas and severe patient discomfort. Unremarkable sonographic appearance of the right kidney with normal right renal vasculature. Signed: JR Booth Robert MDReport Verified Date/Time: 08/03/2017 22:48:40 Reading Location: [address] Body Reading Room U/S, DUPLEX, [id number] 22:48:00Reason for exam:->YENI ON CKD RENAL US WITH DOPPLERFINAL REPORT U/S, RENAL, COMPLETE, U/S, DUPLEX, DOPPLER INDICATION: renal ultrasound with doppler ; YENI on CKD COMPARISON: Correlation is made to CT examination July 31, 2017 TECHNIQUE: Real-time transabdominal renal ultrasound. Color and spectral Doppler examination of the renal vasculature. FINDINGS: Right kidney: Size: 10.5 x 4.6 x 5.4 cm. Parenchyma: Normal echogenicity. No cysts. No stones. Hydronephrosis: None. Left kidney: Not v isualized due to overlying bowel gas and severe patient discomfort. Renal Vasc ulature: Doppler interrogation reveals preserved vascular flow in the main renal arteries and veins on the right. Urinary bladder: Decompressed by a Gonzalez danisha ter. Color Doppler and spectral ultrasound imaging:Resistive Indices, Right: Upper: 0.70 Middle: 0.75 Lower: 0.76 IMPRESSION: Limited by nonvisuali zation of the left kidney due to overlying bowel gas and severe patient discomfo rt. Unremarkable sonographic appearance of the right kidney with normal right re nal vasculature. Signed: JR Booth Robert MDReport Verified Date/Time: 08/03/2017 22:48:40 Reading Location: [facility] B1 C013Y CT Body Reading Room Elect ronically signed by: AMARILYS BOOTH on 08/03/2017 10:48 PM SPIN/CONCENTRATION [id number] 12:24:00* Test Item Value Reference Range Comments CONCENTRATION CHARGED (BEAKER) (test fvtq=3458) Done CBC W/PLT COUNT & AUTO [id number] 05:27:00* Test Item Value Reference Range Comments WHITE BLOOD CELL COUNT (BEAKER) (test shxl=011) 10.6 K/ L 3.5-10.5 RED BLOOD CELL COUNT (BEAKER) (test vpyi=995) 3.78 M/ L 4.63-6.08 HEMOGLOBIN (BEAKER) (test urtj=945) 10.3 GM/DL 13.7-17.5 HEMATOCRIT (BEAKER) (test wsew=833) 33.7 % 40.1-51.0 MEAN CORPUSCULAR VOLUME (BEAKER) (test zudp=728) 89.2 fL 79.0-92.2 MEAN CORPUSCULAR HEMOGLOBIN (BEAKER) (test seox=775) 27.2 pg 25.7-32.2 MEAN CORPUSCULAR HEMOGLOBIN CONC (BEAKER) (test nzll=254) 30.6 GM/DL 32.3-36.5 RED CELL DISTRIBUTION WIDTH (BEAKER) (test umrs=203) 13.8 % 11.6-14.4 PLATELET COUNT (BEAKER) (test ksiz=940) 153 K/CU MM 150-450 MEAN PLATELET VOLUME (BEAKER) (test cvoa=571) 10.0 fL 9.4-12.4 NUCLEATED RED BLOOD CELLS (BEAKER) (test dhry=574) 0 /100 WBC 0-0 NEUTROPHILS RELATIVE PERCENT (BEAKER) (test ttvd=656) 87 % LYMPHOCYTES RELATIVE PERCENT (BEAKER) (test puax=454) 5 % MONOCYTES RELATIVE PERCENT (BEAKER) (test sgvq=435) 7 % EOSINOPHILS RELATIVE PERCENT (BEAKER) (test gatp=783) 0 % BASOPHILS RELATIVE PERCENT (BEAKER) (test vpdb=923) 0 % NEUTROPHILS ABSOLUTE COUNT (BEAKER) (test akrq=407) 9.25 K/ L 1.78-5.38 LYMPHOCYTES ABSOLUTE COUNT (BEAKER) (test htoi=338) 0.57 K/ L 1.32-3.57 MONOCYTES ABSOLUTE COUNT (BEAKER) (test zoxm=593) 0.73 K/ L 0.30-0.82 EOSINOPHILS ABSOLUTE COUNT (BEAKER) (test wfbw=701) 0.00 K/ L 0.04-0.54 BASOPHILS ABSOLUTE COUNT (BEAKER) (test nuyk=533) 0.04 K/ L 0.01-0.08 IMMATURE GRANULOCYTES-RELATIVE PERCENT (BEAKER) (test wspy=4834) 0 % 0-1 BASIC METABOLIC [id number] 04:48:00* Test Item Value Reference Range Comments SODIUM (BEAKER) (test aptv=780) 142 meq/L 136-145 POTASSIUM (BEAKER) (test llsn=828) 4.4 meq/L 3.5-5.1 CHLORIDE (BEAKER) (test qhqi=276) 112 meq/L 98-107 CO2 (BEAKER) (test anzs=487) 18 meq/L 22-29 BLOOD UREA NITROGEN (BEAKER) (test hqjw=936) 66 mg/dL 7-21 CREATININE (BEAKER) (test lrvk=492) 4.43 mg/dL 0.57-1.25 GLUCOSE RANDOM (BEAKER) (test wlko=894) 98 mg/dL 70-105 CALCIUM (BEAKER) (test xdrt=624) 8.5 mg/dL 8.4-10.2 EGFR (BEAKER) (test vjtm=8334) 13 mL/min/1.73 sq m ESTIMATED GFR IS NOT ACCURATE CREATININE CLEARANCE IN PREDICTING GLOMERULAR FILTRATION RATE. ESTIMATED GFR IS NOT APPLICABLE FOR DIALYSIS PATIENTS. [id number] 04:43:00* Test Item Value Reference Range Comments MAGNESIUM (BEAKER) (test ntnh=457) 2.1 mg/dL 1.6-2.6 PROTHROMBIN TIME/[id number] 04:40:00* Test Item Value Reference Range Comments PROTIME (BEAKER) (test cxyr=600) 20.4 seconds 11.7-14.7 INR (BEAKER) (test wjut=621) 1.8 <=5.9 RECOMMENDED COUMADIN/WARFARIN INR THERAPY RANGESSTANDARD DOSE: 2.0 - 3.0 Inclu charlie: PROPHYLAXIS for venous thrombosis, systemic embolization; TREATMENT for helena ous thrombosis and/or pulmonary embolus.HIGH RISK: Target INR is 2.5-3.5 for pat ients with mechanical heart valves.[id number] 16:35:00* Test Item Value Reference Range Comments PROSTATE SPECIFIC ANTIGEN (BEAKER) (test nlgt=080) 1.4 ng/mL 0.0-4.0 PROTHROMBIN [id number] 15:42:00* Test Item Value Reference Range Comments PROTIME (BEAKER) (test ajyv=152) 25.0 seconds 11.7-14.7 INR (BEAKER) (test kfzv=736) 2.3 <=5.9 RECOMMENDED COUMADIN/WARFARIN INR THERAPY RANGESSTANDARD DOSE: 2.0 - 3.0 Inclu charlie: PROPHYLAXIS for venous thrombosis, systemic embolization; TREATMENT for helena ous thrombosis and/or pulmonary embolus.HIGH RISK: Target INR is 2.5-3.5 for pat ients with mechanical heart valves.CREATININE, RANDOM [id number] 15:18:00* Test Item Value Reference Range Comments CREATININE URINE (BEAKER) (test bzld=811) 139.3 mg/dL Reference Range: No NormalsSODIUM, RANDOM [id number] 15:18:00* Test Item Value Reference Range Comments SODIUM URINE (BEAKER) (test epan=673) 35 meq/L Reference Range: No NormalsBASIC METABOLIC [id number] 06:46:00* Test Item Value Reference Range Comments SODIUM (BEAKER) (test mmue=193) 137 meq/L 136-145 POTASSIUM (BEAKER) (test gnsb=031) 4.4 meq/L 3.5-5.1 CHLORIDE (BEAKER) (test dpgd=895) 107 meq/L 98-107 CO2 (BEAKER) (test jstk=238) 20 meq/L 22-29 BLOOD UREA NITROGEN (BEAKER) (test qaqo=030) 61 mg/dL 7-21 CREATININE (BEAKER) (test wlqg=291) 4.17 mg/dL 0.57-1.25 GLUCOSE RANDOM (BEAKER) (test adkr=149) 101 mg/dL 70-105 CALCIUM (BEAKER) (test jgqk=389) 8.4 mg/dL 8.4-10.2 EGFR (BEAKER) (test kmod=5867) 14 mL/min/1.73 sq m ESTIMATED GFR IS NOT ACCURATE CREATININE CLEARANCE IN PREDICTING GLOMERULAR FILTRATION RATE. ESTIMATED GFR IS NOT APPLICABLE FOR DIALYSIS PATIENTS. [id number] 06:38:00* Test Item Value Reference Range Comments MAGNESIUM (BEAKER) (test mzfs=653) 2.1 mg/dL 1.6-2.6 CBC W/PLT COUNT & AUTO [id number] 06:28:00* Test Item Value Reference Range Comments WHITE BLOOD CELL COUNT (BEAKER) (test xmfe=448) 10.6 K/ L 3.5-10.5 RED BLOOD CELL COUNT (BEAKER) (test oeec=298) 3.85 M/ L 4.63-6.08 HEMOGLOBIN (BEAKER) (test zhwp=593) 10.7 GM/DL 13.7-17.5 HEMATOCRIT (BEAKER) (test lsey=513) 34.3 % 40.1-51.0 MEAN CORPUSCULAR VOLUME (BEAKER) (test mtcf=288) 89.1 fL 79.0-92.2 MEAN CORPUSCULAR HEMOGLOBIN (BEAKER) (test ldcn=273) 27.8 pg 25.7-32.2 MEAN CORPUSCULAR HEMOGLOBIN CONC (BEAKER) (test qpkb=751) 31.2 GM/DL 32.3-36.5 RED CELL DISTRIBUTION WIDTH (BEAKER) (test bhzd=416) 14.0 % 11.6-14.4 PLATELET COUNT (BEAKER) (test mzft=352) 129 K/CU MM 150-450 MEAN PLATELET VOLUME (BEAKER) (test tmil=856) 10.1 fL 9.4-12.4 NUCLEATED RED BLOOD CELLS (BEAKER) (test wvcu=128) 0 /100 WBC 0-0 NEUTROPHILS RELATIVE PERCENT (BEAKER) (test ivwd=637) 86 % LYMPHOCYTES RELATIVE PERCENT (BEAKER) (test hssr=262) 5 % MONOCYTES RELATIVE PERCENT (BEAKER) (test ogtf=618) 8 % EOSINOPHILS RELATIVE PERCENT (BEAKER) (test iuny=926) 0 % BASOPHILS RELATIVE PERCENT (BEAKER) (test lave=300) 0 % NEUTROPHILS ABSOLUTE COUNT (BEAKER) (test hsmr=101) 9.09 K/ L 1.78-5.38 LYMPHOCYTES ABSOLUTE COUNT (BEAKER) (test cuxh=408) 0.56 K/ L 1.32-3.57 MONOCYTES ABSOLUTE COUNT (BEAKER) (test ohmv=383) 0.82 K/ L 0.30-0.82 EOSINOPHILS ABSOLUTE COUNT (BEAKER) (test itgi=826) 0.00 K/ L 0.04-0.54 BASOPHILS ABSOLUTE COUNT (BEAKER) (test dhgz=315) 0.04 K/ L 0.01-0.08 IMMATURE GRANULOCYTES-RELATIVE PERCENT (BEAKER) (test zkzl=2747) 1 % 0-1 PROTHROMBIN TIME/[id number] 06:13:00* Test Item Value Reference Range Comments PROTIME (BEAKER) (test pthi=795) 30.2 seconds 11.7-14.7 INR (BEAKER) (test ygio=579) 2.9 <=5.9 RECOMMENDED COUMADIN/WARFARIN INR THERAPY RANGESSTANDARD DOSE: 2.0 - 3.0 Inclu charlie: PROPHYLAXIS for venous thrombosis, systemic embolization; TREATMENT for helena ous thrombosis and/or pulmonary embolus.HIGH RISK: Target INR is 2.5-3.5 for pat ients with mechanical heart valves.URINALYSIS W/ REFLEX URINE [id number] 19:18:00* Test Item Value Reference Range Comments COLOR (BEAKER) (test mkng=728) Yellow CLARITY (BEAKER) (test oiqb=779) Hazy SPECIFIC GRAVITY UA (BEAKER) (test yybw=395) 1.015 1.001-1.035 PH UA (BEAKER) (test tbca=244) 5.5 5.0-8.0 PROTEIN UA (BEAKER) (test gkyy=822) 30 mg/dL Negative GLUCOSE UA (BEAKER) (test uvky=151) Negative Negative KETONES UA (BEAKER) (test iqnd=098) Negative Negative BILIRUBIN UA (BEAKER) (test tiny=683) Negative Negative BLOOD UA (BEAKER) (test cxja=762) Trace Negative NITRITE UA (BEAKER) (test twwy=511) Negative Negative LEUKOCYTE ESTERASE UA (BEAKER) (test frfm=543) Large Negative UROBILINOGEN UA (BEAKER) (test gkye=232) 0.2 mg/dL 0.2-1.0 RBC UA (BEAKER) (test inlq=363) 1 /HPF WBC UA (BEAKER) (test pjpf=474) 165 /HPF SOURCE(BEAKER) (test ofkw=1538) PROTHROMBIN [id number] 11:46:00* Test Item Value Reference Range Comments PROTIME (BEAKER) (test pmgb=041) 33.9 seconds 11.7-14.7 INR (BEAKER) (test pppv=664) 3.3 <=5.9 RECOMMENDED COUMADIN/WARFARIN INR THERAPY RANGESSTANDARD DOSE: 2.0 - 3.0 Inclu charlie: PROPHYLAXIS for venous thrombosis, systemic embolization; TREATMENT for helena ous thrombosis and/or pulmonary embolus.HIGH RISK: Target INR is 2.5-3.5 for pat ients with mechanical heart valves.RAD, CHEST, 1 VIEW, NON [id number] 11:01:00Reason for exam:->evaluate pleural effusionShould this be performed at the bedside?->YesFINAL REPORT Chest one view. Clinical history: evaluate pleural effusion Comparison: July 31, 2017 Discussion: A frontal chest is provided. A left-sided ICD and pacemaker device is in stable position. Cardiac silhouette is enlarged. There is mild degree of vascular congestion, slightly improved from the previous exam. However, airspace opacity in the right mid to lower lung appears more pronounced, concerning for aspiration or pneumonia. There is no pneumothorax. A small right effusion is present. Signed: Maico Hayden Verified Date/Time: 08/01/2017 11:01:11 Reading Location: [facility] Radiology Reading Room ALYSIS W/ MICROSCOPIC 2017-08-01 06:53:00* Test Item Value Reference Range Comments COLOR (BEAKER) (test kfjm=890) Yellow CLARITY (BEAKER) (test zhnh=435) Hazy SPECIFIC GRAVITY UA (BEAKER) (test xfui=519) 1.010 1.001-1.035 PH UA (BEAKER) (test fxfo=851) 5.5 5.0-8.0 PROTEIN UA (BEAKER) (test aets=461) 10 mg/dL Negative GLUCOSE UA (BEAKER) (test gbzr=509) Negative Negative KETONES UA (BEAKER) (test gzlr=248) Negative Negative BILIRUBIN UA (BEAKER) (test wizm=048) Negative Negative BLOOD UA (BEAKER) (test qkad=827) Trace Negative NITRITE UA (BEAKER) (test tpqy=749) Negative Negative LEUKOCYTE ESTERASE UA (BEAKER) (test ovmr=221) Large Negative UROBILINOGEN UA (BEAKER) (test egmo=225) 0.2 mg/dL 0.2-1.0 RBC UA (BEAKER) (test eqgc=222) 3 /HPF WBC UA (BEAKER) (test ygia=732) 98 /HPF BACTERIA (BEAKER) (test rmzh=414) Many SOURCE(BEAKER) (test ikxo=4967) Urine, Voided BASIC METABOLIC [id number] 05:50:00* Test Item Value Reference Range Comments SODIUM (BEAKER) (test nnxl=935) 139 meq/L 136-145 POTASSIUM (BEAKER) (test rdrm=410) 4.8 meq/L 3.5-5.1 CHLORIDE (BEAKER) (test nrss=905) 107 meq/L 98-107 CO2 (BEAKER) (test sytk=732) 22 meq/L 22-29 BLOOD UREA NITROGEN (BEAKER) (test rfkb=766) 48 mg/dL 7-21 CREATININE (BEAKER) (test cjdr=566) 3.40 mg/dL 0.57-1.25 GLUCOSE RANDOM (BEAKER) (test pdqk=976) 113 mg/dL 70-105 CALCIUM (BEAKER) (test mbrs=015) 8.5 mg/dL 8.4-10.2 EGFR (BEAKER) (test wybe=4083) 18 mL/min/1.73 sq m ESTIMATED GFR IS NOT ACCURATE CREATININE CLEARANCE IN PREDICTING GLOMERULAR FILTRATION RATE. ESTIMATED GFR IS NOT APPLICABLE FOR DIALYSIS PATIENTS. [id number] 05:42:00* Test Item Value Reference Range Comments MAGNESIUM (BEAKER) (test wtub=092) 2.1 mg/dL 1.6-2.6 CBC W/PLT COUNT & AUTO [id number] 05:39:00* Test Item Value Reference Range Comments WHITE BLOOD CELL COUNT (BEAKER) (test fqyq=119) 14.1 K/ L 3.5-10.5 RED BLOOD CELL COUNT (BEAKER) (test fjrc=653) 3.87 M/ L 4.63-6.08 HEMOGLOBIN (BEAKER) (test cuso=294) 10.8 GM/DL 13.7-17.5 HEMATOCRIT (BEAKER) (test ipok=447) 34.3 % 40.1-51.0 MEAN CORPUSCULAR VOLUME (BEAKER) (test yvsq=095) 88.6 fL 79.0-92.2 MEAN CORPUSCULAR HEMOGLOBIN (BEAKER) (test oife=437) 27.9 pg 25.7-32.2 MEAN CORPUSCULAR HEMOGLOBIN CONC (BEAKER) (test buri=888) 31.5 GM/DL 32.3-36.5 RED CELL DISTRIBUTION WIDTH (BEAKER) (test zyck=152) 13.9 % 11.6-14.4 PLATELET COUNT (BEAKER) (test yslv=959) 136 K/CU MM 150-450 MEAN PLATELET VOLUME (BEAKER) (test kkud=964) 9.7 fL 9.4-12.4 NUCLEATED RED BLOOD CELLS (BEAKER) (test wsob=995) 0 /100 WBC 0-0 NEUTROPHILS RELATIVE PERCENT (BEAKER) (test radm=094) 87 % LYMPHOCYTES RELATIVE PERCENT (BEAKER) (test bjqo=284) 4 % MONOCYTES RELATIVE PERCENT (BEAKER) (test cgmu=819) 8 % EOSINOPHILS RELATIVE PERCENT (BEAKER) (test zhwn=178) 0 % BASOPHILS RELATIVE PERCENT (BEAKER) (test yewd=225) 0 % NEUTROPHILS ABSOLUTE COUNT (BEAKER) (test puev=635) 12.26 K/ L 1.78-5.38 LYMPHOCYTES ABSOLUTE COUNT (BEAKER) (test enzn=419) 0.60 K/ L 1.32-3.57 MONOCYTES ABSOLUTE COUNT (BEAKER) (test aewh=576) 1.12 K/ L 0.30-0.82 EOSINOPHILS ABSOLUTE COUNT (BEAKER) (test mzal=730) 0.00 K/ L 0.04-0.54 BASOPHILS ABSOLUTE COUNT (BEAKER) (test cajv=530) 0.03 K/ L 0.01-0.08 IMMATURE GRANULOCYTES-RELATIVE PERCENT (BEAKER) (test svng=1985) 1 % 0-1 PT/[id number] 14:30:00* Test Item Value Reference Range Comments PROTIME (BEAKER) (test napj=872) 32.5 seconds 11.7-14.7 INR (BEAKER) (test uxie=822) 3.1 <=5.9 PARTIAL THROMBOPLASTIN TIME (BEAKER) (test cdhq=098) 65.3 seconds 22.5-36.0 RECOMMENDED COUMADIN/WARFARIN INR THERAPY RANGESSTANDARD DOSE: 2.0 - 3.0 Inclu charlie: PROPHYLAXIS for venous thrombosis, systemic embolization; TREATMENT for helena ous thrombosis and/or pulmonary embolus.HIGH RISK: Target INR is 2.5-3.5 for pat ients with mechanical heart valves.CT, [id number] 12:43:00Reason for exam:->abd painWhat is the patient's sedation requirement?->No SedationFINAL REPORT INDICATION:82-year-old male with abdominal pain. COMPARISON: August 19, 2015 TECHNIQUE: CT of the Abdomen and Pelvis WITHOUT intravenous contrast. Enteric contrast was used. The exam was performed accord ing to our department dose-optimization protocol, which includes automated expos ure control, adjustments of mA and kV according to patient size. Iterative recon structions are also sometimes employed. FINDINGS:There are bronchocentric reticu lar and nodular opacities in the posterior lateral right basilar segments. Moder ate low density layering right pleural effusion is demonstrated. Partially image d ICD wires and mild cardiomegaly noted. Many (approximately 10) 5 mm stones lay er in the gallbladder body with two 5 mm stones in the neck of the gallbladder. Gallbladder is not distended and there is no gallbladder wall thickening. No lev iary ductal dilatation is demonstrated. There are a few foci of air in the commo n bile duct and a focus of air in the gallbladder is well, which suggests prior sphincterotomy. There is diffuse atrophy of the pancreas. Pancreatic duct is not dilated and no pancreatic masses demonstrated. Spleen is normal in size. No upp er abdominal lymphadenopathy or free fluid is demonstrated. There is wall thicke pérez of the appendix and the base of the cecum and there is periappendiceal and pericecal fat stranding and mild thickening of the lateral conal fascia. Appendi x measures approximately 13 mm in diameter. Terminal ileum appears normal. No en larged ileocolic lymph nodes are demonstrated. No bowel obstruction is demonstra kathy. Patient is status post partial gastrectomy (antrectomy) and gastrojejunosto my. There is moderate diverticulosis of the sigmoid colon. No pneumoperitoneum. There is moderate to severe scarring of the left kidney, as demonstrated on prio r CT in August 2015. The right kidney is normal in size and without scarring. N o gross renal mass demonstrated. No urinary stones demonstrated. No hydronephros is. Prostate gland is moderately enlarged and there is moderate to severe disten tion of the bladder without bladder trabeculation or diverticulum. No bladder ma ss demonstrated. No pelvic or retroperitoneal lymphadenopathy. There is severe a therosclerotic plaque of the abdominal aorta and iliac arteries. Abdominal aorta and iliac arteries are normal in caliber. No suspicious osseous lesion is demon strated. There is moderate to severe disc space and endplate degenerative change at L2-3, similar to that demonstrated in August 2015. Soft tissues are unremar kable. IMPRESSION: Wall thickening of the appendix and base of the cecum. Append iceal and pericecal fat stranding and absence of enlarged ileocolic lymph nodes favor infection (appendicitis or cecal diverticulitis) over appendiceal or cecal tumor. Prior antrectomy and gastrojejunostomy anastomosis. Right lower lobe bro nchocentric reticular and nodular opacities, most likely representing aspiration or pneumonia. Moderate right pleural effusion and mild cardiomegaly. Cholelithi asis. Few foci of air in the biliary system, suggestive of prior sphincterotomy. Diffuse atrophy of the pancreas. Moderate to severe scarring of the left kidney. Moderate prostatomegaly. Severe atherosclerosis of the abdominal aorta and iliac arteries. Signed: Rey Moya MDReport Verified Date/Time: 07/31/2017 1 2:43:35 Reading Location: [facility] Diagnostic Imaging Reading Room - [place] [id number] E lectronically signed by: REY MOYA M.D. on 07/31/2017 12:43 PM BASIC METABOLIC [id number] 10:27:00* Test Item Value Reference Range Comments SODIUM (BEAKER) (test egvo=376) 138 meq/L 136-145 POTASSIUM (BEAKER) (test myyy=445) 4.4 meq/L 3.5-5.1 CHLORIDE (BEAKER) (test xsea=971) 105 meq/L 98-107 CO2 (BEAKER) (test exfm=210) 27 meq/L 22-29 BLOOD UREA NITROGEN (BEAKER) (test vrhw=955) 35 mg/dL 7-21 CREATININE (BEAKER) (test azbj=925) 2.53 mg/dL 0.57-1.25 GLUCOSE RANDOM (BEAKER) (test memu=320) 151 mg/dL 70-105 CALCIUM (BEAKER) (test lmzs=278) 8.8 mg/dL 8.4-10.2 EGFR (BEAKER) (test yxxr=2237) 25 mL/min/1.73 sq m ESTIMATED GFR IS NOT ACCURATE CREATININE CLEARANCE IN PREDICTING GLOMERULAR FILTRATION RATE. ESTIMATED GFR IS NOT APPLICABLE FOR DIALYSIS PATIENTS. CREATINE KINASE (CK), TOTAL AND [id number] 10:23:00* Test Item Value Reference Range Comments CREATINE KINASE TOTAL (BEAKER) (test wcct=358) 49 U/L 29-200 CREATINE KINASE-MB (BEAKER) (test sgsp=379) 1.3 ng/mL 0.0-6.6 CREATINE KINASE-MB INDEX (BEAKER) (test ubwg=968) 2.7 % CK-MB Reference Range:<6.7 Normal6.7-10.0 Borderline>10.0 Abnormal TROPONIN [id number] 10:23:00* Test Item Value Reference Range Comments TROPONIN I (KESHAAKER) (test khfj=173) 0.03 ng/mL 0.00-0.03 Troponin I (TnI) levels must be interpreted in the context of the presenting sym ptoms and the clinical findings. Elevated TnI levels indicate myocardial damage, but are not specific for ischemic heart disease. Elevated TnI levels are seen in patients with other cardiac conditions (including myocarditis and congestive h eart failure), and slight TnI elevations occur in patients with other conditions , including sepsis, renal failure, acidosis, acute neurological disease, and per sistent tachyarrhythmia.RAD, CHEST, 1 VIEW, NON [id number] 10:21:00Reason for exam:->chest painShould this be performed at the bedside?->YesFINAL REPORT Portable chest. CLINICAL HISTORY: Chest pain. COMPARISON STUDY: October 22, 2017. FINDINGS: The cardiac silhouette is enlarged. The patient is status post sternotomy and pacer insertion. There are mild i nterstitial pulmonary markings with patchy airspace opacities. Blunting of the r ight costophrenic angle is seen. Some pulmonary venous congestion is noted. No p neumothorax is seen. Degenerative changes are noted. IMPRESSION: Findings most s uggestive of mild volume overload. Signed: Quentin Leach MDReport Verified [place] e/Time: 07/31/2017 10:21:47 Reading Location: [facility] [id number] Ortho Consult [facility] A M B-TYPE NATRIURETIC FACTOR (BNP)2017-07-31 10:18:00* Test Item Value Reference Range Comments B-TYPE NATRIURETIC PEPTIDE (BEAKER) (test btra=963) 1234 pg/mL 0-100 [id number] 10:13:00* Test Item Value Reference Range Comments LIPASE (BEAKER) (test akxx=095) 13 U/L 8-78 HEPATIC FUNCTION [id number] 10:13:00* Test Item Value Reference Range Comments TOTAL PROTEIN (BEAKER) (test rprr=143) 7.4 gm/dL 6.0-8.3 ALBUMIN (BEAKER) (test gzvw=7976) 3.6 g/dL 3.5-5.0 BILIRUBIN TOTAL (BEAKER) (test tbtx=477) 1.1 mg/dL 0.2-1.2 BILIRUBIN DIRECT (BEAKER) (test kncd=079) 0.6 mg/dL 0.1-0.5 ALKALINE PHOSPHATASE (BEAKER) (test gqzc=463) 156 U/L 40-150 AST (SGOT) (BEAKER) (test tyvz=644) 17 U/L 5-34 ALT (SGPT) (BEAKER) (test zxho=746) 12 U/L 6-55 CBC W/PLT COUNT & AUTO [id number] 09:56:00* Test Item Value Reference Range Comments WHITE BLOOD CELL COUNT (BEAKER) (test rqxf=867) 8.4 K/ L 3.5-10.5 RED BLOOD CELL COUNT (BEAKER) (test amvc=217) 4.03 M/ L 4.63-6.08 HEMOGLOBIN (BEAKER) (test gfwa=475) 11.3 GM/DL 13.7-17.5 HEMATOCRIT (BEAKER) (test wggk=293) 35.6 % 40.1-51.0 MEAN CORPUSCULAR VOLUME (BEAKER) (test ulur=357) 88.3 fL 79.0-92.2 MEAN CORPUSCULAR HEMOGLOBIN (BEAKER) (test jcsa=625) 28.0 pg 25.7-32.2 MEAN CORPUSCULAR HEMOGLOBIN CONC (BEAKER) (test dqmv=404) 31.7 GM/DL 32.3-36.5 RED CELL DISTRIBUTION WIDTH (BEAKER) (test xdob=078) 13.5 % 11.6-14.4 PLATELET COUNT (BEAKER) (test fgwz=565) 183 K/CU MM 150-450 MEAN PLATELET VOLUME (BEAKER) (test jjmr=114) 9.4 fL 9.4-12.4 NUCLEATED RED BLOOD CELLS (BEAKER) (test ocnr=383) 0 /100 WBC 0-0 NEUTROPHILS RELATIVE PERCENT (BEAKER) (test zrru=985) 82 % LYMPHOCYTES RELATIVE PERCENT (BEAKER) (test qbhf=679) 8 % MONOCYTES RELATIVE PERCENT (BEAKER) (test fzwi=419) 9 % EOSINOPHILS RELATIVE PERCENT (BEAKER) (test noqg=710) 0 % BASOPHILS RELATIVE PERCENT (BEAKER) (test lllc=512) 1 % NEUTROPHILS ABSOLUTE COUNT (BEAKER) (test lxub=673) 6.89 K/ L 1.78-5.38 LYMPHOCYTES ABSOLUTE COUNT (BEAKER) (test uuzq=357) 0.68 K/ L 1.32-3.57 MONOCYTES ABSOLUTE COUNT (BEAKER) (test uyjx=525) 0.75 K/ L 0.30-0.82 EOSINOPHILS ABSOLUTE COUNT (BEAKER) (test jnfh=640) 0.00 K/ L 0.04-0.54 BASOPHILS ABSOLUTE COUNT (BEAKER) (test pgtu=865) 0.04 K/ L 0.01-0.08 IMMATURE GRANULOCYTES-RELATIVE PERCENT (BEAKER) (test strx=8544) 0 % 0-1 RAD, CHEST, 2 [id number] 11:58:00Reason for exam:->HEMOPTYSISFINAL REPORT Two views chest compared to July 10, 2017 Discussion: Sternal wires, left chest pacemaker are noted. Bilateral interstitial prominence is similar. There may be small right effusion. No pneumothorax. IMPRESSIONS: No significant change Signed: Marcial Cortes Verified Date/Time: 07/23/2017 11:58:05 Reading Location: [facility] Radiology Reading Room /APTT 2017-07-23 11:29:00* Test Item Value Reference Range Comments PROTIME (BEAKER) (test tpyk=309) 24.1 seconds 11.7-14.7 INR (BEAKER) (test rnlj=178) 2.2 <=5.9 PARTIAL THROMBOPLASTIN TIME (BEAKER) (test mthc=777) 51.8 seconds 22.5-36.0 RECOMMENDED COUMADIN/WARFARIN INR THERAPY RANGESSTANDARD DOSE: 2.0 - 3.0 Inclu charlie: PROPHYLAXIS for venous thrombosis, systemic embolization; TREATMENT for helena ous thrombosis and/or pulmonary embolus.HIGH RISK: Target INR is 2.5-3.5 for pat ients with mechanical heart valves.BASIC METABOLIC [id number] 11:28:00* Test Item Value Reference Range Comments SODIUM (BEAKER) (test ndql=622) 139 meq/L 136-145 POTASSIUM (BEAKER) (test jsdz=191) 4.1 meq/L 3.5-5.1 CHLORIDE (BEAKER) (test trya=881) 109 meq/L 98-107 CO2 (BEAKER) (test lxgd=911) 25 meq/L 22-29 BLOOD UREA NITROGEN (BEAKER) (test xqda=620) 29 mg/dL 7-21 CREATININE (BEAKER) (test pjdk=670) 2.10 mg/dL 0.57-1.25 GLUCOSE RANDOM (BEAKER) (test jhaj=088) 135 mg/dL 70-105 CALCIUM (BEAKER) (test fppz=873) 8.7 mg/dL 8.4-10.2 EGFR (BEAKER) (test vdbk=8749) 31 mL/min/1.73 sq m ESTIMATED GFR IS NOT ACCURATE CREATININE CLEARANCE IN PREDICTING GLOMERULAR FILTRATION RATE. ESTIMATED GFR IS NOT APPLICABLE FOR DIALYSIS PATIENTS. CBC W/PLT COUNT & AUTO [id number] 11:15:00* Test Item Value Reference Range Comments WHITE BLOOD CELL COUNT (BEAKER) (test spaw=354) 3.9 K/ L 3.5-10.5 RED BLOOD CELL COUNT (BEAKER) (test isug=768) 3.83 M/ L 4.63-6.08 HEMOGLOBIN (BEAKER) (test vmia=755) 11.0 GM/DL 13.7-17.5 HEMATOCRIT (BEAKER) (test pjra=869) 34.3 % 40.1-51.0 MEAN CORPUSCULAR VOLUME (BEAKER) (test unjy=956) 89.6 fL 79.0-92.2 MEAN CORPUSCULAR HEMOGLOBIN (BEAKER) (test frbw=017) 28.7 pg 25.7-32.2 MEAN CORPUSCULAR HEMOGLOBIN CONC (BEAKER) (test pdha=417) 32.1 GM/DL 32.3-36.5 RED CELL DISTRIBUTION WIDTH (BEAKER) (test kwya=801) 13.7 % 11.6-14.4 PLATELET COUNT (BEAKER) (test mkcn=853) 123 K/CU MM 150-450 MEAN PLATELET VOLUME (BEAKER) (test rhbr=089) 9.7 fL 9.4-12.4 NUCLEATED RED BLOOD CELLS (BEAKER) (test tgmb=633) 0 /100 WBC 0-0 NEUTROPHILS RELATIVE PERCENT (BEAKER) (test khra=629) 77 % LYMPHOCYTES RELATIVE PERCENT (BEAKER) (test lhvq=375) 12 % MONOCYTES RELATIVE PERCENT (BEAKER) (test ruqt=621) 10 % EOSINOPHILS RELATIVE PERCENT (BEAKER) (test uulz=667) 0 % BASOPHILS RELATIVE PERCENT (BEAKER) (test qovu=340) 1 % NEUTROPHILS ABSOLUTE COUNT (BEAKER) (test dxcp=964) 3.01 K/ L 1.78-5.38 LYMPHOCYTES ABSOLUTE COUNT (BEAKER) (test azno=276) 0.48 K/ L 1.32-3.57 MONOCYTES ABSOLUTE COUNT (BEAKER) (test pirb=870) 0.39 K/ L 0.30-0.82 EOSINOPHILS ABSOLUTE COUNT (BEAKER) (test tlir=628) 0.00 K/ L 0.04-0.54 BASOPHILS ABSOLUTE COUNT (BEAKER) (test kyua=211) 0.03 K/ L 0.01-0.08 IMMATURE GRANULOCYTES-RELATIVE PERCENT (BEAKER) (test knhr=0880) 0 % 0-1 RAD, CHEST, 2 [id number] 12:59:00Reason for Exam:->[id number] Hospital[facility]AL REPORT Chest, PA and lateral. History: Cough. Comparison: 12/04/2016. Discussion: Again identified is a combined pacemaker/defibrillator superimposed over the left chest with three intact leads extending to the heart. There are post surgical changes from prior sternotomy. There is a small right pleural effusion present, similar to the prior examination. The lungs are otherwise expanded without evidence of new focal consolidation or pneumothorax. There is a stable tiny nodule in the left midlung, likely representing granuloma. The cardiac silhouette is enlarged, unchanged. No acute osseous abnormalities are identified. The soft tissues are unremarkable. IMPRESSION: Small right pleural effusion, unchanged appearance from the prior examination from 12/04/2016. Otherwise, no acute cardiopulmonary process or significant interval change identified. Signed: Cesar Magalloneport Verified Date/Time: 07/10/2017 12:59:28 Reading Location: [address] Radiology Reading Room UE [id number] 08:54:00* Test Item Value Reference Range Comments LAB AP CPT CODE (BEAKER) (test mtgu=4992) 17582 [id number] 07:59:00* Test Item Value Reference Range Comments POTASSIUM (BEAKER) (test wxkl=490) 4.2 meq/L 3.5-5.1 [id number] 07:59:00* Test Item Value Reference Range Comments SODIUM (BEAKER) (test huvq=726) 139 meq/L 136-145 POTASSIUM (BEAKER) (test bidw=566) 4.2 meq/L 3.5-5.1 CHLORIDE (BEAKER) (test pyvh=104) 104 meq/L 98-107 CO2 (BEAKER) (test urwj=110) 22 meq/L 22-29 BUN AND [id number] 07:59:00* Test Item Value Reference Range Comments BLOOD UREA NITROGEN (BEAKER) (test lyam=785) 22 mg/dL 7-21 CREATININE (BEAKER) (test qrxg=869) 1.84 mg/dL 0.57-1.25 EGFR (BEAKER) (test tjdt=7441) 36 mL/min/1.73 sq m ESTIMATED GFR IS NOT ACCURATE CREATININE CLEARANCE IN PREDICTING GLOMERULAR FILTRATION RATE. ESTIMATED GFR IS NOT APPLICABLE FOR DIALYSIS PATIENTS. PT/[id number] 07:19:00* Test Item Value Reference Range Comments PROTIME (BEAKER) (test lkqe=420) 15.4 seconds 11.7-14.7 INR (BEAKER) (test itta=636) 1.2 <=5.9 PARTIAL THROMBOPLASTIN TIME (BEAKER) (test dvns=563) 45.5 seconds 22.5-36.0 RECOMMENDED COUMADIN/WARFARIN INR THERAPY RANGESSTANDARD DOSE: 2.0 - 3.0 Inclu charlie: PROPHYLAXIS for venous thrombosis, systemic embolization; TREATMENT for helena ous thrombosis and/or pulmonary embolus.HIGH RISK: Target INR is 2.5-3.5 for pat ients with mechanical heart valves.[id number] 15:19:00* Test Item Value Reference Range Comments SODIUM (BEAKER) (test hwnd=691) 139 meq/L 136-145 POTASSIUM (BEAKER) (test fgfc=164) 4.1 meq/L 3.5-5.1 CHLORIDE (BEAKER) (test izeo=235) 107 meq/L 98-107 CO2 (BEAKER) (test qwef=412) 23 meq/L 22-29 PROTHROMBIN TIME/[id number] 15:10:00* Test Item Value Reference Range Comments PROTIME (BEAKER) (test uiwt=497) 17.7 seconds 11.7-14.7 INR (BEAKER) (test bpvs=836) 1.5 <=5.9 RECOMMENDED COUMADIN/WARFARIN INR THERAPY RANGESSTANDARD DOSE: 2.0 - 3.0 Inclu charlie: PROPHYLAXIS for venous thrombosis, systemic embolization; TREATMENT for helena ous thrombosis and/or pulmonary embolus.HIGH RISK: Target INR is 2.5-3.5 for pat ients with mechanical heart valves.[id number] 15:06:00* Test Item Value Reference Range Comments HEMOGLOBIN (BEAKER) (test zmih=242) 12.3 GM/DL 13.0-16.8 PLATELET [id number] 15:06:00* Test Item Value Reference Range Comments PLATELET COUNT (BEAKER) (test eakb=147) 145 K/CU MM 150-430
[2018-12-20] MEDS ORDERED: SODIUM CHLORIDE 0.9% 500ML 500 ML ONE (18:38)
--- NOTE | 2018-12-20 19:10 | NUR ---
REPORT FROM AMARILYS; PT UPDATED ON PLAN OF CARE, FAMILY AND PT UNDERSTAND.. NO QUESTIONS AT THIS TIME
[2018-12-20 19:18] LABS: BASOPHILS # (AUTO) 0.1 (0.0-0.1); BASOPHILS % 0.7 % (0.0-1.0); HEMATOCRIT 34.7 % (38.2-49.6); HEMOGLOBIN 10.6 g/dL (14.0-18.0); LYMPHOCYTES # (AUTO) 1.2 (1.0-3.2); LYMPHOCYTES % 18.3 % (18.0-39.1); MEAN CORPUSCULAR HEMOGLOBIN 23.8 pg (28-32); MEAN CORPUSCULAR HGB CONC 30.5 g/dL (31-35); MONOCYTES # (AUTO) 0.8 (0.2-0.8); MONOCYTES % 11.2 % (4.4-11.3); NEUTROPHILS # (AUTO) 4.7 (2.1-6.9); NEUTROPHILS % 69.5 % (38.7-80.0); PLATELET COUNT 164 x10e3/uL (140-360); RED BLOOD COUNT 4.45 x10e6/uL (4.3-5.7); RED CELL DISTRIBUTION WIDTH 17.6 % (11.7-14.4)
[2018-12-20 19:26] LABS: CLARITY,URINE SL CLOUDY (CLEAR); COLOR,URINE YELLOW (YELLOW); LEUKOCYTE ESTERASE ,URINE TRACE (NEGATIVE)
[2018-12-20 19:27] LABS: AMPHETAMINES SCREEN,URINE NEGATIVE (NEGATIVE); BENZODIAZEPINES SCREEN,URINE POSITIVE (NEGATIVE); BILIRUBIN,URINE NEGATIVE (NEGATIVE); KETONES,URINE NEGATIVE (NEGATIVE); NITRITE,URINE NEGATIVE (NEGATIVE); PHENCYCLIDINE SCREEN,URINE NEGATIVE (NEGATIVE); PROTEIN,URINE DIPSTICK TRACE (NEGATIVE); URINE UROBILINOGEN 0.2 mg/dL (0.2 - 1)
[2018-12-20 19:33] LABS: ANION GAP 19.8 mmol/L (8-16); CALCIUM 8.7 mg/dL (8.4-10.2); CREATININE, SERUM 4.2 mg/dL (0.72-1.25); POTASSIUM 3.8 mmol/L (3.5-5.1)
--- NOTE | 2018-12-20 19:38 | Diagnostic Imaging Report ---
EXAMINATION: Head CT without contrast. HISTORY:Altered mental status. COMPARISON:None. TECHNIQUE: Multidetector axial images were obtained from the foramen magnum to the vertex without contrast. The images were reconstructed using brain and bone algorithms. Thin section brain images were reformatted into coronal and sagittal planes. Dose modulation, iterative reconstruction, and/or weight based adjustment of the mA/kV was utilized to reduce the radiation dose to as low as reasonably achievable. Intravenous contrast: None IMAGE QUALITY: Suboptimal evaluation of skull base and posterior fossa structures due to streak artifacts. FINDINGS: Skull/scalp: No lytic or blastic. lesions. No surgical changes. Parenchyma: Nonspecific bilateral frontoparietal confluent periventricular, subcortical and deep white matter hypodensity are likely related to small vessel ischemic changes. Cortical-based hypodensity in right inferior parietal lobule represents age indeterminate vascular insult. No acute hemorrhage, mass or acute major vascular territorial infarct. Arteries: No density suggestive of thrombosis. Atherosclerotic calcification in bilateral carotid siphon and V4 segment of the vertebral arteries. Dural sinuses: No abnormal density suggestive of thrombosis. Ventricles: Mild compensated dilatation due to volume loss. No acute hydrocephalus. Extra-axial spaces: Nonspecific mild prominence of the extra-axial space and left lateral aspect of posterior fossa may be related to volume loss. Brain volume: Generalized age-related cerebral volume loss. Craniocervical junction: No mass, Chiari malformation, or basilar invagination. Sella: No mass. Paranasal/mastoid sinuses: Moderate mucosal thickening in left ethmoid sinuses. IMPRESSION: 1. No acute intracranial abnormality, particularly no acute hemorrhage. 2. Age indeterminate possible chronic vascular insult in right inferior parietal lobule. 3. Advanced mild diffuse supratentorial white matter microvascular ischemic changes. 4. Generalized age-related cerebral volume loss. Signed by: Dr. Dana Duncan M.D. on 12/20/2018 7:34 PM
[2018-12-20 19:50] LABS: WBC,URINE (MAN) 0-5 /HPF (0-5)
[2018-12-20 19:51] LABS: EPITHELIAL CELLS,URINE FEW /LPF; RBC,URINE 21-50 /HPF (0-5)
[2018-12-20 23:45] VITALS: BP 95/53
[2018-12-21] VITALS (7 sets, daily range): BP systolic 90–126; BP diastolic 52–61
--- NOTE | 2018-12-21 | NUR ---
patient is a new admit that arrived via stretcher. patient is resting in bed. patient has been transferred onto the hospital bed. bed is in lowest position and call hartman is within reach. will continue to monitor patient.
--- NOTE | 2018-12-21 00:30 | NUR ---
Patients daughter not aware of complete list of medications that patients takes. Daughter states she will be able to get a copy of the medications in the morning. daughter will hand over med list to nurse once she has it.
--- NOTE | 2018-12-21 06:24 | NUR ---
MD answering service notified of routine consultation. Will pass on message to doctor. awaiting call back from MD.
--- NOTE | 2018-12-21 07:00 | NUR ---
Report given to day nurse. patient is resting comfortably in bed. bed is in lowest position and call hartman is within reach. will continue to monitor patient.
[2018-12-21 07:57] LABS: BASOPHILS # (AUTO) 0.1 (0.0-0.1); HEMATOCRIT 33.7 % (38.2-49.6); HEMOGLOBIN 10.1 g/dL (14.0-18.0); LYMPHOCYTES # (AUTO) 1.2 (1.0-3.2); LYMPHOCYTES % 19.4 % (18.0-39.1); MEAN CORPUSCULAR HEMOGLOBIN 23.7 pg (28-32); MEAN CORPUSCULAR VOLUME 78.9 fL (81-99); MONOCYTES # (AUTO) 0.7 (0.2-0.8); MONOCYTES % 11.3 % (4.4-11.3); PLATELET COUNT 155 x10e3/uL (140-360); RED BLOOD COUNT 4.27 x10e6/uL (4.3-5.7); RED CELL DISTRIBUTION WIDTH 17.9 % (11.7-14.4)
[2018-12-21 08:21] LABS: ALBUMIN 2.6 g/dL (3.5-5.0); ALBUMIN/GLOBULIN RATIO 0.7 (0.8-2.0); ANION GAP 17.6 mmol/L (8-16); CALCIUM 8.5 mg/dL (8.4-10.2); CREATININE, SERUM 4.53 mg/dL (0.72-1.25); POTASSIUM 3.6 mmol/L (3.5-5.1)
--- NOTE | 2018-12-21 08:30 | NUR ---
Received patient this morning, no pharmacologic orders in profile, call to attending to notify and call to consult this at this time to notify of consult. Waiting for call back, VSS and no c/o pains
[2018-12-21] MEDS: SODIUM CHLORIDE 0.9% 1000ML 1,000 ML IV SCH ×2 (10:30→23:50)
--- NOTE | 2018-12-21 10:37 | NUR ---
Rounds at this time by attending and orders in place.
--- NOTE | 2018-12-21 11:08 | NUR ---
Nutrition Screen Note RD Recommendation for Physician: Continue diet as ordered Plan of Care: RD following, monitoring for adequacy and tolerance Nutrition reason for involvement: Nutrition Risk Trigger Primary Diagnose(s):Acute on chronic renal failure Ht: 70in Wt:142lbs BMI:20.4 kg/m2 IBW:172lbs RD Assessment:(12/21/2018) Initial encounter with patient. Pt is reporting a good po intake. Pt denies any difficulty with nausea, vomiting or diarrhea nor has any difficulty chewing or swallowing. Pt has been diuresed and has lost a lot of fluid, but weight is typically stable. Current Diet: Cardiac Malnutrition Evaluation (12/21/2018) The patient does not meet criteria for a specified degree of malnutrition at this time. Will re-evaluate at follow-up as appropriate. Diet Education Needs Assessment: Diet education not indicated. Diet Adequacy: Meeting calorie needs, Meeting protein needs, Meeting fluid needs Tolerance: Tolerating PO Nutrition Care Level: Pineda Barillas RD, LD, CNSC
--- NOTE | 2018-12-21 12:56 | History and Physical ---
CHIEF COMPLAINT: Patient was admitted with altered mental status. HPI: Mr. Carrasco is an 83-year-old male who has dementia and is unable to give me any history. The source of history is patient's daughter. Patient has no previous admission here. All his care is [facility]. Patient has chronic kidney disease, congestive heart failure. He has pacemaker and AICD. He follows up at [facility] every week in [facility]. He currently is awake, alert, eating. Denies any chest pain, shortness of breath, nausea, vomiting. According to the daughter, patient was confused last night and took his 's medications along with his. He took metoprolol, Lyrica, and triamterene/hydrochlorothiazide along with his home medication and became increasingly somnolent and confused and was difficult to arouse. REVIEW OF SYSTEMS: Detailed review of systems cannot be elicited because of patient's dementia. PAST MEDICAL HISTORY: Hypertension, hyperlipidemia, chronic kidney disease, heart failure. FAMILY AND SOCIAL HISTORY: He does not smoke, does not drink. Lives with his . PHYSICAL EXAMINATION VITAL SIGNS: Temperature 98.2, pulse of 76, blood pressure 121/59, respiratory rate of 18. HEENT: Head atraumatic, normocephalic. NECK: Supple. CHEST: Clear to auscultation bilaterally. No wheezing. HEART: S1, S2 audible. No murmurs, gallops, or rub. Patient has a pacemaker. ABDOMEN: Soft, nontender, nondistended. EXTREMITIES: No peal edema. No clubbing, cyanosis, or edema. NEUROLOGIC: Awake, following commands, but is disoriented and not able to give me any history. LABS: White count of 5.9, hemoglobin 10.1, platelets 155. Chemistries; sodium 139, potassium 3.6, chloride 96, BUN 51, creatinine 4.53, AST 50. Brain CT was done in the emergency room, which is showing diffuse supratentorial white matter microvascular ischemic changes. ASSESSMENT/PLAN: Mr. Carrasco is an 83-year-old male with advanced dementia, possibly vascular dementia, has chronic kidney disease, congestive heart failure, has AICD, here because he took his 's medications which included Lyrica and triamterene/hydrochlorothiazide, and metoprolol. Patient became confused and hypotensive, so the family decided to bring him here. CURRENT PROBLEMS 1. Accidental overdose on medications, which now patient is awake, alert, and mental status is near baseline. Patient has underlying dementia. 2. Chronic kidney disease. According to the daughter, the baseline creatinine is between 2 and 2.5, and now the creatinine is 4.53. We will consult nephrology for further recommendations. In the meantime, I will start the patient on IV hydration. 3. Resume the home medications. 4. Patient will be discharged home if okay with nephrology as patient has chronic problem and has an excellent care in [facility]. He follows up with [facility] every week. Job#: [id number] LPA
[2018-12-21 13:04] LABS: CREATININE, SERUM 4.55 mg/dL (0.72-1.25)
--- NOTE | 2018-12-21 13:15 | NUR ---
Rounds by Nephrology and orders for urine culture
[2018-12-21] MEDS ORDERED: FISH OIL 1,0001 EAC2 PO (13:39)
[2018-12-21] MEDS ORDERED: POTASSIUM CHLO20 ME1 PO (13:39)
[2018-12-21] MEDS ORDERED: TORSEMIDE10 MG PO ×2 (13:39)
[2018-12-21] MEDS ORDERED: EXELON1 EACH TOP (13:39)
[2018-12-21] MEDS ORDERED: CARVEDILOL12.5 MG PO (13:39)
[2018-12-21] MEDS ORDERED: PANTOPRAZOLE SO40 MG PO (13:39)
[2018-12-21] MEDS ORDERED: NAMENDA10 MG PO ×2 (13:39→13:44)
[2018-12-21] MEDS ORDERED: SEROQUEL25 MG PO (13:39)
[2018-12-21] MEDS ORDERED: VITAMIN D1000 UNI1 PO (13:39)
[2018-12-21] MEDS ORDERED: IRON325 M1 PO (13:39)
[2018-12-21] MEDS ORDERED: ATORVASTATIN CA10 MG PO (13:39)
[2018-12-21] MEDS ORDERED: WARFARIN SODIUM3 MG PO (13:39)
--- NOTE | 2018-12-21 13:47 | NUR ---
Rounds by Dr. Ruelas and directed to re-start some of patient's meds, orders in place.
--- NOTE | 2018-12-21 14:00 | NUR ---
Orders per Dr. Ruelas to cancer 24 hour urine and renal U/S
--- NOTE | 2018-12-21 14:27 | Consultation ---
DATE OF CONSULTATION: December 21, 2018 This is a clinic patient of ours follows by associate Dr. Trudi Sanz. HISTORY OF PRESENT ILLNESS: This is an 83-year-old gentleman with significant history of coronary artery bypass surgery, aortic valve replacement, prior laparotomy, history of prostate enlargement, recent urinary tract infection with bacteremia, underlying Alzheimer's, and advanced kidney failure, who was brought in with altered mental status. Later on, it was found that patient accidentally took his 's Lyrica, triamterene, Lasix and variety of other medications besides his own. He is definitely a bit sleepy but arousable. He has got underlying Alzheimer's. He answers questions, follows commands to some extent. He denies any shortness of breath, chest pain, headache, or fever. ALLERGIES: HE HAS ALLERGIES TO LISINOPRIL. Currently, he is on normal saline 75 mL an hour. He has got a Gonzalez catheter, non-oliguric. LABS: Show sodium 139, potassium 3.6, bicarb 29, creatinine 4.5, hemoglobin 10.1. PHYSICAL EXAMINATION GENERAL: Awake, alert, lying supine, in no apparent distress. VITAL SIGNS: Blood pressure 90/52, pulse is 75, afebrile, and oxygen saturation 94% on room air. HEAD AND NECK: Arcus senilis noted. Conjunctivae clear. Oral mucosa moist. Neck veins not distended. LUNGS: Supine exam, but relatively clear. HEART: Prosthetic aortic valve sound with a loud S2, soft 2 to 3/6 ejection systolic murmur heard over left sternal border. No gallop. ABDOMEN: Otherwise soft, nontender. No hepatomegaly or visceromegaly. LOWER EXTREMITIES: Shows no edema. IMPRESSION AND PLAN: [id number]-[id number] kidney failure. Patient took Lyrica, diuretics, non-oliguric right now. Hemoglobin appears stable. No sign of infection. We will send a urine culture. Continue with IV normal saline. Hold off on all his home medications at this point in time. Discussed with daughter in detail who is here by bedside providing all the history. Discussed with RN. Please see orders. Job#: [id number] LPA
[2018-12-21] MEDS: MEMANTINE 10 MG TAB PO SCH (17:12)
[2018-12-21] MEDS: CARVEDILOL 12.5 MG TAB PO SCH (17:12)
[2018-12-21] MEDS: WARFARIN SOD 2 MG TAB PO SCH (17:12)
--- NOTE | 2018-12-21 19:00 | NUR ---
RECEIVED REPORT FROM DAY NURSE. PATIENT IS RESTING COMFORTABLY IN BED. BED IS IN LOWEST POSITION AND CALL FINN IS WITHIN REACH. WILL CONTINUE TO MONITOR PATIENT.
--- NOTE | 2018-12-21 20:00 | NUR ---
PATIENT HAS A TEMPERATURE OF 100.2. MD NOTIFIED. RECEIVED NEW ORDERS. WILL CONTINUE TO MONITOR PATIENT.
[2018-12-21] MEDS: ACETAMINOPHEN 325 MG TAB PO PRN (23:15)
[2018-12-22] VITALS (7 sets, daily range): BP systolic 114–156; BP diastolic 56–75
--- NOTE | 2018-12-22 04:04 | NUR ---
PATIENT'S IV HAS COME OUT. A NEW 22 GAUGE IV HAS BEEN STARTED IN PATIENTS RIGHT WRIST. PROCEDURE TOLERATED WELL. IV IS PATENT AND FLUID IS FLOWING.WILL CONTINUE TO MONITOR PATIENT.
[2018-12-22 05:05] LABS: BASOPHILS # (AUTO) 0.1 (0.0-0.1); BASOPHILS % 0.6 % (0.0-1.0); HEMATOCRIT 33.6 % (38.2-49.6); HEMOGLOBIN 10.3 g/dL (14.0-18.0); LYMPHOCYTES # (AUTO) 1.3 (1.0-3.2); LYMPHOCYTES % 16.7 % (18.0-39.1); MEAN CORPUSCULAR HEMOGLOBIN 23.8 pg (28-32); MEAN CORPUSCULAR HGB CONC 30.7 g/dL (31-35); MEAN CORPUSCULAR VOLUME 77.8 fL (81-99); MONOCYTES # (AUTO) 0.9 (0.2-0.8); MONOCYTES % 11.8 % (4.4-11.3); NEUTROPHILS # (AUTO) 5.6 (2.1-6.9); NEUTROPHILS % 70.5 % (38.7-80.0); PLATELET COUNT 157 x10e3/uL (140-360); RED BLOOD COUNT 4.32 x10e6/uL (4.3-5.7)
[2018-12-22 05:22] LABS: INR 2.26; PROTHROMBIN TIME 26.7 seconds (11.9-14.5)
[2018-12-22 05:35] LABS: ALBUMIN 2.6 g/dL (3.5-5.0); ALBUMIN/GLOBULIN RATIO 0.7 (0.8-2.0); ANION GAP 16.6 mmol/L (8-16); CALCIUM 8.3 mg/dL (8.4-10.2); CREATININE, SERUM 4.45 mg/dL (0.72-1.25); POTASSIUM 3.6 mmol/L (3.5-5.1)
--- NOTE | 2018-12-22 06:45 | NUR ---
DR MAIER'S ANSWERING SERVICE NOTIFIED OF ROUTINE CONSULTATION.
--- NOTE | 2018-12-22 07:01 | NUR ---
REPORT GIVEN TO DAY NURSE. PATIENT IS RESTING COMFORTABLY IN BED. BED IS IN LOWEST POSITION AND CALL FINN IS WITHIN REACH.
[2018-12-22] MEDS: CARVEDILOL 12.5 MG TAB PO SCH ×2 (09:03→16:45)
[2018-12-22] MEDS: MEMANTINE 10 MG TAB PO SCH ×2 (09:03→16:45)
[2018-12-22] MEDS: RIVASTIGMINE PATCH 4.6MG/24 HOURS PATCH TD SCH (09:03)
--- NOTE | 2018-12-22 11:00 | NUR ---
Rounds by attending at this time
--- NOTE | 2018-12-22 12:53 | NUR ---
Rounds by Nephrology and orders to replace Gonzalez cath with 16 FR.
--- NOTE | 2018-12-22 13:22 | Diagnostic Imaging Report ---
EXAMINATION: CHEST SINGLE (PORTABLE) INDICATION: Fever. COMPARISON: None FINDINGS: TUBES and LINES: Left-sided AICD with leads overlying the right atrium and right ventricle. LUNGS: There is central vascular congestion with mild interstitial and perihilar opacities. No evidence of lobar consolidation. PLEURA: No pleural effusion or pneumothorax. HEART AND MEDIASTINUM: There is mild prominence of the right hilum. Mild cardiomegaly. BONES AND SOFT TISSUES: No acute osseous lesion. Soft tissues are unremarkable. UPPER ABDOMEN: No free air under the diaphragm. IMPRESSION: Left-sided AICD, cardiomegaly, and mild interstitial edema. Mild perihilar opacity could represent vascular congestion, although superimposed pneumonia is possible in the appropriate clinical setting. Follow-up chest radiograph is recommended to assess for resolution. Signed by: Dr. Patricio Corrales MD on 12/22/2018 1:19 PM
[2018-12-22] MEDS ORDERED: LACTULOSE SYRUP 20 GM/30 ML UDC PO ONE (13:30)
--- NOTE | 2018-12-22 14:34 | NUR ---
CASE MANAGEMENT INITIAL ASSESSMENT Ada Accommodation Consultant to bedside to discuss plan of care with patient/family. CM/SW role and care transitions discussed. Anticipated discharge plan discussed along with duration of care. CM/SW discussed patients right to make decisions in care. CM/SW work hours given. Patient lives: [place] Admit/Transfer: ED Hospital/ER visits since last admit: [facility] POA/Emergency contact: DOREEN BENITEZ [phone] Current/Previous Home Health: CANNOT REMEMBER THE NAME OF THE COMPANY HE HAS. REQUESTED TO GET IT WHEN SHE GOES HOME PCP/Follow-up Care: DR. ZAPATA Current/Previous DME: HOSPITAL BED, WALKER, WHEELCHAIR Medications (referring to index hospitalization or the first time you were in the hospital) a. Were changes made in your medications when you were in the hospital on [date of index hospitalization]? X Yes No Not sure Explain: Note: If no or not sure, please skip to question d b. Did you understand the changes? XYes No Explain: c. Were you able to obtain your new medications right away? XYes No n/a SNF only Explain: d. Were you able to take your medications like the doctor wanted you to? X Yes No Explain: e. Did the hospital give you an accurate, easy to understand list of medications when you left? XYes No n/a SNF only Explain: Scale of 1-10 how comfortable does patient feel with disease management in outpatient settin (, NOT PT) Other Services: N/A Employment Status: RETIRED Areas of Concerns: THEY WOULD LIKE TO TRANSFER TO [facility] WHERE HIS PHYSICIANS ARE Referral Needs: N/A Education Needs: EDUCATED ON OLVERA LETTER IMM/OLVERA given and signed (if applicable): OLVERA Goal for discharge: TO RETURN HOME AND CONTINUE WITH HIS HOME HEALTH CM/SW left business card at the bedside with contact information. Name and number was also written on the patients whiteboard. Patient verbalized understanding of discussion. CM will follow-up with ongoing discharge and transition of care needs.
[2018-12-22] MEDS: SODIUM CHLORIDE 0.9% 1000ML 1,000 ML IV SCH (14:47)
[2018-12-22] MEDS: ACETAMINOPHEN 325 MG TAB PO PRN (15:04)
[2018-12-22] MEDS: WARFARIN SOD 2 MG TAB PO SCH (16:45)
[2018-12-22] MEDS: DOXYCYCLINE HYCLATE TABLET 100 MG TAB PO SCH (16:46)
--- NOTE | 2018-12-22 16:47 | NUR ---
Patient alert and responsive, VSS and provided with bed bath, pains well managed, call light within reach, notified attending of INR and ok to give Coumadin, will monitor.
--- NOTE | 2018-12-22 17:04 | NUR ---
Went into room and attempted to take out Gonzalez cath and patient screaming and refused not to be touched and doesn't want Gonzalez taken out. Reported to Dr. Ruelas and he stated to "leave him alone" if he doesn't want Gonzalez changed.
--- NOTE | 2018-12-22 19:33 | NUR ---
Dr. Rincon was called about gout medication. He prescribed 0.6 mg Cochizine PO daily.
[2018-12-22] MEDS: COLCHICINE 0.6 MG TAB PO SCH (21:06)
[2018-12-23] VITALS (7 sets, daily range): BP systolic 134–155; BP diastolic 66–69
[2018-12-23 06:05] LABS: BASOPHILS # (AUTO) 0.1 (0.0-0.1); BASOPHILS % 0.6 % (0.0-1.0); HEMATOCRIT 33.7 % (38.2-49.6); HEMOGLOBIN 10.3 g/dL (14.0-18.0); LYMPHOCYTES # (AUTO) 1.2 (1.0-3.2); LYMPHOCYTES % 15.7 % (18.0-39.1); MEAN CORPUSCULAR HEMOGLOBIN 23.7 pg (28-32); MEAN CORPUSCULAR HGB CONC 30.6 g/dL (31-35); MEAN CORPUSCULAR VOLUME 77.5 fL (81-99); MONOCYTES % 13.3 % (4.4-11.3); NEUTROPHILS # (AUTO) 5.5 (2.1-6.9); PLATELET COUNT 166 x10e3/uL (140-360); RED BLOOD COUNT 4.35 x10e6/uL (4.3-5.7); RED CELL DISTRIBUTION WIDTH 17.8 % (11.7-14.4)
[2018-12-23 06:43] LABS: ALBUMIN 2.4 g/dL (3.5-5.0); ALBUMIN/GLOBULIN RATIO 0.6 (0.8-2.0); ANION GAP 14.4 mmol/L (8-16); CALCIUM 8.3 mg/dL (8.4-10.2); CREATININE, SERUM 2.95 mg/dL (0.72-1.25); POTASSIUM 3.4 mmol/L (3.5-5.1)
--- NOTE | 2018-12-23 07:21 | NUR ---
Report given to oncoming nurse. Patient asleep in bed. No pain or distress. Call light within reach.
[2018-12-23] MEDS ORDERED: LIDOCAINE 5% PATCH TP SCH (09:00)
--- NOTE | 2018-12-23 10:12 | Diagnostic Imaging Report ---
EXAM: US ABDOMEN COMPLETE DATE: 12/23/2018 12:00 AM INDICATION: Alkaline phosphatase high COMPARISON: None TECHNIQUE: Transverse and longitudinal hernandez scale and color doppler sonographic images of the upper abdomen were obtained. FINDINGS: LIVER 15 cm in the right midclavicular line. Normal echogenicity, normal contour, no masses. SPLEEN 11.5 cm in maximum diameter. Normal echogenicity, no masses. GALLBLADDER Multiple calculi within the gallbladder. The wall is at the limits of normal in thickness measuring 0.3 cm, which may be partially attributable to underdistention. Negative sonographic Barber's sign. BILE DUCTS No intra nor extra-hepatic biliary dilation. Common bile duct measures 0.2 cm PANCREAS: Visualized portions are normal. RIGHT KIDNEY: 10.9 cm Echogenicity: Normal Collecting System: No hydronephrosis Stones: None Cyst/Mass: Small exophytic cyst measures 9 mm. LEFT KIDNEY: 7.3 cm Atrophic and poorly visualized. VESSELS: Aorta: Visualized portions are within normal size limits Inferior Vena Cava: Visualized portions are normal Main Portal Vein: 0.9 cm, normal size with hepatopetal flow. FREE FLUID: None Trace right pleural effusion. IMPRESSION: Cholelithiasis with upper normal gallbladder wall thickness, partially attributable to underdistention. Sonographic Barber sign is negative. If there is strong clinical concern for acute cholecystitis nuclear medicine hepatobiliary scan may be of benefit. Atrophic left kidney. Trace right pleural effusion. Signed by: Dr. Richie Rodriguez M.D. on 12/23/2018 10:08 AM
[2018-12-23] MEDS: COLCHICINE 0.6 MG TAB PO SCH (10:15)
[2018-12-23] MEDS: DOXYCYCLINE HYCLATE TABLET 100 MG TAB PO SCH (10:15)
[2018-12-23] MEDS: MEMANTINE 10 MG TAB PO SCH (10:15)
[2018-12-23] MEDS: RIVASTIGMINE PATCH 4.6MG/24 HOURS PATCH TD SCH (10:15)
[2018-12-23] MEDS: CARVEDILOL 12.5 MG TAB PO SCH (10:15)
--- NOTE | 2018-12-23 13:32 | NUR ---
FILED POST DISCHARGE STATUS FORM ON CHART TO RETURN HOME NO NEEDS AT THIS TIME
--- NOTE | 2018-12-23 14:19 | Discharge Summary ---
FINAL DIAGNOSES 1. Chronic kidney disease with acute worsening. 2. Accidental overdose on the patient's 's medications including Lyrica, triamterene and hydrochlorothiazide, and metoprolol. 3. Chronic indwelling Gonzalez. 4. Hypertension. 5. Gallstones on ultrasound of the abdomen. ADMISSION HISTORY AND HOSPITAL COURSE: Mr. Carrasco is an 83-year-old male who presented to the emergency room. He has dementia and accidentally took his 's medications. The daughter brought the patient home because he was difficult to arouse. He is awake and alert. Nephrology was consulted. Creatinine is down to 2.95 from 4.53, and the patient is feeling better. The patient had low-grade fever, and that is why ultrasound of the gallbladder was done, which is showing cholelithiasis. I had a detailed discussion with the patient's daughter. They want to go home and follow up with his own doctors. He has excellent care downtown with all specialties, and she will get him there to follow up with his physicians, and further treatment for cholelithiasis will be done there. I have discussed the case with Dr. Ruelas from nephrology, and he has cleared the patient for discharge. CHEMO SINGH MD Job#: [id number]
[2018-12-23] MEDS ORDERED: DOXYCYCLINE HY100 MG PO (15:03)
--- NOTE | 2018-12-23 16:45 | NUR ---
discharge instructions given to patient and family at this time, family verbalized understanding. IV discontinued at this time, IV catheter in tact and small dressing applied. Patient to be wheeled from floor via wheelchair to personal auto for family to take home.
== END 2018-12-23 16:44 | disposition home or self-care (01) ==
LOC: ER 16:53 → ERHOLD 12-21 00:03 → IMCU 12-21 00:20 → INTOOBSV 12-23 07:29 → OBSVTOIN 12-23 07:29
PROVIDERS: ADMIT Internal Medicine; ATTEND Internal Medicine
DX: T44.7X1A Poisoning by beta-adrenoreceptor antagonists, accidental (unintentional), initial encounter (principal); T42.6X1A Poisoning by other antiepileptic and sedative-hypnotic drugs, accidental (unintentional), initial encounter; T50.2X1A Poisoning by carbonic-anhydrase inhibitors, benzothiadiazides and other diuretics, accidental (unintentional), initial encounter; I13.0 Hypertensive heart and chronic kidney disease with heart failure and stage 1 through stage 4 chronic kidney disease, or unspecified chronic kidney disease; I50.9 Heart failure, unspecified; Z95.810 Presence of automatic (implantable) cardiac defibrillator; E78.5 Hyperlipidemia, unspecified; Y92.019 Unspecified place in single-family (private) house as the place of occurrence of the external cause; Z95.1 Presence of aortocoronary bypass graft; Z95.2 Presence of prosthetic heart valve; G30.9 Alzheimer's disease, unspecified; F02.80 Dementia in other diseases classified elsewhere, unspecified severity, without behavioral disturbance, psychotic disturbance, mood disturbance, and anxiety; N17.9 Acute kidney failure, unspecified; R53.81 Other malaise; N18.4 Chronic kidney disease, stage 4 (severe); K80.80 Other cholelithiasis without obstruction; Z88.8 Allergy status to other drugs, medicaments and biological substances
CPT/HCPCS: 36415 ×4; 70450; 71045; 76700; 80048; 80053 ×3; 80307; 81001; 82575; 82728; 83540; 84156; 84466; 84550; 85025 ×4; 85610; 85730; 87040; 87086; 93005; 96361; 97139; 99285; G0378 ×3; J7030 ×3; J7040; 96360

== ENCOUNTER → 2019-02-24 | Outpatient (CLI) | payer MEDICARE ==
[~2019-02-24] MED LIST: ATORVASTATIN CA10 MG PO; CARVEDILOL12.5 MG PO; DOXYCYCLINE HY100 MG PO; EXELON1 EACH TOP; FISH OIL 1,0001 EAC2 PO; IRON325 M1 PO; NAMENDA10 MG PO; PANTOPRAZOLE SO40 MG PO; POTASSIUM CHLO20 ME1 PO; SEROQUEL25 MG PO; TORSEMIDE10 MG PO; VITAMIN D1000 UNI1 PO; WARFARIN SODIUM3 MG PO
--- NOTE | 2019-02-24 11:13 | Diagnostic Imaging Report ---
Exam: Lumbar spine 3 views History: Low back pain Comparison: None. Findings: There are 5 nonrib-bearing lumbar-type vertebral bodies. Age-indeterminate mild anterior compression deformity of L2. Advanced disc space narrowing, endplate sclerosis and marginal osteophytosis at L2-3 with less severe changes at L5-S1. Bilateral facet arthropathy also at L5-S1. Extensive atherosclerotic vascular calcifications. Multiple upper abdominal surgical clips and radiopaque suture material. Sacroiliac joints are maintained. Sacral foramina appear intact superiorly. Inferiorly, the sacral body and coccyx are obscured by rectal gas and stool. Impression: Age-indeterminate mild anterior compression deformity of L2. Point tenderness over this region of the spine would suggest relative acuity. Advanced degenerative disc disease L2-L3 and L5-S1. Signed by: Dr. Richie Rodriguez M.D. on 02/24/2019 11:10 AM
--- NOTE | 2019-02-24 11:25 | Diagnostic Imaging Report ---
Exam: Bone mineral density study. History: Osteopenia. Comparison: None Discussion: Evaluation of the left hip, and lumbar spine was performed utilizing DEXA Hologic bone densitometer. The study is technically adequate. Left hip total bone mineral density: 0.570gm/cm2, T-score is -3.1, Z-score is -1.9. Left hip femoral neck bone mineral density: 0.480gm/cm2, T-score is -3.3, Z-score is -1.7. Lumbar spine total bone mineral density:0.936gm/cm2, T-score is-1.4, Z-score is -0.2. Impression: 1. Osteoporosis of the left hip, fracture risk is high 2. Osteopenia of the lumbar spine, fracture risk is increased Least significant change (LSC) for bone mineral density as provided by heavy mobile equipment operator is 0.023 g/cm2 for lumbar spine and 0.027 g/cm2 for total hip. 10 -year fracture risk per WHO Fracture Risk Assessment Tool (FRAX) for: Not reported because some T-scores at or below -2.5 The patient's fracture risk is compared to an age-matched control. Medical evaluation for secondary causes of low bone bone mineral density may be appropriate. Correlate clinically for the necessity and timing of the next bone mineral density study. Signed by: Dr. Mathew Dillon M.D. on 02/24/2019 11:22 AM
== END ==
LOC: DX 09:42
DX: M54.5 Low back pain (principal); M81.0 Age-related osteoporosis without current pathological fracture
CPT/HCPCS: 72100; 77080

== ENCOUNTER 2019-09-06 03:26 | Emergency (ER) | payer MEDICARE ==
[~2019-09-06] VITALS: Ht 177.8 cm; Wt 75.3 kg
== END 2019-09-06 04:08 | disposition home or self-care (01) ==
LOC: FSED 03:26
DX: R33.9 Retention of urine, unspecified (principal); I13.0 Hypertensive heart and chronic kidney disease with heart failure and stage 1 through stage 4 chronic kidney disease, or unspecified chronic kidney disease; N18.9 Chronic kidney disease, unspecified; I50.9 Heart failure, unspecified; C85.90 Non-Hodgkin lymphoma, unspecified, unspecified site; Z95.1 Presence of aortocoronary bypass graft; Z95.810 Presence of automatic (implantable) cardiac defibrillator; Z79.01 Long term (current) use of anticoagulants; Z95.2 Presence of prosthetic heart valve
CPT/HCPCS: 99282

== ENCOUNTER 2019-10-14 10:10 | Emergency (ER) | payer MEDICARE ==
[~2019-10-14] VITALS: Ht 177.8 cm; Wt 75.3 kg
== END 2019-10-14 11:16 | disposition home or self-care (01) ==
LOC: FSED 10:10
DX: N30.00 Acute cystitis without hematuria (principal); Z79.01 Long term (current) use of anticoagulants; Z95.2 Presence of prosthetic heart valve; Z95.1 Presence of aortocoronary bypass graft; Z95.810 Presence of automatic (implantable) cardiac defibrillator; I13.0 Hypertensive heart and chronic kidney disease with heart failure and stage 1 through stage 4 chronic kidney disease, or unspecified chronic kidney disease; I50.9 Heart failure, unspecified; N18.9 Chronic kidney disease, unspecified; G30.9 Alzheimer's disease, unspecified; F02.80 Dementia in other diseases classified elsewhere, unspecified severity, without behavioral disturbance, psychotic disturbance, mood disturbance, and anxiety
CPT/HCPCS: 99283

== ENCOUNTER 2019-12-19 20:27 | Emergency (ER) | payer MEDICARE | END 2019-12-19 20:54 | disposition left against medical advice (07) | LOC: FSED 20:27 | DX: Z46.6 Encounter for fitting and adjustment of urinary device (principal) ==

== ENCOUNTER 2019-12-24 18:02 | Emergency (ER) | payer MEDICARE ==
[~2019-12-24] VITALS: Ht 177.8 cm; Wt 75.3 kg
[2019-12-24] MEDS ORDERED: MUPIROCIN 2% OINT 22 GM TUBE TOP ONE (18:30)
[2019-12-24] MEDS ORDERED: TETANUS/DIPHTHERIA TOX ADULT 0.5 ML SYR IM STA (18:39)
[2019-12-24] MEDS ORDERED: SODIUM CHLORIDE 0.9% 500ML 500 ML IV STA (18:39)
[2019-12-24] MEDS ORDERED: CEFTRIAXONE SOD 1 GM VIAL IV ONE (18:45)
--- NOTE | 2019-12-24 18:51 | NUR ---
REPORT TO SHERRILL TRUONG ALL QUESTIONS ANSWERED
[2019-12-24] MEDS ORDERED: CEFTRIAXONE SOD 2 GM in SODIUM CHLORIDE 0.9% 100 ML IV NR (19:15)
[2019-12-24] MEDS ORDERED: BACITRACIN ZINC 0.9GM TP ONE (19:15)
[2019-12-24] MEDS ORDERED: SODIUM CHLORIDE 0.9% 500ML 500 ML ONE (19:16)
[2019-12-24] MEDS ORDERED: CEFTRIAXONE SOD 1 GM VIAL ONE (19:16)
[2019-12-24] MEDS ORDERED: TETANUS/DIPHTHERIA TOX ADULT 0.5 ML SYR ONE (19:17)
--- NOTE | 2019-12-24 19:21 | Diagnostic Imaging Report ---
EXAMINATION: Head CT HISTORY: Status post fall, laceration, unstable COMPARISON: Head CT from 12/20/2018 TECHNIQUE: Multidetector axial images were obtained without contrast from the foramen magnum to the vertex . The images were reconstructed using brain and bone algorithms. Thin section brain images were reformatted into coronal and sagittal planes. Image quality: Motion/streaking artifact limits the evaluation of the skull base and posterior cranial fossa. Dose modulation, iterative reconstruction, and/or weight based adjustment of the mA/kV was utilized to reduce the radiation dose to as low as reasonably achievable. Image quality: The very top part of the skull was not included in the [id number] as patient moved, grossly no abnormalities at this level and it isn't changed from recent head CT of 12/20/2018. FINDINGS: Parenchyma: 1. Unchanged moderate confluent supratentorial white matter chronic microvascular ischemic changes. Again noted right inferior parieto-occipital chronic cortical infarct. 2. No mass or hemorrhage. No CT evidence of acute territorial vascular insult. Extra-axial spaces:No abnormal density. No extra-axial fluid collections Brain volume: Normal for age. Ventricles: No hydrocephalus or displacement. Arteries: No density suggestive of thrombus. Dural sinuses: No abnormal density. Foramen magnum: No mass, Chiari malformation, or basilar invagination. Sella: No obvious mass. Paranasal/mastoid sinuses: Improved previously seen opacification of the left ethmoidal sinuses/nasal cavity. Skull/Scalp: No lytic or blastic lesions. No fractures. IMPRESSION: 1. No acute intracranial abnormalities, particularly no acute posttraumatic intracranial hemorrhage. 2. Unchanged moderate chronic microvascular ischemic changes and right inferior parieto-occipital chronic cortical infarct when compared to head CT of 12/20/2018. Signed by: Dr. Mandi Parish M.D. on 12/24/2019 7:18 PM
--- NOTE | 2019-12-24 19:30 | NUR ---
AND TECH IN TO REPAIR HEAD LAC.
--- NOTE | 2019-12-24 19:46 | NUR ---
PT SITTING IN WC WITH DAUGHTER AND AT HIS SIDE. NOTED PT IS [place]
--- NOTE | 2019-12-24 20:50 | NUR ---
AFTER DOC TO DOC. ORDERED REPEAT LACTIC ACID. BLOOD DRAWN AND RUN BY JULIA PENA.
--- NOTE | 2019-12-24 21:12 | NUR ---
iv completed, rocephin completed, pt requesting to go home, Dr Florence at bedside speaking with patient and family. Son states pt will stay in hospital at this time. will continue to monitor pt,
--- NOTE | 2019-12-24 21:44 | NUR ---
[facility] notified of transfer need, ETA given was 1.5 hrs or longer, Dr Florence requested different transfer ambulance. [facility] to be called.
[2019-12-24] MEDS ORDERED: SODIUM CHLORIDE 0.9% 1000ML 1,000 ML IV STA (21:47)
--- NOTE | 2019-12-24 21:52 | NUR ---
FAMILY AT BEDSIDE. BROUGHT FOOD FOR PT.
[2019-12-24 22:36] VITALS: BP 135/66
[2019-12-24] MEDS ORDERED: SODIUM CHLORIDE 0.9% 1000ML 1,000 ML ONE (22:44)
--- NOTE | 2019-12-24 22:59 | NUR ---
CHECKED LEG BAG FOR LEAKAGE AT EMS REQUEST. NO LEAKAGE NOTED. APPROX. 100ML IN BAG OF DARK TEA COLORED URINE.
== END 2019-12-24 22:49 | disposition other institution (70) ==
LOC: FSED 18:02
DX: S01.01XA Laceration without foreign body of scalp, initial encounter (principal); S61.412A Laceration without foreign body of left hand, initial encounter; W01.0XXA Fall on same level from slipping, tripping and stumbling without subsequent striking against object, initial encounter; Y92.008 Other place in unspecified non-institutional (private) residence as the place of occurrence of the external cause; I95.89 Other hypotension
CPT/HCPCS: 12002; 70450; 80048; 80053; 81003; 82553; 83880; 84484; 85025; 85610; 87040; 87086; 87186; 90471; 90714; 93005; 99284; J0696; J7030; J7040

== ENCOUNTER 2020-01-05 13:21 | Emergency (ER) | payer MEDICARE ==
[~2020-01-05] VITALS: Ht 172.7 cm; Wt 74.8 kg
--- NOTE | 2020-01-05 13:38 | NUR ---
{null, pt yelling in lobby, rude in room, cussing, "god damnit." pt using "hell." pt combative with physican. pt swiping at doctor. continues curising and non cooperative. }
== END 2020-01-05 13:42 | disposition home or self-care (01) ==
LOC: FSED 13:21
DX: Z48.02 Encounter for removal of sutures (principal)
CPT/HCPCS: 99283; S0630